=== PATIENT | female | born 1935 | race Caucasian/White ===

== ENCOUNTER → 2018-01-07 08:53 | Outpatient (CLI) | payer OTHER, SELFPAY ==
[2018-01-07 09:22] LABS: Abs Immature Grans 0.01 k/cumm (0.0-0.09); Absolute Basophil Count 0.05 k/cumm (0.0-0.2); Absolute Eosinophil Count 0.38 k/cumm (0.0-0.7); Absolute Monocyte Count 0.65 k/cumm (0.11-0.7); Absolute Neutrophil Count 6.96 k/cumm (1.2-6.7); Basophils % 0.5; HCT 35.3 % (36.0-46.0); HGB 11.4 g/dL (12.0-15.5); Immature Grans % 0.1; Lymphocytes % 14.8; Mean Corp. HGB Concentration 32.3 g/dL (32.0-36.0); Mean Corpuscular Hemoglobin 28.6 pg (27.0-33.0); Mean Corpuscular Volume 88.5 fL (80-95); Mean Platelet Volume 10.8 fL (8.0-11.0); Monocytes % 6.9; Neutrophils % 73.7; Platelet Count 165 x1000/uL (130-400); RBC 3.99 m/cumm (4.00-5.20); White Blood Cell Count 9.45 k/cumm (4.4-10.8)
[2018-01-07 10:12] LABS: ALT 22 U/L (12-78); AST 17 U/L (15-37); Albumin 3.2 g/dL (3.4-5.0); Alkaline Phosphatase 78 U/L (46-116); Anion Gap 10.6 mmol/L (3-11); BUN 23 mg/dL (7-18); Bilirubin, Total 0.5 mg/dL (0.2-1.0); CO2 26.4 mmol/L (21.0-32.0); CREATININE 1.67 mg/dL (0.55-1.02); Calcium 8.7 mg/dL (8.5-10.1); Chloride 107 mmol/L (98-107); Cholesterol 112 mg/dL (50-200); Estimated GFR 29.52 (mL/min/1.73m2); Glucose 270 mg/dL (70-100); HDL Cholesterol 35 mg/dL (40-60); LDL CHOLESTEROL 55 mg/dL (<100); Potassium 4.2 mmol/L (3.5-5.1); Sodium 144 mmol/L (136-145); Triglyceride 173 mg/dL (30-150)
[2018-01-07 10:50] LABS: COMMENT (LAB VIEW ONLY) 125.95 mg/dL; Microalb ug/mg Crea 487.7 ug/mg Cr
== END ==
PROVIDERS: PCP Nurse Practitioner Family; Visit Provider Nurse Practitioner
DX: E11.9 Type 2 diabetes mellitus without complications (principal); E78.5 Hyperlipidemia, unspecified; I10 Essential (primary) hypertension; I50.9 Heart failure, unspecified
CPT/HCPCS: 36415; 80053; 80061; 83721; 82043; 82570; 85025

== ENCOUNTER → 2018-01-10 13:36 | Outpatient (CLI) | payer OTHER, SELFPAY ==
--- NOTE | 2018-01-10 14:00 | DIABASSESS_ITS ---
DESCRIPTION: Chetna presents with her daughter for support for diabetes focused on food management. She has had an increase in A1c to 8.2. Chetna states she eats 4 toast with pb and banana for breakfast, or cereal and fruit. She snacks on 2 cereal bars and whatever is available throughout the day. She has meals on wheels daily and receives them frozen for the weekend. She doesn't often eat the salad so those are thrown away. She often does not like her meal. She goes to [employer] 1-2 days a week and she does enjoy this. SHe admits she does not et out of hunger, but likely boredom. Chetna documents her blood sugars and insulin dosing daily. She recognizes she misses testing her blood sugar at lunch and supper frequently. If she doesn' t test her blood sugars she does not take her insulin. Blood sugars 315=390. She does accurately dose insulin based on her insulin scale when she takes it. ASSESSMENT: Hyperglycemia secondary to not taking insulin as directed, high carbohydrate meals and frequent snacking as well as physical inactivity. INTERVENTION: MNT is provided based on patients interest and assessment of needs: Discussed breakfast choices and strategies to decrease food intake. Discussed insulin injection. ACTION PLAN: She agrees to eat 2 toast iwth PB in the morning and check her hunger. Her daughter agrees to move the granola bars so they are not visible. Her daughter will check in the evening to make sure she takes her supper insulin. Her construction executive will check to remind her to take her blood sugar and insulin dose at lunch when she is there. Chetna is receptive to the discussion and willing to try the suggestions above. Individual DSME/T ____ units billed TIME IN: OUT: No DM group education series being offered at this time.
== END ==
PROVIDERS: PCP Nurse Practitioner Family; Visit Provider Dietitian, Registered
DX: E11.9 Type 2 diabetes mellitus without complications (principal); Z79.4 Long term (current) use of insulin; Z71.3 Dietary counseling and surveillance
CPT/HCPCS: 97802

== ENCOUNTER 2018-03-31 09:19 | Emergency (ER) | payer OTHER, SELFPAY ==
[2018-03-31 09:29] VITALS: BP 173/67; PULSE 81; RESP 18; TEMP 36.7; O2SAT 97
--- NOTE | 2018-03-31 09:45 | W.ED.GENAD ---
Discharge Plan Disposition Patient Disposition: HOME Condition: Good Discharge Details Chief Complaint: RespSymp Clinical Impression: Cough Primary Care Provider: Catrina Nuñez ED Provider: Raghav Salazar Home Meds and New Rx's Prescriptions: New levofloxacin 750 mg tablet 750 mg PO DAILY Qty: 7 RF: 0 Continue multivitamin [Daily Vitamin] 1 EACH tablet 1 ea PO DAILY RF: 0 acetaminophen 500 MG tablet 500 mg PO BID RF: 0 amoxicillin 500 MG tablet 2 g PO ONCE RF: 0 aspirin [Aspirin Low-Strength] 81 MG tablet,chewable 81 mg PO DAILY RF: 0 calcium carbonate-vitamin D3 [Calcarb 600 With Vitamin D] 1 EACH tablet 1 ea PO BID RF: 0 lancets [Big Box OverstocksTouch UltraSoft Lancets] 1 EACH misc 1 ea Miscellaneous TID Qty: 90 RF: 6 chlorhexidine gluconate 480 ML mouthwash 15 ml Mucous Membrane BID Qty: 1 RF: 3 epinephrine [EpiPen 2-Ezekiel] 0.3 MG/0.3 ML auto-injector 0.3 mg IM see instructions Qty: 1 RF: 3 nitroglycerin 0.4 MG tablet, sublingual 0.4 mg Sublingual PRN Qty: 1 RF: 5 glucagon (human recombinant) [Glucagon Emergency Kit (human)] 1 MG kit 1 mg IJ PRN Qty: 1 RF: 0 omega-3 fatty acids-fish oil [Fish Oil] 1 EACH capsule 2 ea PO BID Qty: 360 RF: 3 budesonide-formoterol [Symbicort] 10.2 GM HFA aerosol inhaler 2 puff Inhalation BID Qty: 3 RF: 3 blood sugar diagnostic [OneTouch Ultra Test] 1 EACH strip 1 ea Miscellaneous QID Qty: 400 RF: 3 trazodone 50 MG tablet 50 mg PO HS PRNQty: 90 RF: 3 omeprazole 20 MG capsule,delayed release(DR/EC) 20 mg PO DAILY Qty: 90 RF: 3 gabapentin 100 MG capsule 100 - 200 mg PO HS PRNQty: 100 RF: 3 albuterol sulfate [ProAir HFA] 8.5 GM HFA aerosol inhaler 1 - 2 puff Inhalation Q6H PRN Qty: 3 RF: 11 insulin lispro [Humalog KwikPen Insulin] 100 UNIT/1 ML insulin pen 1 - 30 u Sub-Q AC Qty: 15 RF: 5 sucralfate [Carafate] 1 GM/10 ML suspension 1 g PO QID PRNQty: 1200 RF: 3 spironolactone 25 MG tablet 0.5 tab PO DAILY Qty: 45 RF: 3 Atorvastatin Calcium 20 MG tablet 20 mg PO DAILY Qty: 90 RF: 3 hydrocortisone 30 GM cream with perineal applicator 1 film Topical 2-4 times daily Qty: 1 RF: 0 isosorbide mononitrate 30 MG tablet extended release 24 hr 60 mg PO DAILY Qty: 180 RF: 3 losartan 50 MG tablet 25 mg PO DAILY Qty: 45 RF: 3 carvedilol 12.5 MG tablet 18.75 mg PO BID Qty: 270 RF: 3 furosemide [Lasix] 40 MG tablet 40 mg PO as directed Qty: 30 RF: 0 insulin glargine U-300 conc [Toujeo SoloStar U-300 Insulin] 300 UNIT/1 ML insulin pen AD see instructions Qty: 9 RF: 11 Varicella-Zoster Ge/As01b/Pf [Shingrix Vial Kit] 50 MCG INJ 50 mcg IM ONCE Qty: 1 RF: 1 pen needle, diabetic 31 gauge x 5/16 needle .ROUTE .MEDSUPPLY Qty: 500 RF: 3 fluticasone [Flonase Allergy Relief] 50 mcg/actuation spray,suspension 2 spray NS see instructions Qty: 1 RF: 12 loratadine 10 mg tablet 10 mg PO DAILY Qty: 90 RF: 3 Discontinued azithromycin 250 mg tablet See Label Instructions PO DAILY 5 Days Qty: 6 RF: 0 Discharge Instructions Additional Instructions: your xray and flu test were negative. Start taking levofloxacin and stop azithromycin follow up with your primary care provider within a week if you have worsening shortness of breath or high fevers return to the emergency department Medical Decision Making 82 yo female with hx of asthma/copd comes in with almost a month of cough, was on 3 days of prednisone last week and is on azithromycin now. Denies fevers but continues to have cough that is persistent and so came here. Denies fevers, has body aches. Will check for flu and obtain xray. HAs no chest pain unless she is coughing, no significant hypoxia, tachycardia or evidence of dvt so doubt pe at this time xray negative on my read and influenza test negative. Given this could be early cap and azithro would not be adequate coverage, will switch to levofloxacin, advised f/u with pcp and return precautions given Differential Diagnosis copd, pna, influenza, post nasal drip Imaging Data Radiologic Study: Attestation: I personally reviewed and interpreted this imaging study as follows: Imaging: X-Ray My impression: no acute findings Lab Data Lab results reviewed: Yes I reviewed the patient's lab results. HPI General Mode of arrival: ambulatory. Date/Time Provider Initiated Documentation: 03/31/18 09:27. Limitations to Documentation: no limitations. Information obtained by: patient. History of Present Illness 82 year old F presents to the emergency department with the chief complaint of cough, described as moderate, with intensity rated at 5. Patient reports no radiation. Patient started experiencing this day(s) (28) and it has been constant. No relieving factors improve symptom(s), No exacerbating factors reported . Related Data Home Medications Medication Instructions Recorded Confirmed acetaminophen 500 mg PO BID tab-cap 07/25/12 03/31/18 amoxicillin 2 g PO ONCE tab-cap 07/25/12 03/31/18 aspirin [Aspirin Low-Strength] 81 mg PO DAILY tab-cap 07/25/12 03/31/18 calcium carbonate-vitamin D3 1 ea PO BID 07/25/12 03/31/18 [Calcarb 600 With Vitamin D] multivitamin [Daily Vitamin] 1 ea PO DAILY 07/25/12 03/31/18 lancets [Big Box OverstocksTouch UltraSoft #90 ea 01/02/15 03/28/18 Lancets] chlorhexidine gluconate 15 ml MUCOUS MEMBRANE BID #1 bottle 04/04/15 03/31/18 epinephrine [EpiPen 2-Ezekiel] 0.3 mg IM see instructions #1 kit 08/17/15 03/31/18 glucagon (human recombinant) 1 mg IJ PRN #1 kit 10/28/15 03/31/18 [Glucagon Emergency Kit (human)] nitroglycerin 0.4 mg SUBLINGUAL PRN #1 bottle 10/28/15 03/31/18 omega-3 fatty acids-fish oil [Fish 2 ea PO BID #360 tab-cap 02/17/16 03/31/18 Oil] budesonide-formoterol [Symbicort] 2 puff INHALATION BID #3 inhaler 01/27/17 03/31/18 blood sugar diagnostic [OneTouch #400 strip 03/11/17 03/28/18 Ultra Test] omeprazole 20 mg PO DAILY #90 tab-cap 03/15/17 03/31/18 trazodone 50 mg PO HS PRN #90 tab-cap 03/15/17 03/31/18 albuterol sulfate [ProAir HFA] 1 - 2 puff INHALATION Q6H PRN #3 03/22/17 03/31/18 inhaler gabapentin 100 - 200 mg PO HS PRN #100 tab-cap 03/22/17 03/31/18 insulin lispro [Humalog KwikPen 1 - 30 u SUB-Q AC #15 pen 04/05/17 03/31/18 Insulin] sucralfate [Carafate] 1 g PO QID PRN #1200 ml 06/17/17 03/31/18 spironolactone 0.5 tab PO DAILY #45 tab 09/23/17 03/31/18 hydrocortisone 1 film TOPICAL 2-4 times daily #1 10/25/17 03/31/18 tube isosorbide mononitrate 60 mg PO DAILY #180 tab-cap 11/01/17 03/31/18 carvedilol 18.75 mg PO BID #270 tab-cap 11/22/17 03/31/18 losartan 25 mg PO DAILY #45 tab 11/22/17 03/31/18 furosemide [Lasix] 40 mg PO as directed #30 tab-cap 01/05/18 03/31/18 insulin glargine U-300 conc 0 AD see instructions #9 pen 01/12/18 03/28/18 [Toujeo SoloStar U-300 Insulin] pen needle, diabetic 31 gauge x #500 each 01/25/18 03/28/1810/06 fluticasone 50 mcg/actuation nasal 2 spray NS see instructions #1 unit 02/03/18 03/31/18 spray,suspension loratadine 10 mg tablet 10 mg PO DAILY #90 tab-cap 02/09/18 03/31/18 levofloxacin 750 mg PO DAILY #7 tab 03/31/18 Previous Rx's Medication Instructions Recorded blood sugar diagnostic [OneTouch #400 strip 03/11/17 Ultra Test] omeprazole 20 mg PO DAILY #90 tab-cap 03/15/17 albuterol sulfate [ProAir HFA] 1 - 2 puff INHALATION Q6H PRN #3 03/22/17 inhaler insulin lispro [Humalog KwikPen 1 - 30 u SUB-Q AC #15 pen 04/05/17 Insulin] spironolactone 0.5 tab PO DAILY #45 tab 09/23/17 hydrocortisone 1 film TOPICAL 2-4 times daily #1 10/25/17 tube isosorbide mononitrate 60 mg PO DAILY #180 tab-cap 11/01/17 carvedilol 18.75 mg PO BID #270 tab-cap 11/22/17 losartan 25 mg PO DAILY #45 tab 11/22/17 furosemide [Lasix] 40 mg PO as directed #30 tab-cap 01/05/18 pen needle, diabetic 31 gauge x #500 each 01/25/1810/06 fluticasone 50 mcg/actuation nasal 2 spray NS see instructions #1 unit 02/03/18 spray,suspension loratadine 10 mg tablet 10 mg PO DAILY #90 tab-cap 02/09/18 levofloxacin 750 mg PO DAILY #7 tab 03/31/18 Allergies Allergy/AdvReac Type Severity Reaction Status Date / Time GORDON Inhibitors AdvReac Unknown COUGH Verified 03/28/18 14:31 multiple food allergies Allergy Intermediate Sensitization Uncoded 03/28/18 14:31 noted on blood test General Stated Complaint: RespSymp ALON: 3 Review of Systems Review of Systems All systems reviewed & are unremarkable except as noted in HPI and below Constitutional Denies weakness Eyes Denies loss of vision ENT Denies change in voice Cardiovascular Denies chest pain and Denies dyspnea Respiratory Denies dyspnea Gastrointestinal Denies abdominal pain, Denies nausea and Denies vomiting Genitourinary Denies dysuria Musculoskeletal Denies joint swelling Integumentary/Breasts Denies rash Neurologic Denies loss of vision and Denies weakness Psychiatric Denies depression Endocrine Denies cold intolerance and Denies heat intolerance Allergic/Immunologic Denies urticaria PFSH Family History Mother Hypertensive disorder, systemic arterial Diabetes Atherosclerosis of coronary artery Family history of stroke Dementia Hyperlipidemia Family history of glaucoma Cataract Father No problems noted. 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) Retinopathy of both eyes (Chronic 01/27/17) Restrictive lung disease (Chronic) Osteoporosis (Chronic 07/28/11) Multiple food allergies (Chronic 08/14/15) Mitral valve regurgitation (Chronic 09/05/13) Memory impairment (Chronic 08/30/17) Hyperlipidemia, unspecified (Chronic 05/02/15) Essential hypertension (Chronic 12/16/11) Depression (Chronic 12/16/11) Congestive heart failure (Chronic 12/16/11) Chronic kidney disease, stage 4 (severe) (Chronic) 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/16) Chronic kidney disease, stage IV (severe) (Chronic 12/16/11) Arthritis (Chronic 12/16/11) Angina at rest (Chronic) PSVT (paroxysmal supraventricular tachycardia) (Inactive) CHF (congestive heart failure) CKD (chronic kidney disease) Diabetes mellitus HTN (hypertension) Social History Smoking/Tobacco Use Status: Former Tobacco Use Surgical History Extraction of cataract Hernia Repair, Incisional (~2010) Replacement of total knee joint Exam Const General: no acute distress Orientation: alert HENID Head: normal to inspection Ears: external ears normal General nose exam: external nose normal Mouth: moist mucous membranes Eyes General: appearance normal, both eyes and all related structures Neck Neck: normal visual inspection Resp Effort & Inspection: normal respiratory effort and able to speak in complete sentences Cardio Rate: regular rate Skin General skin exam: no rashes or lesions noted Neuro General: alert and oriented x3 Extrem General: normal to inspection Psych Mental Status: mental status grossly normal Course Vital Signs Temperature 36.7 C 03/31/18 09:29 Pulse 81 03/31/18 09:29 Respiratory Rate 18 03/31/18 09:29 Blood Pressure 173/67 H 03/31/18 09:29 Pulse Oximetry 97 03/31/18 09:29 Temperature 36.7 C 03/31/18 09:29 Temperature Source Temporal Artery Scan 03/31/18 09:29 Pulse 81 03/31/18 09:29 Respiratory Rate 18 03/31/18 09:29 Respiratory Effort Non-Labored 03/31/18 09:36 Blood Pressure 173/67 H 03/31/18 09:29 Blood Pressure Position Sitting 03/31/18 09:29 Pulse Oximetry 97 03/31/18 09:29 Oxygen Delivery Method Room Air 03/31/18 09:29 Oxygen Flow Rate 0 03/31/18 09:29
--- NOTE | 2018-03-31 09:49 | ED.GENADUL_ITS ---
Discharge Plan Disposition Patient Disposition: HOME Condition: Good Discharge Details Chief Complaint: RespSymp Clinical Impression: Cough Primary Care Provider: Catrina Nuñez ED Provider: Raghav Salazar Home Meds and New Rx's Prescriptions: New levofloxacin 750 mg tablet 750 mg PO DAILY Qty: 7 RF: 0 Continue multivitamin [Daily Vitamin] 1 EACH tablet 1 ea PO DAILY RF: 0 acetaminophen 500 MG tablet 500 mg PO BID RF: 0 amoxicillin 500 MG tablet 2 g PO ONCE RF: 0 aspirin [Aspirin Low-Strength] 81 MG tablet,chewable 81 mg PO DAILY RF: 0 calcium carbonate-vitamin D3 [Calcarb 600 With Vitamin D] 1 EACH tablet 1 ea PO BID RF: 0 lancets [Spill IncTouch UltraSoft Lancets] 1 EACH misc 1 ea Miscellaneous TID Qty: 90 RF: 6 chlorhexidine gluconate 480 ML mouthwash 15 ml Mucous Membrane BID Qty: 1 RF: 3 epinephrine [EpiPen 2-Ezekiel] 0.3 MG/0.3 ML auto-injector 0.3 mg IM see instructions Qty: 1 RF: 3 nitroglycerin 0.4 MG tablet, sublingual 0.4 mg Sublingual PRN Qty: 1 RF: 5 glucagon (human recombinant) [Glucagon Emergency Kit (human)] 1 MG kit 1 mg IJ PRN Qty: 1 RF: 0 omega-3 fatty acids-fish oil [Fish Oil] 1 EACH capsule 2 ea PO BID Qty: 360 RF: 3 budesonide-formoterol [Symbicort] 10.2 GM HFA aerosol inhaler 2 puff Inhalation BID Qty: 3 RF: 3 blood sugar diagnostic [OneTouch Ultra Test] 1 EACH strip 1 ea Miscellaneous QID Qty: 400 RF: 3 trazodone 50 MG tablet 50 mg PO HS PRNQty: 90 RF: 3 omeprazole 20 MG capsule,delayed release(DR/EC) 20 mg PO DAILY Qty: 90 RF: 3 gabapentin 100 MG capsule 100 - 200 mg PO HS PRNQty: 100 RF: 3 albuterol sulfate [ProAir HFA] 8.5 GM HFA aerosol inhaler 1 - 2 puff Inhalation Q6H PRN Qty: 3 RF: 11 insulin lispro [Humalog KwikPen Insulin] 100 UNIT/1 ML insulin pen 1 - 30 u Sub-Q AC Qty: 15 RF: 5 sucralfate [Carafate] 1 GM/10 ML suspension 1 g PO QID PRNQty: 1200 RF: 3 spironolactone 25 MG tablet 0.5 tab PO DAILY Qty: 45 RF: 3 Atorvastatin Calcium 20 MG tablet 20 mg PO DAILY Qty: 90 RF: 3 hydrocortisone 30 GM cream with perineal applicator 1 film Topical 2-4 times daily Qty: 1 RF: 0 isosorbide mononitrate 30 MG tablet extended release 24 hr 60 mg PO DAILY Qty: 180 RF: 3 losartan 50 MG tablet 25 mg PO DAILY Qty: 45 RF: 3 carvedilol 12.5 MG tablet 18.75 mg PO BID Qty: 270 RF: 3 furosemide [Lasix] 40 MG tablet 40 mg PO as directed Qty: 30 RF: 0 insulin glargine U-300 conc [Toujeo SoloStar U-300 Insulin] 300 UNIT/1 ML insulin pen AD see instructions Qty: 9 RF: 11 Varicella-Zoster Ge/As01b/Pf [Shingrix Vial Kit] 50 MCG INJ 50 mcg IM ONCE Qty: 1 RF: 1 pen needle, diabetic 31 gauge x 5/16 needle .ROUTE .MEDSUPPLY Qty: 500 RF: 3 fluticasone [Flonase Allergy Relief] 50 mcg/actuation spray,suspension 2 spray NS see instructions Qty: 1 RF: 12 loratadine 10 mg tablet 10 mg PO DAILY Qty: 90 RF: 3 Discontinued azithromycin 250 mg tablet See Label Instructions PO DAILY 5 Days Qty: 6 RF: 0 Discharge Instructions Additional Instructions: your xray and flu test were negative. Start taking levofloxacin and stop azithromycin follow up with your primary care provider within a week if you have worsening shortness of breath or high fevers return to the emergency department Medical Decision Making 82 yo female with hx of asthma/copd comes in with almost a month of cough, was on 3 days of prednisone last week and is on azithromycin now. Denies fevers but continues to have cough that is persistent and so came here. Denies fevers, has body aches. Will check for flu and obtain xray. HAs no chest pain unless she is coughing, no significant hypoxia, tachycardia or evidence of dvt so doubt pe at this time xray negative on my read and influenza test negative. Given this could be early cap and azithro would not be adequate coverage, will switch to levofloxacin, advised f/u with pcp and return precautions given Differential Diagnosis copd, pna, influenza, post nasal drip Imaging Data Radiologic Study: Attestation: I personally reviewed and interpreted this imaging study as follows: Imaging: X-Ray My impression: no acute findings Lab Data Lab results reviewed: Yes I reviewed the patient's lab results. HPI General Mode of arrival: ambulatory . Date/Time Provider Initiated Documentation: 03/31/18 09:27 . Limitations to Documentation: no limitations . Information obtained by: patient . History of Present Illness 82 year old F presents to the emergency department with the chief complaint of cough, described as moderate, with intensity rated at 5. Patient reports no radiation. Patient started experiencing this day(s) (28) and it has been constant. No relieving factors improve symptom(s), No exacerbating factors reported . Related Data Home Medications Medication Instructions Recorded Confirmed acetaminophen 500 mg PO BID tab-cap 07/25/12 03/31/18 amoxicillin 2 g PO ONCE tab-cap 07/25/12 03/31/18 aspirin [Aspirin Low-Strength] 81 mg PO DAILY tab-cap 07/25/12 03/31/18 calcium carbonate-vitamin D3 1 ea PO BID 07/25/12 03/31/18 [Calcarb 600 With Vitamin D] multivitamin [Daily Vitamin] 1 ea PO DAILY 07/25/12 03/31/18 lancets [Spill IncTouch UltraSoft #90 ea 01/02/15 03/28/18 Lancets] chlorhexidine gluconate 15 ml MUCOUS MEMBRANE BID #1 bottle 04/04/15 03/31/18 epinephrine [EpiPen 2-Ezekiel] 0.3 mg IM see instructions #1 kit 08/17/15 03/31/18 glucagon (human recombinant) 1 mg IJ PRN #1 kit 10/28/15 03/31/18 [Glucagon Emergency Kit (human)] nitroglycerin 0.4 mg SUBLINGUAL PRN #1 bottle 10/28/15 03/31/18 omega-3 fatty acids-fish oil [Fish 2 ea PO BID #360 tab-cap 02/17/16 03/31/18 Oil] budesonide-formoterol [Symbicort] 2 puff INHALATION BID #3 inhaler 01/27/1701/08 blood sugar diagnostic [OneTouch #400 strip 03/11/17 03/28/18 Ultra Test] omeprazole 20 mg PO DAILY #90 tab-cap 03/15/17 03/31/18 trazodone 50 mg PO HS PRN #90 tab-cap 03/15/17 03/31/18 albuterol sulfate [ProAir HFA] 1 - 2 puff INHALATION Q6H PRN #3 03/22/17 inhaler gabapentin 100 - 200 mg PO HS PRN #100 tab-cap 03/22/17 03/31/18 insulin lispro [Humalog KwikPen 1 - 30 u SUB-Q AC #15 pen 04/05/17 03/31/18 Insulin] sucralfate [Carafate] 1 g PO QID PRN #1200 ml 06/17/17 03/31/18 spironolactone 0.5 tab PO DAILY #45 tab 09/23/17 03/31/18 hydrocortisone 1 film TOPICAL 2-4 times daily #1 10/25/17 03/31/18 tube isosorbide mononitrate 60 mg PO DAILY #180 tab-cap 11/01/17 03/31/18 carvedilol 18.75 mg PO BID #270 tab-cap 11/22/17 03/31/18 losartan 25 mg PO DAILY #45 tab 11/22/17 03/31/18 furosemide [Lasix] 40 mg PO as directed #30 tab-cap 01/05/18 03/31/18 insulin glargine U-300 conc 0 AD see instructions #9 pen 01/12/18 03/28/18 [Toujeo SoloStar U-300 Insulin] pen needle, diabetic 31 gauge x #500 each 01/25/18 03/28/1810/06 fluticasone 50 mcg/actuation nasal 2 spray NS see instructions #1 unit 02/03/18 03/31/18 spray,suspension loratadine 10 mg tablet 10 mg PO DAILY #90 tab-cap 02/09/18 03/31/18 levofloxacin 750 mg PO DAILY #7 tab 03/31/18 Previous Rx's Medication Instructions Recorded blood sugar diagnostic [OneTouch #400 strip 03/11/17 Ultra Test] omeprazole 20 mg PO DAILY #90 tab-cap 03/15/17 albuterol sulfate [ProAir HFA] 1 - 2 puff INHALATION Q6H PRN #3 03/22/17 inhaler insulin lispro [Humalog KwikPen 1 - 30 u SUB-Q AC #15 pen 04/05/17 Insulin] spironolactone 0.5 tab PO DAILY #45 tab 09/23/17 hydrocortisone 1 film TOPICAL 2-4 times daily #1 10/25/17 tube isosorbide mononitrate 60 mg PO DAILY #180 tab-cap 11/01/17 carvedilol 18.75 mg PO BID #270 tab-cap 11/22/17 losartan 25 mg PO DAILY #45 tab 11/22/17 furosemide [Lasix] 40 mg PO as directed #30 tab-cap 01/05/18 pen needle, diabetic 31 gauge x #500 each 01/25/1810/06 fluticasone 50 mcg/actuation nasal 2 spray NS see instructions #1 unit 02/03/18 spray,suspension loratadine 10 mg tablet 10 mg PO DAILY #90 tab-cap 02/09/18 levofloxacin 750 mg PO DAILY #7 tab 03/31/18 Allergies Allergy/AdvReac Type Severity Reaction Status Date / Time GORDON Inhibitors AdvReac Unknown COUGH Verified 03/28/18 14:31 multiple food allergies Allergy Intermediate Sensitization Uncoded 03/28/18 14: 31 noted on blood test General Stated Complaint: RespSymp ALON: 3 Review of Systems Review of Systems All systems reviewed & are unremarkable except as noted in HPI and below Constitutional Denies weakness Eyes Denies loss of vision ENT Denies change in voice Cardiovascular Denies chest pain and Denies dyspnea Respiratory Denies dyspnea Gastrointestinal Denies abdominal pain, Denies nausea and Denies vomiting Genitourinary Denies dysuria Musculoskeletal Denies joint swelling Integumentary/Breasts Denies rash Neurologic Denies loss of vision and Denies weakness Psychiatric Denies depression Endocrine Denies cold intolerance and Denies heat intolerance Allergic/Immunologic Denies urticaria PFSH Family History Mother Hypertensive disorder, systemic arterial Diabetes Atherosclerosis of coronary artery Family history of stroke Dementia Hyperlipidemia Family history of glaucoma Cataract Father No problems noted. 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) Retinopathy of both eyes (Chronic 01/27/17) Restrictive lung disease (Chronic) Osteoporosis (Chronic 07/28/11) Multiple food allergies (Chronic 08/14/15) Mitral valve regurgitation (Chronic 09/05/13) Memory impairment (Chronic 08/30/17) Hyperlipidemia, unspecified (Chronic 05/02/15) Essential hypertension (Chronic 12/16/11) Depression (Chronic 12/16/11) Congestive heart failure (Chronic 12/16/11) Chronic kidney disease, stage 4 (severe) (Chronic) 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 ) Chronic kidney disease, stage IV (severe) (Chronic 12/16/11) Arthritis (Chronic 12/16/11) Angina at rest (Chronic) PSVT (paroxysmal supraventricular tachycardia) (Inactive) CHF (congestive heart failure) CKD (chronic kidney disease) Diabetes mellitus HTN (hypertension) Social History Smoking/Tobacco Use Status: Former Tobacco Use Surgical History Extraction of cataract Hernia Repair, Incisional (~2010) Replacement of total knee joint Exam Const General: no acute distress Orientation: alert HENWI Head: normal to inspection Ears: external ears normal General nose exam: external nose normal Mouth: moist mucous membranes Eyes General: appearance normal, both eyes and all related structures Neck Neck: normal visual inspection Resp Effort & Inspection: normal respiratory effort and able to speak in complete sentences Cardio Rate: regular rate Skin General skin exam: no rashes or lesions noted Neuro General: alert and oriented x3 Extrem General: normal to inspection Psych Mental Status: mental status grossly normal Course Vital Signs Temperature 36.7 C 03/31/18 09:29 Pulse 81 03/31/18 09:29 Respiratory Rate 18 03/31/18 09:29 Blood Pressure 173/67 H 03/31/18 09:29 Pulse Oximetry 97 03/31/18 09:29 Temperature 36.7 C 03/31/18 09:29 Temperature Source Temporal Artery Scan 03/31/18 09:29 Pulse 81 03/31/18 09:29 Respiratory Rate 18 03/31/18 09:29 Respiratory Effort Non-Labored 03/31/18 09:36 Blood Pressure 173/67 H 03/31/18 09:29 Blood Pressure Position Sitting 03/31/18 09:29 Pulse Oximetry 97 03/31/18 09:29 Oxygen Delivery Method Room Air 03/31/18 09:29 Oxygen Flow Rate 0 03/31/18 09:29
--- NOTE | 2018-03-31 10:06 | DI.RAD_ITS ---
SYMPTOM/DIAGNOSIS: COUGH PA AND LATERAL CHEST: There is no infiltrate. There is no pleural effusion. The cardiovascular structures are intact. Pacing wires are in stable position when compared with previous images. IMPRESSION: No evidence of an acute abnormality.
[2018-03-31 10:50] VITALS: BP 160/54; PULSE 79; RESP 18; TEMP 36.7; O2SAT 97
[2018-03-31 10:55] VITALS: BP 160/54; PULSE 79; RESP 18; TEMP 36.7; O2SAT 97
== END 2018-03-31 10:54 | disposition home or self-care (01) ==
PROVIDERS: Emergency Provider Emergency Medicine; PCP Nurse Practitioner Family
DX: R05 Cough (principal); I50.9 Heart failure, unspecified; I13.10 Hypertensive heart and chronic kidney disease without heart failure, with stage 1 through stage 4 chronic kidney disease, or unspecified chronic kidney disease; N18.9 Chronic kidney disease, unspecified; E11.9 Type 2 diabetes mellitus without complications; Z79.4 Long term (current) use of insulin; Z87.891 Personal history of nicotine dependence
CPT/HCPCS: 87449; 99283; 71046

== ENCOUNTER 2018-09-09 11:00 | Outpatient (CLI) | payer OTHER, SELFPAY ==
--- NOTE | 2018-09-09 13:30 | DI.RAD_ITS ---
SYMPTOMS/DIAGNOSIS: DELAYED PAIN, S/P FALL, ? FX, M25.062 LEFT HIP AND PELVIS: Three views were obtained. There is narrowing of the cartilaginous joint space of the left hip and also to a lesser degree of the right hip. There are hypertrophic changes of the acetabula and femoral heads. There is no evidence of acute hip fracture.
== END 2018-09-09 11:20 ==
PROVIDERS: PCP Nurse Practitioner Family; Visit Provider Nurse Practitioner Family
DX: M25.552 Pain in left hip (principal); Z91.81 History of falling
CPT/HCPCS: 73502

== ENCOUNTER 2019-06-22 13:07 | Outpatient (CLI) | payer OTHER, SELFPAY ==
[2019-06-22 14:08] LABS: COMMENT (LAB VIEW ONLY) 183.39 mg/dL
[2019-06-22 14:10] LABS: Microalb ug/mg Crea 410.3 ug/mg Cr
[2019-06-22 14:21] LABS: Anion Gap 6.7 mmol/L (3-11); BUN 33 mg/dL (7-18); CO2 30.3 mmol/L (21.0-32.0); CREATININE 1.59 mg/dL (0.55-1.02); Calcium 9.5 mg/dL (8.5-10.1); Calculated LDL 38 mg/dL (<100); Chloride 108 mmol/L (98-107); Cholesterol 116 mg/dL (<200); Estimated GFR 31.16 (mL/min/1.73m2); Glucose 105 mg/dL (74-106); HDL Cholesterol 35 mg/dL (40-60); Potassium 3.8 mmol/L (3.5-5.1); Sodium 145 mmol/L (136-145); Triglyceride 219 mg/dL (<150)
== END 2019-06-22 13:27 ==
PROVIDERS: PCP Nurse Practitioner Family; Visit Provider Nurse Practitioner Family
DX: E78.5 Hyperlipidemia, unspecified; E11.319 Type 2 diabetes mellitus with unspecified diabetic retinopathy without macular edema; Z79.4 Long term (current) use of insulin
CPT/HCPCS: 36415; 80048; 80061; 82043; 82570

== ENCOUNTER 2019-06-22 15:18 | Outpatient (CLI) | payer OTHER, SELFPAY ==
--- NOTE | 2019-06-22 15:23 | DI.RAD_ITS ---
EXAM: XR ABDOMEN FLAT PLATE CLINICAL HISTORY: assess bowel/gas pattern,concerned constipation,diarrhea,abd distention TECHNIQUE: COMPARISON: No exams were available for comparison FINDINGS: Two views were obtained. There vascular clips in right upper quadrant consistent with prior cholecys tectomy. Bowel gas pattern is within normal limits. No gross organomegaly. IMPRESSION: Unremarkable examination of the abdomen.
== END 2019-06-22 15:38 ==
PROVIDERS: PCP Nurse Practitioner Family; Visit Provider Nurse Practitioner Adult Health
DX: R14.0 Abdominal distension (gaseous) (principal); R19.7 Diarrhea, unspecified; Z90.49 Acquired absence of other specified parts of digestive tract
CPT/HCPCS: 74018

== ENCOUNTER 2019-11-13 00:46 | Outpatient (CLI) | payer OTHER, SELFPAY ==
--- NOTE | 2019-11-13 13:45 | DI.RAD_ITS ---
EXAM: XR KNEE RT 3V AP,LAT,SUN CLINICAL HISTORY: S/P FALL M25.561 PAIN RT KNEE. TECHNIQUE: 2D digital imaging was performed. COMPARISON: CR KNEES BILAT AP LATERALS from 06/27/2014 CR XR ABDOMEN FLAT PLATE from 06/22/2019 FINDINGS: There are again seen postsurgical changes of a right total knee replacement. The orthopedic hardware appears in good position. The bones are intact. Vascular calcifications are seen in the soft tissu es. IMPRESSION: Stable right TKR. DATA REPOSITORY: RADIATION DOSE DELIVERED:
--- NOTE | 2019-11-13 13:45 | DI.RAD_ITS ---
EXAM: XR HIP RT COMPLETE AP PELVIS INDICATION: S/P FALL M25.551, PAIN RT HIP. COMPARISON: No exams were available for comparison TECHNIQUE: 2D digital imaging was performed. FINDINGS: In the right hip, [id number] degenerative changes are present with joint space narrowing and taylor bchondral sclerosis. Similar findings are seen in the left hip. No acute fracture or dislocation is seen. Moderately severe degenerative changes are seen in the lower lumbar spine. The soft tissues are unremarkable. IMPRESSION: Osteoarthritis of the hips and spine. DATA REPOSITORY: RADIATION DOSE DELIVERED:
== END 2019-11-13 01:06 ==
PROVIDERS: PCP Nurse Practitioner Family; Visit Provider Nurse Practitioner Family
DX: M25.561 Pain in right knee (principal); Z96.651 Presence of right artificial knee joint; M25.551 Pain in right hip; M16.0 Bilateral primary osteoarthritis of hip; M47.816 Spondylosis without myelopathy or radiculopathy, lumbar region
CPT/HCPCS: 73562; 73502

== ENCOUNTER 2019-12-08 22:19 | Outpatient (REF) | payer OTHER, SELFPAY ==
[2019-12-08 22:40] LABS: Abs Immature Grans 0.02 k/cumm (0.0-0.09); Absolute Basophil Count 0.03 k/cumm (0.0-0.2); Absolute Eosinophil Count 0.27 k/cumm (0.0-0.7); Absolute Lymphocyte Count 2.03 k/cumm (1.2-3.4); Absolute Monocyte Count 0.83 k/cumm (0.11-0.7); Absolute Neutrophil Count 8.05 k/cumm (1.2-6.7); Basophils % 0.3; Eosinophils % 2.4; HCT 32.7 % (36.0-46.0); HGB 9.8 g/dL (12.0-15.5); Immature Grans % 0.2 %; Lymphocytes % 18.1; Mean Corpuscular Hemoglobin 25.3 pg (27.0-33.0); Mean Corpuscular Volume 84.5 fL (80-95); Monocytes % 7.4; Neutrophils % 71.6; Platelet Count 229 x1000/uL (130-400); RBC 3.87 m/cumm (4.00-5.20); RBC Distribution Width 14.2 % (11.7-14.6); White Blood Cell Count 11.24 k/cumm (4.4-10.8)
[2019-12-08 22:53] LABS: ALT 18 U/L (14-59); AST 19 U/L (15-37); Albumin 3.5 g/dL (3.4-5.0); Alkaline Phosphatase 69 U/L (46-116); Anion Gap 10.1 mmol/L (3-11); BUN 36 mg/dL (7-18); Bilirubin, Total 0.3 mg/dL (0.2-1.0); CO2 25.9 mmol/L (21.0-32.0); CREATININE 1.85 mg/dL (0.55-1.02); Calcium 9.1 mg/dL (8.5-10.1); Chloride 107 mmol/L (98-107); Glucose 116 mg/dL (74-106); Lipase 341 U/L (73-393); Potassium 4.2 mmol/L (3.5-5.1); Sodium 143 mmol/L (136-145)
== END 2019-12-08 22:39 ==
LOC: LBN 22:19
PROVIDERS: PCP Nurse Practitioner Family; Visit Provider Nurse Practitioner Family
DX: R19.7 Diarrhea, unspecified (principal)
CPT/HCPCS: 80053; 83690; 85025

== ENCOUNTER 2019-12-11 09:18 | Outpatient (REF) | payer OTHER, SELFPAY ==
[2019-12-12 12:00] LABS: Campylobacter PCR Negative (Negative); Salmonella PCR Negative (Negative); Shiga Toxin PCR Negative (Negative); Shigella/Enteroinvasive Ecoli Negative (Negative)
== END 2019-12-11 09:38 ==
LOC: LBN 09:18
PROVIDERS: PCP Nurse Practitioner Family; Visit Provider Nurse Practitioner Family
DX: R19.7 Diarrhea, unspecified (principal)
CPT/HCPCS: 87505; 83630; 87324

== ENCOUNTER 2019-12-12 01:14 | Outpatient (CLI) | payer OTHER, SELFPAY ==
--- NOTE | 2019-12-12 07:43 | DI.CT_ITS ---
EXAM: CT ABDOMEN PELVIS WO CLINICAL HISTORY: abd pain change bowel habit with heme pos stool. TECHNIQUE: Imaging Protocol: Axial computed tomography images with coronal and sagittal reformatted images were created and reviewed. COMPARISON: No exams were available for comparison FINDINGS: ABDOMEN: Lung Bases: Cardiac pacing wires are present. Liver: Normal density. No measurable mass. Liver has a lobulated contour suspicious for hepatic cirrh osis. Gallbladder and biliary tract: Status post cholecystectomy. No biliary ductal dilatation. Pancreas: Normal density, no abnormal calcifications or inflammatory process. Spleen: Normal. Kidneys: Normal size, contour and axis.Punctate calcifications seen in each kidney which may represen t nonobstructing stones. Hypodense cortical lesions bilaterally. They are too small for further renetta racterization on this noncontrast examination. Likely reflect small cysts. Adrenal glands: 1 cm hypodense left adrenal nodule likely reflecting an adenoma. Right adrenal gland is unremarkable. Lymph nodes: Within normal limits. Abdominal Aorta: Abdominal portion non-dilated. Atherosclerosis. PELVIS: Bladder:Symmetric distention, no gross wall thickening. Bowel: No obstruction or bowel wall thickening. No evidence of acute appendicitis. A few scattered c olonic diverticula but no evidence of acute diverticulitis. No pericolonic inflammatory changes. Peritoneal cavity: No ascites, collection or mesenteric inflammatory response Reproductive organs: There is a 5.5 x 4.6 cm cystic and solid left adnexal mass. Bones: Degenerative changes are present in the spine. Soft Tissues: There are 2 small fat containing supraumbilical anterior abdominal wall hernia. IMPRESSION: 1. 5.5 x 4.6 cm complex left adnexal mass which may be ovarian in origin. Neoplasm should be exclude d. Pelvic ultrasound or pelvic MRI may be considered for further evaluation. 2. Lobulated contour of the liver suspicious for hepatic cirrhosis. 3. Colonic diverticula but no evidence of acute diverticulitis or bowel obstruction. 4. Additional findings in the abdomen and pelvis as described above. RADIATION DOSE DELIVERED: Total DLP DATA REPOSITORY: All CT scans at this facility are submitted to the National Radiology Data Registry (NRDR) Dose Index Registry (DIR) with the [employer] (A[employer]). RADIATION OPTIMIZATION: All CT scans at this facility use at least one of these dose optimization te chniques: automated exposure control; mA and/or kV adjustment per patient size (includes targeted exa ms where dose is matched to clinical indication); or iterative reconstruction.
[2019-12-12] MEDS: Breeza Beverage 473 ML BTL PO ×2 (09:58→09:59)
[2019-12-12] MEDS: Omnipaque 350 MG/ML 50 ML BTL PO (09:58)
== END 2019-12-12 01:34 ==
PROVIDERS: PCP Nurse Practitioner Family; Visit Provider Nurse Practitioner Family
DX: R11.2 Nausea with vomiting, unspecified (principal); R19.7 Diarrhea, unspecified; R10.9 Unspecified abdominal pain; R19.5 Other fecal abnormalities; N83.8 Other noninflammatory disorders of ovary, fallopian tube and broad ligament; K76.89 Other specified diseases of liver
CPT/HCPCS: 74176; Q9967

== ENCOUNTER 2019-12-20 02:41 | Outpatient (RCR) | payer OTHER, SELFPAY ==
[2019-12-20] MEDS: IRON SUCROSE COMPLEX 300 MG in Normal Saline 250 ML 176.667 MG IVPB (12:54)
[2019-12-20] MEDS: Normal Saline Flush 10 ML SYR IVP (12:58)
== END 2019-12-22 23:59 | disposition home or self-care (01) ==
LOC: INF 02:41
PROVIDERS: PCP Nurse Practitioner Family; Visit Provider Internal Medicine
DX: N18.4 Chronic kidney disease, stage 4 (severe) (principal); D63.1 Anemia in chronic kidney disease
CPT/HCPCS: 96365; 96366; J1756

== ENCOUNTER 2020-01-03 02:12 | Outpatient (RCR) | payer OTHER, SELFPAY ==
[2019-12-27] MEDS: IRON SUCROSE COMPLEX 300 MG in Normal Saline 250 ML 176.667 MG IVPB (13:17)
[2019-12-27] MEDS: Normal Saline Flush 10 ML SYR IVP (13:17)
[2020-01-03] MEDS: Normal Saline Flush 10 ML SYR IVP (13:23)
[2020-01-03] MEDS: IRON SUCROSE COMPLEX 300 MG in Normal Saline 250 ML 176.667 MG IVPB (13:40)
== END 2020-01-22 23:59 | disposition home or self-care (01) ==
LOC: INF 02:12
PROVIDERS: PCP Nurse Practitioner Family; Visit Provider Internal Medicine
DX: N18.4 Chronic kidney disease, stage 4 (severe) (principal); D63.1 Anemia in chronic kidney disease; D50.9 Iron deficiency anemia, unspecified
CPT/HCPCS: 96365; 96366; J1756

== ENCOUNTER 2020-02-29 00:22 | Outpatient (CLI) | payer OTHER, SELFPAY ==
--- NOTE | 2020-02-29 08:15 | DI.US_ITS ---
EXAM: US PELVIS TRANSVAGINAL CLINICAL HISTORY: Further eval L ovarian mass,N94.89, ADNEXAL MASS TECHNIQUE: Ultrasound performed using standard protocol. COMPARISON: US RENAL ULTRASOUND from 12/25/2011 FINDINGS: Pelvic ultrasound was performed transabdominally and transvaginally. Right ovary was nonvisualized. Uterus is 69 x 30 x 44 millimeters in diameter. The endometrial stri pe is 6 millimeters in thickness and appears fairly homogeneous. Left ovary contains 71 x 44 x 37 millimeter in diameter predominantly cysts cystic mixed echogenicity mass with thick septations and question mural nodularity. Findings are indeterminate for malignancy in this age group. Biopsy recommended. IMPRESSION: Suspicious left ovarian mixed echogenicity mass, biopsy recommended to evaluate the possibility of ma lignancy. Mildly thickened endometrial stripe in a postmenopausal patient, endometrial biopsy should be conside red as well. DATA REPOSITORY:
== END 2020-02-29 00:42 ==
PROVIDERS: PCP Nurse Practitioner Family; Visit Provider Nurse Practitioner Family
DX: N83.292 Other ovarian cyst, left side (principal); N94.89 Other specified conditions associated with female genital organs and menstrual cycle
CPT/HCPCS: 76830; 76856

== ENCOUNTER → 2020-03-18 14:27 | Outpatient (BNVA) | payer OTHER, SELFPAY | PROVIDERS: PCP Nurse Practitioner Family; Referring Provider Nurse Practitioner Family; Visit Provider Surgery | DX: D50.9 Iron deficiency anemia, unspecified (principal); R11.0 Nausea; I13.0 Hypertensive heart and chronic kidney disease with heart failure and stage 1 through stage 4 chronic kidney disease, or unspecified chronic kidney disease; N18.4 Chronic kidney disease, stage 4 (severe); I50.9 Heart failure, unspecified | CPT/HCPCS: 99203; 99214 ==

== ENCOUNTER 2020-03-21 00:17 | Observation (INO) | payer OTHER, SELFPAY ==
[2020-03-21] VITALS (24 sets, daily range): BP systolic 133–173; BP diastolic 57–78; PULSE 62–120; RESP 16–24; TEMP 36.4–36.9; O2SAT 97–100
--- NOTE | 2020-03-21 | DI.US_ITS ---
EXAM: US EXTREMITY VENOUS BI CLINICAL HISTORY: elevated d-Dimer, bilateral pedal edema. TECHNIQUE: Ultrasound performed using standard protocol. COMPARISON: US US PELVIS TRANSVAGINAL from 02/29/2020 FINDINGS: Duplex venous ultrasound was performed according to the usual protocol. The deep veins are freely com pressible throughout and there is normal flow augmentation with manual calf compression. 2D and Doppl er evaluation are unremarkable. IMPRESSION: No evidence of deep venous thrombosis of the right or left lower extremity. DATA REPOSITORY:
--- NOTE | 2020-03-21 | RT.EKG_ITS ---
APPROVED REPORT Exam: Resting ECG Patient Location: E HR:69 bpm ECG Measurements Heart Rate 69 AXIS MT 124 P 84 QRSd 163 QRS 159 QT 425 T 51 QTc 455 Conclusion Atrial-ventricular dual-paced rhythm I have reviewed and interpreted ECG and agree with software generated interpretation.
--- NOTE | 2020-03-21 00:44 | ED.GENADUL_ITS ---
Discharge Plan Disposition Patient Disposition: [facility] INPATIENT Condition: Fair Discharge Details Clinical Impression: Chest pain Primary Care Provider: Catrina Nuñez ED Provider: Joce Castrejon Meds and New Rx's Prescriptions: No Action furosemide [Lasix] 40 mg tablet See Rx Instructions PO DIRECTED Qty: 180 RF: 3 trazodone 50 mg tablet 50 mg PO HS RF: 0 Fiber Gummies 2 gram tablet,chewable See Rx Instructions PO .COMPLEX RF: 0 budesonide-formoterol [Symbicort] 80-4.5 mcg/actuation HFA aerosol inhaler 2 puff Inhalation BID Qty: 3 RF: 0 multivitamin [Daily Vitamin] 1 EACH tablet 1 ea PO DAILY RF: 0 aspirin [Aspirin Low-Strength] 81 MG tablet,chewable 81 mg PO DAILY RF: 0 calcium carbonate-vitamin D3 [Calcarb 600 With Vitamin D] 1 EACH tablet 1 ea PO BID RF: 0 (DME) lancets [OneTouch UltraSoft Lancets] 1 EACH misc 1 ea Miscellaneous TID Qty: 90 RF: 6 epinephrine [EpiPen 2-Ezekiel] 0.3 MG/0.3 ML auto-injector 0.3 mg IM see instructions Qty: 1 RF: 3 nitroglycerin 0.4 MG tablet, sublingual 0.4 mg Sublingual PRN Qty: 1 RF: 5 Glucagon Emergency Kit (human) 1 MG kit 1 mg IJ PRN Qty: 1 RF: 0 Varicella-Zoster Ge/As01b/Pf [Shingrix Vial Kit] 50 MCG INJ 50 mcg IM ONCE Qty: 1 RF: 1 albuterol sulfate [ProAir HFA] 90 mcg/actuation HFA aerosol inhaler 1 - 2 puff Inhalation .Q4-6H PRN (Reason: shortness of breath or wheezing) Qty: 1 RF: 3 (DME) pen needle, diabetic 31 gauge x 5/16 needle See Dose Instructions .ROUTE .MEDSUPPLY Qty: 500 RF: 3 omeprazole 20 mg capsule,delayed release(DR/EC) 20 mg PO DAILY Qty: 90 RF: 3 losartan 25 mg tablet 25 mg PO DAILY Qty: 90 RF: 3 acetaminophen 500 mg tablet 500 mg PO BID RF: 0 insulin lispro [Humalog KwikPen Insulin] 100 unit/mL insulin pen 1 - 30 unit Sub-Q AC Qty: 15 RF: 6 spironolactone 25 mg tablet 12.5 mg PO DAILY Qty: 45 RF: 3 atorvastatin 20 mg tablet 20 mg PO DAILY Qty: 90 RF: 3 isosorbide mononitrate 30 mg tablet extended release 24 hr 60 mg PO DAILY Qty: 180 RF: 3 loratadine 10 mg tablet 10 mg PO DAILY Qty: 90 RF: 3 (DME) Blood Glucose Test Strip See Rx Instructions .ROUTE .MEDSUPPLY Qty: 400 RF: 3 Toujeo SoloStar U-300 Insulin 300 unit/mL (1.5 mL) insulin pen 50 unit SUBCUT BID RF: 0 carvedilol 12.5 mg tablet 9.37 mg PO BID RF: 0 Medical Decision Making Elderly obese female presenting with atypical chest pain. However, she does have history of cardiac disease with presumed CAD is in stress testing a few years ago. She also has cardiomyopathy with pacemaker defibrillator implanted. Recently saw cardiology and had been felt stable. She also has had GI issues follow-up with [facility] and surgery. She has chronic kidney disease. She has bilateral lower extremity edema but no unilateral edema no calf tenderness. Pain is likely chest wall type pain given its distribution and reproducibility. We will get chest x-ray, D-dimer, troponin and basic labs. 01:40 -patient does feel little better with the IV Tylenol. Chest x-ray with cardiomegaly but otherwise unremarkable. First troponin negative. Potassium and magnesium a little low so replace orally. D-dimer elevated. Because of kidney problems cannot proceed with CTA. Will therefore need V/Q and Dopplers in the morning. We will also need serial enzymes. Discussed with hospitalist, Dr. Bertrand. Patient accepted for observation admission on telemetry for further evaluation and management. Medical Records Medical records reviewed: Yes I reviewed the patient's medical records. Lab Data Lab results reviewed: Yes I reviewed the patient's lab results. ECG Data Attestation: I personally reviewed and interpreted this ECG (s) as follows: Interpretation: see EKG HPI General Mode of arrival: EMS . Date/Time Provider Initiated Documentation: 03/21/20 00:29 . Limitations to Documentation: no limitations . Information obtained by: patient, EMS, RN notes reviewed and old records reviewed . HPI Narrative: Patient presents to ED with right-sided chest pain. Patient reports that over the last couple of days she has had intermittent bilateral parasternal pain. It has not been severe and it has not been prolonged. Tonight she is only having right-sided localized parasternal pain with some radiation toward the right shoulder. It did not respond to nitroglycerin at home. She does not feel that it is worse with breathing or movement. She does not feel any more short of breath than usual. She has bilateral lower extremity swelling which has been present since summer. She denies any calf pain. She denies any back pain. No reported fever or cough. She is having chronic GI symptoms including bloating, pain, diarrhea and is scheduled for EGD and colonoscopy as outpatient. She does have a cardiac history with prior abnormal stress testing and history of cardiomyopathy. Due to her comorbid conditions she has been managed medically for some time without issue. EMS was called and transported patient in. She did receive aspirin in route. Related Data Home Medications Medication Instructions Recorded Confirmed aspirin [Aspirin Low-Strength] 81 mg PO DAILY tab-cap 07/25/12 03/21/20 calcium carbonate-vitamin D3 1 ea PO BID 07/25/12 03/21/20 [Calcarb 600 With Vitamin D] multivitamin [Daily Vitamin] 1 ea PO DAILY 07/25/12 03/21/20 lancets [OneTouch UltraSoft #90 ea 01/02/15 03/18/20 Lancets] epinephrine [EpiPen 2-Ezekiel] 0.3 mg IM see instructions #1 kit 08/17/15 03/21/20 Glucagon Emergency Kit (human) 1 mg IJ PRN #1 kit 10/28/15 03/18/20 nitroglycerin 0.4 mg SUBLINGUAL PRN #1 bottle 10/28/15 03/21/20 budesonide-formoterol HFA 80 2 puff INHALATION BID #3 inhaler 07/14/18 03/21/20 mcg-4.5 mcg/actuation aerosol inhaler albuterol sulfate 90 mcg/actuation 1 - 2 puff INHALATION .Q4-6H PRN 11/02/18 03/21/20 aerosol inhaler #1 unit furosemide 40 mg tablet See Rx Instructions PO DIRECTED 12/16/18 03/21/20 #180 tab-cap pen needle, diabetic 31 gauge x #500 each 02/22/19 03/18/2010/06 omeprazole 20 mg capsule,delayed 20 mg PO DAILY #90 tab-cap 05/15/19 03/21/20 release losartan 25 mg tablet 25 mg PO DAILY #90 tab-cap 06/05/19 03/21/20 acetaminophen 500 mg tablet 500 mg PO BID tab-cap 09/15/19 03/21/20 inulin 2 gram chewable tablet See Rx Instructions PO .COMPLEX 09/15/19 03/21/20 trazodone 50 mg tablet 50 mg PO HS tab-cap 09/15/19 03/21/20 insulin lispro 100 unit/mL 1 - 30 unit SUB-Q AC #15 ml 10/26/19 03/21/20 subcutaneous pen spironolactone 25 mg tablet 12.5 mg PO DAILY #45 tab 11/08/19 03/21/20 atorvastatin 20 mg tablet 20 mg PO DAILY #90 tab-cap 11/22/19 03/21/20 isosorbide mononitrate 30 mg 60 mg PO DAILY #180 tab-cap 02/05/20 03/21/20 tablet,extended release 24 hr loratadine 10 mg tablet 10 mg PO DAILY #90 tab-cap 02/05/20 03/18/20 blood sugar diagnostic #400 ea 03/11/20 03/18/20 carvedilol 9.37 mg PO BID 03/21/20 03/21/20 insulin glargine U-300 conc 50 unit SUBCUT BID 03/21/20 03/21/20 [Toujeo SoloStar U-300 Insulin] Previous Rx's Medication Instructions Recorded budesonide-formoterol HFA 80 2 puff INHALATION BID #3 inhaler 07/14/18 mcg-4.5 mcg/actuation aerosol inhaler albuterol sulfate 90 mcg/actuation 1 - 2 puff INHALATION .Q4-6H PRN 11/02/18 aerosol inhaler #1 unit furosemide 40 mg tablet See Rx Instructions PO DIRECTED 12/16/18 #180 tab-cap pen needle, diabetic 31 gauge x #500 each 02/22/1910/06 omeprazole 20 mg capsule,delayed 20 mg PO DAILY #90 tab-cap 05/15/19 release losartan 25 mg tablet 25 mg PO DAILY #90 tab-cap 06/05/19 insulin lispro 100 unit/mL 1 - 30 unit SUB-Q AC #15 ml 10/26/19 subcutaneous pen spironolactone 25 mg tablet 12.5 mg PO DAILY #45 tab 11/08/19 atorvastatin 20 mg tablet 20 mg PO DAILY #90 tab-cap 11/22/19 isosorbide mononitrate 30 mg 60 mg PO DAILY #180 tab-cap 02/05/20 tablet,extended release 24 hr loratadine 10 mg tablet 10 mg PO DAILY #90 tab-cap 02/05/20 blood sugar diagnostic #400 ea 03/11/20 Allergies Allergy/AdvReac Type Severity Reaction Status Date / Time gabapentin Allergy Mild Dizziness/L Verified 03/18/20 14:33 ightheade GORDON Inhibitors AdvReac Unknown COUGH Verified 03/18/20 14:33 multiple food allergies Allergy Intermediate Sensitization Uncoded 03/18/20 14:33 noted on blood test General Stated Complaint: Chest Pain ALON: 2 Review of Systems Narrative: 03/06 Review of Systems completed and is negative except as stated above in HPI (Systems reviewed: Const, Eyes, ENT, Resp, CV, GI, , MSK, Skin, Neuro) PFSH Medical History (Updated 03/21/20 @ 01:43 by Joce Castrejon MD) Angina at rest Arthritis (12/16/11) 08/18/17 XRAY Mild osteoarthritis of the hips and moderate arthritis of the lumbar spine ASCVD (arteriosclerotic cardiovascular disease) (09/07/16) [facility] Cariology Stress test showing small, reversible inferior wall defect c/w ischemia Asthma 09/03/2014 PFTs: mild obstructive airway disease with significant bronchodilator response Cardiac resynchronization therapy defibrillator (BROOMMAKER-D) in place (08/14/16) [facility] Cardiology Underlying 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 heart block, severe diffuse left ventricular dysfunction HFrEF (LVEF ~25%) Mitral regurg 3+ 2009 cardiac cath: mild diffuse disease ([facility]) 07/03/2013 MPI: +Ischemia, inferolateral defect 01/17/20 [facility] Echo Depression (12/16/11) HUE Velasco in the past Essential hypertension (12/16/11) Goal BP </=130-140/80 Hyperlipidemia, unspecified (05/02/15) Insomnia Memory impairment (08/30/17) 08/30/17 MOCA score: 02/16/19 MOCA score: Mitral valve regurgitation (09/05/13) 3+ Multiple food allergies (08/14/15) Immunological Sensitization noted on Blood Test for Milk/Casein, peanut, Tomato, Cherry Tree, Cabbage, Otho, Rice, Spinach, Asparagus, Brussel Sprouts, Sweet Potato, Beef, Pork Osteoporosis (07/28/11) PSVT (paroxysmal supraventricular tachycardia) Restrictive lung disease 09/17/2014 PFTs: possible mild restrictive lung disease (vs. obesity hypov entilation?), also has asthma Retinopathy of both eyes (01/27/17) Non-proliferative Surgical History Extraction of cataract Dr. Hensley Hernia Repair, Incisional (~2010) W/ mesh. Dr. Cheko Patterson Replacement of total knee joint B/L Family History Mother Hypertensive disorder, systemic arterial Diabetes Atherosclerosis of coronary artery Family history of stroke Dementia Hyperlipidemia Family history of glaucoma Cataract Father No problems noted. Social History Smoking/Tobacco Use Status: Former Tobacco Use Smoking risk assessment performed?: Yes Alcohol Intake: former Drug use: Never Substance use type: does not use Adopted: No Caregiver/Support person: No Foster care: No Number of Children: 5 Communication Needs: None Pets and animals: Yes Pets and animals: cat(s) and dog(s) Sexually active: No Current gender identity: female What is your relationship status?: Panel score (0-1 are the most socially isolated patients): 0 What type of physical activity do you participate in: other Details: Excercise classes at [place] Duration: 45-60 minutes/day Frequency: 1-2 times per week Seatbelt use: always Do you feel safe at home: Yes Do you feel safe in your relationship?: Yes Exam Narrative Exam Narrative: Vitals: Afebrile. Hypertensive. Normal room air pulse ox. Const: Obese elderly female in NAD. HEENT: NC/AT. Normal facial exam. Eyes: Normal conjunctiva and sclera. Neck: Supple. Trachea midline. Lungs: Normal respiratory effort. Lungs are clear. Chest pain is reproducible with palpation along right lower parasternal border. Cor: RRR without murmur/gallop. Good radial pulses. GI: Soft. NT/ND. No guarding or rebound. Neuro: A+O x 3. Normal speech, mentation. Cranial nerves II - XII grossly intact. No gross motor or sensory deficit. Ext: No C/C. BLE edema 2-3 plus. No calf tenderness. Skin: Warm and dry without rash. Course Vital Signs Vital signs: Vital Signs Temperature 97.7 F 03/21/20 00:17 Pulse 74 03/21/20 00:17 Respiratory Rate 20 03/21/20 00:17 Blood Pressure 168/63 H 03/21/20 00:17 Pulse Oximetry 99 03/21/20 00:17 Temperature 97.7 F 03/21/20 00:17 Temperature Source Skin 03/21/20 00:17 Pulse 74 03/21/20 00:17 Respiratory Rate 22 03/21/20 00:38 Respiratory Effort Non-Labored 03/21/20 00:38 Respiratory Depth Normal 03/21/20 00:38 Respiratory Pattern Normal 03/21/20 00:38 Blood Pressure 168/63 H 03/21/20 00:17 Blood Pressure Position Sitting 03/21/20 00:17 Pulse Oximetry 99 03/21/20 00:17 Oxygen Delivery Method Room Air 03/21/20 00:17 Oxygen Flow Rate 0 03/21/20 00:17 Pain Level 10 03/21/20 00:38
[2020-03-21] MEDS: ACETAMINOPHEN 1,000 MG/100 ML BTL 400 MG IVPB (00:57)
--- NOTE | 2020-03-21 00:57 | DI.RAD_ITS ---
EXAM: XR CHEST 2V PA LATERAL CLINICAL HISTORY: CP TECHNIQUE: COMPARISON: CR XR CHEST 2V PA LATERAL from 03/31/2018 FINDINGS: There is a transvenous cardiac pacemaker in position. The heart appears mildly enlarged. Lungs are clear and well expanded. No pleural effusion. No pneumothorax. IMPRESSION: Mild cardiomegaly, no evidence of acute process. RADIATION DOSE DELIVERED: Total DLP
[2020-03-21 01:01] LABS: Abs Immature Grans 0.05 10^3/uL (0.0-0.06); Absolute Basophil Count 0.03 10^3/uL (0.0-0.2); Absolute Eosinophil Count 0.29 10^3/uL (0.0-0.7); Absolute Lymphocyte Count 2.15 10^3/uL (1.2-3.4); Absolute Monocyte Count 0.83 10^3/uL (0.1-0.8); Absolute Neutrophil Count 7.09 10^3/uL (1.2-6.7); Basophils % 0.3; Eosinophils % 2.8; HCT 27.1 % (36.0-46.0); HGB 8.6 g/dL (11.2-15.7); Immature Grans % 0.5; Lymphocytes % 20.6; MCHC 31.7 % (32.0-36.0); MCV 88.3 fL (80-95); MPV 11.1 fL (8.0-11.0); Neutrophils % 67.8; Nucleated RBC 0 %; Platelet Count 170 10^3/uL (130-400); RBC 3.07 10^6/uL (3.93-5.22); RDW 13.3 % (11.7-14.6); RDW-SD 43.1 fL; WBC 10.44 10^3/uL (4.4-10.8)
--- NOTE | 2020-03-21 01:08 | DI.VRAD_ITS ---
PROCEDURE INFORMATION: Exam: XR Chest, 2 Views Exam date and time: 03/21/2020 12:58 AM Age: 84 years old Clinical indication: Right-sided chest pain TECHNIQUE: Imaging protocol: XR of the chest Views: 2 views. COMPARISON: CR XR CHEST 2V PA LATERAL 03/31/2018 9:57 AM FINDINGS: Tubes, catheters and devices: Pacemaker/defibrillator device Lungs: Unremarkable. No consolidation. Pleural space: Unremarkable. No pleural effusion. No pneumothorax. Heart/Mediastinum: Cardiomegaly.. Bones/joints: Degenerative changes. IMPRESSION: Cardiomegaly. Dictated and Authenticated by: Valerio Weinstein MD. Ordering:DANIA Hobson MD
[2020-03-21 01:21] LABS: ALT 17 U/L (14-59); AST 15 U/L (15-37); Albumin 3.2 g/dL (3.4-5.0); Alkaline Phosphatase 74 U/L (46-116); Anion Gap 9.4 mmol/L (3-11); BUN 27 mg/dL (7-18); Bilirubin, Total 0.3 mg/dL (0.2-1.0); CO2 26.6 mmol/L (21.0-32.0); Calcium 8.9 mg/dL (8.5-10.1); Chloride 109 mmol/L (98-107); Estimated GFR 26.94 (mL/min/1.73m2); Glucose 120 mg/dL (74-106); Magnesium 1.6 mg/dL (1.8-2.4); NT-proBNP 372 pg/mL (<300); Potassium 3.2 mmol/L (3.5-5.1); Sodium 145 mmol/L (136-145); Total Protein 6.8 g/dL (6.4-8.2)
[2020-03-21 01:26] LABS: Troponin I < 0.05 ng/mL (<0.06)
[2020-03-21 01:30] LABS: D-Dimer 1359 ng/mlFEU (<500)
[2020-03-21] MEDS: Magnesium Oxide 400 MG TAB PO (01:34)
[2020-03-21] MEDS: Potassium Chloride 20 MEQ TABCR PO (01:35)
--- NOTE | 2020-03-21 01:51 | NUR.NOTE ---
Nursing Note: daughter Ravi called with update on pt.
[2020-03-21 04:02] LABS: Troponin I < 0.05 ng/mL (<0.06)
--- NOTE | 2020-03-21 06:11 | HPE_ITS ---
Date of service: 03/21/20 Time of Service: 06:11 Assessment and Plan Assessment and plan (1) Chest pain: Status: Acute Assessment and plan: Atypical CP. Doubt ACS, I think GI or chest wall most likely. Would continue PPI. The elevated d-Dimer is noted. I would regard case as low prob PE. Agree with hold on CTA due to renal function, perhaps LE U/S next step and I think with low prob if this is negative it would be reasonable to hold further w/u at that point, but could consider V/Q out of abundance of caution. Modest worsening of anemia is noted, along with self-report of melena (though gauiac neg today). Will check stool guaiacs and do preliminary iron studies. History of Present Illness History of Present Illness Chief Complaint: CP Narrative: 84 female with multiple medical problems, including CHF and CAD. Reports several days if intermittent parasternal CP, fleeting, first on left, now on right. NO SOB. Reports pain seems to be worse, at least sometimes, with PO intake. Also notes she has had a few coughing spells due to allergies. In ER findings of note for neg. troponin, clear CXR; and d-Dimer 1359. Due to chronic renal insufficiency CTA of chest deferred. HCT 27 noted as well (baseline low 30s). Patient admitted for further evaluation. Patient states she feels fine at present, no further CP. Troponin # 2 negative. States at first that she has noted black stools, but then is not sure whether they have perhaps been more just dark. Denies Pepto or iron. Review of Systems All systems reviewed & are unremarkable except as noted in HPI and below PFSH Medical History Angina at rest Arthritis (12/16/11) 08/18/17 XRAY Mild osteoarthritis of the hips and moderate arthritis of the lumbar spine ASCVD (arteriosclerotic cardiovascular disease) (09/07/16) [facility] Cariology Stress test showing small, reversible inferior wall defect c/w ischemia Asthma 09/03/2014 PFTs: mild obstructive airway disease with significant bronchodilator response Cardiac resynchronization therapy defibrillator (SEAT NAILER-D) in place (08/14/16) [facility] Cardiology Underlying 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 heart block, severe diffuse left ventricular dysfunction HFrEF (LVEF ~25%) Mitral regurg 3+ 2009 cardiac cath: mild diffuse disease ([facility]) 07/03/2013 MPI: +Ischemia, inferolateral defect 01/17/20 [facility] Echo Depression (12/16/11) HUE [place]as[place] in the past Essential hypertension (12/16/11) Goal BP </=130-140/80 Hyperlipidemia, unspecified (05/02/15) Insomnia Memory impairment (08/30/17) 08/30/17 MOCA score: 02/16/19 MOCA score: Mitral valve regurgitation (09/05/13) 3+ Multiple food allergies (08/14/15) Immunological Sensitization noted on Blood Test for Milk/Casein, peanut, Tomato, [place], Cabbage, Clio, Rice, Spinach, Asparagus, Brussel Sprouts, Sweet Potato, Beef, Pork Osteoporosis (07/28/11) PSVT (paroxysmal supraventricular tachycardia) Restrictive lung disease 09/17/2014 PFTs: possible mild restrictive lung disease (vs. obesity hypoventilation?), also has asthma Retinopathy of both eyes (01/27/17) Non-proliferative Surgical History Extraction of cataract Dr. Hensley Hernia Repair, Incisional (~2010) W/ mesh. Dr. Cheko Patterson Replacement of total knee joint B/L Family History Mother Hypertensive disorder, systemic arterial Diabetes Atherosclerosis of coronary artery Family history of stroke Dementia Hyperlipidemia Family history of glaucoma Cataract Father No problems noted. Social History Smoking/Tobacco Use Status: Former Tobacco Use Smoking risk assessment performed?: Yes Alcohol Intake: former Drug use: Never Substance use type: does not use Adopted: No Caregiver/Support person: No Foster care: No Number of Children: 5 Communication Needs: None Pets and animals: Yes Pets and animals: cat(s) and dog(s) Sexually active: No Current gender identity: female What is your relationship status?: Panel score (0-1 are the most socially isolated patients): 0 What type of physical activity do you participate in: other Details: Excercise classes at [place] Duration: 45-60 minutes/day Frequency: 1-2 times per week Seatbelt use: always Do you feel safe at home: Yes Do you feel safe in your relationship?: Yes Meds Home Medications and Allergies Home Medications Medication Instructions Recorded Confirmed Type aspirin [Aspirin Low-Strength] 81 mg PO DAILY tab-cap 07/25/12 03/21/20 History calcium carbonate-vitamin D3 1 ea PO BID 07/25/12 03/21/20 History [Calcarb 600 With Vitamin D] multivitamin [Daily Vitamin] 1 ea PO DAILY 07/25/12 03/21/20 History lancets [OneTouch UltraSoft #90 ea 01/02/15 03/18/20 History Lancets] epinephrine [EpiPen 2-Ezekiel] 0.3 mg IM see instructions #1 kit 08/17/15 03/21/20 History Glucagon Emergency Kit (human) 1 mg IJ PRN #1 kit 10/28/15 03/18/20 History nitroglycerin 0.4 mg SUBLINGUAL PRN #1 bottle 10/28/15 03/21/20 History Varicella-Zoster Ge/As01b/Pf 50 mcg IM ONCE #1 kit 01/12/18 12/16/18 Clinic [Shingrix Vial Kit] budesonide-formoterol HFA 80 2 puff INHALATION BID #3 inhaler 07/14/18 03/21/20 Rx mcg-4.5 mcg/actuation aerosol inhaler albuterol sulfate 90 mcg/actuation 1 - 2 puff INHALATION .Q4-6H PRN 11/02/18 03/21/20 Rx aerosol inhaler #1 unit furosemide 40 mg tablet See Rx Instructions PO DIRECTED 12/16/18 03/21/20 Rx #180 tab-cap pen needle, diabetic 31 gauge x #500 each 02/22/19 03/18/20 Rx 10/06 omeprazole 20 mg capsule,delayed 20 mg PO DAILY #90 tab-cap 05/15/19 03/21/20 Rx release losartan 25 mg tablet 25 mg PO DAILY #90 tab-cap 06/05/19 03/21/20 Rx acetaminophen 500 mg tablet 500 mg PO BID tab-cap 09/15/19 03/21/20 History inulin 2 gram chewable tablet See Rx Instructions PO .COMPLEX 09/15/19 03/21/20 History trazodone 50 mg tablet 50 mg PO HS tab-cap 09/15/19 03/21/20 History insulin lispro 100 unit/mL 1 - 30 unit SUB-Q AC #15 ml 10/26/19 03/21/20 Rx subcutaneous pen spironolactone 25 mg tablet 12.5 mg PO DAILY #45 tab 11/08/19 03/21/20 Rx atorvastatin 20 mg tablet 20 mg PO DAILY #90 tab-cap 11/22/19 03/21/20 Rx isosorbide mononitrate 30 mg 60 mg PO DAILY #180 tab-cap 02/05/20 03/21/20 Rx tablet,extended release 24 hr loratadine 10 mg tablet 10 mg PO DAILY #90 tab-cap 02/05/20 03/18/20 Rx blood sugar diagnostic #400 ea 03/11/20 03/18/20 Rx carvedilol 9.37 mg PO BID 03/21/20 03/21/20 History insulin glargine U-300 conc 50 unit SUBCUT BID 03/21/20 03/21/20 History [Toujeo SoloStar U-300 Insulin] Allergies Allergy/AdvReac Type Severity Reaction Status Date / Time gabapentin Allergy Mild Dizziness/L Verified 03/21/20 01:50 ightheade GORDON Inhibitors AdvReac Unknown COUGH Verified 03/21/20 01:50 multiple food allergies Allergy Intermediate Sensitization Uncoded 03/21/20 01:50 noted on blood test Exam Narrative Exam Narrative: 173/72, 66, 36.4, 18, 100% RA. HEENT unremarkable; neck supple; lungs clear; heart RRR 1/6 diffuse sys murmur; chest wall mild bilateral parasternal tenderness, right > left; abdomen soft NT; rectal: scant brown stool, heme negative; extremities 1+ bilateral pedal edema, no calf tenderness, neg Jimbo's, no cords; neuro ox3, non focal Results Labs Result diagrams: 03/21/20 00:50 03/21/20 00:50 Labs: Laboratory Results - last 24 hr 03/21/20 03/21/20 03/21/20 00:50 00:50 00:50 WBC 10.44 RBC 3.07 L Hgb 8.6 L Hct 27.1 L MCV 88.3 MCH 28.0 MCHC 31.7 L RDW 13.3 Plt Count 170 MPV 11.1 H Immature Gran % 0.5 Neutrophils % 67.8 Lymphocytes % 20.6 Monocytes % 8.0 Eosinophils % 2.8 Basophils % 0.3 Nucleated RBC % 0 Absolute Neutrophils 7.09 H Absolute Lymphocytes 2.15 Absolute Monocytes 0.83 H Absolute Eosinophils 0.29 Absolute Basophils 0.03 D-Dimer 1359 H Sodium 145 Potassium 3.2 L Chloride 109 H Carbon Dioxide 26.6 Anion Gap 9.4 BUN 27 H Creatinine 1.80 H Estimated GFR/1.73 m2 26.94 Glucose 120 H Calcium 8.9 Magnesium 1.6 L Total Bilirubin 0.3 AST 15 ALT 17 Alkaline Phosphatase 74 Troponin I < 0.05 NT-Pro-B Natriuret Pep 372 H Total Protein 6.8 Albumin 3.2 L 03/21/20 03:00 WBC RBC Hgb Hct MCV MCH MCHC RDW Plt Count MPV Immature Gran % Neutrophils % Lymphocytes % Monocytes % Eosinophils % Basophils % Nucleated RBC % Absolute Neutrophils Absolute Lymphocytes Absolute Monocytes Absolute Eosinophils Absolute Basophils D-Dimer Sodium Potassium Chloride Carbon Dioxide Anion Gap BUN Creatinine Estimated GFR/1.73 m2 Glucose Calcium Magnesium Total Bilirubin AST ALT Alkaline Phosphatase Troponin I < 0.05 NT-Pro-B Natriuret Pep Total Protein Albumin Last Vital Signs Temp 36.4 C L 03/21/20 02:29 Pulse 66 03/21/20 02:29 Resp 18 03/21/20 02:29 BP 173/72 H 03/21/20 02:29 Pulse Ox 100 03/21/20 02:29 COVID-19 Screening Have you,or household,traveled outside [place] in last 14 days?: No Had IN PERSON contact w/suspected or confirmed C-19 person: No
[2020-03-21] MEDS: Budesonide/Formoterol 80/4.5 10.2 GM 120 PUFF INH IH ×2 (07:46→20:24)
[2020-03-21] MEDS: Acetaminophen 500 MG TAB PO ×2 (08:22→20:23)
[2020-03-21] MEDS: Isosorbide Mononitrate 30 MG TABCR 60 MG PO (08:23)
[2020-03-21] MEDS: Losartan 25 MG TAB PO (08:23)
[2020-03-21] MEDS: Aspirin 81 MG CHEW PO (08:23)
[2020-03-21] MEDS: Spironolactone 25 MG TAB 12.5 MG PO (08:24)
[2020-03-21] MEDS: Atorvastatin 20 MG TAB PO (08:24)
[2020-03-21] MEDS: Omeprazole 20 MG CAPCR PO (08:26)
[2020-03-21] MEDS: Carvedilol 12.5 MG TAB 18.75 MG PO ×2 (10:49→20:23)
[2020-03-21] MEDS: Furosemide 40 MG TAB PO (10:49)
--- NOTE | 2020-03-21 11:00 | RT.EKG_ITS ---
APPROVED REPORT Exam: Resting ECG Patient Location: I HR:65 bpm ECG Measurements Heart Rate 65 AXIS ME 164 P 7 QRSd 153 QRS 173 QT 449 T 69 QTc 466 Conclusion Ventricular-paced rhythm
[2020-03-21 11:48] LABS: Ferritin 18 ng/mL (8-252); Magnesium 1.6 mg/dL (1.8-2.4); Potassium 3.5 mmol/L (3.5-5.1); Troponin I < 0.05 ng/mL (<0.06)
[2020-03-21 12:16] LABS: Iron 19 ug/dL (50-170); Total Iron Binding Capacity 280 ug/dL (250-450); Transferrin Sat 7 % (15-50)
[2020-03-21] MEDS: Insulin Aspart 300 UNITS/3 ML PEN SC ×2 (12:16→17:01)
--- NOTE | 2020-03-21 12:25 | PDOC.CMIN ---
- If Service Date Differs Date of service: 03/21/20 Time of Service: 16:54 Care Management Initial Assess REASON FOR HOSPITALIZATION:: Chest Pain PAST MEDICAL HISTORY/PAST SURGICAL HISTORY:: Anemia, adnexal mass, CKD stage IV, asthma, Type 2 DM, insomnia, ASCVD, retinopathy of both eyes, restrictive lung disease, osteoporosis, multiple food allergies, mitral valve regurgitiation, memory impairment, hyperlipidemia, hypertension, depression, CHF, cardiac resynchronization therapy defribilliator BARKEEPER-D in place, arthritis, angina at rest, PSVT, cataract extraction, hernia repair with mesh, B/L total knee joint replacements PREVIOUS FUNCTIONAL STATUS/SOCIAL/FAMILY SUPPORTS:: Chetna resides in [place], [place], her daughter, Ravi Barton lives within her home as well. She has two Shitzu dogs; Rebecca and Nancy and one cat, she rescued from the [employer], named Ramy rader. Chetna no longer drives. ADVANCE DIRECTIVES:: On file at [facility], Ravi Barton; Daughter as Agent. Has patient been provided with info about the portal/API?: Yes Did the patient sign up for the portal?: No CODE STATUS:: Full Code INSURANCE COVERAGE / FINANCIAL ISSUES:: [facility] MCR Replacement PRIMARY CARE PHYSICIAN:: Catrina Nuñez POTENTIAL DISCHARGE NEEDS:: Outpatient follow up appointments. PATIENT/FAMILY EDUCATION NEEDS:: Review discharge instructions, discuss Ask Me Three. ANTICIPATED BARRIERS TO DISCHARGE:: None identified. TRANSPORTATION:: Via private vehicle with her daughter. PLAN:: Chetna continues to be closely monitored for ongoing chest pain. She will have further workup including a cardiology consult. Anticipate she will return home with outpatient follow up plan. She will transport via private vehicle with her daughter.
--- NOTE | 2020-03-21 12:32 | W.CARDCONSUL ---
Date of service: 03/21/20 Time of Service: 12:32 Assessment and Plan Assessment and plan (1) Chest pain: Status: Acute (2) Anemia: Status: Chronic Qualifiers: Anemia type: iron deficiency Iron deficiency anemia type: unspecified iron deficiency Qualified Code(s): D50.9 - Iron deficiency anemia, unspecified (3) Chronic kidney disease (CKD), stage IV (severe): Status: Chronic (4) ASCVD (arteriosclerotic cardiovascular disease): Status: Chronic (5) Essential hypertension: Status: Chronic (6) ICD (implantable cardioverter-defibrillator) in place: Status: Acute Assessment and plan: Patient's chest pain is atypical. It occurred at rest, lasted for hours and there was no evidence of myocardial necrosis. Overall I think it is unlikely to be cardiac in origin. that being said, she has a history of nonobstructive coronary disease and a prior abnormal nuclear stress test in 2016. She is supposed to have colonoscopy and EGD scheduled in future to evaluate her anemia She may require a biopsy of her ovarian cyst It would be reasonable to repeat her nuclear stress test given her requirement for upcoming procedures She had an echocardiogram done in December and I would not think that this needs to be repeated Her device has been interrogated and appropriate function documented within the last 3 months History of Present Illness History of Present Illness Chief Complaint: Chest pain Narrative: This is an 84-year-old woman who presented to the hospital overnight because of discomfort in her chest. She is a moderately poor historian and not able to provide much in the way of details. Reportedly she gets or has had a lot of fleeting chest pain over the years, lasting only seconds. Last night at rest she developed pain on the right side of her chest which did not go away. It was more pronounced than her usual symptoms and after a while she awakened her daughter who called an ambulance after administering 3 nitroglycerin with no improvement. The ambulance attendants gave her baby aspirin. She came here to the hospital where she eventually became pain-free. The chest pain lasted for several hours. There was no laboratory evidence of myocardial necrosis. Her EKGs have shown paced rhythm and therefore have not been useful In approximately 2009 patient was diagnosed with a cardiomyopathy. Cardiac catheterization at that time did not disclose any significant obstructive coronary disease. She has an ICD/biventricular pacemaker and her ejection fraction has recovered to normal. Her last echocardiogram was in December at which time her ejection fraction was 63%. She had no valvular disease She has had nuclear testing, last in 2016, suggesting a small area of ischemia but this was treated medically due to her multiple comorbidities, notably chronic kidney disease stage III-IV Recently the patient is being evaluated for an ovarian cyst. She last saw the sanitation laborer at [facility] earlier this month. Suspicion of malignancy is relatively low. She also has been advised to have an EGD and colonoscopy due to anemia and occult gastrointestinal bleeding The patient currently is complaining of fatigue. She has had pain in her legs since she fell back in October. Ultrasound today shows no evidence of DVT on either side Consults Consult date: 03/21/20 Requesting physician: Lana Aguilera Review of Systems Constitutional Constitutional: Reports body ache(s), Reports difficulty sleeping, Reports fatigue, Reports lethargy, Reports malaise and Reports weakness Cardiovascular Cardiovascular: Reports as per HPI, Reports chest pain, Reports chest pain at rest and Reports leg edema Neurologic Neurologic: Reports weakness Endocrine Endocrine: Reports fatigue [facility] Medical History (Updated 03/21/20 @ 12:42 by Yany Trivedi MD) Angina at rest Arthritis (12/16/11) 08/18/17 XRAY Mild osteoarthritis of the hips and moderate arthritis of the lumbar spine ASCVD (arteriosclerotic cardiovascular disease) (09/07/16) [facility] Cariology Stress test showing small, reversible inferior wall defect c/w ischemia Asthma 09/03/2014 PFTs: mild obstructive airway disease with significant bronchodilator response Cardiac resynchronization therapy defibrillator (SQUARE SHEAR OPERATOR-D) in place (08/14/16) [facility] Cardiology Underlying 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 heart block, severe diffuse left ventricular dysfunction HFrEF (LVEF ~25%) Mitral regurg 3+ 2009 cardiac cath: mild diffuse disease ([facility]) 07/03/2013 MPI: +Ischemia, inferolateral defect 01/17/20 [facility] Echo Depression (12/16/11) HUE Velasco in the past Essential hypertension (12/16/11) Goal BP </=130-140/80 Hyperlipidemia, unspecified (05/02/15) ICD (implantable cardioverter-defibrillator) in place Insomnia Memory impairment (08/30/17) 08/30/17 MOCA score: 02/16/19 MOCA score: Mitral valve regurgitation (09/05/13) 3+ Multiple food allergies (08/14/15) Immunological Sensitization noted on Blood Test for Milk/Casein, peanut, Tomato, [place], Cabbage, [place], Rice, Spinach, Asparagus, Brussel Sprouts, Sweet Potato, Beef, Pork Osteoporosis (07/28/11) PSVT (paroxysmal supraventricular tachycardia) Restrictive lung disease 09/17/2014 PFTs: possible mild restrictive lung disease (vs. obesity hypoventilation?), also has asthma Retinopathy of both eyes (01/27/17) Non-proliferative Surgical History Extraction of cataract Dr. Hensley Hernia Repair, Incisional (~2010) W/ mesh. Dr. Cheko Patterson Replacement of total knee joint B/L Family History Mother Hypertensive disorder, systemic arterial Diabetes Atherosclerosis of coronary artery Family history of stroke Dementia Hyperlipidemia Family history of glaucoma Cataract Father No problems noted. Social History Smoking/Tobacco Use Status: Former Tobacco Use Smoking risk assessment performed?: Yes Alcohol Intake: former Drug use: Never Substance use type: does not use Adopted: No Caregiver/Support person: No Foster care: No Number of Children: 5 Communication Needs: None Pets and animals: Yes Pets and animals: cat(s) and dog(s) Sexually active: No Current gender identity: female What is your relationship status?: Panel score (0-1 are the most socially isolated patients): 0 What type of physical activity do you participate in: other Details: Excercise classes at [employer] Duration: 45-60 minutes/day Frequency: 1-2 times per week Seatbelt use: always Do you feel safe at home: Yes Do you feel safe in your relationship?: Yes Exam Narrative Exam Narrative: Obese elderly woman, no acute distress Eyes Pupils: PERRL EOM: EOM intact bilaterally Neck Neck: normal visual inspection Other: No discernible neck vein distention grossly normal carotid upstrokes without bruits Resp Auscultation: clear to auscultation bilaterally Cardio Other: Nonpalpable apical impulse heart tones are distant there is no audible murmur or gallop Extrem Other: 1+ edema Results Last Vital Signs Temp 36.4 C L 03/21/20 02:29 Pulse 66 03/21/20 02:29 Resp 18 03/21/20 02:29 BP 173/72 H 03/21/20 02:29 Pulse Ox 100 03/21/20 02:29 Labs Result diagrams: 03/21/20 00:50 03/21/20 11:12 Labs: Laboratory Results - last 24 hr 03/21/20 03/21/20 03/21/20 00:50 00:50 00:50 WBC 10.44 RBC 3.07 L Hgb 8.6 L Hct 27.1 L MCV 88.3 MCH 28.0 MCHC 31.7 L RDW 13.3 Plt Count 170 MPV 11.1 H Immature Gran % 0.5 Neutrophils % 67.8 Lymphocytes % 20.6 Monocytes % 8.0 Eosinophils % 2.8 Basophils % 0.3 Nucleated RBC % 0 Absolute Neutrophils 7.09 H Absolute Lymphocytes 2.15 Absolute Monocytes 0.83 H Absolute Eosinophils 0.29 Absolute Basophils 0.03 D-Dimer 1359 H Sodium 145 Potassium 3.2 L Chloride 109 H Carbon Dioxide 26.6 Anion Gap 9.4 BUN 27 H Creatinine 1.80 H Estimated GFR/1.73 m2 26.94 Glucose 120 H Calcium 8.9 Magnesium 1.6 L Iron TIBC Transferrin % Sat Ferritin Total Bilirubin 0.3 AST 15 ALT 17 Alkaline Phosphatase 74 Troponin I < 0.05 NT-Pro-B Natriuret Pep 372 H Total Protein 6.8 Albumin 3.2 L 03/21/20 03/21/20 03/21/20 03:00 11:12 11:12 WBC RBC Hgb Hct MCV MCH MCHC RDW Plt Count MPV Immature Gran % Neutrophils % Lymphocytes % Monocytes % Eosinophils % Basophils % Nucleated RBC % Absolute Neutrophils Absolute Lymphocytes Absolute Monocytes Absolute Eosinophils Absolute Basophils D-Dimer Sodium Potassium 3.5 Chloride Carbon Dioxide Anion Gap BUN Creatinine Estimated GFR/1.73 m2 Glucose Calcium Magnesium 1.6 L Iron 19 L TIBC 280 Transferrin % Sat 7 L Ferritin 18 Total Bilirubin AST ALT Alkaline Phosphatase Troponin I < 0.05 < 0.05 NT-Pro-B Natriuret Pep Total Protein Albumin EKG interpretations OK, pacemaker, normal Pacemaker: ventricular pacing w/capture (except when refractory)
--- NOTE | 2020-03-21 15:00 | DI.NM_ITS ---
EXAM: NM LUNG SCAN PERFUSION CLINICAL HISTORY: elevated ddimer, r/o PE. COMPARISON: No exams were available for comparison EXAMINATION: Perfusion lung scan only was obtained injection of 4 millicuries of technetium 99 label ed. There is slight heterogeneity uptake in the lungs with no lobar, segmental, or subsegmental defined f illing defect. FINDINGS: Low probability of pulmonary embolic disease. IMPRESSION:
--- NOTE | 2020-03-21 17:15 | DI.VRAD_ITS ---
PROCEDURE INFORMATION: Exam: NM Lung Ventilation and Perfusion Imaging Exam date and time: 03/21/2020 3:53 PM Age: 84 years old Clinical indication: Shortness of breath; Patient HX: Covid protocol. Pefusion only TECHNIQUE: Imaging protocol: Nuclear pulmonary ventilation with aerosol or gas was performed followed by perfusion. Views: Ventilation acquired with multiple projections. Perfusion acquired with multiple projections. Radiopharmaceutical: 4 mCi Tc-99m MAA, IV. COMPARISON: CR XR CHEST 2V PA LATERAL 03/21/2020 12:56 AM FINDINGS: Ventilation: See Perfusion finding. Perfusion: Mild heterogeneous perfusion in both lungs without significant focal areas of decreased uptake. No ventilation scan images were provided. No abnormal foci in the comparison chest radiograph. IMPRESSION: Low probability for pulmonary embolism. Dictated and Authenticated by: Haley Diop MD. Ordering:SHAMAR Schwartz MD
[2020-03-21] MEDS: Insulin Glargine 300 UNITS/3 ML PEN 50 UNITS SC (20:25)
[2020-03-21] MEDS: traZODone 50 MG TAB PO (21:11)
[2020-03-22] MEDS: Insulin Glargine 300 UNITS/3 ML PEN 50 UNITS SC (08:22)
[2020-03-22] MEDS: Insulin Aspart 300 UNITS/3 ML PEN SC ×3 (08:23→16:52)
[2020-03-22] MEDS: Carvedilol 12.5 MG TAB 18.75 MG PO (08:24)
[2020-03-22] MEDS: Omeprazole 20 MG CAPCR PO (08:24)
[2020-03-22] MEDS: Atorvastatin 20 MG TAB PO (08:24)
[2020-03-22] MEDS: Acetaminophen 500 MG TAB PO (08:24)
[2020-03-22] MEDS: Losartan 25 MG TAB PO (08:25)
[2020-03-22] MEDS: Isosorbide Mononitrate 30 MG TABCR 60 MG PO (08:25)
[2020-03-22] MEDS: Spironolactone 25 MG TAB 12.5 MG PO (08:25)
[2020-03-22] MEDS: Aspirin 81 MG CHEW PO (08:25)
[2020-03-22] MEDS: Furosemide 40 MG TAB PO (08:25)
[2020-03-22] MEDS: Budesonide/Formoterol 80/4.5 10.2 GM 120 PUFF INH IH (08:30)
[2020-03-22 08:35] VITALS: BP 153/62; PULSE 73; RESP 17; TEMP 37.5; O2SAT 97
--- NOTE | 2020-03-22 09:28 | W.PM.DS.N ---
Date of service: 03/22/20 Time of Service: 09:28 DS: Diagnosis Discharge Diagnosis (1) Chest pain: Status: Acute (2) Anemia: Status: Chronic (3) Chronic kidney disease (CKD), stage IV (severe): Status: Chronic (4) ASCVD (arteriosclerotic cardiovascular disease): Status: Chronic (5) Essential hypertension: Status: Chronic (6) ICD (implantable cardioverter-defibrillator) in place: Status: Acute Discharge Plan Disposition Patient Disposition: HOME Condition: Stable Discharge Details Reason For Visit: CHEST PAIN Admit Date/Time: 03/21/20 01:38 Admit Provider: Roger Bertrand Attending Provider: Roger Bertrand Primary Care Provider: Catrina Nuñez Hospital Course Hospital Course: This is an 84 year old female, complex medical history including CKD stage 4, type 2 diabetes, nonischemic cardiomyopathy with ventricular dyssynchrony complete heart block, severe diffuse left ventricular dysfunction HFrEF (LVEF ~25%), ICD, anemia awaiting upper and lower endoscopy with Dr Jordan, who presented to the ED with several days of intermittent parasternal CP, fleeting, first on left, now on right. Denies SOB. Reports pain seems to be worse, at least sometimes, with PO intake. She is a poor historian. Her initial cardiac work up is unremarkable. She was referred to observation under hospitalist services. serial troponins remained negative. she continued to have intermittent, self limiting episodes of pain that resolved spontaneously and occurred after eating. She was seen by cardiology who agrees pain is atypical and unlikely cardiac in origin. Recommendations for a repeat nuclear stress test given her requirement for upcoming procedures. She had an echocardiogram done in December and no recommendations to repeat it at this time, also her device has been interrogated and appropriate function documented within the last 3 months. her d-dimer was also found to be elevated and bilateral ultrasound for DVT was negative and VQ scan showed low probability of PE, likely is related to CKD. She is hemodynamically stable and will be discharged to home with no services. she should undergo cardiac stress testing prior to her upper and lower endoscopy by cardiology recommendations. discharge plan discussed with Dr Grover who is in agreement. Home Meds and New Rx's Prescriptions: Continued furosemide [Lasix] 40 mg tablet See Rx Instructions PO DIRECTED Qty: 180 RF: 3 trazodone 50 mg tablet 50 mg PO HS PRN PRNRF: 0 Fiber Gummies 2 gram tablet,chewable See Rx Instructions PO .COMPLEX RF: 0 budesonide-formoterol [Symbicort] 80-4.5 mcg/actuation HFA aerosol inhaler 2 puff Inhalation BID Qty: 3 RF: 0 multivitamin [Daily Vitamin] 1 EACH tablet 1 ea PO DAILY RF: 0 aspirin [Aspirin Low-Strength] 81 MG tablet,chewable 81 mg PO DAILY RF: 0 calcium carbonate-vitamin D3 [Calcarb 600 With Vitamin D] 1 EACH tablet 1 ea PO BID RF: 0 (DME) lancets [OneTouch UltraSoft Lancets] 1 EACH misc 1 ea Miscellaneous TID Qty: 90 RF: 6 epinephrine [EpiPen 2-Ezekiel] 0.3 MG/0.3 ML auto-injector 0.3 mg IM see instructions Qty: 1 RF: 3 nitroglycerin 0.4 MG tablet, sublingual 0.4 mg Sublingual PRN Qty: 1 RF: 5 Glucagon Emergency Kit (human) 1 MG kit 1 mg IJ PRN Qty: 1 RF: 0 Varicella-Zoster Ge/As01b/Pf [Shingrix Vial Kit] 50 MCG INJ 50 mcg IM ONCE Qty: 1 RF: 1 albuterol sulfate [ProAir HFA] 90 mcg/actuation HFA aerosol inhaler 1 - 2 puff Inhalation .Q4-6H PRN (Reason: shortness of breath or wheezing) Qty: 1 RF: 3 (DME) pen needle, diabetic 31 gauge x 5/16 needle See Dose Instructions .ROUTE .MEDSUPPLY Qty: 500 RF: 3 omeprazole 20 mg capsule,delayed release(DR/EC) 20 mg PO DAILY Qty: 90 RF: 3 losartan 25 mg tablet 25 mg PO DAILY Qty: 90 RF: 3 acetaminophen 500 mg tablet 500 mg PO BID RF: 0 insulin lispro [Humalog KwikPen Insulin] 100 unit/mL insulin pen 1 - 30 unit Sub-Q AC Qty: 15 RF: 6 spironolactone 25 mg tablet 12.5 mg PO DAILY Qty: 45 RF: 3 atorvastatin 20 mg tablet 20 mg PO DAILY Qty: 90 RF: 3 isosorbide mononitrate 30 mg tablet extended release 24 hr 60 mg PO DAILY Qty: 180 RF: 3 loratadine 10 mg tablet 10 mg PO DAILY Qty: 90 RF: 3 (DME) Blood Glucose Test Strip See Rx Instructions .ROUTE .MEDSUPPLY Qty: 400 RF: 3 Jacqueline ReyesoStar U-300 Insulin 300 unit/mL (1.5 mL) insulin pen 50 unit SUBCUT BID RF: 0 carvedilol 12.5 mg tablet 18.75 mg PO BID RF: 0 Discharge Instructions Instructions: Chest Pain (DC) Additional Instructions: continue usual medications as directed. outpatient nuclear stress test as scheduled. return sooner for new or worsening symptoms Stand Alone Forms: Nursing Discharge Form Referrals: [facility] Radiology [Other] (Radiology will call you with an appointment.) Catrina Nuñez NP [Primary Care Provider] - 04/05/20 11:00 am Activity:: Activity as Tolerated Equipment/Supplies:: No Equipment Needed Diet:: As Tolerated Discharge Orders Other Ambulatory Orders: NM MPI rest & stress day 2 (Routine) Timeframe: 20200325 Location: None Selected Ordered By: Lana Aguilera DS: Summary Status at Discharge Functional status at discharge: independent ambulation Overall status at discharge: patient is progressing back to baseline Mental Status: mental status grossly normal Speech and Movement: speech and movement normal Mood: congruent mood Affect: normal affect Exam Narrative Exam Narrative: Vitals: Afebrile. Hypertensive. Normal room air pulse ox. Const: Obese elderly female in NAD. HEENT: NC/AT. Normal facial exam. Eyes: Normal conjunctiva and sclera. Neck: Supple. Trachea midline. Lungs: Normal respiratory effort. Lungs are clear. Chest pain is reproducible with palpation along right lower parasternal border. Cor: RRR with systolic murmur. Good radial pulses. GI: Soft. round, no masses, positive bowel sounds. No guarding or rebound. Neuro: A+O x 3. Normal speech, mentation. Cranial nerves II - XII grossly intact. No gross motor or sensory deficit. Ext: moves all extremities equally. BLE edema 2-3 plus. No calf tenderness. Skin: Warm and dry no rashes or lesions. Psych Mental Status: mental status grossly normal Speech and Movement: speech and movement normal Mood: congruent mood Affect: normal affect DS: Data Vitals/I&O Vitals and I&O: Vital Signs Temperature 37.5 C 03/22/20 08:35 Temperature Source Tympanic 03/22/20 08:35 Pulse 73 03/22/20 08:35 Pulse Rhythm Regular 03/22/20 02:51 Pulse 66 03/21/20 02:01 Respiratory Rate 17 03/22/20 08:35 Respiratory Effort Non-Labored 03/22/20 02:51 Respiratory Depth Normal 03/22/20 02:51 Respiratory Pattern Normal 03/22/20 02:51 Blood Pressure 153/62 H 03/22/20 08:35 Blood Pressure Mean 82 03/21/20 02:01 Blood Pressure Position Sitting 03/21/20 00:17 Pulse Oximetry 97 03/22/20 08:35 Oxygen Delivery Method Room Air 03/22/20 08:35 Oxygen Flow Rate 0 03/22/20 08:35 Pain Level 0 03/22/20 08:35 Intake & Output 03/21/20 03/21/20 03/22/20 11:59 23:59 11:59 Intake Total 610.000 / 1090.000 480 / 1090.000 Output Total 250 / 950 700 / 950 650 / 650 Balance 360.000 / 140.000 -220 / 140.000 -650 / -650 Weight 81.5 kg Intake: IV 110.000 / 110.000 Oral 500 / 980 480 / 980 Output: Urine 250 / 950 700 / 950 650 / 650 Other: Urine Color Yellow Yellow Straw Urine Appearance Clear Clear Clear Urine Odor Normal Normal Normal Comment Urine mixed with stool in bed side commode. Void x1 in the bedside commode. Stool Occult Blood Positive Stool Size Moderate Small Stool Characteristics Liquid Soft Formed Brown Voiding Methods Bedside Commode Bedside Commode Bedside Commode Data Completed and Pending Labs on day of discharge: Labs from last 24 hours 03/21/20 03/21/20 03/21/20 11:12 11:12 01:45 Potassium 3.5 Magnesium 1.6 L Iron 19 L TIBC 280 Transferrin % Sat 7 L Ferritin 18 Troponin I < 0.05 COVID-19 PCR Pending Nasopharyn COVID-19 PCR Pending Ref Test Perform Site Pending [facility] Medical History Angina at rest Arthritis (12/16/11) 08/18/17 XRAY Mild osteoarthritis of the hips and moderate arthritis of the lumbar spine ASCVD (arteriosclerotic cardiovascular disease) (09/07/16) [facility] Cariology Stress test showing small, reversible inferior wall defect c/w ischemia Asthma 09/03/2014 PFTs: mild obstructive airway disease with significant bronchodilator response Cardiac resynchronization therapy defibrillator (DIRECTOR DIABETES-D) in place (08/14/16) [facility] Cardiology 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 heart block, severe diffuse left ventricular dysfunction HFrEF (LVEF ~25%) Mitral regurg 3+ 2009 cardiac cath: mild diffuse disease ([facility]) 07/03/2013 MPI: +Ischemia, inferolateral defect 01/17/20 [facility] Echo Depression (12/16/11) HUE Velasco in the past Essential hypertension (12/16/11) Goal BP </=130-140/80 Hyperlipidemia, unspecified (05/02/15) ICD (implantable cardioverter-defibrillator) in place Insomnia Memory impairment (08/30/17) 08/30/17 MOCA score: 2330 02/16/19 MOCA score: Mitral valve regurgitation (09/05/13) 3+ Multiple food allergies (08/14/15) Immunological Sensitization noted on Blood Test for Milk/Casein, peanut, Tomato, [place], Cabbage, [place], Rice, Spinach, Asparagus, Brussel Sprouts, Sweet Potato, Beef, Pork Osteoporosis (07/28/11) PSVT (paroxysmal supraventricular tachycardia) Restrictive lung disease 09/17/2014 PFTs: possible mild restrictive lung disease (vs. obesity hypoventilation?), also has asthma Retinopathy of both eyes (01/27/17) Non-proliferative Surgical History Extraction of cataract Dr. Hensley Hernia Repair, Incisional (~2010) W/ mesh. Dr. Cheko Patterson Replacement of total knee joint B/L Family History Mother Hypertensive disorder, systemic arterial Diabetes Atherosclerosis of coronary artery Family history of stroke Dementia Hyperlipidemia Family history of glaucoma Cataract Father No problems noted. Social History Smoking/Tobacco Use Status: Former Tobacco Use Smoking risk assessment performed?: Yes Alcohol Intake: former Drug use: Never Substance use type: does not use Adopted: No Caregiver/Support person: No Foster care: No Number of Children: 5 Communication Needs: None Pets and animals: Yes Pets and animals: cat(s) and dog(s) Sexually active: No Current gender identity: female What is your relationship status?: Panel score (0-1 are the most socially isolated patients): 0 What type of physical activity do you participate in: other Details: Excercise classes at [employer] Duration: 45-60 minutes/day Frequency: 1-2 times per week Seatbelt use: always Do you feel safe at home: Yes Do you feel safe in your relationship?: Yes
[2020-03-22 11:48] VITALS: BP 140/68; PULSE 77; RESP 16; TEMP 36.4; O2SAT 98
--- NOTE | 2020-03-22 16:39 | PDOC.CMDIS ---
LACE Index Scoring Tool - Questions: Length of Stay (in days): 1 Acuity (Admit via E.D.?): Yes Comorbidities: Congestive Heart Failure, Liver or Renal Disease E.D. Visits: 1 - Answers: Total Score: 10 Risk of Readmission: High Risk Care Management Discharge Reason for Hospitalization: Chest Pain Discharge Plan: Chetna will return home with an outpatient follow up plan. She will also follow up with her PCP and plan of care as prescribed. She will transport via private vehicle with her daughter. Patient/Family Education Needs: Review discharge instructions, discuss Ask Me Three.
[2020-03-23 13:38] LABS: COVID-19 RT-PCR UVMMC Result NEGATIVE (Negative)
== END 2020-03-22 17:47 | disposition home or self-care (01) ==
LOC: ER 01:43 → MS 02:16
PROVIDERS: Admitting Provider General Practice; Emergency Provider Emergency Medicine; PCP Nurse Practitioner Family; Visit Provider General Practice
DX: R07.89 Other chest pain (principal); I13.0 Hypertensive heart and chronic kidney disease with heart failure and stage 1 through stage 4 chronic kidney disease, or unspecified chronic kidney disease; I25.119 Atherosclerotic heart disease of native coronary artery with unspecified angina pectoris; I50.20 Unspecified systolic (congestive) heart failure; N18.4 Chronic kidney disease, stage 4 (severe); E11.22 Type 2 diabetes mellitus with diabetic chronic kidney disease; Z95.810 Presence of automatic (implantable) cardiac defibrillator; Z11.59 Encounter for screening for other viral diseases; I42.9 Cardiomyopathy, unspecified; J45.909 Unspecified asthma, uncomplicated; F41.9 Anxiety disorder, unspecified; E78.5 Hyperlipidemia, unspecified; G47.00 Insomnia, unspecified; R41.3 Other amnesia; I34.0 Nonrheumatic mitral (valve) insufficiency; M81.0 Age-related osteoporosis without current pathological fracture; E11.3293 Type 2 diabetes mellitus with mild nonproliferative diabetic retinopathy without macular edema, bilateral; I47.1 Supraventricular tachycardia; D50.9 Iron deficiency anemia, unspecified
CPT/HCPCS: 36415; 36416; 80053; 82962; 93005; 94640; 96365; 99222; 99223; 99239; 99253; 99285; U0003; 71046; 78580; 82728; 83540; 83550; 83735; 83880; 84132; 84484; 85025; 85379; 93010; 93970; 99217; 99219; G0378; J0131

== ENCOUNTER 2020-04-01 00:33 | Outpatient (CLI) | payer OTHER, SELFPAY ==
--- NOTE | 2020-04-01 09:15 | DI.NM_ITS ---
APPROVED REPORT Exam: Pharmacologic Patient Location: Out-Patient Room/Bed: Stress Nurse: January Martinez RN BMI: 33.78 Baseline Rhythm: Ventricular Paced, AV Paced Indications: Atypical Chest Pain, ASCVD. Medical History Medical History: ASCVD, Asthma, CKD IV, CHF, HTN, Depression, HLD, Mitral Valve Regurgitation, Comple te Heart Block, Pacemaker/Defibrillator, PSVT, Restrictive Lung Disease, Osteoporosis. Hx of abnormal stress test 2017. Cardiac Medications: Furosemide, Symbicort, ASA, Nitroglycerin SL, ProAir HFA, Omeprazole, Losartan, Insulin Lispro, Spironolactone, Atorvastatin, Isosorbide Mononitrate, Carvedilol, Toujeo SoloStar U-3 00 Insulin. Allergies: GORDON Inhibitors. Cardiac Risk Factors: FHX of CAD, HTN, Hyperlipidemia, CVD, Diabetes (insulin), Asthma, Smoking (form er) Previous Cardiac Procedures: Pacemaker Pretest Chest Pain Characteristics: None. Exercise History: Sedentary Physical Disabilities: Legs Lung Sounds: Clear to auscultation Heart Sounds: Regular Stress Test Details Test: Pharmacologic stress testing performed using 0.4 mg of regadenoson per 5 mL given IV over 10 s econds. Reason for pharmacologic stress test: physical limitation. Nuclear Acquisition: Stress Tc-99m/Stress Tc-99m 1 day Rest Isotope: Tc-99m Sestamibi. Dose: 11 Date: 04/01/2020 Injection Time: 0945 Stress Isotope: Tc-99m Sestamibi. Dose: 36.2 Date: 04/01/2020 Injection Time: 1135 HR Resting HR Supine: 64 bpm Max Heart Rate (APMHR): 138.432128 bpm Target HR (85% APMHR): 117.060252 bpm Max HR Achieved: 79 bpm % of APMHR: 57.25 BP Resting BP Supine: 140/74 mmHg Max BP: 140/74 mmHg Recovery BP: 138/72 mmHg ECG Resting ECG: Ventricular paced rhythm, AV paced rhythm Ectopy: PVCs Stress ECG: Ventricular paced rhythm, AV paced rhythm ST Change: No significant ST segment changes noted with injection. Arrhythmia: PVCs. Recovery ECG: Ventricular paced rhythm, AV paced rhythm Recovery ST Change: No significant ST changes noted. Recovery Arrhythmia: PVCs Clinical Stress Symptoms: No adverse symptoms with regadenoson injection. Stress ECG Conclusion 1. This was a pharmacologic myocardial perfusion imaging study 2. Patient's electrocardiogram showed ventricular pacing and peak heart rate was only 57% of predicte d. 3. Electrocardiographically the test is nondiagnostic Stress Test Summary STAGE HR BP Symptoms NOTES Supine 64 140/74 1 min post Lexiscan injection 62 136/68 3 min post Lexiscan injection 79 130/70 6 min post Lexiscan injection 71 138/72 MPI Conclusion Possible small area of apical ischemia. EF 55% Radiologist Interpretation Radiologist Interpretation by: Joce Glover MD Interpretation Date/Time: 04/03/2020 16:09:05
[2020-04-01] MEDS: Regadenoson 0.4 MG/5 ML SYR IVP (11:49)
== END 2020-04-01 00:53 ==
PROVIDERS: PCP Nurse Practitioner Family; Visit Provider Nurse Practitioner Acute Care
DX: R07.89 Other chest pain (principal); I25.10 Atherosclerotic heart disease of native coronary artery without angina pectoris; J45.909 Unspecified asthma, uncomplicated; I10 Essential (primary) hypertension; E78.5 Hyperlipidemia, unspecified; E11.9 Type 2 diabetes mellitus without complications; Z87.891 Personal history of nicotine dependence
CPT/HCPCS: 78452; 93016; 93018; 93017; J2785

== ENCOUNTER 2020-04-09 03:56 | Outpatient (CLI) | payer OTHER, SELFPAY ==
[2020-04-10 17:50] LABS: SARS-CoV-2 RNA Not Detected (NotDetected); SARS-CoV-2 RNA Source Nasal/Nares
== END 2020-04-09 04:16 ==
PROVIDERS: PCP Nurse Practitioner Family; Visit Provider Surgery
DX: Z01.818 Encounter for other preprocedural examination (principal)
CPT/HCPCS: U0003

== ENCOUNTER 2020-04-12 08:23 | Day surgery (SDC) | payer OTHER, SELFPAY ==
[2020-04-12 08:59] VITALS: BP 124/52; PULSE 70; RESP 20; TEMP 36.5; O2SAT 100
[2020-04-12] MEDS: Lactated Ringers 1,000 ML 80 ML IV (09:31)
--- NOTE | 2020-04-12 10:41 | W.PM.DSUDISC ---
Discharge Plan Disposition Patient Disposition: HOME Condition: Good Discharge Details Reason For Visit: EGD, Colonoscopy Attending Provider: Bethany Jordan Primary Care Provider: Catrina Nuñez Home Meds and New Rx's Prescriptions: Continued furosemide [Lasix] 40 mg tablet See Rx Instructions PO DIRECTED Qty: 180 RF: 3 trazodone 50 mg tablet 50 mg PO HS PRN PRNRF: 0 Fiber Gummies 2 gram tablet,chewable See Rx Instructions PO .COMPLEX RF: 0 budesonide-formoterol [Symbicort] 80-4.5 mcg/actuation HFA aerosol inhaler 2 puff Inhalation BID Qty: 3 RF: 0 multivitamin [Daily Vitamin] 1 EACH tablet 1 ea PO DAILY RF: 0 aspirin [Aspirin Low-Strength] 81 MG tablet,chewable 81 mg PO DAILY RF: 0 calcium carbonate-vitamin D3 [Calcarb 600 With Vitamin D] 1 EACH tablet 1 ea PO BID RF: 0 (DME) lancets [OneTouch UltraSoft Lancets] 1 EACH misc 1 ea Miscellaneous TID Qty: 90 RF: 6 epinephrine [EpiPen 2-Ezekiel] 0.3 MG/0.3 ML auto-injector 0.3 mg IM see instructions Qty: 1 RF: 3 nitroglycerin 0.4 MG tablet, sublingual 0.4 mg Sublingual PRN Qty: 1 RF: 5 Glucagon Emergency Kit (human) 1 MG kit 1 mg IJ PRN Qty: 1 RF: 0 Varicella-Zoster Ge/As01b/Pf [Shingrix Vial Kit] 50 MCG INJ 50 mcg IM ONCE Qty: 1 RF: 1 albuterol sulfate [ProAir HFA] 90 mcg/actuation HFA aerosol inhaler 1 - 2 puff Inhalation .Q4-6H PRN (Reason: shortness of breath or wheezing) Qty: 1 RF: 3 (DME) pen needle, diabetic 31 gauge x 5/16 needle See Dose Instructions .ROUTE .MEDSUPPLY Qty: 500 RF: 3 omeprazole 20 mg capsule,delayed release(DR/EC) 20 mg PO DAILY Qty: 90 RF: 3 losartan 25 mg tablet 25 mg PO DAILY Qty: 90 RF: 3 acetaminophen 500 mg tablet 500 mg PO BID RF: 0 insulin lispro [Humalog KwikPen Insulin] 100 unit/mL insulin pen 1 - 30 unit Sub-Q AC Qty: 15 RF: 6 spironolactone 25 mg tablet 12.5 mg PO DAILY Qty: 45 RF: 3 atorvastatin 20 mg tablet 20 mg PO DAILY Qty: 90 RF: 3 isosorbide mononitrate 30 mg tablet extended release 24 hr 60 mg PO DAILY Qty: 180 RF: 3 loratadine 10 mg tablet 10 mg PO DAILY Qty: 90 RF: 3 (DME) Blood Glucose Test Strip See Rx Instructions .ROUTE .MEDSUPPLY Qty: 400 RF: 3 Toujeo SoloStar U-300 Insulin 300 unit/mL (1.5 mL) insulin pen 50 unit SUBCUT BID RF: 0 carvedilol 12.5 mg tablet 18.75 mg PO BID RF: 0 Discharge Instructions Additional Instructions: Findings: Your upper endoscopy showed mild gastritis. Continue daily antacid (omeprazole). Four polyps were removed from the colon. My office will contact you with biopsy results. Please call if you develop: fevers >101.5 Nausea or Vomiting Abdominal pain that is not transient DAY SURGERY UNIT POST EGD/COLONOSCOPY INSTRUCTIONS 1. Because there will be medication in your system for the next 24 hours, you may feel a little sleepy. Your coordination will be affected. Therefore: a. Do not drive or operate dangerous equipment for 24 hours. b. Do not drink alcohol beverages for 24 hours (not even beer). c. Plan to go home and rest for the day. 2. Generally there are no restrictions on your activity after a day or so has gone by, but you may feel a bit fatigued for a few days. 3 After you arrive home you may have a light meal and return to a normal diet as you can tolerate it without feeling sick to your stomach. 4. After surgery, you may feel pain or discomfort. This should be only transient, but if it persists please contact your doctor. 5. If there are any questions regarding the findings of your procedure, please feel free to contact your doctor. 6. If you are unable to contact your doctor with a problem, contact the hospital at [phone]. 7. Continue all your regular medications unless directed otherwise. I understand the above instructions and have no questions. Signature of Patient or Responsible Adult Escort Date/Time Name of Responsible Adult Escort Signature of Nurse Date/Time Activity:: Activity as Tolerated Diet:: As Tolerated Discharge Orders Discharge Orders: Discharge Order (Routine); Ordered 04/12/20 Ordered By: Bethany Jordan DS: Diagnosis Discharge Diagnosis (1) Gastritis: Status: Acute (2) Colon polyps: Status: Acute (3) AVM (arteriovenous malformation) of colon: Status: Acute
--- NOTE | 2020-04-12 10:42 | COLE_ITS ---
Date of service: 04/12/20 Time of Service: 12:03 Colonoscopy Report Date of procedure: 04/12/20 Pre-op diagnosis general: Anemia, change in bowel habits Post-op diagnosis procedure note: other (Gastritis, colon polyps, colon AVM) Procedure: EGD with biopsies Colonoscopy with cold forceps polypectomy and snare polypectomy Surgeon: Bethany Jordan Anesthesia proc note operative: MAC Indications: This 84 year old woman presents for evaluation of anemia with a recent HgB 9.0. She also complains of numerous loose stools every day and was heme positive. Last colonoscopy was 20 years or more in the past. Procedure Description: The patient was placed in the left lateral position and propofol titrated to sedation. The endoscope was advanced into the esophagus under direct visualization. The scope was passed through the stomach and into the duodenum. There was no duodenitis or ulceration noted. Biopsies were taken from the second portion of the duodenum to evaluate for celiac disease. The stomach itself showed mild gastritis in the antrum. It otherwise normal including on retroflexed view of the fundus and lesser curvature. Routine biopsies were taken from the gastric antrum. The GE junction was inspected and showed no significant stricture, inflammation, masses or Barretts. The scope was slowly withdrawn with no other esophageal lesions found. Digital rectal examination revealed no abnormalities. The scope was advanced to the cecum without difficulty. The ileocecal valve and appendiceal orifice were clearly identified. The prep was good. A diminuitive polyp near the appendiceal orifice was removed with the cold forceps. A second polyp just prox imal to the cecum was removed with the cold forceps and sent in the same container. There were two small AVMs noted in the cecum. The scope was slowly withdrawn over the course of greater than 6 minutes with no abnormalities seen in the ascending colon. A diminuitive polyp was removed from the transverse colon with the cold forceps. The descending and sigmoid colon were normal. A less than 1cm polyp was removed from the rectum with the snare and a hemostatic clip applied. The remainder of the rectum was normal including on retroflexed view. Random biopsies were also performed throughout the colon to evaluate for microscopic colitis. The patient tolerated the procedure well and was stable to recovery. Due to the presence of polyps, she could consider a follow up colonoscopy in 3-5 years but should be based on her overall health.
--- NOTE | 2020-04-12 11:11 | BOWEL_PTH ---
PATIENT: Chetna Edwards LOC: [facility] U#:[id number] AGE/SX: 84/F ROOM: RE04/12/[address]: Bethany Jordan MD : [id number] BED: DIS: 04/12/2020 SPEC #: [id number] RECD: 04/12/20 12:35 STATUS: MAXX REQ #: [id number] YASIR: 04/12/20 11:[address]: Bethany Jordan DEPT: Surgical Specimen RECD BY: Adina Michaud ENTERED: 04/12/20 12:39 SP TYPE: Bowel OTHR DR: Catrina Nuñez, HUE Tissues: 1 - BIOPSY BOWEL 2 - STOMACH BIOPSY 3 - BIOPSY BOWEL 4 - BIOPSY BOWEL 5 - BIOPSY BOWEL 6 - BIOPSY BOWEL Procedures: GROSS AND MICRO LEVEL 4 Comments: [id number]
[2020-04-12 12:30] VITALS: BP 144/61; PULSE 67; RESP 18; TEMP 36.4; O2SAT 99
== END 2020-04-12 12:52 | disposition home or self-care (01) ==
PROVIDERS: PCP Nurse Practitioner Family; Visit Provider Surgery
PROC: (CPT 45385; principal; 2020-04-12 10:30)
DX: D64.9 Anemia, unspecified (principal); K29.70 Gastritis, unspecified, without bleeding; K55.20 Angiodysplasia of colon without hemorrhage; D12.8 Benign neoplasm of rectum; D12.3 Benign neoplasm of transverse colon; D12.0 Benign neoplasm of cecum; N18.4 Chronic kidney disease, stage 4 (severe); J45.909 Unspecified asthma, uncomplicated
CPT/HCPCS: 45385; 45380; 43239; 88305; J2001

== ENCOUNTER 2020-05-03 12:28 | Inpatient (IN) | payer OTHER, SELFPAY ==
[2020-05-03] VITALS (50 sets, daily range): BP systolic 103–200; BP diastolic 43–92; PULSE 58–155; RESP 12–37; TEMP 36.5–37.4; O2SAT 96–100
--- NOTE | 2020-05-03 12:15 | RT.EKG_ITS ---
APPROVED REPORT Exam: Resting ECG Patient Location: E HR:80 bpm ECG Measurements Heart Rate 80 AXIS [place] 79 P 127 QRSd 157 QRS 178 QT 419 T 50 QTc 484 Conclusion A-V dual-paced rhythm with some inhibition...atrial and/or vent inhibition
--- NOTE | 2020-05-03 12:40 | W.ED.GENAD ---
Discharge Plan Disposition Patient Disposition: [facility] INPATIENT Condition: Stable Discharge Details Clinical Impression: Anemia, Chest pain Admit Date/Time: 05/03/20 14:38 Admit Provider: Phoenix Levy Attending Provider: Phoenix Levy Primary Care Provider: Catrina Nuñez ED Provider: Jazz Hammer Discharge Data Discharge Date/Time-TO BE ENTERED AT DEPARTURE: 05/03/20 15:59 Medical Decision Making 84-year-old female presents to the ED with chief complaint of chest pain, associated with exertional shortness of breath. Chest pain began this morning and then turned into shortness of breath. She is complaining of approximately 3 out of 10 chest pain upon arrival. She was given 4 baby aspirin prior to arrival. Patient was recently started on iron supplements yesterday. She does have a history of a pacemaker/defibrillator, congestive heart failure, hypertension, hyperlipidemia, mitral valve regurgitation, type 2 diabetes, chronic kidney disease, anemia. She is alert and oriented x3 upon initial exam. EKG was reviewed by Dr. Mohini MORGAN ER attending, please see his official report. Including CBC, CMP, serial troponins, chest x-ray, EXAM: XR PORTABLE CHEST AP CLINICAL HISTORY: Chest Pain, SOB TECHNIQUE: 2D digital imaging was performed. COMPARISON: CR,XR XR CHEST 2V PA LATERAL from 03/21/2020 FINDINGS: The pacemaker is noted. Heart size within normal limits. There is calcification at the aortic arch. The visualized portions of the lungs appear clear. The lungs are not well inflated. No infiltrate, effusion or pneumothorax is seen. IMPRESSION: No acute pulmonary findings. At this time H&H is dropped from previous results in February. 7.3 and 25.0 is down from 8.6 and 27. At this time due to patient's symptoms of chest pain shortness of breath and anemia I do recommend admission. Spoke with hospitalist who does agree to accept patient for admission. 1 unit of packed red blood cells ordered for infusion. Discussed risks and benefits of blood transfusion with patient. She is alert and oriented and does understand and agrees. Patient was verbally consented for blood infusion. She does verbalize understanding. Patient remained hemodynamically stable throughout stay alert and oriented. Val HARRISON General Mode of arrival: EMS. Date/Time Provider Initiated Documentation: 05/03/20 12:29. Limitations to Documentation: no limitations. Information obtained by: patient and EMS. HPI Narrative: 84-year-old female presents to the ED with chief complaint of chest pain, associated with exertional shortness of breath. Chest pain began this morning and then turned into shortness of breath. She is complaining of approximately 3 out of 10 chest pain upon arrival. She was given 4 baby aspirin prior to arrival. Patient was recently started on iron supplements yesterday. She does have a history of a pacemaker/defibrillator, congestive heart failure, hypertension, hyperlipidemia, mitral valve regurgitation, type 2 diabetes, chronic kidney disease, anemia. She is alert and oriented x3 upon initial exam. Related Data Home Medications Medication Instructions Recorded Confirmed aspirin [Aspirin Low-Strength] 81 mg PO DAILY tab-cap 07/25/12 05/03/20 calcium carbonate-vitamin D3 1 ea PO BID 07/25/12 05/03/20 [Calcarb 600 With Vitamin D] multivitamin [Daily Vitamin] 1 ea PO DAILY 07/25/12 05/03/20 lancets [OneTouch UltraSoft #90 ea 01/02/15 05/03/20 Lancets] epinephrine [EpiPen 2-Ezekiel] 0.3 mg IM see instructions #1 kit 08/17/15 05/03/20 Glucagon Emergency Kit (human) 1 mg IJ PRN #1 kit 10/28/15 05/03/20 nitroglycerin 0.4 mg SUBLINGUAL PRN #1 bottle 10/28/15 05/03/20 budesonide-formoterol HFA 80 2 puff INHALATION BID #3 inhaler 07/14/18 05/03/20 mcg-4.5 mcg/actuation aerosol inhaler albuterol sulfate 90 mcg/actuation 1 - 2 puff INHALATION .Q4-6H PRN 11/02/18 05/03/20 aerosol inhaler #1 unit furosemide 40 mg tablet See Rx Instructions PO DIRECTED 12/16/18 05/03/20 #180 tab-cap omeprazole 20 mg capsule,delayed 20 mg PO DAILY #90 tab-cap 05/15/19 05/03/20 release losartan 25 mg tablet 25 mg PO DAILY #90 tab-cap 06/05/19 05/03/20 acetaminophen 500 mg tablet 500 mg PO BID tab-cap 09/15/19 05/03/20 inulin 2 gram chewable tablet See Rx Instructions PO .COMPLEX 09/15/19 05/03/20 trazodone 50 mg tablet 50 mg PO HS PRN PRN tab-cap 09/15/19 05/03/20 insulin lispro 100 unit/mL 1 - 30 unit SUB-Q AC #15 ml 10/26/19 05/03/20 subcutaneous pen spironolactone 25 mg tablet 12.5 mg PO DAILY #45 tab 11/08/19 05/03/20 atorvastatin 20 mg tablet 20 mg PO DAILY #90 tab-cap 11/22/19 05/03/20 isosorbide mononitrate 30 mg 60 mg PO DAILY #180 tab-cap 02/05/20 05/03/20 tablet,extended release 24 hr loratadine 10 mg tablet 10 mg PO DAILY #90 tab-cap 02/05/20 05/03/20 blood sugar diagnostic #400 ea 03/11/20 05/03/20 Jacqueline Camacho U-300 Insulin 50 unit SUBCUT BID 03/21/20 05/03/20 carvedilol 18.75 mg PO BID 03/21/20 05/03/20 ferrous sulfate 325 mg (65 mg 325 mg PO TID #270 tab-cap 04/29/20 05/03/20 iron) tablet pen needle, diabetic 31 gauge x #500 each 04/30/20 05/03/2010/06 Previous Rx's Medication Instructions Recorded budesonide-formoterol HFA 80 2 puff INHALATION BID #3 inhaler 07/14/18 mcg-4.5 mcg/actuation aerosol inhaler albuterol sulfate 90 mcg/actuation 1 - 2 puff INHALATION .Q4-6H PRN 11/02/18 aerosol inhaler #1 unit furosemide 40 mg tablet See Rx Instructions PO DIRECTED 12/16/18 #180 tab-cap omeprazole 20 mg capsule,delayed 20 mg PO DAILY #90 tab-cap 05/15/19 release losartan 25 mg tablet 25 mg PO DAILY #90 tab-cap 06/05/19 insulin lispro 100 unit/mL 1 - 30 unit SUB-Q AC #15 ml 10/26/19 subcutaneous pen spironolactone 25 mg tablet 12.5 mg PO DAILY #45 tab 11/08/19 atorvastatin 20 mg tablet 20 mg PO DAILY #90 tab-cap 11/22/19 isosorbide mononitrate 30 mg 60 mg PO DAILY #180 tab-cap 02/05/20 tablet,extended release 24 hr loratadine 10 mg tablet 10 mg PO DAILY #90 tab-cap 02/05/20 blood sugar diagnostic #400 ea 03/11/20 ferrous sulfate 325 mg (65 mg 325 mg PO TID #270 tab-cap 04/29/20 iron) tablet pen needle, diabetic 31 gauge x #500 each 04/30/20 5/16 Allergies Allergy/AdvReac Type Severity Reaction Status Date / Time gabapentin AdvReac Mild Dizziness/L Verified 05/03/20 12:38 ightheade GORDON Inhibitors AdvReac Unknown COUGH Verified 05/03/20 12:38 multiple food allergies Allergy Intermediate Sensitization Uncoded 05/03/20 12:38 noted on blood test General Stated Complaint: Chest Pain ALON: 2 Review of Systems Narrative: Constitutional: Negative for weight loss, alert and oriented, well groomed, normal body habitus, appears comfortable. HEENT: Denies trauma, headaches, blurry vision, nasal discharge, sore throat, trouble swallowing. Chest: Denies palpitations, irregular rhythm, has an internal pacemaker/defibrillator in place, complaining of chest pain and shortness of breath. Respiratory: Denies cough, hemoptysis. GI: Denies abdominal pain, nausea, vomiting, diarrhea, constipation. : Denies dysuria, hematuria, flank pain, rectal bleeding. Neuro: Denies dizziness, blurry vision, weakness, syncope, headache or facial numbness. Hematologic: Denies easy bruising, intolerance to heat or cold, hair loss. COUNT INCLUDES THE [facility] Medical History Angina at rest Arthritis (12/16/11) 08/18/17 XRAY Mild osteoarthritis of the hips and moderate arthritis of the lumbar spine ASCVD (arteriosclerotic cardiovascular disease) (09/07/16) [facility] [place] Cariology Stress test showing small, reversible inferior wall defect c/w ischemia Asthma 09/03/2014 PFTs: mild obstructive airway disease with significant bronchodilator response Cardiac resynchronization therapy defibrillator (NEUROPATHOLOGIST-D) in place (08/14/16) [facility] [place] Cardiology Underlying 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 heart block, severe diffuse left ventricular dysfunction HFrEF (LVEF ~25%) Mitral regurg 3+ 2009 cardiac cath: mild diffuse disease ([facility] [place]) 07/03/2013 MPI: +Ischemia, inferolateral defect 01/17/20 [facility] [place] Echo Depression (12/16/11) HUE [place] in the past Essential hypertension (12/16/11) Goal BP </=130-140/80 Hyperlipidemia, unspecified (05/02/15) ICD (implantable cardioverter-defibrillator) in place Insomnia Memory impairment (08/30/17) 08/30/17 MOCA score: 02/16/19 MOCA score: Mitral valve regurgitation (09/05/13) 3+ Multiple food allergies (08/14/15) Immunological Sensitization noted on Blood Test for Milk/Casein, peanut, Tomato, [place], Cabbage, [place], Rice, Spinach, Asparagus, Brussel Sprouts, Sweet Potato, Beef, Pork Osteoporosis (07/28/11) PSVT (paroxysmal supraventricular tachycardia) Restrictive lung disease 09/17/2014 PFTs: possible mild restrictive lung disease (vs. obesity hypoventilation?), also has asthma Retinopathy of both eyes (01/27/17) Non-proliferative Surgical History Extraction of cataract Dr. Hensley Hernia Repair, Incisional (~2010) W/ mesh. Dr. Cheko Patterson Replacement of total knee joint B/L Family History Mother Hypertensive disorder, systemic arterial Diabetes Atherosclerosis of coronary artery Family history of stroke Dementia Hyperlipidemia Family history of glaucoma Cataract Father No problems noted. Social History Smoking/Tobacco Use Status: Former Tobacco Use Smoking risk assessment performed?: Yes Alcohol Intake: former Drug use: Never Substance use type: does not use Adopted: No Caregiver/Support person: No Foster care: No Number of Children: 5 Communication Needs: None Pets and animals: Yes Pets and animals: cat(s) and dog(s) Sexually active: No Current gender identity: female What is your relationship status?: Panel score (0-1 are the most socially isolated patients): 0 What type of physical activity do you participate in: other Details: Excercise classes at [employer] Duration: 45-60 minutes/day Frequency: 1-2 times per week Seatbelt use: always Do you feel safe at home: Yes Do you feel safe in your relationship?: Yes Exam Narrative Exam Narrative: Constitutional: Alert and oriented x3. Appears stated age. Normal body habitus. Head: Normocephalic, no trauma. Eyes: Pupils PERRLA, Red reflex noted, EOM's intact. Eyelids symmetrical without lesions, discharge, or swelling. ENT: Bilateral TM's WNL, External ear normal to inspection, no mastoid TTP, swelling, or erythema, Nasal turbinates WNL, no nasal discharge. Normal dentition, Posterior pharynx WNL, no exudate. Chest: RRR, Normal S1, S2, distal pulses intact. Resp: Lungs clear to auscultation bilaterally, no wheezes, rales, or rhonchi. Musculoskeletal: Normal gait, 5/5 strength to all four extremities. Skin: No suspicious rashes or lesions. Capillary refill less than 2 sec. pale. Neurologic: Cranial nerves II-XII intact. Alert and oriented x 3. DTR's intact. Hematologic/Lymphatic: No ecchymosis, no lymphadenopathy. Course Vital Signs Vital signs: Vital Signs Temperature 36.5 C 05/03/20 12:28 Pulse 78 05/03/20 12:28 Respiratory Rate 18 05/03/20 12:28 Blood Pressure 165/66 H 05/03/20 12:28 Pulse Oximetry 96 05/03/20 12:28 Temperature 36.5 C 05/03/20 12:28 Temperature Source Skin 05/03/20 12:28 Pulse 78 05/03/20 12:28 Respiratory Rate 18 05/03/20 12:28 Respiratory Effort 05/03/20 12:38 Blood Pressure 165/66 H 05/03/20 12:28 Blood Pressure Position Sitting 05/03/20 12:28 Pulse Oximetry 96 05/03/20 12:28 Oxygen Delivery Method Room Air 05/03/20 12:28 Oxygen Flow Rate 0 05/03/20 12:28 Pain Level 8 05/03/20 12:28 Procedures Stool Hemoccult Procedural Steps Taken: stool placed in appropriate test area, developer placed on stool and control areas and controls appropriately positive and negative Hemoccult result: positive
[2020-05-03 12:58] LABS: Abs Immature Grans 0.26 10^3/uL (0.0-0.06); HGB 7.3 g/dL (11.2-15.7); MCH 24.7 pg (27.0-33.0); MCHC 29.2 % (32.0-36.0); MCV 84.5 fL (80-95); MPV 11.5 fL (8.0-11.0); Platelet Count 156 10^3/uL (130-400); RBC 2.96 10^6/uL (3.93-5.22); RDW 14.5 % (11.7-14.6); RDW-SD 42.9 fL; WBC 9.42 10^3/uL (4.4-10.8)
[2020-05-03 13:13] LABS: ALT 13 U/L (14-59); AST 19 U/L (15-37); Albumin 3.1 g/dL (3.4-5.0); Alkaline Phosphatase 79 U/L (46-116); BUN 25 mg/dL (7-18); Bilirubin, Total 0.3 mg/dL (0.2-1.0); CREATININE 1.69 mg/dL (0.55-1.02); Calcium 8.8 mg/dL (8.5-10.1); Chloride 112 mmol/L (98-107); Estimated GFR 28.97 (mL/min/1.73m2); Glucose 287 mg/dL (74-106); Magnesium 1.7 mg/dL (1.8-2.4); Potassium 3.8 mmol/L (3.5-5.1); Sodium 144 mmol/L (136-145); Total Protein 6.9 g/dL (6.4-8.2)
--- NOTE | 2020-05-03 13:15 | DI.RAD_ITS ---
EXAM: XR PORTABLE CHEST AP CLINICAL HISTORY: Chest Pain, SOB TECHNIQUE: 2D digital imaging was performed. COMPARISON: CR,XR XR CHEST 2V PA LATERAL from 03/21/2020 FINDINGS: The pacemaker is noted. Heart size within normal limits. There is calcification at the aortic arch. The visualized portions of the lungs appear clear. The lungs are not well inflated. No infiltrate , effusion or pneumothorax is seen. IMPRESSION: No acute pulmonary findings. DATA REPOSITORY: RADIATION DOSE DELIVERED:
[2020-05-03 13:18] LABS: Absolute Neutrophil Count 7.16 10^3/uL (1.2-6.7)
[2020-05-03 13:19] LABS: Absolute Basophil Count 0.09 10^3/uL (0.0-0.2); Absolute Eosinophil Count 0.19 10^3/uL (0.0-0.7); Absolute Lymphocyte Count 1.22 10^3/uL (1.2-3.4); Absolute Monocyte Count 0.57 10^3/uL (0.1-0.8); Anisocytosis 1+; Basophilic Stippling Present; Diff Comment Manual Differential; Hypochromasia 2+; Metamyelocytes % 1; Myelocytes % 1; Nucleated RBC 1 %
[2020-05-03 13:20] LABS: Microcytosis 2+
[2020-05-03 13:22] LABS: Troponin I < 0.05 ng/mL (<0.06)
--- NOTE | 2020-05-03 14:41 | W.PM.HP.N ---
Date of service: 05/03/20 Time of Service: 14:41 Assessment and Plan Assessment and plan (1) Chest pain: Status: Acute Assessment and plan: referred to observation on telemetry troponin negative, continue to trend. will transfuse one unit of PRBC in setting of symptomatic anemia MPI on 04/01/2020 MPI Conclusion Possible small area of apical ischemia. EF 55%, similar to prior stress test from 2017. ICD (implantable cardioverter-defibrillator) in place Qualifiers: Chest pain type: unspecified Qualified Code(s): R07.9 - Chest pain, unspecified (2) Anemia: Status: Chronic Assessment and plan: iron deficiency, will continue iron supplementation check stool for OB. recently scoped, upper and lower 04/12/20 mild gastritis, colon polyps, colon avm. transfuse one unit of prbc in setting of chest pain and shortness of breath discussed with DR Jordan who recommends outpatient capsule endoscopy hold asa Qualifiers: Anemia type: iron deficiency Iron deficiency anemia type: unspecified iron deficiency Qualified Code(s): D50.9 - Iron deficiency anemia, unspecified (3) Chronic kidney disease (CKD), stage IV (severe): Status: Chronic Assessment and plan: creatinine is stable at baseline (4) Congestive heart failure: Status: Chronic Assessment and plan: will give lasix after transfusion. watch fluid status closely. continue home medication. EF 55% on MPI 04/01/20 Qualifiers: Heart failure chronicity: chronic Heart failure type: unspecified Qualified Code(s): I50.9 - Heart failure, unspecified (5) Restrictive lung disease: Status: Chronic Assessment and plan: stable, continue home inhalers (6) Type 2 diabetes mellitus with retinopathy of both eyes, with long-term current use of insulin: Status: Chronic Assessment and plan: diabetic diet sliding scale coverage ac/hs hemoglobin A1C 9.0 in mar 2020 (7) Adnexal mass: Status: Acute Assessment and plan: s/p pelvic/transvaginal ultrasound which showed Suspicious left ovarian mixed echogenicity mass, biopsy recommended to evaluate the possibility of malignancy. Mildly thickened endometrial stripe in a postmenopausal patient, endometrial biopsy should be considered as well. seen by provider relations representative at [facility] [place] [place], tumor markers were normal CA 125 14.8 and CEA 3.3 so they feel these findings are incidental and her symptoms unlikely related to provider relations representative issues from note dictated on 01/02/20 by Barb Hayward MD from [facility] [place] [place] (8) DVT prophylaxis: Status: Acute Assessment and plan: teds and scds only, (9) Discharge planning issues: Status: Acute Assessment and plan: case management following. discussed with DR Pineda History of Present Illness History of Present Illness Chief Complaint: chest pain Narrative: This is 84-year-old female presents to the ED with chief complaint of chest pain, associated with exertional shortness of breath. Chest pain began this morning and then turned into shortness of breath. She is complaining of approximately 3 out of 10 chest pain upon arrival. She was given 4 baby aspirin prior to arrival. Patient was recently started on iron supplements yesterday. She does have a history of a pacemaker/defibrillator, congestive heart failure, hypertension, hyperlipidemia, mitral valve regurgitation, type 2 diabetes, chronic kidney disease, anemia. Her initial troponin was negative, EKG paced. She has consented to 1 unit of packed red blood cells which was initiated in the ED. She will be referred to observation for further monitoring and management. Review of Systems Constitutional Constitutional: Reports fatigue, Denies fever(s) and Reports lethargy ENT Ears, Nose, Mouth, and Throat: Reports dizziness Cardiovascular Cardiovascular: Reports chest pain, Denies syncope, Reports lightheadedness and Reports dyspnea Respiratory Respiratory: Denies cough and Reports dyspnea Gastrointestinal Gastrointestinal: Denies abdominal pain, Denies nausea and Denies vomiting Musculoskeletal Musculoskeletal: Denies back pain Integumentary/Breasts Skin/Breast: Denies lesions and Denies rash Neurologic Neurologic: Reports dizziness and Denies syncope Endocrine Endocrine: Reports fatigue [facility] Medical History Angina at rest Arthritis (12/16/11) 08/18/17 XRAY Mild osteoarthritis of the hips and moderate arthritis of the lumbar spine ASCVD (arteriosclerotic cardiovascular disease) (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/16) [facility] [place] [place] Cariology Stress test showing small, reversible inferior wall defect c/w ischemia Asthma 09/03/2014 PFTs: mild obstructive airway disease with significant bronchodilator response Cardiac resynchronization therapy defibrillator (PIPELINE EXECUTIVE-D) in place (08/14/16) [facility] [place] [place] Cardiology 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 heart block, severe diffuse left ventricular dysfunction HFrEF (LVEF ~25%) Mitral regurg 3+ 2009 cardiac cath: mild diffuse disease ([facility] [place] [place]) 07/03/2013 MPI: +Ischemia, inferolateral defect 01/17/20 [facility] [place] [place] Echo Depression (12/16/11) HUE [place] in the past Essential hypertension (12/16/11) Goal BP </=130-140/80 Hyperlipidemia, unspecified (05/02/15) ICD (implantable cardioverter-defibrillator) in place Insomnia Memory impairment (08/30/17) 08/30/17 MOCA score: 02/16/19 MOCA score: Mitral valve regurgitation (09/05/13) 3+ Multiple food allergies (08/14/15) Immunological Sensitization noted on Blood Test for Milk/Casein, peanut, Tomato, [place], Cabbage, [place], Rice, Spinach, Asparagus, Brussel Sprouts, Sweet Potato, Beef, Pork Osteoporosis (07/28/11) PSVT (paroxysmal supraventricular tachycardia) Restrictive lung disease 09/17/2014 PFTs: possible mild restrictive lung disease (vs. obesity hypoventilation?), also has asthma Retinopathy of both eyes (01/27/17) Non-proliferative Surgical History Extraction of cataract Dr. Hensley Hernia Repair, Incisional (~2010) W/ mesh. Dr. Cheko Patterson Replacement of total knee joint B/L Family History Mother Hypertensive disorder, systemic arterial Diabetes Atherosclerosis of coronary artery Family history of stroke Dementia Hyperlipidemia Family history of glaucoma Cataract Father No problems noted. Social History Smoking/Tobacco Use Status: Former Tobacco Use Smoking risk assessment performed?: Yes Alcohol Intake: former Drug use: Never Substance use type: does not use Adopted: No Caregiver/Support person: No Foster care: No Number of Children: 5 Communication Needs: None Pets and animals: Yes Pets and animals: cat(s) and dog(s) Sexually active: No Current gender identity: female What is your relationship status?: Panel score (0-1 are the most socially isolated patients): 0 What type of physical activity do you participate in: other Details: Excercise classes at [employer] Duration: 45-60 minutes/day Frequency: 1-2 times per week Seatbelt use: always Do you feel safe at home: Yes Do you feel safe in your relationship?: Yes Meds Home Medications and Allergies Home Medications Medication Instructions Recorded Confirmed Type aspirin [Aspirin Low-Strength] 81 mg PO DAILY tab-cap 07/25/12 05/03/20 History calcium carbonate-vitamin D3 1 ea PO BID 07/25/12 05/03/20 History [Calcarb 600 With Vitamin D] multivitamin [Daily Vitamin] 1 ea PO DAILY 07/25/12 05/03/20 History lancets [OneTouch UltraSoft #90 ea 01/02/15 05/03/20 History Lancets] epinephrine [EpiPen 2-Ezekiel] 0.3 mg IM see instructions #1 kit 08/17/15 05/03/20 History Glucagon Emergency Kit (human) 1 mg IJ PRN #1 kit 10/28/15 05/03/20 History nitroglycerin 0.4 mg SUBLINGUAL PRN #1 bottle 10/28/15 05/03/20 History budesonide-formoterol HFA 80 2 puff INHALATION BID #3 inhaler 07/14/18 05/03/20 Rx mcg-4.5 mcg/actuation aerosol inhaler albuterol sulfate 90 mcg/actuation 1 - 2 puff INHALATION .Q4-6H PRN 11/02/18 05/03/20 Rx aerosol inhaler #1 unit furosemide 40 mg tablet See Rx Instructions PO DIRECTED 12/16/18 05/03/20 Rx #180 tab-cap omeprazole 20 mg capsule,delayed 20 mg PO DAILY #90 tab-cap 05/15/19 05/03/20 Rx release losartan 25 mg tablet 25 mg PO DAILY #90 tab-cap 06/05/19 05/03/20 Rx acetaminophen 500 mg tablet 500 mg PO BID tab-cap 09/15/19 05/03/20 History inulin 2 gram chewable tablet See Rx Instructions PO .COMPLEX 09/15/19 05/03/20 History trazodone 50 mg tablet 50 mg PO HS PRN PRN tab-cap 09/15/19 05/03/20 History insulin lispro 100 unit/mL 1 - 30 unit SUB-Q AC #15 ml 10/26/19 05/03/20 Rx subcutaneous pen spironolactone 25 mg tablet 12.5 mg PO DAILY #45 tab 11/08/19 05/03/20 Rx atorvastatin 20 mg tablet 20 mg PO DAILY #90 tab-cap 11/22/19 05/03/20 Rx isosorbide mononitrate 30 mg 60 mg PO DAILY #180 tab-cap 02/05/20 05/03/20 Rx tablet,extended release 24 hr loratadine 10 mg tablet 10 mg PO DAILY #90 tab-cap 02/05/20 05/03/20 Rx blood sugar diagnostic #400 ea 03/11/20 05/03/20 Rx Toujeo SoloStar U-300 Insulin 50 unit SUBCUT BID 03/21/20 05/03/20 History carvedilol 18.75 mg PO BID 03/21/20 05/03/20 History ferrous sulfate 325 mg (65 mg 325 mg PO TID #270 tab-cap 04/29/20 05/03/20 Rx iron) tablet pen needle, diabetic 31 gauge x #500 each 04/30/20 05/03/20 Rx 5/16 Allergies Allergy/AdvReac Type Severity Reaction Status Date / Time gabapentin AdvReac Mild Dizziness/L Verified 05/03/20 12:38 ightheade GORDON Inhibitors AdvReac Unknown COUGH Verified 05/03/20 12:38 multiple food allergies Allergy Intermediate Sensitization Uncoded 05/03/20 12:38 noted on blood test Exam Const General: cooperative, comfortable and no acute distress Nutritional Appearance: overweight Orientation: alert, awake and oriented x3 [facility] Head: normal to inspection, normocephalic and atraumatic Mouth: moist mucous membranes abnormal (dry) Resp Effort & Inspection: normal respiratory effort Auscultation: clear to auscultation bilaterally Cardio Rate: regular rate Rhythm: regular rhythm GI Inspection: normal to inspection Palpation: soft Auscultation: normal bowel sounds Neuro General: patient alert, patient awake, patient oriented x3, moves all extremities and no focal motor deficits Extrem General: normal to inspection and full ROM Results Labs Result diagrams: 05/03/20 12:45 05/03/20 12:45 Labs: Laboratory Results - last 24 hr 05/03/20 05/03/20 05/03/20 12:45 12:45 14:03 WBC 9.42 RBC 2.96 L Hgb 7.3 L Hct 25.0 L MCV 84.5 MCH 24.7 L MCHC 29.2 L RDW 14.5 Plt Count 156 MPV 11.5 H Immature Gran % See Differential Neutrophils % 76.0 Lymphocytes % 13.0 Monocytes % 6.0 Eosinophils % 2.0 Basophils % 1.0 Metamyelocytes % 1 Myelocytes % 1 Nucleated RBC % 1 Absolute Neutrophils 7.16 H Absolute Lymphocytes 1.22 Absolute Monocytes 0.57 Absolute Eosinophils 0.19 Absolute Basophils 0.09 RBC Morphology See below Hypochromasia 2+ Basophilic Stippling Present Anisocytosis 1+ Microcytosis 2+ Sodium 144 Potassium 3.8 Chloride 112 H Carbon Dioxide 23.0 Anion Gap 9.0 BUN 25 H Creatinine 1.69 H Estimated GFR/1.73 m2 28.97 Glucose 287 H Calcium 8.8 Magnesium 1.7 L Total Bilirubin 0.3 AST 19 ALT 13 L Alkaline Phosphatase 79 Troponin I < 0.05 Total Protein 6.9 Albumin 3.1 L Crossmatch See Detail Last Vital Signs Temp 36.5 C 05/03/20 12:28 Pulse 60 05/03/20 13:31 Resp 23 05/03/20 13:40 BP 172/56 H 05/03/20 13:31 Pulse Ox 99 05/03/20 13:40 COVID-19 Screening Have you, or household traveled for leisure in last 14 days?: No Had IN PERSON contact w/suspected or confirmed C-19 person: No
[2020-05-03] MEDS: nitroGLYcerin 0.4 MG TAB SL ×2 (14:42→20:50)
[2020-05-03 16:04] LABS: Troponin I < 0.05 ng/mL (<0.06)
[2020-05-03] MEDS: Insulin Aspart 300 UNITS/3 ML PEN SC (17:21)
[2020-05-03] MEDS: Ferrous Sulfate 325 MG TAB PO (20:51)
[2020-05-03] MEDS: Carvedilol 12.5 MG TAB 18.75 MG PO (20:51)
[2020-05-03] MEDS: Normal Saline Flush 10 ML SYR IVP (20:51)
[2020-05-03] MEDS: Pantoprazole 40 MG VIAL IVP (20:52)
[2020-05-03] MEDS: Insulin Glargine 300 UNITS/3 ML PEN 50 UNITS SC (20:53)
[2020-05-03] MEDS: Furosemide 20 MG/2 ML VIAL IVP (20:53)
[2020-05-03] MEDS: Budesonide/Formoterol 80/4.5 6.9 GM 60 PUFF INH IH (20:54)
[2020-05-03] MEDS: Calcium 600mg/Vit D 200U TAB 1 TAB PO (22:22)
[2020-05-04] VITALS (8 sets, daily range): BP systolic 150–170; BP diastolic 61–83; PULSE 59–76; RESP 16–20; TEMP 36.5–38; O2SAT 97–99
[2020-05-04 03:12] LABS: COVID-19 RT-PCR UVMMC Result Negative (Negative)
[2020-05-04 07:24] LABS: Abs Immature Grans 0.08 10^3/uL (0.0-0.06); Absolute Basophil Count 0.04 10^3/uL (0.0-0.2); Absolute Lymphocyte Count 2.01 10^3/uL (1.2-3.4); Absolute Monocyte Count 0.93 10^3/uL (0.1-0.8); Basophils % 0.3; Eosinophils % 2.4; HCT 27.8 % (36.0-46.0); HGB 8.8 g/dL (11.2-15.7); Immature Grans % 0.7; Lymphocytes % 16.4; MCH 26.1 pg (27.0-33.0); MCHC 31.7 % (32.0-36.0); MCV 82.5 fL (80-95); MPV 11.2 fL (8.0-11.0); Monocytes % 7.6; Neutrophils % 72.6; Nucleated RBC 0 %; Platelet Count 155 10^3/uL (130-400); RBC 3.37 10^6/uL (3.93-5.22); RDW 14.8 % (11.7-14.6); RDW-SD 42.9 fL; WBC 12.26 10^3/uL (4.4-10.8)
[2020-05-04 07:35] LABS: Absolute Eosinophil Count 0.29 10^3/uL (0.0-0.7)
[2020-05-04 07:41] LABS: Anion Gap 7.8 mmol/L (3-11); BUN 25 mg/dL (7-18); CO2 25.2 mmol/L (21.0-32.0); CREATININE 1.82 mg/dL (0.55-1.02); Chloride 111 mmol/L (98-107); Glucose 62 mg/dL (74-106); Potassium 3.2 mmol/L (3.5-5.1); Sodium 144 mmol/L (136-145); Troponin I < 0.05 ng/mL (<0.06)
[2020-05-04] MEDS: Ferrous Sulfate 325 MG TAB PO ×3 (08:25→20:19)
[2020-05-04] MEDS: Carvedilol 12.5 MG TAB 18.75 MG PO ×2 (08:25→20:19)
[2020-05-04] MEDS: Losartan 25 MG TAB PO (08:25)
[2020-05-04] MEDS: Loratidine 10 MG TAB PO (08:25)
[2020-05-04] MEDS: Atorvastatin 20 MG TAB PO (08:25)
[2020-05-04] MEDS: Multivitamin TAB 1 TAB PO (08:25)
[2020-05-04] MEDS: Pantoprazole 40 MG VIAL IVP ×2 (08:26→20:16)
[2020-05-04] MEDS: Furosemide 40 MG TAB PO (08:26)
[2020-05-04] MEDS: Normal Saline Flush 10 ML SYR IVP ×2 (08:26→20:15)
[2020-05-04] MEDS: Isosorbide Mononitrate 30 MG TABCR 60 MG PO (08:26)
[2020-05-04] MEDS: Calcium 600mg/Vit D 200U TAB 1 TAB PO ×2 (09:54→22:12)
--- NOTE | 2020-05-04 10:55 | PHA.REVIEW ---
Pharmacy Admission Review - Admission Clinical Review (Last Reviewed 05/03/20 @ 12:43 by Jazz Hammer) Discharge planning issues (Acute) DVT prophylaxis (Acute) Chest pain (Acute) Adnexal mass (Acute) gabapentin Adverse Reaction (Mild, Verified 05/03/20 12:38) Dizziness/Lightheade GORDON Inhibitors Adverse Reaction (Unknown, Verified 05/03/20 12:38) COUGH multiple food allergies Allergy (Intermediate, Uncoded 05/03/20 12:38) Sensitization noted on blood test Height 5 ft Weight 79.8 kg - Renal Dosing Renal Dosing: BUN Cancelled 05/04/20 09:05 Creatinine Cancelled 05/04/20 09:05 Medications needing adjustments: Reviewed (eCrCl 22.3 ml/min; meds ok) - Anticoagulation Anticoagulation: Hgb 8.8 g/dL (11.2-15.7) L 05/04/20 06:20 Hct 27.8 % (36.0-46.0) L 05/04/20 06:20 Plt Count 155 10^3/uL (130-400) 05/04/20 06:20 Creatinine Cancelled 05/04/20 09:05 DVT Prohphylaxis: Reviewed (TEDs/SCD only) - Opiate Usage Evaluate Pain Scale/Pains Meds: N/A - Relevant Labs Sodium Cancelled 05/04/20 09:05 Potassium Cancelled 05/04/20 09:05 Chloride Cancelled 05/04/20 09:05 Magnesium 1.7 mg/dL (1.8-2.4) L 05/03/20 12:45 Electrolytes, C-Reactive P, ESR: Reviewed (PO potassium ordered) - DM Control DM Control: Glucose Cancelled 05/04/20 09:05 Finger Stick Blood Glucose 119 Finger Stick Blood Glucose 61 Finger Stick Blood Glucose 61 Finger Stick Blood Glucose 61 Insulin Dosing: Reviewed (glargine 50u BID and aspart per SS --- received oral glucose this AM after low FS reading) - Heart Failure/NY Heart Failure/NY: Troponin I < 0.05 ng/mL (<0.06) 05/04/20 06:20 EF%, GORDON's, B-Blockers, Diuretics: Reviewed (EF 55%, Meds: coreg, lasix, imdur, losartan; Her home furosemide has sliding scale instructions (see home med order), 40mg daily ordered for now -- will monitor weight) - BP Control BP Control: Blood Pressure 168/74 Blood Pressure 150/83 Blood Pressure 150/82 Blood Pressure 152/83 Blood Pressure 170/76 If elevated: Reviewed - Qtc Review If Elevated: Reviewed List meds needing interventions: QTc 484 on admission - IV to PO Switch IV Medications: Reviewed - Home Meds Home Med List reviewed: Reviewed Relevent Home Meds Not ordered & why?: Spironolactone (cancelled by admitting provider due to renal fxn); Furosemide sliding scale instructions: Take 40mg QD, sliding scale if weight >180 lbs; 181-185: 80mg QD, 186-190: 80mg AM & 40mg PM, >190: 80mg BID & call Cardiology; Dr. Cordero - Current meds Current Medication Order Review: Reviewed
[2020-05-04] MEDS: Dicyclomine 10 MG CAP PO (12:07)
[2020-05-04] MEDS: Potassium Chloride 20 MEQ TABCR PO ×3 (12:07→20:19)
[2020-05-04] MEDS: Acetaminophen 325 MG TAB 650 MG PO (12:07)
[2020-05-04] MEDS: Insulin Aspart 300 UNITS/3 ML PEN SC ×2 (12:08→18:02)
--- NOTE | 2020-05-04 16:07 | PGE_ITS ---
Date of Service Date of service: 05/04/20 Time of Service: 10:09 Assessment and Plan Assessment and plan (1) Chest pain: Status: Acute Assessment and plan: Related to anemia? No further CP since admission. Troponin levels were negative. Qualifiers: Chest pain type: unspecified Qualified Code(s): R07.9 - Chest pain, unspecified (2) Anemia: Status: Chronic Assessment and plan: Stool + of occult blood Upper and lower endoscopies on 04/12/20; mild gastritis, colon polyps, colon avm. Transfused one unit RBCs. Hgb improved to 8.8 Monitor. Capsule endoscopy planned as outpt unless more significant/acute bleeding occurs. Qualifiers: Anemia type: iron deficiency Iron deficiency anemia type: unspecified iron deficiency Qualified Code(s): D50.9 - Iron deficiency anemia, unspecified (3) Chronic kidney disease (CKD), stage IV (severe): Status: Chronic Assessment and plan: Creatinine 1.69 > 1.82. Monitor. Oral hydration encouraged. (4) Type 2 diabetes mellitus with retinopathy of both eyes, with long-term current use of insulin: Status: Chronic Assessment and plan: On basal bolus insulin as per home. Diabetic diet. Monitor. (5) Congestive heart failure: Status: Chronic Assessment and plan: EF 55% on MPI 04/01/20 Received lasix after RBC transfusion. Qualifiers: Heart failure type: unspecified Heart failure chronicity: chronic Qualified Code(s): I50.9 - Heart failure, unspecified (6) Essential hypertension: Status: Chronic Assessment and plan: BP elevated in the 150-160's. She is on carvedilol and Losartan, as well as Isosorbide. Cont to monitor. (7) Temperature elevation: Status: Acute Assessment and plan: Temp elevation of 38 this AM UA pending. Cath specimen ordered. CXR w/o acute findings. Monitor. Subjective Subjective Patient reports: no new complaints, feels better, tolerating a regular diet and fever Interval history since last seen: No CP, palpitations. Exam Const General: cooperative and no acute distress Nutritional Appearance: obese Orientation: alert and oriented x3 Resp Effort & Inspection: normal respiratory effort Auscultation: clear to auscultation bilaterally Cardio Rate: regular rate Rhythm: regular rhythm Heart Sounds: S1 normal and S2 normal GI Palpation: soft and nontender Auscultation: normal bowel sounds Extrem General: full ROM, no pedal edema and no calf tenderness Objective Last Vital Signs Temp 37.1 C 05/04/20 11:37 Pulse 71 05/04/20 11:37 Resp 17 05/04/20 11:37 BP 160/61 H 05/04/20 11:37 Pulse Ox 99 05/04/20 11:37 Laboratory Results - last 24 hr 05/03/20 05/03/20 05/04/20 14:03 14:50 06:20 WBC RBC Hgb Hct MCV MCH MCHC RDW Plt Count MPV Immature Gran % Neutrophils % Lymphocytes % Monocytes % Eosinophils % Basophils % Nucleated RBC % Absolute Neutrophils Absolute Lymphocytes Absolute Monocytes Absolute Eosinophils Absolute Basophils Sodium 144 Potassium 3.2 L Chloride 111 H Carbon Dioxide 25.2 Anion Gap 7.8 BUN 25 H Creatinine 1.82 H Estimated GFR/1.73 m2 26.60 Glucose 62 L D Calcium 9.0 Troponin I < 0.05 SARS-CoV-2 (PCR) Negative Nasopharyn COVID-19 PCR Not Applicable Ref Test Perform Site On license of [facility] lab Patient ABO/Rh B Positive Antibody Screen Negative Crossmatch See Detail 05/04/20 05/04/20 06:20 09:05 WBC 12.26 H D RBC 3.37 L Hgb 8.8 L Hct 27.8 L MCV 82.5 MCH 26.1 L MCHC 31.7 L RDW 14.8 H Plt Count 155 MPV 11.2 H Immature Gran % 0.7 Neutrophils % 72.6 Lymphocytes % 16.4 Monocytes % 7.6 Eosinophils % 2.4 Basophils % 0.3 Nucleated RBC % 0 Absolute Neutrophils 8.90 H Absolute Lymphocytes 2.01 Absolute Monocytes 0.93 H Absolute Eosinophils 0.29 Absolute Basophils 0.04 Sodium Cancelled Potassium Cancelled Chloride Cancelled Carbon Dioxide Cancelled Anion Gap Cancelled BUN Cancelled Creatinine Cancelled Estimated GFR/1.73 m2 Cancelled Glucose Cancelled Calcium Cancelled Troponin I SARS-CoV-2 (PCR) Nasopharyn COVID-19 PCR Ref Test Perform Site Patient ABO/Rh Antibody Screen Crossmatch
[2020-05-04] MEDS: Budesonide/Formoterol 80/4.5 6.9 GM 60 PUFF INH IH (20:20)
[2020-05-04] MEDS: Insulin Glargine 300 UNITS/3 ML PEN 50 UNITS SC (20:44)
[2020-05-04 20:57] LABS: Bilirubin Negative (Negative); Blood Trace-intact (Negative); Clarity Clear (Clear); Glucose Negative (Negative); Ketones Negative (Negative); Leukocyte Esterase Negative (Negative); Nitrite Negative (Negative); Specific Gravity 1.015 (1.005-1.025); Urobilinogen 0.2 EU/dL (Up TO 0.2); pH 5.5 (5-8)
[2020-05-04 21:06] LABS: Bacteria Rare HPF (Negative); C & S Indicated? No; Casts Negative LPF (Negative); Crystals Negative HPF (Negative); Epithelial Cells Negative HPF (Negative); Mucus Negative (Negative); RBC 0-2 HPF (0-2); WBC 0-2 HPF (0-5)
[2020-05-05] VITALS (7 sets, daily range): BP systolic 124–167; BP diastolic 67–76; PULSE 60–70; RESP 17–18; TEMP 36.5–37.2; O2SAT 97–98
[2020-05-05] MEDS: Budesonide/Formoterol 80/4.5 6.9 GM 60 PUFF INH IH ×2 (07:23→20:59)
[2020-05-05] MEDS: Pantoprazole 40 MG VIAL IVP ×2 (07:47→21:00)
[2020-05-05] MEDS: Normal Saline Flush 10 ML SYR IVP ×3 (07:47→21:01)
[2020-05-05] MEDS: Ferrous Sulfate 325 MG TAB PO ×3 (07:48→20:59)
[2020-05-05] MEDS: Atorvastatin 20 MG TAB PO (07:48)
[2020-05-05] MEDS: Isosorbide Mononitrate 30 MG TABCR 60 MG PO (07:48)
[2020-05-05] MEDS: Furosemide 40 MG TAB PO (07:48)
[2020-05-05] MEDS: Potassium Chloride 20 MEQ TABCR PO (07:48)
[2020-05-05] MEDS: Acetaminophen 325 MG TAB 650 MG PO ×2 (07:48→13:05)
[2020-05-05] MEDS: Loratidine 10 MG TAB PO (07:48)
[2020-05-05] MEDS: Carvedilol 12.5 MG TAB 18.75 MG PO ×2 (07:48→20:59)
[2020-05-05] MEDS: Multivitamin TAB 1 TAB PO (07:48)
[2020-05-05 07:49] LABS: Abs Immature Grans 0.07 10^3/uL (0.0-0.06); Absolute Basophil Count 0.03 10^3/uL (0.0-0.2); Absolute Eosinophil Count 0.32 10^3/uL (0.0-0.7); Absolute Lymphocyte Count 1.58 10^3/uL (1.2-3.4); Absolute Monocyte Count 0.73 10^3/uL (0.1-0.8); Absolute Neutrophil Count 7.93 10^3/uL (1.2-6.7); Basophils % 0.3; HCT 29.2 % (36.0-46.0); HGB 8.9 g/dL (11.2-15.7); Immature Grans % 0.7; Lymphocytes % 14.8; MCH 25.9 pg (27.0-33.0); MCHC 30.5 % (32.0-36.0); MCV 85.1 fL (80-95); MPV 11.6 fL (8.0-11.0); Monocytes % 6.8; Neutrophils % 74.4; Nucleated RBC 0 %; Platelet Count 142 10^3/uL (130-400); RBC 3.43 10^6/uL (3.93-5.22); RDW 15.9 % (11.7-14.6); RDW-SD 44.6 fL; WBC 10.66 10^3/uL (4.4-10.8)
[2020-05-05] MEDS: Losartan 25 MG TAB PO (07:49)
[2020-05-05 07:57] LABS: Anion Gap 8.6 mmol/L (3-11); BUN 29 mg/dL (7-18); CO2 23.4 mmol/L (21.0-32.0); CREATININE 1.82 mg/dL (0.55-1.02); Calcium 9.5 mg/dL (8.5-10.1); Chloride 111 mmol/L (98-107); Glucose 89 mg/dL (74-106); Potassium 4.1 mmol/L (3.5-5.1); Sodium 143 mmol/L (136-145)
[2020-05-05] MEDS: Calcium 600mg/Vit D 200U TAB 1 TAB PO ×2 (09:59→21:00)
[2020-05-05] MEDS: Insulin Glargine 300 UNITS/3 ML PEN 30 UNITS SC (10:13)
--- NOTE | 2020-05-05 10:35 | INITIAL_ITS ---
- If Service Date Differs Date of service: 05/05/20 Time of Service: 10:35 Care Management Initial Assess REASON FOR HOSPITALIZATION:: Chest Pain, anemia PREVIOUS FUNCTIONAL STATUS/SOCIAL/FAMILY SUPPORTS:: Chetna lives with her daughter and son in law in a trailer. She reports she does have a cane and a walker at home. She is not able to use to the walker in the home she reports as the home is to small. She was going to the [facility] [place] however since that has been closed she has supports through [facility], and has a senior complanion that visits her at home. She states she still has close contact with the nurse [facility] [place] who calls her every Wednesday. The center also continues to help her with appointments. She does not have any home health services and does not want them. CURRENT FUNCTIONAL STATUS:: Chetna is alert and engaged with CM over the phone. She states she was not feeling well prior to coming to the hospital. She states prior to coming to the hospital she [facility] that instructed her to hang up and call 911 which she did. She states her senior pillow cleaner had aslo been in the home that day and was concerend. She states she is feeling somewhat better, she complains about pain in her hip. She states she is unsure if she is returning home today or Wednesday. Her daughter has today and Wednesday off and would be able to pick her up. Chetna is aware that her glucose has been low and her medications are being adjusted. She was able to verbilize the change in her lantus dose and why it was being adjusted. Has patient been provided with info about the portal/API?: Yes Did the patient sign up for the portal?: No CODE STATUS:: Full Code INSURANCE COVERAGE / FINANCIAL ISSUES:: Medicare advantage plan CURRENT HOME/COMMUNITY SERVICES/EQUIPMENT:: Senior pillow cleaner, Adult day services telephonic support right now, and area on aging supports. She has a cane and a walker at home, [facility] transportation when family not available. PRIMARY CARE PHYSICIAN:: Catrina Elizabeth NP POTENTIAL DISCHARGE NEEDS:: Follow up appointment scheduled with primary care prior to discharge. PATIENT/FAMILY EDUCATION NEEDS:: Discharge education, limitations and follow up plan of care. ANTICIPATED BARRIERS TO DISCHARGE:: None identified TRANSPORTATION:: Via private car with family at time of discharge. PLAN:: Chetna will discharged home when medically ready, she does not want home health services at this time, however will consider if recomended. CM will continue to assess for discharge needs and coordiantion of services if needed.
[2020-05-05] MEDS: Insulin Aspart 300 UNITS/3 ML PEN SC ×2 (12:09→16:30)
[2020-05-05] MEDS: Dicyclomine 10 MG CAP PO (13:05)
--- NOTE | 2020-05-05 13:15 | W.PM.PROGNOT ---
Date of Service Date of service: 05/05/20 Time of Service: 13:16 Assessment and Plan Assessment and plan (1) Temperature elevation: Status: Acute Assessment and plan: x1. No elevations for 24 hours. Jessicaley was related to RBC transfusion. UA negative. (2) Discharge planning issues: Status: Acute Assessment and plan: Home with home health when appropriate, though patient has voiced desire to have no HH. She lives with a daughter. (3) Chest pain: Status: Acute Assessment and plan: Resolved. Qualifiers: Chest pain type: unspecified Qualified Code(s): R07.9 - Chest pain, unspecified (4) Anemia: Status: Chronic Assessment and plan: Hgb 8.9 (8.8 yesterday). Monitor Qualifiers: Anemia type: iron deficiency Iron deficiency anemia type: unspecified iron deficiency Qualified Code(s): D50.9 - Iron deficiency anemia, unspecified (5) Chronic kidney disease (CKD), stage IV (severe): Status: Chronic Assessment and plan: 1.82 today and yesterday. Within her baseline range. (6) Type 2 diabetes mellitus with retinopathy of both eyes, with long-term current use of insulin: Status: Chronic Assessment and plan: AM blood glucose levels have been low normal. Adjust lantus doses downward. Cont to monitor. (7) Congestive heart failure: Status: Chronic Assessment and plan: Initiate daily wts. Cont lasix 40mg daily. Qualifiers: Heart failure type: unspecified Heart failure chronicity: chronic Qualified Code(s): I50.9 - Heart failure, unspecified Subjective Subjective Patient reports: no new complaints, still having pain (left buttocks with some radiation into the posterior thigh) and afebrile; denies nausea, vomiting and shortness of breath Exam Const General: cooperative and no acute distress Nutritional Appearance: obese Resp Effort & Inspection: normal respiratory effort Auscultation: clear to auscultation bilaterally Cardio Jugular venous pressure: no JVD Rate: regular rate Rhythm: regular rhythm Heart Sounds: S1 normal and S2 normal GI Palpation: soft and nontender Auscultation: normal bowel sounds Back/Spine/Pelvis Pelvis: no buttock tenderness and other (No tenderness over L greater trochanter bursae) Skin General skin exam: no rashes or lesions noted Extrem General: no pedal edema and no calf tenderness Objective Last Vital Signs Temp 36.6 C 05/05/20 11:39 Pulse 61 05/05/20 11:39 Resp 17 05/05/20 11:39 BP 124/75 05/05/20 11:39 Pulse Ox 98 05/05/20 11:39 Laboratory Results - last 24 hr 05/04/20 05/05/20 05/05/20 17:05 06:31 06:31 WBC 10.66 RBC 3.43 L Hgb 8.9 L Hct 29.2 L MCV 85.1 MCH 25.9 L MCHC 30.5 L RDW 15.9 H Plt Count 142 MPV 11.6 H Immature Gran % 0.7 Neutrophils % 74.4 Lymphocytes % 14.8 Monocytes % 6.8 Eosinophils % 3.0 Basophils % 0.3 Nucleated RBC % 0 Absolute Neutrophils 7.93 H Absolute Lymphocytes 1.58 Absolute Monocytes 0.73 Absolute Eosinophils 0.32 Absolute Basophils 0.03 Sodium 143 Potassium 4.1 D Chloride 111 H Carbon Dioxide 23.4 Anion Gap 8.6 BUN 29 H Creatinine 1.82 H Estimated GFR/1.73 m2 26.60 Glucose 89 Calcium 9.5 Urine Color Yellow Urine Clarity Clear Urine pH 5.5 Ur Specific [place] 1.015 Urine Protein 30 H Urine Ketones Negative Urine Blood Trace-intact H Urine Nitrite Negative Urine Bilirubin Negative Urine Urobilinogen 0.2 Ur Leukocyte Esterase Negative Urine RBC 0-2 Urine WBC 0-2 Ur Epithelial Cells Negative Urine Crystals Negative Urine Bacteria Rare Urine Casts Negative Urine Mucus Negative Ur Culture Indicated? No Urine Glucose Negative
[2020-05-05] MEDS: Insulin Glargine 300 UNITS/3 ML PEN 40 UNITS SC (21:33)
[2020-05-06] VITALS (11 sets, daily range): BP systolic 110–149; BP diastolic 57–79; PULSE 65–85; RESP 16–20; TEMP 36.4–37.2; O2SAT 95–99
[2020-05-06] MEDS: nitroGLYcerin 0.4 MG TAB SL ×3 (06:26→06:42)
--- NOTE | 2020-05-06 06:45 | RT.EKG_ITS ---
APPROVED REPORT Exam: Resting ECG Patient Location: I HR:75 bpm ECG Measurements Heart Rate 75 AXIS CO 151 P 22 QRSd 154 QRS 171 QT 416 T 67 QTc 465 Conclusion Ventricular-paced rhythm
--- NOTE | 2020-05-06 07:04 | W.PM.PROGNOT ---
Date of Service Date of service: 05/06/20 Time of Service: 07:04 Subjective Subjective Interval history since last seen: Informed by nursing that the patient reported L-sided CP which required 3 doses of SL nitroglycerin to resolve. The patient states this happens to her at home at rest every few days. She is chest pain free now. Descirbes today's episode as waking up with pain in her fingers/hands, progressive up the left arm and into her left chest. Endorses dizziness on getting up but not while in bed. Denies shortness of breath, nausea. Tele: V paced rhythm. Same on EKG. Ordered troponins x 2. Will notify day team. Objective Last Vital Signs Temp 36.5 C 05/06/20 06:30 Pulse 78 05/06/20 06:46 Resp 18 05/06/20 06:46 BP 114/57 L 05/06/20 06:46 Pulse Ox 96 05/06/20 06:46 Laboratory Results - last 24 hr 05/05/20 05/05/20 06:31 06:31 WBC 10.66 RBC 3.43 L Hgb 8.9 L Hct 29.2 L MCV 85.1 MCH 25.9 L MCHC 30.5 L RDW 15.9 H Plt Count 142 MPV 11.6 H Immature Gran % 0.7 Neutrophils % 74.4 Lymphocytes % 14.8 Monocytes % 6.8 Eosinophils % 3.0 Basophils % 0.3 Nucleated RBC % 0 Absolute Neutrophils 7.93 H Absolute Lymphocytes 1.58 Absolute Monocytes 0.73 Absolute Eosinophils 0.32 Absolute Basophils 0.03 Sodium 143 Potassium 4.1 D Chloride 111 H Carbon Dioxide 23.4 Anion Gap 8.6 BUN 29 H Creatinine 1.82 H Estimated GFR/1.73 m2 26.60 Glucose 89 Calcium 9.5
[2020-05-06 07:11] LABS: Abs Immature Grans 0.06 10^3/uL (0.0-0.06); Absolute Basophil Count 0.03 10^3/uL (0.0-0.2); Absolute Eosinophil Count 0.38 10^3/uL (0.0-0.7); Absolute Lymphocyte Count 1.39 10^3/uL (1.2-3.4); Absolute Monocyte Count 0.76 10^3/uL (0.1-0.8); Basophils % 0.3; Eosinophils % 3.6; HCT 27.6 % (36.0-46.0); HGB 8.5 g/dL (11.2-15.7); Immature Grans % 0.6; Lymphocytes % 13.2; MCH 26.2 pg (27.0-33.0); MCHC 30.8 % (32.0-36.0); MCV 85.2 fL (80-95); MPV 11.6 fL (8.0-11.0); Monocytes % 7.2; Neutrophils % 75.1; Nucleated RBC 0 %; Platelet Count 150 10^3/uL (130-400); RBC 3.24 10^6/uL (3.93-5.22); RDW 16.6 % (11.7-14.6); RDW-SD 45.8 fL; WBC 10.52 10^3/uL (4.4-10.8)
[2020-05-06 07:20] LABS: Anion Gap 7.5 mmol/L (3-11); BUN 35 mg/dL (7-18); CO2 23.5 mmol/L (21.0-32.0); CREATININE 2.02 mg/dL (0.55-1.02); Calcium 9.5 mg/dL (8.5-10.1); Chloride 111 mmol/L (98-107); Estimated GFR 23.58 (mL/min/1.73m2); Glucose 86 mg/dL (74-106); Magnesium 1.8 mg/dL (1.8-2.4); Potassium 3.9 mmol/L (3.5-5.1); Sodium 142 mmol/L (136-145)
[2020-05-06 07:28] LABS: Troponin I < 0.05 ng/mL (<0.06)
[2020-05-06] MEDS: Multivitamin TAB 1 TAB PO (07:38)
[2020-05-06] MEDS: Normal Saline Flush 10 ML SYR IVP ×2 (07:38→19:43)
[2020-05-06] MEDS: Pantoprazole 40 MG VIAL IVP ×2 (07:38→19:43)
[2020-05-06] MEDS: Carvedilol 12.5 MG TAB 18.75 MG PO ×2 (07:39→19:44)
[2020-05-06] MEDS: Ferrous Sulfate 325 MG TAB PO ×3 (07:39→19:44)
[2020-05-06] MEDS: Losartan 25 MG TAB PO (07:39)
[2020-05-06] MEDS: Loratidine 10 MG TAB PO (07:39)
[2020-05-06] MEDS: Atorvastatin 20 MG TAB PO (07:39)
[2020-05-06] MEDS: Isosorbide Mononitrate 30 MG TABCR 60 MG PO (07:39)
[2020-05-06] MEDS: Furosemide 40 MG TAB PO (07:39)
[2020-05-06] MEDS: Insulin Glargine 300 UNITS/3 ML PEN 30 UNITS SC (07:47)
[2020-05-06] MEDS: Budesonide/Formoterol 80/4.5 6.9 GM 60 PUFF INH IH ×2 (07:51→19:44)
[2020-05-06 10:26] LABS: Troponin I < 0.05 ng/mL (<0.06)
--- NOTE | 2020-05-06 11:32 | W.INDIABCONS ---
Date of service: 05/06/20 Time of Service: 11:32 Diabetes Inpatient Consult DESCRIPTION/ASSESSMENT: Met with Chetna today for inpatient diabetes education. Chetna admited with chest pain, SOB with Hx of Dm 2, mulitple food allergies. BMI 34 indicates class 1 obesity, weight has been stable > 1 year. Reports allergy to lactose only. Also reports diabetes well controlled with most recent A1C: 7.5%. Chetna lives with daughter that cooks for her and manages her medications. Chetna did not want any additional information on Dm at this time. INTERVENTION: continue diabetic Diet PLAN: monitor po intake, labs, weight Time Spent in Nutritional Counseling and Treatment: 20 min
[2020-05-06] MEDS: Insulin Aspart 300 UNITS/3 ML PEN SC ×2 (11:42→17:07)
--- NOTE | 2020-05-06 12:58 | W.PM.PROGNOT ---
Date of Service Date of service: 05/06/20 Time of Service: 10:09 Assessment and Plan Assessment and plan (1) Anemia: Status: Chronic Assessment and plan: H/O upper and lower endoscopies on 04/12/20 mild gastritis, colon polyps, colon avm. transfused one unit of pRBCs in setting of chest pain and shortness of breath. Discussed with DR Jordan who recommends outpatient capsule endoscopy hold asa Hgb 8.5 (8.9 yesterday). Monitor. Qualifiers: Anemia type: iron deficiency Iron deficiency anemia type: unspecified iron deficiency Qualified Code(s): D50.9 - Iron deficiency anemia, unspecified (2) Chronic kidney disease (CKD), stage IV (severe): Status: Chronic Assessment and plan: Creatinine increased today to 2.02 from 1.82. Will give NS 250ml bolus. Monitor (3) Type 2 diabetes mellitus with retinopathy of both eyes, with long-term current use of insulin: Status: Chronic Assessment and plan: Lantus AM and HS doses reduced yesterday d/t AM low to borderline low readings. Glucose fasting today was 97, prior to lunch 164. Cont current dosing and monitor. Diabetic diet (4) Angina at rest: Status: Chronic Assessment and plan: EF 55% on MPI 04/01/20 [facility] stress test showed small reversible inferior wall defect c/w ischemia. Medical management. On Imdur 60mg daily. Hesitate to increase d/t risk of hypotension. PRN nitroglycerine (5) ASCVD (arteriosclerotic cardiovascular disease): Status: Chronic Assessment and plan: See Angina Subjective Subjective Patient reports: tolerating a regular diet and afebrile; denies shortness of breath Interval history since last seen: Currently w/o pain / CP. At 0630 she c/o pain that began in the Left hand that migrated to the left chest. She endorses previous similar episodes at home every few days. Exam Const General: cooperative and no acute distress Orientation: alert, oriented to person and oriented to place Neck Neck: full ROM and no JVD Resp Effort & Inspection: normal respiratory effort Auscultation: clear to auscultation bilaterally Cardio Rate: regular rate Rhythm: regular rhythm Heart Sounds: S1 normal and S2 normal Extrem General: normal to inspection, no pedal edema and no calf tenderness Left upper extremity: normal to inspection; no cyanosis and no edema Objective Last Vital Signs Temp 36.4 C L 05/06/20 11:35 Pulse 74 05/06/20 11:44 Resp 18 05/06/20 11:35 BP 113/65 05/06/20 11:35 Pulse Ox 96 05/06/20 11:35 Laboratory Results - last 24 hr 05/06/20 05/06/20 05/06/20 06:46 07:05 07:05 WBC RBC Hgb Hct MCV MCH MCHC RDW Plt Count MPV Immature Gran % Neutrophils % Lymphocytes % Monocytes % Eosinophils % Basophils % Nucleated RBC % Absolute Neutrophils Absolute Lymphocytes Absolute Monocytes Absolute Eosinophils Absolute Basophils Sodium 142 Potassium 3.9 Chloride 111 H Carbon Dioxide 23.5 Anion Gap 7.5 BUN 35 H Creatinine 2.02 H Estimated GFR/1.73 m2 23.58 Glucose 86 Calcium 9.5 Magnesium 1.8 Troponin I Cancelled < 0.05 05/06/20 05/06/20 07:05 10:02 WBC 10.52 RBC 3.24 L Hgb 8.5 L Hct 27.6 L MCV 85.2 MCH 26.2 L MCHC 30.8 L RDW 16.6 H Plt Count 150 MPV 11.6 H Immature Gran % 0.6 Neutrophils % 75.1 Lymphocytes % 13.2 Monocytes % 7.2 Eosinophils % 3.6 Basophils % 0.3 Nucleated RBC % 0 Absolute Neutrophils 7.90 H Absolute Lymphocytes 1.39 Absolute Monocytes 0.76 Absolute Eosinophils 0.38 Absolute Basophils 0.03 Sodium Potassium Chloride Carbon Dioxide Anion Gap BUN Creatinine Estimated GFR/1.73 m2 Glucose Calcium Magnesium Troponin I < 0.05
--- NOTE | 2020-05-06 13:59 | PDOC.CMPRO ---
Care Management Progress Note S/O: Chetna continues to be closely monitored at this time. Per MD, surgery consulted with recommendation for outpatient capsule endoscopy. She received a transfusion of packed red blood cells. Creatinine and glucose monitored with adjustments to treatment as appropriate, per MD. CM requested order of inpatient status due to OBV time over 48 hours in the setting of ongoing acute medical care. Awaiting physical therapy recommendations; though RN documented Chetna is up independently with FWW and standby assist. CM continues to follow. A: 84 year old female admitted to [facility] 05/03/20 for Chest pain, anemia P: Chetna will transition to full inpatient for ongoing medical monitoring. Anticipate she will discharged home when medically ready, she reports not wanting home health services at this time, however reported she will reconsider if recommended. CM will continue to assess for discharge needs and coordination of services if needed.
--- NOTE | 2020-05-06 15:06 | IN_ITS ---
Date of service: 05/06/20 Time of Service: 15:06 PT Notes Visit Reasons: CHEST PAIN, ANEMIA Physical Therapy Inpatient Initial Evaluation Date: 05/06/2020 Referring Doctor: Julian Grover MD PT Orders: PT CONSULT: Eval/treat Precautions: Fall. Standard. Activity as tolerated. Patient Profile/Admitting Diagnosis: Chetna is an 84-year-old female who presented to the ED on 05/03/2020 with chief complaints of chest pain with associated shortness of breath. Chetna is diagnosed with ASCVD, chest pain, and adrenal mass. 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 heart block, severe diffuse left ventricular dysfunction HFrEF (LVEF ~25%) Mitral regurg 3+ 2009 cardiac cath: mild diffuse disease ([facility]) 07/03/2013 MPI: +Ischemia, inferolateral defect 01/17/20 [facility] Echo Depression (12/16/11) HUE [place] in the past Essential hypertension (12/16/11) Goal BP </=130-140/80 Hyperlipidemia, unspecified (05/02/15) ICD (implantable cardioverter-defibrillator) in place Insomnia Memory impairment (08/30/17) 08/30/17 MOCA score: 2330 02/16/19 MOCA score: Mitral valve regurgitation (09/05/13) 3+ Multiple food allergies (08/14/15) Immunological Sensitization noted on Blood Test for Milk/Casein, peanut, Tomato, [place], Cabbage, [place], Rice, Spinach, Asparagus, Brussel Sprouts, Sweet Potato, Beef, Pork Osteoporosis (07/28/11) PSVT (paroxysmal supraventricular tachycardia) Restrictive lung disease 09/17/2014 PFTs: possible mild restrictive lung disease (vs. obesity hypoventilation?), also has asthma Retinopathy of both eyes (01/27/17) Non-proliferative Surgical History Extraction of cataract Dr. Hensley Hernia Repair, Incisional (~2010) W/ mesh. Dr. Cheko Patterson Replacement of total knee joint B/L Social History/Home Situation: Chetna lives with her daughter and her son-in-law in Chetna's mobile home with 3 steps to enter enter one rail. She has Meals on Wheels that gets delivered to her twice a week to cover all the days of the week. She is independent with taking care of her own laundry at baseline. Independent with all mobility ADL performance using the FWW although only able to cover short distances as she gets tired easy. Equipment Owned/DME: FWW, SPC Subjective: Agreeable to PT consult. Complained of moderate shortness of breath after ambulation activity. Reported 1 fall in the past 12 months Objective: General Observation: Seated on bedside chair. Telemetry monitoring in place. Mental Status: Alert and oriented. Able to follow single step commands. Able to give home situation and baseline mobility level Pain: None reported ROM: Right Upper Extremity: Shoulder Flexion WFL. Shoulder abduction WFL. Elbow flexion WFL. Wrist flexion WFL. Opening and closing of hand WFL. Left Upper Extremity: Shoulder Flexion WFL. Shoulder abduction WFL. Elbow flexion WFL. Wrist flexion WFL. Opening and closing of hand WFL. Right Lower Extremity: Hip flexion WFL. Hip abduction WFL. Knee flexion WFL. Ankle dorsiflexion WFL. Ankle plantarflexion WFL. Left Lower Extremity: Hip flexion WFL. Hip abduction WFL. Knee flexion WFL. Ankle dorsiflexion WFL. Ankle plantarflexion WFL. Strength: Right Upper Extremity: Shoulder flexors 4-/5. Shoulder abductors 4-/5. Elbow flexors 4-/5. Elbow extensors 4-/5. Curb Setter Helper strong. Left Upper Extremity: Shoulder flexors 4-/5. Shoulder abductors 4-/5. Elbow flexors 4-/5. Elbow extensors 4-/5. Curb Setter Helper strong. Right Lower Extremity: Hip flexors 3+/5. Hip abductors 3+/5. Knee flexors 4-/5. Knee extensors 3+/5. Ankle dorsiflexors 3+/5. Ankle plantarflexors 3+/5. Left Lower Extremity: Hip flexors 3+/5. Hip abductors 3+/5. Knee flexors 4-/5. Knee extensors 3+/5. Ankle dorsiflexors 3+/5. Ankle plantarflexors 3+/5. Sensation: Intact as to pain and pressure on bilateral lower extremities. Bed Mobility/Transfers: Supine to sit standby assist Sit to supine standby assist Sit to stand standby assist Stand to sit standby assist Bed to chair standby assist Chair to bed standby assist Gait: Guided patient through level surface ambulation of 100 feet using front wheeled walker with full weight bearing requiring only standby assist with patient demonstrating mild shortness of breath and complained of achiness in bilateral legs after activity. THERA EX: Patient in the performance of standing level lateral heel raises x10, seated LAQ x10, and seated hip flexion x10 without any undue difficulty. Balance: Static Sitting: Normal Dynamic Sitting: Normal Static Standing: Fair Dynamic Standing: Fair Special Tests: Mobility Limitations Standardized Measure [facility] 6 clicks Basic Mobility Inpatient Short Form: Raw Score: 21 CMS Score: 29% deficit 4-stage balance test: Able to maintain any of the 4 test positions for 10 seconds indicating increased risk for falls. Informed Consent/Education: Patient instructed in purpose of PT consult and plan of care. Assessment: Chetna currently demonstrates functional mobility decline requiring standby assist for all mobility ADL performance, decreased activity tolerance, generalized weakness and bilateral lower extremities, and increased risk for falls due to admitting diagnosis and co-morbidities. Prior to admission, patient's baseline status is modified independent using the front wheeled walker. She will benefit from continued home health physical therapy services in order to achieve highest functional level in her home environment. Patient presents with clinical signs and symptoms consistent with current/admitting diagnoses that have resulted to mobility limitations, gait instability, generalized weakness, and impairment of motor control as demonstrated by the following impairment level findings: 1. Decreased strength to B LE major muscle groups 2. Impaired standing balance 3. Impaired activity tolerance Impairments are contributing to the following functional limitations: 1. Inability to safely ambulate without assistive device and physical assistance 2. Increase completion time for mobility ADL performance 3. Increased fall risk 4. Inability to negotiate steps alone safely Patient is assessed as a 19841 moderate complexity based on the following: History: 84-year-old female with impairment level findings, functional limitations, and past medical history as indicated above Examination: Demonstrable impairment in strength, balance, and mobility level with underlying impairments and functional limitations as documented above Presentation:Evolving Decision Makin moderate complexity Goals: Goals X1 week 1. Supine-Sit independent 2. Sit-Supine independent 3. Sit-Stand independent 4. Stand-Sit independent 5. Bed-Chair independent 6. Chair-Bed independent 7. Independent gait on level surface with use of front wheeled walker for at least 100 feet without report of pain nor dyspnea 8. Independent stair negotiation while holding onto bilateral rails for at least 5steps without report of pain nor dyspnea 9. Independent with home exercise program 10. Good static and dynamic standing balance/tolerance Plan of Care/Treatment Plan: 1-2x/day, 7 days/week x 1 week. Plan of care has been reviewed with the DOUBLE BACKER providing the service under Physical Therapy direction. Initiate Physical Therapy intervention for strengthening, bed mobility, transfers, gait, stairs, balance training, use of assistive device. DISCHARGE RECOMMENDATIONS: Patient will benefit from home health PT services in order to progress mobility level using least restrictive assistive ambulatory device, assess home safety, identify additional equipment needs, and establish a functional maintenance program that will increase ability of patient to remain at home. TREATMENT CODE/TIME: 16798 x 29 minutes beginning at 15:06 PM. Thank you for the opportunity to participate in the care of this patient. Nidhi Lozoya PT, DPT, CLT [facility] [place], [place]
--- NOTE | 2020-05-06 15:42 | CHAPLAIN ---
Chetna was up in her chair when I visited. She easily engaged n a conversation. She considers her daughter a strong support. Her daughter works at the [employer] in [facility]. Chetna said she very much misses going to [facility] daily, and misses the people she usually spends time with there. She shared some personal history. I will continue to visit.
[2020-05-06] MEDS: Calcium 600mg/Vit D 200U TAB 1 TAB PO (22:12)
[2020-05-06] MEDS: Insulin Glargine 300 UNITS/3 ML PEN 40 UNITS SC (22:12)
[2020-05-07 00:47] VITALS: BP 152/78; PULSE 87; RESP 18; TEMP 37.1; O2SAT 95
[2020-05-07 07:05] VITALS: PULSE 80
[2020-05-07] MEDS: Budesonide/Formoterol 80/4.5 6.9 GM 60 PUFF INH IH (07:49)
[2020-05-07 07:57] VITALS: BP 176/72; PULSE 72; RESP 17; TEMP 36.7; O2SAT 97
[2020-05-07] MEDS: Isosorbide Mononitrate 30 MG TABCR 90 MG PO (08:46)
[2020-05-07] MEDS: Loratidine 10 MG TAB PO (08:46)
[2020-05-07] MEDS: Normal Saline Flush 10 ML SYR IVP (08:46)
[2020-05-07] MEDS: Atorvastatin 20 MG TAB PO (08:46)
[2020-05-07] MEDS: Pantoprazole 40 MG VIAL IVP (08:46)
[2020-05-07] MEDS: Furosemide 40 MG TAB PO (08:46)
[2020-05-07] MEDS: Ferrous Sulfate 325 MG TAB PO ×2 (08:46→14:13)
[2020-05-07] MEDS: Multivitamin TAB 1 TAB PO (08:47)
[2020-05-07] MEDS: Carvedilol 12.5 MG TAB 18.75 MG PO (08:47)
[2020-05-07] MEDS: Losartan 25 MG TAB PO (08:47)
[2020-05-07] MEDS: Insulin Aspart 300 UNITS/3 ML PEN SC ×2 (08:49→11:57)
[2020-05-07] MEDS: Insulin Glargine 300 UNITS/3 ML PEN 30 UNITS SC (08:50)
[2020-05-07] MEDS: Calcium 600mg/Vit D 200U TAB 1 TAB PO (09:50)
[2020-05-07 11:12] VITALS: BP 144/68; PULSE 79; RESP 17; TEMP 37.1; O2SAT 98
--- NOTE | 2020-05-07 12:22 | PDOC.HHF2F ---
Home Health Certification Home Health Certification: 1. Encounter Date and Reason I certify that CARMELO THOMAS was seen by Julian Grover MD on 05/07/20 and that I had a [id number] encounter with this patient that meets the physician face to face encounter requirements. 2. Clinical Findings Supporting Skilled Need and Homebound Status I certify that home health services are medically necessary, include either intermittent retirement and/or physical/speech therapy, and that this patient is homebound in that absences from the home require considerable and taxing effort and are infrequent or of short duration, or are attributable to the need to receive medical care. [X] (a) Attached documentation from encounter provides clinical findings supporting skilled need and homebound status (including what assistance patient requires to leave the home). The encounter with the patient was in whole, or in part, for the following medical condition, which is the primary reason for home health care: CHEST PAIN, ANEMIA Half-Way:Monitoring for signs/symptoms of GI bleeding. Cardiac monitoring for angina. Evaluating BP. Medication monitoring/management. Physical Therapy: To treat LE weakness, gait instability. Speech Therapy: Homebound:Requires assistance of another person for ambulation outside of the home. 3. Certification and Authentication I certify that I composed the above information based on my clinical judgement relating to this patient's medical condition and, if applicable, clinical findings communicated to me by the NPP or inpatient physician who performed the Home Health Referral. All further orders will be obtained through (Community Based Physician - PCP)
--- NOTE | 2020-05-07 12:24 | DSE_ITS ---
Date of service: 05/07/20 Time of Service: 12:25 DS: Diagnosis Discharge Diagnosis (1) Anemia: Status: Chronic (2) Chronic kidney disease (CKD), stage IV (severe): Status: Chronic (3) Type 2 diabetes mellitus with retinopathy of both eyes, with long-term current use of insulin: Status: Chronic (4) Angina at rest: Status: Chronic (5) ASCVD (arteriosclerotic cardiovascular disease): Status: Chronic Discharge Plan Disposition Patient Disposition: HOME W/HOME HEALTH SERVICE Condition: Stable Discharge Details Reason For Visit: CHEST PAIN, ANEMIA Admit Date/Time: 05/06/20 14:08 Admit Provider: Phoenix Levy Attending Provider: Phoenix Levy Primary Care Provider: Catrina Nuñez Hospital Course Hospital Course: This is 84-year-old female presents to the ED with chief complaint of chest pain, associated with exertional shortness of breath. Chest pain began this morning and then turned into shortness of breath. She is complaining of approximately 3 out of 10 chest pain upon arrival. She was given 4 baby aspirin prior to arrival. Patient was recently started on iron supplements yesterday. She does have a history of a pacemaker/defibrillator, congestive heart failure, hypertension, hyperlipidemia, mitral valve regurgitation, type 2 diabetes, chronic kidney disease, anemia. Her initial troponin was negative, EKG paced. She has consented to 1 unit of packed red blood cells which was initiated in the ED. She will be referred to observation for further monitoring and management. Subsequent troponin levels were negative. Her hemoglobin improved to 8.8 post-transfusion; subsequent readings of 8.9, 8.5. No gross melena or hematochezia noted. She did have another episode of L-sided chest pain that she stated began in the Left had and then the arm and into the chest. It was relieved with nitroglycerine. Repeat troponin levels were negative and no EKG changes noted. EF 55% on MPI 04/01/20 [facility] stress test showed small reversible inferior wall defect c/w ischemia. Medical management. On Imdur 60mg daily; increased to 90 mg daily. nursing to assist in monitoring for effectiveness and any adverse side effects such as hypotension. Regarding her anemia: H/O upper and lower endoscopies on 04/12/20 mild gastritis, colon polyps, colon avm. Discussed with DR Jordan who recommends outpatient capsule endoscopy Her ASA was held but was resumed upon discharge. F/U with PCP in 1-2 weeks. nursing and PT. Schedule outpt capsule endoscopy. Home Meds and New Rx's Prescriptions: New isosorbide mononitrate 30 mg Tablet Extended Release 24 Hr 90 mg PO DAILY Qty: 90 RF: 0 Continued furosemide [Lasix] 40 mg tablet See Rx Instructions PO DIRECTED Qty: 180 RF: 3 trazodone 50 mg tablet 50 mg PO HS PRN PRNRF: 0 Fiber Gummies 2 gram tablet,chewable See Rx Instructions PO .COMPLEX RF: 0 budesonide-formoterol [Symbicort] 80-4.5 mcg/actuation HFA aerosol inhaler 2 puff Inhalation BID Qty: 3 RF: 0 ferrous sulfate 325 mg (65 mg iron) tablet 325 mg PO TID Qty: 270 RF: 0 (DME) pen needle, diabetic 31 gauge x 5/16 needle See Dose Instructions .ROUTE .MEDSUPPLY Qty: 500 RF: 3 multivitamin [Daily Vitamin] 1 EACH tablet 1 ea PO DAILY RF: 0 aspirin [Aspirin Low-Strength] 81 MG tablet,chewable 81 mg PO DAILY RF: 0 calcium carbonate-vitamin D3 [Calcarb 600 With Vitamin D] 1 EACH tablet 1 ea PO BID RF: 0 (DME) lancets [OneTouch UltraSoft Lancets] 1 EACH misc 1 ea Miscellaneous TID Qty: 90 RF: 6 epinephrine [EpiPen 2-Ezekiel] 0.3 MG/0.3 ML auto-injector 0.3 mg IM see instructions Qty: 1 RF: 3 nitroglycerin 0.4 MG tablet, sublingual 0.4 mg Sublingual PRN Qty: 1 RF: 5 Glucagon Emergency Kit (human) 1 MG kit 1 mg IJ PRN Qty: 1 RF: 0 albuterol sulfate [ProAir HFA] 90 mcg/actuation HFA aerosol inhaler 1 - 2 puff Inhalation .Q4-6H PRN (Reason: shortness of breath or wheezing) Qty: 1 RF: 3 omeprazole 20 mg capsule,delayed release(DR/EC) 20 mg PO DAILY Qty: 90 RF: 3 losartan 25 mg tablet 25 mg PO DAILY Qty: 90 RF: 3 acetaminophen 500 mg tablet 500 mg PO BID RF: 0 insulin lispro [Humalog KwikPen Insulin] 100 unit/mL insulin pen 1 - 30 unit Sub-Q AC Qty: 15 RF: 6 spironolactone 25 mg tablet 12.5 mg PO DAILY Qty: 45 RF: 3 atorvastatin 20 mg tablet 20 mg PO DAILY Qty: 90 RF: 3 loratadine 10 mg tablet 10 mg PO DAILY Qty: 90 RF: 3 (DME) Blood Glucose Test Strip See Rx Instructions .ROUTE .MEDSUPPLY Qty: 400 RF: 3 Toujeo SoloStar U-300 Insulin 300 unit/mL (1.5 mL) insulin pen 50 unit SUBCUT BID RF: 0 carvedilol 12.5 mg tablet 18.75 mg PO BID RF: 0 Discontinued isosorbide mononitrate 30 mg tablet extended release 24 hr 60 mg PO DAILY Qty: 180 RF: 3 Discharge Instructions Instructions: Angina (DC) Activity:: Activity as Tolerated Equipment/Supplies:: No Equipment Needed Diet:: Carb Counting Discharge Orders Discharge Orders: Discharge Order (Routine); Ordered 05/07/20 Ordered By: Julian Grover DS: Summary Status at Discharge Functional status at discharge: uses cane/walker Overall status at discharge: patient is progressing back to baseline Mental Status: mental status grossly normal Speech and Movement: speech and movement normal Mood: congruent mood Affect: normal affect Exam Const General: cooperative and no acute distress Nutritional Appearance: overweight Orientation: alert, oriented to person and oriented to place Neck Neck: full ROM and no JVD Resp Effort & Inspection: normal respiratory effort Auscultation: clear to auscultation bilaterally Cardio Rate: regular rate Rhythm: regular rhythm Heart Sounds: S1 normal and S2 normal GI Palpation: soft and nontender Auscultation: normal bowel sounds Skin General skin exam: no rashes or lesions noted Neuro General: no focal motor deficits Cognition: normal cognition Speech: speech normal Extrem General: no pedal edema and no calf tenderness Psych Mental Status: mental status grossly normal Speech and Movement: speech and movement normal Mood: congruent mood Affect: normal affect DS: Data Vitals/I&O Vitals and I&O: Vital Signs Temperature 37.1 C 05/07/20 11:12 Temperature Source Temporal Artery Scan 05/07/20 11:12 Pulse 79 05/07/20 11:12 Pulse Rhythm Regular 05/07/20 08:55 Pulse 97 H 05/03/20 15:46 Respiratory Rate 17 12/15/20 11:12 Respiratory Effort Non-Labored 05/07/20 08:55 Respiratory Depth Normal 05/07/20 08:55 Respiratory Pattern Normal 05/07/20 08:55 Blood Pressure 144/68 H 05/07/20 11:12 Blood Pressure Mean 81 05/03/20 15:46 Blood Pressure Position Sitting 05/03/20 12:28 Pulse Oximetry 98 05/07/20 11:12 Oxygen Delivery Method Room Air 05/07/20 11:12 Oxygen Flow Rate 0 05/07/20 11:12 Pain Level 2 05/07/20 11:12 Comment 05/06/20 07:01 Intake & Output 05/06/20 05/07/20 05/07/20 23:59 11:59 23:59 Intake Total 480 / 1440 80 / 80 Output Total 1100 / 1950 500 / 500 Balance -620 / -510 -420 / -420 Weight 77.9 kg Intake: IV Oral 480 / 1420 60 / 60 Output: Urine 1100 / 1950 500 / 500 Other: Urine Color Yellow Yellow Urine Appearance Clear Clear Urine Odor Normal None Comment ALSO, INCONTINENT OF A LARGE AMT IN BRIEF. Stool Occult Blood Positive Stool Size Small Stool Characteristics Soft Soft Brown Voiding Methods Bedside Commode Toilet [facility] Medical History Angina at rest Arthritis (12/16/11) 08/18/17 XRAY Mild osteoarthritis of the hips and moderate arthritis of the lumbar spine ASCVD (arteriosclerotic cardiovascular disease) (09/07/16) [facility] Cariology Stress test showing small, reversible inferior wall defect c/w ischemia Asthma 09/03/2014 PFTs: mild obstructive airway disease with significant bronchodilator response Cardiac resynchronization therapy defibrillator (SPEECH COACH-D) in place (08/14/16) [facility] Cardiology Underlying 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 heart block, severe diffuse left ventricular dysfunction HFrEF (LVEF ~25%) Mitral regurg 3+ 2009 cardiac cath: mild diffuse disease ([facility]) 07/03/2013 MPI: +Ischemia, inferolateral defect 01/17/20 [facility] Echo Depression (12/16/11) HUE [place] in the past Essential hypertension (12/16/11) Goal BP </=130-140/80 Hyperlipidemia, unspecified (05/02/15) ICD (implantable cardioverter-defibrillator) in place Insomnia Memory impairment (08/30/17) 08/30/17 MOCA score: 02/16/19 MOCA score: Mitral valve regurgitation (09/05/13) 3+ Multiple food allergies (08/14/15) Immunological Sensitization noted on Blood Test for Milk/Casein, peanut, Tomato, [place], Cabbage, [place], Rice, Spinach, Asparagus, Brussel Sprouts, Sweet Potato, Beef, Pork Osteoporosis (07/28/11) PSVT (paroxysmal supraventricular tachycardia) Restrictive lung disease 09/17/2014 PFTs: possible mild restrictive lung disease (vs. obesity hypoventilation?), also has asthma Retinopathy of both eyes (01/27/17) Non-proliferative Surgical History Extraction of cataract Dr. Hensley Hernia Repair, Incisional (~2010) W/ mesh. Dr. Cheko Patterson Replacement of total knee joint B/L Family History Mother Hypertensive disorder, systemic arterial Diabetes Atherosclerosis of coronary artery Family history of stroke Dementia Hyperlipidemia Family history of glaucoma Cataract Father No problems noted. Social History Smoking/Tobacco Use Status: Former Tobacco Use Smoking risk assessment performed?: Yes Alcohol Intake: former Drug use: Never Substance use type: does not use Adopted: No Caregiver/Support person: No Foster care: No Number of Children: 5 Communication Needs: None Pets and animals: Yes Pets and animals: cat(s) and dog(s) Sexually active: No Current gender identity: female What is your relationship status?: Panel score (0-1 are the most socially isolated patients): 0 What type of physical activity do you participate in: other Details: Excercise classes at [employer] Duration: 45-60 minutes/day Frequency: 1-2 times per week Seatbelt use: always Do you feel safe at home: Yes Do you feel safe in your relationship?: Yes
[2020-05-07 15:07] VITALS: PULSE 83
--- NOTE | 2020-05-07 16:52 | PDOC.CMDIS ---
- If Service Date Differs Date of service: 05/07/20 Time of Service: 16:52 LACE Index Scoring Tool - Questions: Length of Stay (in days): 4 - 6 Acuity (Admit via E.D.?): Yes Comorbidities: Diabetes w/o Complication, Congestive Heart Failure E.D. Visits: 2 - Answers: Total Score: 12 Risk of Readmission: High Risk Care Management Discharge Reason for Hospitalization: Chest Pain, anemia Discharge Plan: Chetna will return home with new orders for RN, PT. She will transport via private vehicle driven by family. She will follow up with her PCP and discharge plan of care. She is happy to return home. Patient/Family Education Needs: Review discharge instructions regarding activity levels and medications, discussion of self care needs including ask me three and goals of care. Services Needed at Discharge: Home Health Care Services ([facility] RN, PT)
--- NOTE | 2020-05-09 11:37 | INDS_ITS ---
Date of service: 05/09/20 Time of Service: 11:37 PT Notes Visit Reasons: CHEST PAIN, ANEMIA Physical Therapy Inpatient Discharge Summary Date: 05/09/2020 Date of service: 05/06/2020 only This is a clinical summary of care provided on the duration of dates listed above. No charge was made in the completion of this documentation. Referring Doctor: Julian Grover MD PT Orders: PT CONSULT: Eval/treat Precautions: Fall. Standard. Activity as tolerated. Patient Profile/Admitting Diagnosis: Chetna is an 84-year-old female who presented to the ED on 05/03/2020 with chief complaints of chest pain with associated shortness of breath. Chetna is diagnosed with ASCVD, chest pain, and adrenal mass. PMHX: Medical History Angina at rest Arthritis (12/16/11) 08/18/17 XRAY Mild osteoarthritis of the hips and moderate arthritis of the lumbar spine ASCVD (arteriosclerotic cardiovascular disease) (09/07/16) [facility] Cariology Stress test showing small, reversible inferior wall defect c/w ischemia Asthma 09/03/2014 PFTs: mild obstructive airway disease with significant bronchodilator response Cardiac resynchronization therapy defibrillator (SUPERVISOR MOLD YARD-D) in place (08/14/16) [facility] Cardiology Underlying 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 heart block, severe diffuse left ventricular dysfunction HFrEF (LVEF ~25%) Mitral regurg 3+ 2009 cardiac cath: mild diffuse disease ([facility]) 07/03/2013 MPI: +Ischemia, inferolateral defect 01/17/20 [facility] Echo Depression (12/16/11) HUE [place] in the past Essential hypertension (12/16/11) Goal BP </=130-140/80 Hyperlipidemia, unspecified (05/02/15) ICD (implantable cardioverter-defibrillator) in place Insomnia Memory impairment (08/30/17) 08/30/17 MOCA score: 23/30 02/16/19 MOCA score: 23 Mitral valve regurgitation (09/05/13) 3+ Multiple food allergies (08/14/15) Immunological Sensitization noted on Blood Test for Milk/Casein, peanut, Tomato, [place], Cabbage, [place], Rice, Spinach, Asparagus, Brussel Sprouts, Sweet Potato, Beef, Pork Osteoporosis (07/28/11) PSVT (paroxysmal supraventricular tachycardia) Restrictive lung disease 09/17/2014 PFTs: possible mild restrictive lung disease (vs. obesity hypoventilation?), also has asthma Retinopathy of both eyes (01/27/17) Non-proliferative Surgical History Extraction of cataract Dr. Hensley Hernia Repair, Incisional (~2010) W/ mesh. Dr. Cheko Patterson Replacement of total knee joint B/L Social History/Home Situation: Chetna lives with her daughter and her son-in-law in Chetna's mobile home with 3 steps to enter enter one rail. She has Meals on Wheels that gets delivered to her twice a week to cover all the days of the week. She is independent with taking care of her own laundry at baseline. Independent with all mobility ADL performance using the FWW although only able to cover short distances as she gets tired easy. Equipment Owned/DME: FWW, SPC Subjective: NT. See most recent STITCHING DEPARTMENT SUPERVISOR notes. Objective: General Observation: NT. See most recent STITCHING DEPARTMENT SUPERVISOR notes. Mental Status: NT. See most recent STITCHING DEPARTMENT SUPERVISOR notes. Pain: NT. See most recent STITCHING DEPARTMENT SUPERVISOR notes. ROM: Right Upper Extremity: Shoulder Flexion WFL. Shoulder abduction WFL. Elbow flexion WFL. Wrist flexion WFL. Opening and closing of hand WFL. Left Upper Extremity: Shoulder Flexion WFL. Shoulder abduction WFL. Elbow flexion WFL. Wrist flexion WFL. Opening and closing of hand WFL. Right Lower Extremity: Hip flexion WFL. Hip abduction WFL. Knee flexion WFL. Ankle dorsiflexion WFL. Ankle plantarflexion WFL. Left Lower Extremity: Hip flexion WFL. Hip abduction WFL. Knee flexion WFL. Ankle dorsiflexion WFL. Ankle plantarflexion WFL. Strength: Right Upper Extremity: Shoulder flexors 4-/5. Shoulder abductors 4-/5. Elbow flexors 4-/5. Elbow extensors 4-/5. Ribbon Lapper Tender strong. Left Upper Extremity: Shoulder flexors 4-/5. Shoulder abductors 4-/5. Elbow flexors 4-/5. Elbow extensors 4-/5. Ribbon Lapper Tender strong. Right Lower Extremity: Hip flexors 3+/5. Hip abductors 3+/5. Knee flexors 4-/5. Knee extensors 3+/5. Ankle dorsiflexors 3+/5. Ankle plantarflexors 3+/5. Left Lower Extremity: Hip flexors 3+/5. Hip abductors 3+/5. Knee flexors 4-/5. Knee extensors 3+/5. Ankle dorsiflexors 3+/5. Ankle plantarflexors 3+/5. Sensation: Intact as to pain and pressure on bilateral lower extremities. Bed Mobility/Transfers: Supine to sit standby assist Sit to supine standby assist Sit to stand standby assist Stand to sit standby assist Bed to chair standby assist Chair to bed standby assist Gait: Guided patient through level surface ambulation of 100 feet using front wheeled walker with full weight bearing requiring only standby assist with patient demonstrating mild shortness of breath and complained of achiness in bilateral legs after activity. Balance: Static Sitting: Normal Dynamic Sitting: Normal Static Standing: Fair Dynamic Standing: Fair 4-stage balance test: Able to maintain any of the 4 test positions for 10 seconds indicating increased risk for falls. Assessment: Chetna currently demonstrates functional mobility decline requiring standby assist for all mobility ADL performance, decreased activity tolerance, generalized weakness and bilateral lower extremities, and increased risk for falls due to admitting diagnosis and co-morbidities. Prior to admission, patient's baseline status is modified independent using the front wheeled walker. She will benefit from continued home health physical therapy services in order to achieve highest functional level in her home environment. Patient continues to present with clinical signs and symptoms consistent with current/admitting diagnoses that have resulted to mobility limitations, gait instability, generalized weakness, and impairment of motor control as demonstrated by the following impairment level findings: 1. Decreased strength to B LE major muscle groups 2. Impaired standing balance 3. Impaired activity tolerance Impairments are continuing to contribute to the following functional limitations: 1. Inability to safely ambulate without assistive device and physical assistance 2. Increase completion time for mobility ADL performance 3. Increased fall risk 4. Inability to negotiate steps alone safely Goals: Goals X1 week 1. Supine-Sit independent NOT MET 2. Sit-Supine independent NOT MET 3. Sit-Stand independent NOT MET 4. Stand-Sit independent NOT MET 5. Bed-Chair independent NOT MET 6. Chair-Bed independent NOT MET 7. Independent gait on level surface with use of front wheeled walker for at least 100 feet without report of pain nor dyspnea NOT MET 8. Independent stair negotiation while holding onto bilateral rails for at least 5steps without report of pain nor dyspnea NOT MET 9. Independent with home exercise program NOT MET 10. Good static and dynamic standing balance/tolerance NOT MET DISCHARGE RECOMMENDATIONS: Patient will benefit from home health PT services in order to progress mobility level using least restrictive assistive ambulatory device, assess home safety, identify additional equipment needs, and establish a functional maintenance program that will increase ability of patient to remain at home. TREATMENT CODE/TIME: [place] Thank you for the opportunity to participate in the care of this patient. Nidhi Lozoya PT, DPT, CLT [facility] [place], [place]
== END 2020-05-07 16:06 | disposition home health service (06) | DRG 303 ==
LOC: ER 15:06 → MS 16:08
PROVIDERS: Family Medicine; Internal Medicine; Nurse Practitioner Acute Care; Admitting Provider Internal Medicine; Emergency Provider Registered Nurse Emergency; PCP Nurse Practitioner Family; Visit Provider Internal Medicine
DX: I25.118 Atherosclerotic heart disease of native coronary artery with other forms of angina pectoris (principal); I13.0 Hypertensive heart and chronic kidney disease with heart failure and stage 1 through stage 4 chronic kidney disease, or unspecified chronic kidney disease; N18.4 Chronic kidney disease, stage 4 (severe); I50.22 Chronic systolic (congestive) heart failure; I47.1 Supraventricular tachycardia; I42.8 Other cardiomyopathies; Z95.810 Presence of automatic (implantable) cardiac defibrillator; I50.9 Heart failure, unspecified; E78.5 Hyperlipidemia, unspecified; I34.0 Nonrheumatic mitral (valve) insufficiency; E11.22 Type 2 diabetes mellitus with diabetic chronic kidney disease; J45.909 Unspecified asthma, uncomplicated; D41.9 Neoplasm of uncertain behavior of unspecified urinary organ; G47.00 Insomnia, unspecified; M81.0 Age-related osteoporosis without current pathological fracture; E11.3293 Type 2 diabetes mellitus with mild nonproliferative diabetic retinopathy without macular edema, bilateral; D50.9 Iron deficiency anemia, unspecified; R93.89 Abnormal findings on diagnostic imaging of other specified body structures; Z79.4 Long term (current) use of insulin; R50.9 Fever, unspecified
CPT/HCPCS: 36415; 36430; 80048; 80053; 86850; 86900; 86901; 86920; 93005; 94640; 97162; 99220; 99232; 99239; 99285; NC; U0003; 71045; 81003; 81015; 83735; 84484; 85025; 93010; 99238; G0378; J1941; P9016

== ENCOUNTER 2020-07-11 11:58 | Outpatient (CLI) | payer OTHER, SELFPAY ==
--- NOTE | 2020-07-11 10:45 | DI.RAD_ITS ---
EXAM: XR KNEE LT 3V AP,LAT,SUN CLINICAL HISTORY: LEFT KNEE PAIN. TECHNIQUE: 2D digital imaging was performed. COMPARISON: CR XR KNEE RT 3V AP,LAT,SUN from 11/13/2019 FINDINGS: There is satisfactory position alignment of the components of the left knee prosthesis. No evidence of fracture or loosening. No radiographic evidence of osteomyelitis. IMPRESSION: DATA REPOSITORY: RADIATION DOSE DELIVERED:
== END 2020-07-11 11:59 | disposition home or self-care (01) ==
LOC: DIORS 11:58
PROVIDERS: PCP Nurse Practitioner Family; Referring Provider Nurse Practitioner Family; Visit Provider Student in an Organized Health Care Education/Training Program
DX: M25.562 Pain in left knee (principal); Z96.652 Presence of left artificial knee joint; R60.0 Localized edema
CPT/HCPCS: 73562; 99213

== ENCOUNTER → 2020-09-02 08:49 | Outpatient (BNVA) | payer OTHER, SELFPAY | PROVIDERS: PCP Nurse Practitioner Family; Referring Provider Nurse Practitioner Family; Visit Provider Student in an Organized Health Care Education/Training Program | DX: M47.816 Spondylosis without myelopathy or radiculopathy, lumbar region (principal); R29.898 Other symptoms and signs involving the musculoskeletal system | CPT/HCPCS: 99441 ==

== ENCOUNTER → 2020-09-06 03:30 | Outpatient (CLI) | payer OTHER, SELFPAY ==
--- NOTE | 2020-09-06 14:20 | DI.RAD_ITS ---
EXAM: XR CHEST 2V PA LATERAL CLINICAL HISTORY: incr edema, r/o pulm edema,chf,chronic kidney disease.i50.9,r60.9 TECHNIQUE: 2D digital imaging was performed. COMPARISON: CR,XR XR CHEST 2V PA LATERAL from 03/21/2020 FINDINGS: MEDIASTINUM: Normal. HEART: Normal. PULMONARY VASCULATURE: Normal. LUNGS: Clear. PLEURAL SPACE: No pleural effusion or pneumothorax. BONE:Within normal limits for the patient's age. OTHER FINDINGS:Cardiac pacing wires are stable in position. IMPRESSION: No acute pulmonary findings. DATA REPOSITORY: RADIATION DOSE DELIVERED:
== END ==
PROVIDERS: PCP Nurse Practitioner Family; Visit Provider Nurse Practitioner Family
DX: R60.0 Localized edema (principal); I50.9 Heart failure, unspecified; N18.4 Chronic kidney disease, stage 4 (severe); Z95.0 Presence of cardiac pacemaker
CPT/HCPCS: 71046

== ENCOUNTER → 2020-12-02 02:45 | Outpatient (CLI) | payer OTHER, SELFPAY ==
--- NOTE | 2020-12-02 | DI.US_ITS ---
Exam(s) US PELVIS TRANSVAGINAL EXAM: US PELVIS TRANSVAGINAL CLINICAL HISTORY: F/U COMPLEX OVARIAN CYST, TECHNIQUE: Ultrasound of the pelvis was performed both transabdominal and transvaginal. COMPARISON: US US EXTREMITY VENOUS BI from 03/21/2020 FINDINGS: UTERUS: Nongravid-anteverted Measures 6.1 cm length x 3.9 cm AP x 3.7 cm wide. There are no obvious uterine fibroids. Endometrial thickness is difficult to measure as it appears isoechoic to the myometrium. There is no fluid in the endometrial canal. CERVIX: There are no obvious nabothian cysts. RIGHT OVARY: Not visualized LEFT OVARY: Measures 4 x 2.9 x 5.7 cm Left ovary is enlarged for this age group and contains 2 prominent cystic structures, both of which e xhibit diameters of approximately 2.5 cm and which chair a wall versus septum. CUL-DE-SAC: No free fluid evident. Incidentally noted is a small echogenic focus in the left kidney measuring approximately 2-3 millimet ers possibly representing a nonobstructive calculus. No calculi evident in the opposite-right kidney . IMPRESSION: 1. Abnormal large in cystic left ovary (85 years old). Cannot exclude cystic neoplasm of left ovary despite absence of pelvic ascitic fluid. The opposite-right ovary cannot be seen. 2. No abnormal ovarian findings. 3. No free fluid evident in the adnexal regions and cul-de-sac. DATA REPOSITORY:
== END ==
PROVIDERS: PCP Nurse Practitioner Family; Visit Provider Obstetrics & Gynecology Gynecologic Oncology
DX: N83.292 Other ovarian cyst, left side (principal)
CPT/HCPCS: 76830; 76856

== ENCOUNTER 2020-12-02 03:21 | Outpatient (CLI) | payer OTHER, SELFPAY ==
[2020-12-02 12:55] LABS: Abs Immature Grans 0.03 10^3/uL (0.0-0.06); Absolute Basophil Count 0.06 10^3/uL (0.0-0.2); Absolute Eosinophil Count 0.28 10^3/uL (0.0-0.7); Absolute Lymphocyte Count 1.37 10^3/uL (1.2-3.4); Absolute Monocyte Count 0.77 10^3/uL (0.1-0.8); Absolute Neutrophil Count 7.88 10^3/uL (1.2-6.7); Basophils % 0.6; Eosinophils % 2.7; HCT 32.9 % (36.0-46.0); HGB 10.8 g/dL (11.2-15.7); Immature Grans % 0.3; Lymphocytes % 13.2; MCH 29.4 pg (27.0-33.0); MCHC 32.8 % (32.0-36.0); MCV 89.6 fL (80-95); MPV 10.7 fL (8.0-11.0); Monocytes % 7.4; Neutrophils % 75.8; Nucleated RBC 0 %; Platelet Count 144 10^3/uL (130-400); RBC 3.67 10^6/uL (3.93-5.22); RDW 12.6 % (11.7-14.6); RDW-SD 41.6 fL; WBC 10.39 10^3/uL (4.4-10.8)
[2020-12-03 12:33] LABS: CA 125 7 U/mL (<30)
== END 2020-12-02 03:22 | disposition home or self-care (01) ==
LOC: LBO 03:21
PROVIDERS: PCP Nurse Practitioner Family; Visit Provider Obstetrics & Gynecology Gynecologic Oncology
DX: N83.292 Other ovarian cyst, left side (principal); N94.89 Other specified conditions associated with female genital organs and menstrual cycle; D50.9 Iron deficiency anemia, unspecified; R19.09 Other intra-abdominal and pelvic swelling, mass and lump
CPT/HCPCS: 36415; 86304; 85025

== ENCOUNTER 2021-05-20 02:06 | Outpatient (CLI) | payer MEDICARE, SELFPAY ==
--- NOTE | 2021-05-20 13:45 | DI.US_ITS ---
APPROVED REPORT EXAM: Comprehensive 2D, Doppler, and color-flow Echocardiogram Patient Location: Out-Patient Ocularist: Jade Feliz RDCS (AE) Indications: VERNON, Fatigue, Other Information Study Quality: Adequate Conclusion Normal left ventricular wall thickness and chamber size. Estimated ejection fraction is 50 to 55%. There is very mild global hypokinesis Normal right ventricular size and systolic function Both atria are normal in size Device lead noted in right heart Aortic valve is sclerotic and trileaflet without stenosis or regurgitation Mitral annular calcification. Trace mitral regurgitation Normal tricuspid valve with trace to mild regurgitation. Estimated right ventricular systolic pressu re is 26 mmHg Normal pulmonic valve with mild regurgitation Borderline dilated ascending aorta 3.36 cm Wall motion Left Ventricle The left ventricle is normal size. Left ventricular systolic function is mildly decreased. There is n ormal left ventricular wall thickness. Mild global hypokinesis There is no ventricular septal defect visualized. LVEF is 50-55%. Right Ventricle The right ventricle is normal size. The right ventricular systolic function is normal. Device lead is present in the right ventricle. Atria The left atrium size is normal. The right atrium size is normal. The interatrial septum is intact wit h no evidence for an atrial septal defect. Aortic Valve Aortic valve is sclerotic Aortic valve is trileaflet. There is no aortic valvular stenosis. No aortic regurgitation is present. Mitral Valve Mild mitral annular calcification. No evidence of mitral valve stenosis. Trace mitral regurgitation. Tricuspid Valve The tricuspid valve is normal in structure. There is no tricuspid valve stenosis. Trace to mild tricu spid regurgitation. Pulmonic Valve The pulmonary valve is normal in structure. There is no pulmonic valvular stenosis. Mild pulmonic reg urgitation. Great Vessels The aortic root is normal in size. The ascending aorta is mildly dilated. Aortic arch is not well vis ualized. IVC is normal in size and collapses >50% with inspiration. Pericardium There is no pericardial effusion. 2D Dimensions IVSD d PLAX 0.96 cm F: 0.6-1.0 LV Vol A2C d MOD 82.3 mL LVPW d PLAX 0.99 cm F: 0.6 - 1.0 LV Vol A4C d MOD 98.8 mL LVID d PLAX 4.06 cm F: 3.8 - 5.2 LA vol/ BSA A2C s A-L 37.7 mL/m2 LVDs 3.05 cm F: 2.2 - 3.5 LA vol/ BSA A4C s A-L 28.5 mL/m2 Ao Root d 2.98 cm F: 2.7 - 3.3 LA Vol/ BSA Biplane s A-L 33.0 mL/m2 RA Area A4C 14.40 cm2 LA Area A4C s MOD 18.49 cm2 RA Vol/ BSA A4C s A-L 21.0 mL/m2 LA Area A2C s MOD 21.39 cm2 Ao Asc Diam d 3.36 cm F: 2.3 - 3.1 LV EF A4C MOD 50.0 % LV EF Teichholz 48.5 % LV EF A2C MOD 50.9 % LVEF (Fletcher's) 51.00 % F: 54 - 74 LV EF Biplane MOD 51.0 % LV Volume 72.01 mL F: 46 - 106 SV 46.87 mL LV Volume Index 40.91 mL/m2 F: 29 - 61 SV Index 26.58 mL/m2 LV Vol Biplane MOD 91.9 mL FS 24.05 % M-Mode TAPSE 1.97 cm (M/F) >1.7 LV Diastology MV E' medial 0.053 (>0.07 m/s) E/A Ratio 0.6 LV E/e MED 11.80 (<14) MV E Vmax 0.62 (0.4-1.3 m/s) MV E' lateral 0.071 (>0.1 m/s) MV A Vmax 1.05 (0.4-1.3 m/s) LV E/e LAT 8.75 (<14) MV E/A Ratio 0.58 MV E/E' medial 11.83 MV E/E' lateral 8.77 Aortic Valve LVOT Area 2.90 cm2 AoV Area Vmax 2.52 cm2 LVOT Vmax 1.32 m/s AoV Area/ BSA (Vmax) 1.43 cm2/m2 LVOT Mean Bryan. 0.83 m/s KAREN Mean Bryan. 2.40 cm2 LVOT Peak Grad 7.0 mmHg KAREN Mean Bryan. Index 1.36 cm2/m2 LVOT Mean Grad 3.3 mmHg LVOT VTI 0.239 m LVOT Diam s 1.90 cm AoV Vmax 1.52 m/s Velocity Ratio 0.86 AoV Mean Bryan. 1.00 m/s AoV Peak Grad 9.2 mmHg LVOT SV 69.12 mL AoV Mean Grad 4.7 mmHg AoV VTI 0.262 m AoV Area VTI 2.64 cm2 AoV Area/ BSA (VTI) 1.50 cm/m2 Mitral Valve MV DT 306 (160-240 msec) MV PHT 89 msec MV Area PHT 2.48 cm2 MV VTI 0.310 m MV Area VTI 2.23 (4.0-6.0 cm2) Pulmonary Valve PV Vmax 1.14 (0.5-1.5 m/s) RVOT Peak Gr. 3.60 mmHg PV Peak Grad 5.2 mmHg RVOT Mean Gr. 2.20 mmHg PV Mean Grad 2.5 mmHg RVOT VTI 0.200 m PV VTI 0.197 m RVOT Vmax 0.95 m/s Tricuspid Valve TR Peak Grad 22.7 mmHg TR Vmax 2.38 m/s RA Pressure 3.00 mmHg RVSP (TR) 25.7 mmHg
== END 2021-05-20 02:26 ==
LOC: DI 02:07
PROVIDERS: PCP Nurse Practitioner Family; Visit Provider Physician Assistant Medical
DX: R06.00 Dyspnea, unspecified (principal); I42.0 Dilated cardiomyopathy; Z95.810 Presence of automatic (implantable) cardiac defibrillator; R53.83 Other fatigue; I37.1 Nonrheumatic pulmonary valve insufficiency; I77.810 Thoracic aortic ectasia
CPT/HCPCS: 93306

== ENCOUNTER 2021-10-06 03:34 | Outpatient (CLI) | payer MEDICARE, SELFPAY ==
[2021-10-06 09:24] LABS: Abs Immature Grans 0.03 10^3/uL (0.0-0.06); Absolute Basophil Count 0.04 10^3/uL (0.0-0.2); Absolute Eosinophil Count 0.31 10^3/uL (0.0-0.7); Absolute Lymphocyte Count 1.18 10^3/uL (1.2-3.4); Absolute Monocyte Count 0.75 10^3/uL (0.1-0.8); Basophils % 0.4; Eosinophils % 3.5; HCT 29.8 % (36.0-46.0); HGB 9.5 g/dL (11.2-15.7); Immature Grans % 0.3; Lymphocytes % 13.2; MCH 29.5 pg (27.0-33.0); MCHC 31.9 % (32.0-36.0); MCV 93 fL (80-95); MPV 10.5 fL (8.0-11.0); Monocytes % 8.4; Neutrophils % 74.2; Platelet Count 157 10^3/uL (130-400); RBC 3.22 10^6/uL (3.93-5.22); RDW 14.1 % (11.7-14.6); RDW-SD 47.8 fL; WBC 8.91 10^3/uL (4.4-10.8)
[2021-10-06 09:25] LABS: ESR 19 mm/hr (0-30)
[2021-10-06 10:07] LABS: COMMENT (LAB VIEW ONLY) 102.94 mg/dL; Microalb ug/mg Crea 56.7 ug/mg Cr
[2021-10-06 10:24] LABS: Iron 64 ug/dL (50-170); Total Iron Binding Capacity 289 ug/dL (250-450); Transferrin Sat 22 % (15-50)
[2021-10-06 10:53] LABS: ALT 22 U/L (14-59); AST 19 U/L (15-37); Albumin 3.5 g/dL (3.4-5.0); Alkaline Phosphatase 75 U/L (46-116); Anion Gap 10.5 mmol/L (3-11); CO2 24.5 mmol/L (21.0-32.0); Calcium 9.4 mg/dL (8.5-10.1); Calculated LDL 37 mg/dL (<100); Chloride 110 mmol/L (98-107); Cholesterol 97 mg/dL (<200); Estimated GFR 14.87 (mL/min/1.73m2); Ferritin 95 ng/mL (8-252); Glucose 162 mg/dL (74-106); HDL Cholesterol 29 mg/dL (40-60); Potassium 4.4 mmol/L (3.5-5.1); Sodium 145 mmol/L (136-145); TSH (W/Ref FT4) 0.19 uIU/mL (0.36-3.74); Triglyceride 155 mg/dL (<150); Vitamin B12 539 pg/mL (193-986)
[2021-10-06 11:05] LABS: BUN 84 mg/dL (7-18)
[2021-10-06 11:20] LABS: Bilirubin, Total 0.4 mg/dL (0.2-1.0); C-Reactive Protein 0.91 mg/dL (0.0-0.3); FREE T4 1.06 ng/dL (0.76-1.46)
== END 2021-10-06 03:35 | disposition home or self-care (01) ==
LOC: LBO 03:34
PROVIDERS: PCP Nurse Practitioner Family; Visit Provider Nurse Practitioner Family
DX: E11.319 Type 2 diabetes mellitus with unspecified diabetic retinopathy without macular edema (principal); I10 Essential (primary) hypertension; Z79.4 Long term (current) use of insulin; D50.9 Iron deficiency anemia, unspecified; E11.9 Type 2 diabetes mellitus without complications; E78.5 Hyperlipidemia, unspecified; R41.3 Other amnesia; R51.9 Headache, unspecified
CPT/HCPCS: 36415; 80053; 80061; 85652; 82043; 82570; 82607; 82728; 83540; 83550; 84439; 84443; 85025; 86140

== ENCOUNTER 2021-11-03 02:12 | Outpatient (CLI) | payer MEDICARE, SELFPAY ==
--- NOTE | 2021-11-03 07:30 | DI.CT_ITS ---
Exam(s) CT HEAD WO EXAM: CT HEAD WO CLINICAL HISTORY: 2 mo h/o R-sided headaches,R51.9,R41.3. TECHNIQUE: Imaging Protocol: Axial computed tomography images with coronal and sagittal reformatted images were created and reviewed COMPARISON: No exams were available for comparison FINDINGS: Ventricles and Extra axial spaces: Normal in size and morphology for the patient's age. Hemorrhage: None. Cerebral parenchyma: Minimal atrophy. Mild white matter changes consistent with chronic microvascu lar changes.. Midline shift: None. Brainstem/Cerebellum: Normal. Calvarium: Normal. Visualized Paranasal sinuses/Mastoids: Opacification of the left sphenoid sinus which is diminutive. Sinuses are otherwise clear. Mastoid air cells are clear. Orbits are unremarkable. IMPRESSION: No acute abnormality. RADIATION DOSE DELIVERED: 742.29mGy.cm Total DLP 742.29mGy.cm Total DLP DATA REPOSITORY: All CT scans at this facility are submitted to the National Radiology Data Registry (NRDR) Dose Index Registry (DIR) with the [employer] (ACR). RADIATION OPTIMIZATION: All CT scans at this facility use at least one of these dose optimization te chniques: automated exposure control; mA and/or kV adjustment per patient size (includes targeted exa ms where dose is matched to clinical indication); or iterative reconstruction.
== END 2021-11-03 02:32 ==
LOC: DI 02:13
PROVIDERS: PCP Nurse Practitioner Family; Visit Provider Nurse Practitioner Family
DX: R51.9 Headache, unspecified (principal); R41.3 Other amnesia
CPT/HCPCS: 70450

== ENCOUNTER 2021-12-24 03:09 | Outpatient (CLI) | payer MEDICARE, SELFPAY ==
[2021-12-24 12:45] LABS: Anion Gap 5.2 mmol/L (3-11); BUN 50 mg/dL (7-18); CO2 26.8 mmol/L (21.0-32.0); CREATININE 2.2 mg/dL (0.55-1.02); Calcium 9.1 mg/dL (8.5-10.1); Chloride 106 mmol/L (98-107); Estimated GFR 21.26 (mL/min/1.73m2); Glucose 174 mg/dL (74-106); Potassium 4.2 mmol/L (3.5-5.1); Sodium 138 mmol/L (136-145)
== END 2021-12-24 03:10 | disposition home or self-care (01) ==
LOC: LBO 03:09
PROVIDERS: PCP Nurse Practitioner Family; Visit Provider Internal Medicine Cardiovascular Disease
DX: I42.0 Dilated cardiomyopathy (principal); I15.0 Renovascular hypertension
CPT/HCPCS: 36415; 80048

== ENCOUNTER 2022-03-16 10:47 | Outpatient (REF) | payer MEDICARE, SELFPAY ==
[2022-03-16 20:19] LABS: ALT 19 U/L (14-59); AST 20 U/L (15-37); Albumin 3.3 g/dL (3.4-5.0); Alkaline Phosphatase 83 U/L (46-116); Anion Gap 6.5 mmol/L (3-11); BUN 50 mg/dL (7-18); Bilirubin, Total 0.3 mg/dL (0.2-1.0); CO2 27.5 mmol/L (21.0-32.0); CREATININE 2.4 mg/dL (0.55-1.02); Calcium 9.4 mg/dL (8.5-10.1); Chloride 110 mmol/L (98-107); Estimated GFR 19.43 (mL/min/1.73m2); Glucose 97 mg/dL (74-106); Potassium 4.1 mmol/L (3.5-5.1); Sodium 144 mmol/L (136-145); Total Protein 7.2 g/dL (6.4-8.2)
== END 2022-03-16 10:48 | disposition home or self-care (01) ==
LOC: NCHCN 10:47
PROVIDERS: Visit Provider Nurse Practitioner Family
DX: E10.319 Type 1 diabetes mellitus with unspecified diabetic retinopathy without macular edema (principal)
CPT/HCPCS: 80053; 83036

== ENCOUNTER 2022-04-14 20:27 | Outpatient (REF) | payer MEDICARE, SELFPAY ==
[2022-04-14 15:53] LABS: ALT 17 U/L (14-59); AST 19 U/L (15-37); Albumin 3.3 g/dL (3.4-5.0); Alkaline Phosphatase 78 U/L (46-116); Anion Gap 8.9 mmol/L (3-11); BUN 66 mg/dL (7-18); Bilirubin, Total 0.3 mg/dL (0.2-1.0); CO2 24.1 mmol/L (21.0-32.0); CREATININE 2.5 mg/dL (0.55-1.02); Calcium 9.2 mg/dL (8.5-10.1); Chloride 108 mmol/L (98-107); Glucose 62 mg/dL (74-106); Potassium 4.2 mmol/L (3.5-5.1); Sodium 141 mmol/L (136-145); Total Protein 7.4 g/dL (6.4-8.2)
== END 2022-04-14 20:28 | disposition home or self-care (01) ==
LOC: NCHCN 20:27
PROVIDERS: Visit Provider Nurse Practitioner Family
DX: E11.9 Type 2 diabetes mellitus without complications (principal); N18.4 Chronic kidney disease, stage 4 (severe)
CPT/HCPCS: 80053

== ENCOUNTER 2022-05-27 17:36 | Outpatient (REF) | payer MEDICARE, SELFPAY ==
[2022-05-27 16:01] LABS: Abs Immature Grans 0.03 10^3/uL (0.0-0.06); Absolute Basophil Count 0.05 10^3/uL (0.0-0.2); Absolute Eosinophil Count 0.32 10^3/uL (0.0-0.7); Absolute Lymphocyte Count 1.14 10^3/uL (1.2-3.4); Absolute Monocyte Count 0.75 10^3/uL (0.1-0.8); Absolute Neutrophil Count 10.15 10^3/uL (1.2-6.7); Basophils % 0.4; Eosinophils % 2.6; HCT 29.5 % (36.0-46.0); HGB 8.8 g/dL (11.2-15.7); Immature Grans % 0.2; Lymphocytes % 9.2; MCH 25.3 pg (27.0-33.0); MCHC 29.8 % (32.0-36.0); MCV 85 fL (80-95); MPV 11.5 fL (8.0-11.0); Neutrophils % 81.6; Platelet Count 201 10^3/uL (130-400); RBC 3.48 10^6/uL (3.93-5.22); RDW 17.2 % (11.7-14.6); RDW-SD 50.7 fL; WBC 12.44 10^3/uL (4.4-10.8)
[2022-05-27 16:10] LABS: ALT 20 U/L (14-59); AST 28 U/L (15-37); Albumin 3.3 g/dL (3.4-5.0); Alkaline Phosphatase 89 U/L (46-116); Anion Gap 6.1 mmol/L (3-11); BUN 38 mg/dL (7-18); Bilirubin, Total 0.3 mg/dL (0.2-1.0); CO2 25.9 mmol/L (21.0-32.0); CREATININE 2.1 mg/dL (0.55-1.02); Calcium 9.1 mg/dL (8.5-10.1); Chloride 113 mmol/L (98-107); Estimated GFR 22.81 (mL/min/1.73m2); Glucose 143 mg/dL (74-106); Potassium 4.4 mmol/L (3.5-5.1); Sodium 145 mmol/L (136-145); Total Protein 7.6 g/dL (6.4-8.2)
== END 2022-05-27 17:37 | disposition home or self-care (01) ==
LOC: NCHCN 17:36
PROVIDERS: Visit Provider Nurse Practitioner Family
DX: N18.4 Chronic kidney disease, stage 4 (severe) (principal); E11.9 Type 2 diabetes mellitus without complications; D64.9 Anemia, unspecified
CPT/HCPCS: 80053; 85025

== ENCOUNTER 2022-06-15 19:34 | Outpatient (REF) | payer MEDICARE, SELFPAY ==
[2022-06-15 18:43] LABS: Abs Immature Grans 0.02 10^3/uL (0.0-0.06); Absolute Basophil Count 0.03 10^3/uL (0.0-0.2); Absolute Eosinophil Count 0.19 10^3/uL (0.0-0.7); Absolute Lymphocyte Count 1.07 10^3/uL (1.2-3.4); Absolute Monocyte Count 0.65 10^3/uL (0.1-0.8); Absolute Neutrophil Count 5.81 10^3/uL (1.2-6.7); Basophils % 0.4; Eosinophils % 2.4; HCT 31.5 % (36.0-46.0); HGB 9.3 g/dL (11.2-15.7); Immature Grans % 0.3; Lymphocytes % 13.8; MCH 25.8 pg (27.0-33.0); MCHC 29.5 % (32.0-36.0); MCV 88 fL (80-95); MPV 12.7 fL (8.0-11.0); Monocytes % 8.4; Neutrophils % 74.7; Platelet Count 174 10^3/uL (130-400); RDW 19.9 % (11.7-14.6); WBC 7.77 10^3/uL (4.4-10.8)
[2022-06-15 19:06] LABS: Iron 107 ug/dL (50-170); Total Iron Binding Capacity 290 ug/dL (250-450); Transferrin Sat 37 % (15-50)
== END 2022-06-15 19:35 | disposition home or self-care (01) ==
LOC: NCHCN 19:34
PROVIDERS: Visit Provider Nurse Practitioner Family
DX: D64.9 Anemia, unspecified (principal); E61.1 Iron deficiency
CPT/HCPCS: 83540; 83550; 85025

== ENCOUNTER 2022-09-24 13:04 | Outpatient (REF) | payer MEDICARE, SELFPAY ==
[2022-09-24 16:41] LABS: Bilirubin Negative (Negative); Blood Negative (Negative); Clarity Cloudy (Clear); Glucose Negative (Negative); Ketones Negative (Negative); Leukocyte Esterase Small (Negative); Nitrite Negative (Negative); Urobilinogen 0.2 mg/dL (Up to 0.2); pH 5.5 (5-8)
[2022-09-24 17:01] LABS: Anion Gap 6.8 mmol/L (3-11); BUN 32 mg/dL (7-18); CO2 27.2 mmol/L (21.0-32.0); Calcium 9.7 mg/dL (8.5-10.1); Chloride 108 mmol/L (98-107); Estimated GFR 24.03 (mL/min/1.73m2); Glucose 275 mg/dL (74-106); Potassium 4.5 mmol/L (3.5-5.1); Sodium 142 mmol/L (136-145)
[2022-09-24 17:12] LABS: Hemoglobin A1C 6.9 % (<5.7)
[2022-09-24 18:52] LABS: Bacteria Few HPF (Negative); C & S Indicated? Yes; Casts Negative LPF (Negative); Crystals Negative HPF (Negative); Epithelial Cells Rare HPF (Negative); Mucus Negative (Negative); RBC Negative HPF (0-2); WBC 20-50 HPF (0-5)
== END 2022-09-24 13:05 | disposition home or self-care (01) ==
LOC: NCHCN 13:04
PROVIDERS: Visit Provider Nurse Practitioner Family
DX: E11.9 Type 2 diabetes mellitus without complications (principal); R30.0 Dysuria
CPT/HCPCS: 80048; 87077; 81003; 81015; 83036; 87086; 87186

== ENCOUNTER 2022-11-09 13:06 | Outpatient (REF) | payer MEDICARE, SELFPAY ==
[2022-11-09 18:14] LABS: Abs Immature Grans 0.04 10^3/uL (0.0-0.06); Absolute Basophil Count 0.03 10^3/uL (0.0-0.2); Absolute Eosinophil Count 0.09 10^3/uL (0.0-0.7); Absolute Monocyte Count 0.66 10^3/uL (0.1-0.8); Absolute Neutrophil Count 6.12 10^3/uL (1.2-6.7); Basophils % 0.4; Eosinophils % 1.2; HCT 32.2 % (36.0-46.0); HGB 10.6 g/dL (11.2-15.7); Immature Grans % 0.5; MCH 28.9 pg (27.0-33.0); MCHC 32.9 % (32.0-36.0); MCV 88 fL (80-95); MPV 11.5 fL (8.0-11.0); Monocytes % 8.8; Neutrophils % 81.1; Platelet Count 154 10^3/uL (130-400); RBC 3.67 10^6/uL (3.93-5.22); RDW 13.4 % (11.7-14.6); RDW-SD 42.8 fL; WBC 7.54 10^3/uL (4.4-10.8)
[2022-11-09 18:16] LABS: Bilirubin Negative (Negative); Blood Trace-lysed (Negative); Clarity Cloudy (Clear); Glucose 500 mg/dL (Negative); Ketones Negative (Negative); Leukocyte Esterase Small (Negative); Nitrite Negative (Negative); Urobilinogen 0.2 mg/dL (Up to 0.2)
[2022-11-09 18:42] LABS: Bacteria Few HPF (Negative); C & S Indicated? Yes; Casts 0-2 Hyaline LPF (Negative); Crystals Negative HPF (Negative); Epithelial Cells Few HPF (Negative); Mucus Negative (Negative); RBC 0-2 HPF (0-2); WBC 20-50 HPF (0-5)
[2022-11-09 18:50] LABS: Anion Gap 7.9 mmol/L (3-11); BUN 46 mg/dL (7-18); CO2 25.1 mmol/L (21.0-32.0); CREATININE 2.4 mg/dL (0.55-1.02); Calcium 9.2 mg/dL (8.5-10.1); Chloride 106 mmol/L (98-107); Estimated GFR 19.31 (mL/min/1.73m2); Glucose 453 mg/dL (74-106); Potassium 4.7 mmol/L (3.5-5.1); Sodium 139 mmol/L (136-145)
[2022-11-09 19:56] LABS: Hemoglobin A1C 9.3 % (<5.7)
== END 2022-11-09 13:07 | disposition home or self-care (01) ==
LOC: NCHCN 13:06
PROVIDERS: PCP Nurse Practitioner Family; Visit Provider Nurse Practitioner Family
DX: E11.22 Type 2 diabetes mellitus with diabetic chronic kidney disease (principal); N18.4 Chronic kidney disease, stage 4 (severe); R30.0 Dysuria; D64.9 Anemia, unspecified
CPT/HCPCS: 80048; 87077; 81003; 81015; 83036; 85025; 87086; 87186

== ENCOUNTER 2022-12-14 19:17 | Outpatient (REF) | payer MEDICARE, SELFPAY ==
[2022-12-14 19:01] LABS: Abs Immature Grans 0.03 10^3/uL (0.0-0.06); Absolute Basophil Count 0.05 10^3/uL (0.0-0.2); Absolute Eosinophil Count 0.24 10^3/uL (0.0-0.7); Absolute Lymphocyte Count 1.37 10^3/uL (1.2-3.4); Absolute Monocyte Count 0.65 10^3/uL (0.1-0.8); Absolute Neutrophil Count 7.29 10^3/uL (1.2-6.7); Basophils % 0.5; Eosinophils % 2.5; HCT 34.5 % (36.0-46.0); HGB 10.8 g/dL (11.2-15.7); Immature Grans % 0.3; Lymphocytes % 14.2; MCH 28.8 pg (27.0-33.0); MCHC 31.3 % (32.0-36.0); MCV 92 fL (80-95); MPV 11.3 fL (8.0-11.0); Monocytes % 6.7; Neutrophils % 75.8; Platelet Count 160 10^3/uL (130-400); RBC 3.75 10^6/uL (3.93-5.22); RDW 14.2 % (11.7-14.6); RDW-SD 47.7 fL; WBC 9.63 10^3/uL (4.4-10.8)
[2022-12-14 19:12] LABS: Anion Gap 10.2 mmol/L (3-11); BUN 47 mg/dL (7-18); CO2 24.8 mmol/L (21.0-32.0); CREATININE 2.2 mg/dL (0.55-1.02); Calcium 8.9 mg/dL (8.5-10.1); Chloride 110 mmol/L (98-107); Estimated GFR 21.43 (mL/min/1.73m2); Glucose 168 mg/dL (74-106); Sodium 145 mmol/L (136-145)
[2022-12-14 19:15] LABS: Hemoglobin A1C 7.6 % (<5.7)
[2022-12-14 19:38] LABS: Bilirubin Negative (Negative); Blood Negative (Negative); Clarity Clear (Clear); Glucose Negative (Negative); Ketones Negative (Negative); Leukocyte Esterase Trace (Negative); Nitrite Negative (Negative); Urobilinogen 0.2 mg/dL (Up to 0.2)
[2022-12-14 19:49] LABS: Bacteria Rare HPF (Negative); C & S Indicated? Yes; Casts 0-2 Hyaline LPF (Negative); Crystals Negative HPF (Negative); Epithelial Cells Rare HPF (Negative); Mucus Negative (Negative); RBC 0-2 HPF (0-2)
== END 2022-12-14 19:18 | disposition home or self-care (01) ==
LOC: NCHCN 19:17
PROVIDERS: PCP Nurse Practitioner Family; Visit Provider Nurse Practitioner Family
DX: D64.9 Anemia, unspecified (principal); E11.9 Type 2 diabetes mellitus without complications; N18.4 Chronic kidney disease, stage 4 (severe); R30.0 Dysuria
CPT/HCPCS: 80048; 81003; 81015; 83036; 85025; 87086

== ENCOUNTER 2023-02-12 14:57 | Outpatient (REF) | payer MEDICARE, SELFPAY ==
[2023-02-12 18:30] LABS: Abs Immature Grans 0.05 10^3/uL (0.0-0.06); Absolute Basophil Count 0.03 10^3/uL (0.0-0.2); Absolute Eosinophil Count 0.22 10^3/uL (0.0-0.7); Absolute Lymphocyte Count 0.84 10^3/uL (1.2-3.4); Absolute Monocyte Count 0.53 10^3/uL (0.1-0.8); Absolute Neutrophil Count 6.82 10^3/uL (1.2-6.7); Basophils % 0.4; Eosinophils % 2.6; HCT 32.1 % (36.0-46.0); HGB 10.6 g/dL (11.2-15.7); Immature Grans % 0.6; Lymphocytes % 9.9; MCH 30.1 pg (27.0-33.0); MCV 91 fL (80-95); MPV 11.3 fL (8.0-11.0); Monocytes % 6.2; Neutrophils % 80.3; Platelet Count 133 10^3/uL (130-400); RBC 3.52 10^6/uL (3.93-5.22); RDW 13.5 % (11.7-14.6); RDW-SD 44.5 fL; WBC 8.49 10^3/uL (4.4-10.8)
[2023-02-12 18:37] LABS: Anion Gap 9.5 mmol/L (3-11); BUN 31 mg/dL (7-18); CO2 24.5 mmol/L (21.0-32.0); CREATININE 1.8 mg/dL (0.55-1.02); Calcium 9.3 mg/dL (8.5-10.1); Chloride 109 mmol/L (98-107); Estimated GFR 27.27 (mL/min/1.73m2); Glucose 336 mg/dL (74-106); Sodium 143 mmol/L (136-145)
[2023-02-12 18:40] LABS: Bilirubin Negative (Negative); Blood Trace-intact (Negative); Clarity Cloudy (Clear); Glucose 100 mg/dL (Negative); Ketones Negative (Negative); Leukocyte Esterase Small (Negative); Nitrite Negative (Negative); Urobilinogen 0.2 mg/dL (Up to 0.2)
[2023-02-12 18:50] LABS: Bacteria Moderate HPF (Negative); C & S Indicated? Yes; Casts 0-2 Hyaline LPF (Negative); Crystals Negative HPF (Negative); Epithelial Cells Few HPF (Negative); Mucus Moderate (Negative); RBC 0-2 HPF (0-2); WBC 20-50 HPF (0-5)
== END 2023-02-12 14:58 | disposition home or self-care (01) ==
LOC: NCHCN 14:57
PROVIDERS: PCP Nurse Practitioner Family; Visit Provider Nurse Practitioner Family
DX: D64.9 Anemia, unspecified (principal); R30.0 Dysuria; Z87.440 Personal history of urinary (tract) infections; N18.4 Chronic kidney disease, stage 4 (severe); R82.79 Other abnormal findings on microbiological examination of urine
CPT/HCPCS: 80048; 87077; 81003; 81015; 85025; 87086; 87186

== ENCOUNTER 2023-03-26 15:33 | Outpatient (REF) | payer MEDICARE, SELFPAY ==
[2023-03-26 16:25] LABS: Abs Immature Grans 0.03 10^3/uL (0.0-0.06); Absolute Basophil Count 0.03 10^3/uL (0.0-0.2); Absolute Eosinophil Count 0.25 10^3/uL (0.0-0.7); Absolute Lymphocyte Count 1.11 10^3/uL (1.2-3.4); Absolute Monocyte Count 0.64 10^3/uL (0.1-0.8); Absolute Neutrophil Count 7.19 10^3/uL (1.2-6.7); Basophils % 0.3; Eosinophils % 2.7; HCT 35.2 % (36.0-46.0); HGB 11.2 g/dL (11.2-15.7); Immature Grans % 0.3; MCH 29.1 pg (27.0-33.0); MCHC 31.8 % (32.0-36.0); MCV 91 fL (80-95); MPV 11.8 fL (8.0-11.0); Monocytes % 6.9; Neutrophils % 77.8; Platelet Count 145 10^3/uL (130-400); RBC 3.85 10^6/uL (3.93-5.22); RDW 12.5 % (11.7-14.6); RDW-SD 41.5 fL; WBC 9.25 10^3/uL (4.4-10.8)
[2023-03-26 16:28] LABS: ALT 19 U/L (14-59); AST 22 U/L (15-37); Albumin 3.1 g/dL (3.4-5.0); Alkaline Phosphatase 73 U/L (46-116); Anion Gap 5.8 mmol/L (3-11); BUN 39 mg/dL (7-18); Bilirubin, Total 0.5 mg/dL (0.2-1.0); CO2 28.2 mmol/L (21.0-32.0); CREATININE 1.9 mg/dL (0.55-1.02); Calcium 9.5 mg/dL (8.5-10.1); Chloride 108 mmol/L (98-107); Estimated GFR 25.56 (mL/min/1.73m2); Glucose 192 mg/dL (74-106); Potassium 4.1 mmol/L (3.5-5.1); Sodium 142 mmol/L (136-145)
[2023-03-26 16:53] LABS: Hemoglobin A1C 7.5 % (<5.7)
== END 2023-03-26 15:34 | disposition home or self-care (01) ==
LOC: NCHCN 15:33
PROVIDERS: PCP Nurse Practitioner Family; Visit Provider Nurse Practitioner Family
DX: E11.9 Type 2 diabetes mellitus without complications (principal); D64.9 Anemia, unspecified; N18.4 Chronic kidney disease, stage 4 (severe)
CPT/HCPCS: 80053; 83036; 85025

== ENCOUNTER 2023-07-19 13:39 | Outpatient (REF) | payer MEDICARE, SELFPAY | END 2023-07-19 13:40 | disposition home or self-care (01) | LOC: NCHCN 13:39 | PROVIDERS: PCP Nurse Practitioner Family; Visit Provider Nurse Practitioner Family | DX: R30.0 Dysuria (principal) | CPT/HCPCS: 87077; 87086; 87186 ==

== ENCOUNTER 2023-09-01 14:01 | Emergency (ER) | payer MEDICARE, SELFPAY ==
[2023-09-01] VITALS (16 sets, daily range): BP systolic 172–243; BP diastolic 57–102; PULSE 66–98; RESP 12–21; TEMP 36.4; O2SAT 98–100
--- NOTE | 2023-09-01 14:27 | ED.GENADUL_ITS ---
Discharge Plan Disposition Patient Disposition: Home Condition: Good Discharge Details Clinical Impression: Memory difficulties Primary Care Provider: Tisha Chirinos ED Provider: Joce Castrejon [place] Meds and New Rx's Prescriptions: Continued Fiber Gummies 2 gram tablet,chewable See Rx Instructions PO .COMPLEX Rx Instructions: 2 tabs PO; (DME) FreeStyle Freya 2 [place] Misc See Rx Instructions .ROUTE .MEDSUPPLY Qty: 1 0RF Rx Instructions: As directed insulin lispro [Humalog KwikPen Insulin] 100 unit/mL insulin pen 1 - 30 unit Sub-Q AC Qty: 27 3RF Rx Instructions: Dx: E11.9 to maintain HbA1C less than 8% spironolactone 25 mg tablet 12.5 mg PO DAILY Qty: 45 3RF insulin glargine U-300 conc [Toujeo SoloStar U-300 Insulin] 300 unit/mL (1.5 mL) insulin pen See Rx Instructions SUBCUT BID Qty: 22 3RF Rx Instructions: 45 units AM & 50 units PM subcut twice a day; multivitamin [Daily Vitamin] 1 EACH tablet 1 ea PO DAILY aspirin [Aspirin Low-Strength] 81 MG tablet,chewable 81 mg PO DAILY calcium carbonate-vitamin D3 [Calcarb 600 With Vitamin D] 1 EACH tablet 1 ea PO BID (DME) lancets [OneTouch UltraSoft Lancets] 1 EACH misc 1 ea Miscellaneous TID Qty: 90 Rx Instructions: For DM 250.00 to keep A1C at or below 7 epinephrine [EpiPen 2-Ezekiel] 0.3 MG/0.3 ML auto-injector 0.3 mg IM see instructions Qty: 1 Rx Instructions: 1 shot in muscle incase of severe allergic reaction as advised, may repeat the dose 1 time Call 911 for help Glucagon Emergency Kit (human) 1 MG kit 1 mg IJ PRN Qty: 1 acetaminophen 500 mg tablet 500 mg PO BID Rx Instructions: Takes 1 in the am and 1 in the pm nitroglycerin 0.4 mg tablet, sublingual 0.4 mg sublingual Q5M PRN (Reason: chest pain) Qty: 30 0RF Rx Instructions: Take 0.4 mg every 5 minutes up to 3 doses; seek emergent medical care if no relief fluticasone propion-salmeterol [Advair Diskus] 250-50 mcg/dose blister with device 1 inh inhalation BID Qty: 3 3RF loratadine 10 mg tablet 10 mg PO DAILY Qty: 90 3RF (DME) Blood Glucose Test Strip See Rx Instructions .ROUTE .MEDSUPPLY Qty: 400 3RF Rx Instructions: As directed to check blood glucose four times daily. On insulin. Dispense covered brand. omeprazole 20 mg capsule,delayed release(DR/EC) 20 mg PO DAILY Qty: 90 3RF Rx Instructions: Take 20 mg once daily in the morning at least 30 minutes before first meal Metamucil Fiber Thin 2 gram wafer 2 wafer PO TID Qty: 90 3RF albuterol sulfate 90 mcg/actuation HFA aerosol inhaler See Rx Instructions .ROUTE .COMPLEX Qty: 8.5 3RF Dose Instruction: INHALE 1 TO 2 PUFFS BY MOUTH EVERY 4 TO 6 HOURS NEEDED FOR SHORTNESS OF BREATH OR WHEEZING Rx Instructions: INHALE 1 TO 2 PUFFS BY MOUTH EVERY 4 TO 6 HOURS NEEDED FOR SHORTNESS OF BREATH OR WHEEZING fluticasone propionate [Flonase Allergy Relief] 50 mcg/actuation spray,suspension 1 - 2 spray NS DAILY PRN (Reason: nasal congestion) Qty: 1 12RF atorvastatin 20 mg tablet 20 mg PO DAILY Qty: 90 3RF vitamin B complex Tablet 1 tab PO DAILY Qty: 90 3RF isosorbide mononitrate 60 mg tablet extended release 24 hr 60 mg PO DAILY Qty: 90 3RF Rx Instructions: 01/23/21- [facility] cardio note, dose decreased to 60mg po QD. Dr. Gil MD;[facility] (Catrina Nuñez writes for this prescription) losartan 50 mg tablet 50 mg PO DAILY Qty: 30 0RF Rx Instructions: 01/23/21-[facility] cardio note; increase Losartan to 50mg po qd. Dr. Gil MD furosemide 40 mg tablet 40 mg PO BID carvedilol 12.5 mg tablet 18.75 mg PO BID Qty: 42 0RF Rx Instructions: Take 18.75 mg (1 1/2 pills) twice daily trazodone 50 mg tablet 50 mg PO HS PRN (Reason: insomnia) Qty: 14 0RF No Action (DME) pen needle, diabetic 31 gauge x 5/16 needle See Dose Instructions .ROUTE .MEDSUPPLY Qty: 500 3RF Dose Instruction: As directed Rx Instructions: As directed with 5-times daily insulin Discharge Instructions Care Plan Goals: You were seen for memory problems and loss of days. Your neurologic exam, CT head, laboratory studies are reassuring. Attempted to reach her primary care but she has left for the day. Please contact her for follow-up in the morning. Return to the ED for any fever, focal neurologic change, syncope, chest pain, other concerns. Referrals: Tisha Chirinos [Primary Care Provider] - HPI General Mode of arrival: ambulatory . Date/Time Provider Initiated Documentation: 09/01/23 14:15 . Limitations to Documentation: no limitations . Information obtained by: patient . HPI Narrative: Patient presents to ED sent in by primary care for evaluation of losing 5 days. Patient reports that she is not able to recall the last 5 days. However, when asked about events that occurred in this timeframe, she is able to report them including what she was doing during the eclipse. She even can tell me who she was watching it with. She did not spend the time alone and was not unresponsive at any time. She has myriad of chronic complaints including neck pain, shoulder pain, leg pain. None of these are new or acute or related to recent trauma. There is no report of headache, fever, cough, shortness of breath, vomiting or diarrhea. Related Data Home Medications Medication Instructions Recorded Confirmed aspirin 81 mg chewable tablet 81 mg PO DAILY 07/25/12 09/01/23 (Aspirin Low-Strength) calcium carbonate 600 mg-vitamin 1 ea PO BID 07/25/12 09/01/23 D3 10 mcg (400 unit) tablet (Calcarb 600 With Vitamin D) multivitamin (Daily Vitamin tablet) 1 ea PO DAILY 07/25/12 09/01/23 lancets (OneTouch UltraSoft #90 ea 01/02/15 09/01/23 Lancets) epinephrine 0.3 mg/0.3 mL 0.3 mg IM see instructions ##1 08/17/15 09/01/23 injection, auto-injector (EpiPen 2-Ezekiel) glucagon (human recombinant) 1 mg 1 mg IJ PRN ##1 10/28/15 09/01/23 injection kit (Glucagon Emergency Kit (human-recomb)) acetaminophen 500 mg tablet 500 mg PO BID 09/15/19 09/01/23 inulin 2 gram chewable tablet See Rx Instructions PO .COMPLEX 09/15/19 09/01/23 (Fiber Gummies) nitroglycerin 0.4 mg sublingual 0.4 mg sublingual Q5M PRN chest 07/01/20 09/01/23 tablet pain #30 tab-caps flash glucose scanning reader #1 ea 07/15/20 09/01/23 (FreeStyle Freya 2 [place]) fluticasone 250 mcg-salmeterol 50 1 inh inhalation BID #3 ea 11/04/20 09/01/23 mcg/dose blistr powdr for inhalation (Advair Diskus) spironolactone 25 mg tablet 12.5 mg (1/2 x 25 mg) PO DAILY #45 11/29/20 09/01/23 tabs insulin lispro 100 unit/mL 1 - 30 unit (0.01 - 0.3 mL) subcut 03/19/21 09/01/23 subcutaneous pen (Humalog KwikPen AC #27 SYRGS (U-100) Insulin) loratadine 10 mg tablet 10 mg PO DAILY #90 tab-caps 03/24/21 09/01/23 blood sugar diagnostic (Blood #400 ea 04/30/21 09/01/23 Glucose Test strips) pen needle, diabetic 31 gauge x #500 ea 06/18/21 09/01/23 5/16 insulin glargine U-300 conc 300 See Rx Instructions subcut BID #22 06/25/21 09/01/23 unit/mL (1.5 mL) subcutaneous pen SYRGS (Toujeo SoloStar U-300 Insulin) omeprazole 20 mg capsule,delayed 20 mg PO DAILY indigestion #90 07/02/21 09/01/23 release tab-caps psyllium husk (with sugar) 2 gram 2 wafer PO TID #90 wafers 08/25/21 09/01/23 oral wafer (Metamucil Fiber Thin) albuterol sulfate 90 mcg/actuation See Rx Instructions .Route 10/28/21 09/01/23 aerosol inhaler .COMPLEX #8.5 grams fluticasone propionate 50 1 - 2 spray NS DAILY PRN nasal 11/20/21 09/01/23 mcg/actuation nasal congestion #1 unit spray,suspension (Flonase Allergy Relief) atorvastatin 20 mg tablet 20 mg PO DAILY #90 tab-caps 07/18/22 04/10/24 vitamin B complex 1 tab PO DAILY headaches #90 12/29/21 09/01/23 tab-caps isosorbide mononitrate 60 mg 60 mg PO DAILY #90 tabs 02/04/22 09/01/23 tablet,extended release 24 hr losartan 50 mg tablet 50 mg PO DAILY #30 tabs 02/11/22 09/01/23 furosemide 40 mg tablet 40 mg PO BID 02/16/22 09/01/23 carvedilol 12.5 mg tablet 18.75 mg (1.5 x 12.5 mg) PO BID 03/04/22 09/01/23 #42 tabs trazodone 50 mg tablet 50 mg PO HS PRN insomnia #14 03/04/22 09/01/23 tab-caps Previous Rx's Medication Instructions Recorded nitroglycerin 0.4 mg sublingual 0.4 mg sublingual Q5M PRN chest 07/01/20 tablet pain #30 tab-caps flash glucose scanning reader #1 ea 07/15/20 ([email or web address] Freya 2 [place]) fluticasone 250 mcg-salmeterol 50 1 inh inhalation BID #3 ea 11/04/20 mcg/dose blistr powdr for inhalation (Advair Diskus) spironolactone 25 mg tablet 12.5 mg (1/2 x 25 mg) PO DAILY #45 11/29/20 tabs insulin lispro 100 unit/mL 1 - 30 unit (0.01 - 0.3 mL) subcut 03/19/21 subcutaneous pen (Humalog KwikPen AC #27 SYRGS (U-100) Insulin) loratadine 10 mg tablet 10 mg PO DAILY #90 tab-caps 03/24/21 blood sugar diagnostic (Blood #400 ea 04/30/21 Glucose Test strips) pen needle, diabetic 31 gauge x #500 ea 06/18/21 5/16 insulin glargine U-300 conc 300 See Rx Instructions subcut BID #22 06/25/21 unit/mL (1.5 mL) subcutaneous pen SYRGS (Toujeo SoloStar U-300 Insulin) omeprazole 20 mg capsule,delayed 20 mg PO DAILY indigestion #90 07/02/21 release tab-caps psyllium husk (with sugar) 2 gram 2 wafer PO TID #90 wafers 08/25/21 oral wafer (Metamucil Fiber Thin) albuterol sulfate 90 mcg/actuation See Rx Instructions .Route 10/28/21 aerosol inhaler .COMPLEX #8.5 grams fluticasone propionate 50 1 - 2 spray NS DAILY PRN nasal 11/20/21 mcg/actuation nasal congestion #1 unit spray,suspension (Flonase Allergy Relief) atorvastatin 20 mg tablet 20 mg PO DAILY #90 tab-caps 12/08/21 vitamin B complex 1 tab PO DAILY headaches #90 12/29/21 tab-caps isosorbide mononitrate 60 mg 60 mg PO DAILY #90 tabs 02/04/22 tablet,extended release 24 hr losartan 50 mg tablet 50 mg PO DAILY #30 tabs 02/11/22 carvedilol 12.5 mg tablet 18.75 mg (1.5 x 12.5 mg) PO BID 03/04/22 #42 tabs trazodone 50 mg tablet 50 mg PO HS PRN insomnia #14 03/04/22 tab-caps Allergies Allergy/AdvReac Type Severity Reaction Status Date / Time gabapentin AdvReac Mild Dizziness/L Verified 09/01/23 14:52 ightheade GORDON Inhibitors AdvReac Unknown COUGH Verified 09/01/23 14:52 multiple food allergies Allergy Intermediate Sensitization Uncoded 09/01/23 14:52 noted on blood test General Stated Complaint: GenMedical ALON: 3 Review of Systems Narrative: per HPI Exam Narrative Exam Narrative: Const: WDWN elderly female in NAD. VS per triage. HEENT: NC/AT. Normal facial exam. Eyes: Normal conjunctiva and sclera. Neck: Supple. Trachea midline. Lungs: Normal respiratory effort. Lungs are clear. Cor: RRR with murmur. Good radial pulses. GI: Soft. NT/ND. Neuro: A+O x 3. Normal speech, mentation. Cranial nerves II - XII grossly intact. No gross motor or sensory deficit. Ext: No C/C/E. Course Vital Signs Vital signs: Vital Signs Temperature 97.6 F 09/01/23 14:08 Pulse 70 09/01/23 14:08 Respiratory Rate 14 09/01/23 14:08 Blood Pressure 214/57 H 09/01/23 14:08 Pulse Oximetry 99 09/01/23 14:08 Temperature 97.6 F 09/01/23 14:08 Temperature Source Temporal Artery Scan 09/01/23 14:08 Pulse 70 09/01/23 14:08 Respiratory Rate 14 09/01/23 14:08 Blood Pressure 214/57 H 09/01/23 14:08 Blood Pressure Position Supine 09/01/23 14:08 Pulse Oximetry 99 09/01/23 14:08 Oxygen Delivery Method Room Air 09/01/23 14:08 Oxygen Flow Rate 0 09/01/23 14:08 Pain Level 0 09/01/23 14:08 Medical Decision Making Patient presenting to ED, referred by PCP, for 5 days that she reports not being able to remember. However, patient is able to describe events that occurred during this 5-day period. Not exactly clear what she means by losing 5 days. She is neurologically intact. She has myriad of chronic complaints which have been documented previously and will not be addressed in the emergency department. Blood pressure is a little elevated though she reports being upset and anxious about being here. Presentation not consistent with TGA. Also does not appear consistent with TIA or stroke. Will obtain a head CT, basic labs, urine. I do note in the records that she has memory impairment/cognitive impairment dating back to 2018. Patient's laboratory studies are baseline. Kidney function remains stable. Glucose little elevated at 286. Urinalysis is contaminated, does not suggest infection. CT head per radiology is unchanged from previous and stable. Attempted to discuss with primary care who had referred patient in but she is off for the day. Will discharge patient to follow-up with primary care as outpatient as there does not appear to be an acute neurologic, metabolic, infectious problem possibly resulting in patient's complaint. Does not appear to be delirium or altered mental status related given that patient is able to relate to me events that occurred during her reported loss of time. Patient does have previous documentation of memory problems and cognitive decline and this may potentially becoming worse over time. Appropriate return precautions provided. Medical Records Medical records reviewed: Yes I reviewed the patient's medical records. Lab Data Lab results reviewed: Yes I reviewed the patient's lab results. PFSH All Active Problems (Updated 09/01/23 @ 15:58 by Joce Castrejon MD) Memory difficulties (Acute) Angina at rest (Acute) Tubular adenoma of colon (Acute) Urinary incontinence (Acute) Neck pain (Acute) SARS-CoV-2 positive (Acute) Headache (Acute) Advanced directives, counseling/discussion (Acute) Bowel habit changes (Acute) Hydrosalpinx (Chronic) Left Muscular deconditioning (Acute) Lumbar spondylosis (Acute) Inflammatory polyps (Acute) Gastritis (Acute) Anemia (Chronic) 08/15/20 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 obesity hypoventilation?), also has asthma Osteoporosis (Chronic 07/28/11) Multiple food allergies (Chronic 08/14/15) Immunological Sensitization noted on Blood Test for Milk/Casein, peanut, [place]ector [place]ron, [place], Cabbage, [place], Rice, Spinach, Asparagus, Brussel Sprouts, Sweet Potato, Beef, Pork Mitral valve regurgitation (Chronic 09/05/13) 3+ Memory impairment (Chronic 08/30/17) 08/30/17 MOCA score: 2330 02/16/19 MOCA score: 23 Depression (Chronic 12/16/11) HUE [place] in the past Cardiac resynchronization therapy defibrillator ([employer]-D) in place (Chronic 08/14/16) 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 Cardiology: Dr. 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 heart block, severe diffuse left ventricular dysfunction HFrEF (LVEF ~25%) Mitral regurg 3+ 2009 cardiac cath: mild diffuse disease ([facility]) 07/03/2013 MPI: +Ischemia, inferolateral defect 01/17/20 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 Cariology Stress test showing small, reversible inferior wall defect c/w ischemia Type 2 diabetes mellitus with retinopathy of both eyes, with long-term current use of insulin Asthma 09/03/2014 PFTs: mild obstructive airway disease with significant bronchodilator response Chronic kidney disease (CKD), stage IV (severe) [facility] Nephrology ICD (implantable cardioverter-defibrillator) in place AVM (arteriovenous malformation) of colon Surgical History History of total left knee replacement Replacement of total knee joint B/L Hernia Repair, Incisional (~2010) W/ mesh. Dr. Cheko Patterson Extraction of cataract Dr. Hensley Family History Mother Hypertensive disorder, systemic arterial Diabetes Atherosclerosis of coronary artery Family history of stroke Dementia Hyperlipidemia Family history of glaucoma Cataract Father No problems noted. Social History Smoking/Tobacco Use Status: Former Tobacco Use Smoking risk assessment performed?: Yes Alcohol Intake: former Drug use: Never Substance use type: does not use Adopted: No Caregiver/Support person: No Foster care: No Number of Children: 5 Communication Needs: None Pets and animals: Yes Pets and animals: cat(s) and dog(s) Sexually active: No Current gender identity: female What is your relationship status?: Panel score (0-1 are the most socially isolated patients): 0 What type of physical activity do you participate in: other Details: Excercise classes at [place] Duration: 45-60 minutes/day Frequency: 1-2 times per week Seatbelt use: always Do you feel safe at home: Yes Do you feel safe in your relationship?: Yes
--- NOTE | 2023-09-01 14:30 | DI.CT_ITS ---
Exam(s) CT HEAD WO EXAM: CT HEAD WO CLINICAL HISTORY: confusion. TECHNIQUE: Imaging Protocol: Axial computed tomography images with coronal and sagittal reformatted images were created and reviewed COMPARISON: CT CT HEAD WO from 11/03/2021 FINDINGS: There are no skull fractures. There is no fluid in the visualized paranasal sinuses. There is no evidence of intracranial hemorrhage, mass effect, or shift of midline structures. There are no extra-axial fluid collections. The ventricles are not enlarged or shifted and there is no blo od within the ventricular system nor within the basal cisterns. There is moderate bilateral periventricular hypodensity again noted consistent with chronic small ves marli disease. No obvious new territorial infarct nor obvious new lacunar infarct. IMPRESSION: No acute intracranial findings on this noninfused CT scan of the brain. Chronic small-vessel white matter ischemic changes. Called by myself to ER provider RADIATION DOSE DELIVERED: Total DLP DATA REPOSITORY: All CT scans at this facility are submitted to the National Radiology Data Registry (NRDR) Dose Index Registry (DIR) with the [employer] (ACR). RADIATION OPTIMIZATION: All CT scans at this facility use at least one of these dose optimization te chniques: automated exposure control; mA and/or kV adjustment per patient size (includes targeted exa ms where dose is matched to clinical indication); or iterative reconstruction.
[2023-09-01 14:57] LABS: Abs Immature Grans 0.03 10^3/uL (0.0-0.06); Absolute Basophil Count 0.03 10^3/uL (0.0-0.2); Absolute Eosinophil Count 0.22 10^3/uL (0.0-0.7); Absolute Monocyte Count 0.58 10^3/uL (0.1-0.8); Basophils % 0.3; Eosinophils % 2.5; HGB 11.1 g/dL (11.2-15.7); Immature Grans % 0.3; Lymphocytes % 11.5; MCHC 32.6 % (32.0-36.0); MCV 92 fL (80-95); MPV 10.9 fL (8.0-11.0); Monocytes % 6.7; Neutrophils % 78.7; Platelet Count 133 10^3/uL (130-400); RDW-SD 43.6 fL; WBC 8.66 10^3/uL (4.4-10.8)
[2023-09-01 15:08] LABS: Bilirubin Negative (Negative); Blood Small (Negative); Clarity Clear (Clear); Glucose 250 mg/dL (Negative); Ketones Negative (Negative); Leukocyte Esterase Negative (Negative); Nitrite Negative (Negative); Specific Gravity 1.025 (1.005-1.025); Urobilinogen 0.2 mg/dL (Up to 0.2); pH 5.5 (5-8)
[2023-09-01 15:11] LABS: ALT 22 U/L (14-59); AST 19 U/L (15-37); Albumin 3.1 g/dL (3.4-5.0); Alkaline Phosphatase 79 U/L (46-116); Anion Gap 6.6 mmol/L (3-11); BUN 31 mg/dL (7-18); Bilirubin, Total 0.5 mg/dL (0.2-1.0); CO2 29.4 mmol/L (21.0-32.0); CREATININE 1.9 mg/dL (0.55-1.02); Calcium 9.2 mg/dL (8.5-10.1); Chloride 108 mmol/L (98-107); Estimated GFR 25.56 (mL/min/1.73m2); Glucose 286 mg/dL (74-106); Magnesium 1.8 mg/dL (1.8-2.4); Potassium 3.8 mmol/L (3.5-5.1); Sodium 144 mmol/L (136-145); Total Protein 7.1 g/dL (6.4-8.2)
[2023-09-01 15:36] LABS: Bacteria Negative HPF (Negative); C & S Indicated? No/Sq. Contamination; Crystals Negative HPF (Negative); Epithelial Cells Many HPF (Negative); Mucus Negative (Negative); Other Cells Negative (Negative)
== END 2023-09-01 16:12 | disposition home or self-care (01) ==
PROVIDERS: Emergency Provider Emergency Medicine; PCP Nurse Practitioner Family
DX: R41.0 Disorientation, unspecified (principal); I13.0 Hypertensive heart and chronic kidney disease with heart failure and stage 1 through stage 4 chronic kidney disease, or unspecified chronic kidney disease; I50.9 Heart failure, unspecified; N18.4 Chronic kidney disease, stage 4 (severe); E11.22 Type 2 diabetes mellitus with diabetic chronic kidney disease; E11.3493 Type 2 diabetes mellitus with severe nonproliferative diabetic retinopathy without macular edema, bilateral; Z95.810 Presence of automatic (implantable) cardiac defibrillator; Z79.82 Long term (current) use of aspirin; Z79.4 Long term (current) use of insulin; Z87.891 Personal history of nicotine dependence
CPT/HCPCS: 36415; 80053; 99284; 70450; 81003; 81015; 83735; 85025

== ENCOUNTER 2023-09-30 10:21 | Emergency (ER) | payer MEDICARE, SELFPAY ==
[2023-09-30] VITALS (41 sets, daily range): BP systolic 160–217; BP diastolic 49–79; PULSE 57–82; RESP 14–24; TEMP 36.3; O2SAT 92–98
--- NOTE | 2023-09-30 10:29 | ED.GENADUL_ITS ---
Discharge Plan Disposition Patient Disposition: Home Condition: Stable Discharge Details Clinical Impression: Urinary tract infection Primary Care Provider: Tisha Chirinos ED Provider: Asaf Jordan Home Meds and New Rx's Prescriptions: New cephalexin 500 mg capsule 500 mg PO Q12H 10 Days Qty: 20 0RF Continued Fiber Gummies 2 gram tablet,chewable See Rx Instructions PO .COMPLEX Rx Instructions: 2 tabs PO; (DME) FreeStyle Freya 2 Fertile Misc See Rx Instructions .ROUTE .MEDSUPPLY Qty: 1 0RF Rx Instructions: As directed insulin lispro [Humalog KwikPen Insulin] 100 unit/mL insulin pen 1 - 30 unit Sub-Q AC Qty: 27 3RF Rx Instructions: Dx: E11.9 to maintain HbA1C less than 8% spironolactone 25 mg tablet 12.5 mg PO DAILY Qty: 45 3RF insulin glargine U-300 conc [Toujeo SoloStar U-300 Insulin] 300 unit/mL (1.5 mL) insulin pen See Rx Instructions SUBCUT BID Qty: 22 3RF Rx Instructions: 45 units AM & 50 units PM subcut twice a day; multivitamin [Daily Vitamin] 1 EACH tablet 1 ea PO DAILY aspirin [Aspirin Low-Strength] 81 MG tablet,chewable 81 mg PO DAILY calcium carbonate-vitamin D3 [Calcarb 600 With Vitamin D] 1 EACH tablet 1 ea PO BID (DME) lancets [OneTouch UltraSoft Lancets] 1 EACH misc 1 ea Miscellaneous TID Qty: 90 Rx Instructions: For DM 250.00 to keep A1C at or below 7 epinephrine [EpiPen 2-Ezekiel] 0.3 MG/0.3 ML auto-injector 0.3 mg IM see instructions Qty: 1 Rx Instructions: 1 shot in muscle incase of severe allergic reaction as advised, may repeat the dose 1 time Call 911 for help Glucagon Emergency Kit (human) 1 MG kit 1 mg IJ PRN Qty: 1 acetaminophen 500 mg tablet 500 mg PO BID Rx Instructions: Takes 1 in the am and 1 in the pm nitroglycerin 0.4 mg tablet, sublingual 0.4 mg sublingual Q5M PRN (Reason: chest pain) Qty: 30 0RF Rx Instructions: Take 0.4 mg every 5 minutes up to 3 doses; seek emergent medical care if no relief fluticasone propion-salmeterol [Advair Diskus] 250-50 mcg/dose blister with device 1 inh inhalation BID Qty: 3 3RF loratadine 10 mg tablet 10 mg PO DAILY Qty: 90 3RF (DME) Blood Glucose Test Strip See Rx Instructions .ROUTE .MEDSUPPLY Qty: 400 3RF Rx Instructions: As directed to check blood glucose four times daily. On insulin. Dispense covered brand. (DME) pen needle, diabetic 31 gauge x 5/16 needle See Dose Instructions .ROUTE .MEDSUPPLY Qty: 500 3RF Dose Instruction: As directed Rx Instructions: As directed with 5-times daily insulin omeprazole 20 mg capsule,delayed release(DR/EC) 20 mg PO DAILY Qty: 90 3RF Rx Instructions: Take 20 mg once daily in the morning at least 30 minutes before first meal Metamucil Fiber Thin 2 gram wafer 2 wafer PO TID Qty: 90 3RF albuterol sulfate 90 mcg/actuation HFA aerosol inhaler See Rx Instructions .ROUTE .COMPLEX Qty: 8.5 3RF Dose Instruction: INHALE 1 TO 2 PUFFS BY MOUTH EVERY 4 TO 6 HOURS NEEDED FOR SHORTNESS OF BREATH OR WHEEZING Rx Instructions: INHALE 1 TO 2 PUFFS BY MOUTH EVERY 4 TO 6 HOURS NEEDED FOR SHORTNESS OF BREATH OR WHEEZING fluticasone propionate [Flonase Allergy Relief] 50 mcg/actuation spray,suspension 1 - 2 spray NS DAILY PRN (Reason: nasal congestion) Qty: 1 12RF atorvastatin 20 mg tablet 20 mg PO DAILY Qty: 90 3RF vitamin B complex Tablet 1 tab PO DAILY Qty: 90 3RF isosorbide mononitrate 60 mg tablet extended release 24 hr 60 mg PO DAILY Qty: 90 3RF Rx Instructions: [place]23[place] [facility] [place] dose [place] to 60mg po QD. Dr. Gil MD;[facility] [place]Catrina Nuñez [place] for this prescription) losartan 50 mg tablet 50 mg PO DAILY Qty: 30 0RF Rx Instructions: 01/23/[place] [place]; increase Losartan to 50mg po qd. Dr. Gil MD furosemide 40 mg tablet 40 mg PO BID carvedilol 12.5 mg tablet 18.75 mg PO BID Qty: 42 0RF Rx Instructions: Take 18.75 mg (1 1/2 pills) twice daily trazodone 50 mg tablet 50 mg PO HS PRN (Reason: insomnia) Qty: 14 0RF Discharge Instructions Instructions: Cephalexin (By mouth), Urinary Tract Infection in Older Adults (ED) Additional Instructions: You were seen in the emergency department for your fall at home earlier where your legs gave out, there is no severe trauma seen on any of your scans. Your cardiac workup is negative there is no head injury, your labs showed some mild dehydration which is likely a contributing factor to your fall, you also were found to have a urinary tract infection. We started you on antibiotics today, please start the tablets of cephalexin that I have sent to your pharmacy tomorrow. Stay well-hydrated and nourished. Please do not hesitate to return to the emergency department for any continued falls, numbness, tingling, weakness, slurred speech, neurologic abnormality, chest pain, chest palpitations, fever, shortness of breath, lack of urinary output. Referrals: Tisha Chirinos [Primary Care Provider] - Discharge Data Discharge Date/Time-TO BE ENTERED AT DEPARTURE: 09/30/23 15:07 HPI General Date/Time Provider Initiated Documentation: 09/30/23 10:29 . HPI Narrative: 88 year-old female presents to ED today by POV/ambulating with a chief complaint of fall while toileting at home this morning, was down for about an hour, had difficulty getting up. Quality described as diffuse pain- poor historian, states hit her head, having neck pain, shoulder pain, RUQ abdominal pain, lower back pain, R chest pain, no radiation to slurred speech, swelling, deformity, inability to move any extremity, nausea, vomiting, visual changes, severe headache, palpitations prior to fall. Severity is described as unable to quantify. Palliating factors include nothing specific. Provoking factors include nothing specific. Patient not anticoagulated. Related Data Home Medications Medication Instructions Recorded Confirmed aspirin 81 mg chewable tablet 81 mg PO DAILY 07/25/12 09/30/23 (Aspirin Low-Strength) calcium carbonate 600 mg-vitamin 1 ea PO BID 07/25/12 09/30/23 D3 10 mcg (400 unit) tablet (Calcarb 600 With Vitamin D) multivitamin (Daily Vitamin tablet) 1 ea PO DAILY 07/25/12 09/30/23 lancets (OneTouch UltraSoft #90 ea 01/02/15 09/30/23 Lancets) epinephrine 0.3 mg/0.3 mL 0.3 mg IM see instructions ##1 08/17/15 09/30/23 injection, auto-injector (EpiPen 2-Ezekiel) glucagon (human recombinant) 1 mg 1 mg IJ PRN ##1 10/28/15 09/30/23 injection kit (Glucagon Emergency Kit (human-recomb)) acetaminophen 500 mg tablet 500 mg PO BID 09/15/19 09/30/23 inulin 2 gram chewable tablet See Rx Instructions PO .COMPLEX 09/15/19 09/30/23 (Fiber Gummies) nitroglycerin 0.4 mg sublingual 0.4 mg sublingual Q5M PRN chest 07/01/20 09/30/23 tablet pain #30 tab-caps flash glucose scanning reader #1 ea 07/15/20 09/30/23 (FreeStyle Freya 2 Fertile) fluticasone 250 mcg-salmeterol 50 1 inh inhalation BID #3 ea 11/04/20 09/30/23 mcg/dose blistr powdr for inhalation (Advair Diskus) spironolactone 25 mg tablet 12.5 mg (1/2 x 25 mg) PO DAILY #45 11/29/20 09/30/23 tabs insulin lispro 100 unit/mL 1 - 30 unit (0.01 - 0.3 mL) subcut 03/19/21 09/30/23 subcutaneous pen (Humalog Austin AC #27 SYRGS (U-100) Insulin) loratadine 10 mg tablet 10 mg PO DAILY #90 tab-caps 03/24/21 09/30/23 blood sugar diagnostic (Blood #400 ea 04/30/21 09/30/23 Glucose Test strips) pen needle, diabetic 31 gauge x #500 ea 06/18/21 09/30/2310/06 insulin glargine U-300 conc 300 See Rx Instructions subcut BID #22 06/25/21 09/30/23 unit/mL (1.5 mL) subcutaneous pen SYRGS (Toujeo SoloStar U-300 Insulin) omeprazole 20 mg capsule,delayed 20 mg PO DAILY indigestion #90 07/02/21 release tab-caps psyllium husk (with sugar) 2 gram 2 wafer PO TID #90 wafers 08/25/21 09/30/23 oral wafer (Metamucil Fiber Thin) albuterol sulfate 90 mcg/actuation See Rx Instructions .Route 10/28/21 09/30/23 aerosol inhaler .COMPLEX #8.5 grams fluticasone propionate 50 1 - 2 spray NS DAILY PRN nasal 11/20/21 09/30/23 mcg/actuation nasal congestion #1 unit spray,suspension (Flonase Allergy Relief) atorvastatin 20 mg tablet 20 mg PO DAILY #90 tab-caps 12/08/21 09/30/23 vitamin B complex 1 tab PO DAILY headaches #90 12/29/21 09/30/23 tab-caps isosorbide mononitrate 60 mg 60 mg PO DAILY #90 tabs 02/04/22 09/30/23 tablet,extended release 24 hr losartan 50 mg tablet 50 mg PO DAILY #30 tabs 02/11/22 09/30/23 furosemide 40 mg tablet 40 mg PO BID 02/16/22 09/30/23 carvedilol 12.5 mg tablet 18.75 mg (1.5 x 12.5 mg) PO BID 03/04/22 09/30/23 #42 tabs trazodone 50 mg tablet 50 mg PO HS PRN insomnia #14 03/04/22 09/30/23 tab-caps cephalexin 500 mg capsule 500 mg PO Q12H UTI 10 days #20 caps 09/30/23 Previous Rx's Medication Instructions Recorded nitroglycerin 0.4 mg sublingual 0.4 mg sublingual Q5M PRN chest 07/01/20 tablet pain #30 tab-caps flash glucose scanning reader #1 ea 07/15/20 (FreeStyle Freya 2 Fertile) fluticasone 250 mcg-salmeterol 50 1 inh inhalation BID #3 ea 11/04/20 mcg/dose blistr powdr for inhalation (Advair Diskus) spironolactone 25 mg tablet 12.5 mg (1/2 x 25 mg) PO DAILY #45 11/29/20 tabs insulin lispro 100 unit/mL 1 - 30 unit (0.01 - 0.3 mL) subcut 03/19/21 subcutaneous pen (Humalog Austin AC #27 SYRGS (U-100) Insulin) loratadine 10 mg tablet 10 mg PO DAILY #90 tab-caps 03/24/21 blood sugar diagnostic (Blood #400 ea 04/30/21 Glucose Test strips) pen needle, diabetic 31 gauge x #500 ea 06/18/2110/06 insulin glargine U-300 conc 300 See Rx Instructions subcut BID #22 06/25/21 unit/mL (1.5 mL) subcutaneous pen SYRGS (Toujeo SoloStar U-300 Insulin) omeprazole 20 mg capsule,delayed 20 mg PO DAILY indigestion #90 07/02/21 release tab-caps psyllium husk (with sugar) 2 gram 2 wafer PO TID #90 wafers 08/25/21 oral wafer (Metamucil Fiber Thin) albuterol sulfate 90 mcg/actuation See Rx Instructions .Route 10/28/21 aerosol inhaler .COMPLEX #8.5 grams fluticasone propionate 50 1 - 2 spray NS DAILY PRN nasal 11/20/21 mcg/actuation nasal congestion #1 unit spray,suspension (Flonase Allergy Relief) atorvastatin 20 mg tablet 20 mg PO DAILY #90 tab-caps 12/08/21 vitamin B complex 1 tab PO DAILY headaches #90 12/29/21 tab-caps isosorbide mononitrate 60 mg 60 mg PO DAILY #90 tabs 02/04/22 tablet,extended release 24 hr losartan 50 mg tablet 50 mg PO DAILY #30 tabs 02/11/22 carvedilol 12.5 mg tablet 18.75 mg (1.5 x 12.5 mg) PO BID 03/04/22 #42 tabs trazodone 50 mg tablet 50 mg PO HS PRN insomnia #14 03/04/22 tab-caps cephalexin 500 mg capsule 500 mg PO Q12H UTI 10 days #20 caps 09/30/23 Allergies Allergy/AdvReac Type Severity Reaction Status Date / Time gabapentin AdvReac Mild Dizziness/L Verified 09/30/23 10:26 ightheade GORDON Inhibitors AdvReac Unknown COUGH Verified 09/30/23 10:26 multiple food allergies Allergy Intermediate Sensitization Uncoded 09/30/23 10:26 noted on blood test General Stated Complaint: Fall/Non TraumaCriteria ALON: 3 Review of Systems All systems reviewed & are unremarkable except as noted in HPI and below Exam Narrative Exam Narrative: GENERAL APPEARANCE: Well-nourished, non-toxic, awake and alert, atraumatic, no acute distress. SKIN: Warm, pink, dry, intact, without rashes/lesions/ulcerations. HEAD: Normocephalic, atraumatic- no overt scalp hematoma, no Danielle's sign, no periorbital ecchymosis, normal hair distribution for gender/age. EYES: Pupils PERRLA, EOMs intact without nystagmus, normal conjunctiva, no exudates on lids/lashes. ENT: Nares patent, no circumoral cyanosis, no facial swelling NECK: Supple, trachea midline, painless cervical ROM, midline and lateral neck tenderness without creitus or step-offs. LUNGS/CHEST: Lungs CTA bilaterally- no rhonchi/rales/wheezes, non-labored respirations, normal A/P diameter, symmetrical expansion, no chest wall deformity HEART (CV/PV): Regular rate and rhythm without murmur, no peripheral edema, no JVD. ABDOMEN: Soft, non-distended, no guarding, RUQ tenderness without rebound tenderness, negative Rovsing's, Zhang's negative, no McBurney's point tenderness. MSK: Normal ROM, no swelling/deformity to bilateral UEs or LEs, moving all extremities without weakness, no cyanosis, spine midline without tenderness, normal curvature. NEURO: Mental Status AAOx4 - alert to person, place, time, events No facial droop, no forehead involvement. Motor: No focal weakness - strength 5/5 in bilateral UEs and LEs, proximal and distal, symmetric. Sensory: sensation intact to light touch globally. Gait unsteady at baseline, uses walker here in ED without issue during road test. PSYCH: euthymic, cooperative, pleasant, appropriate speech Course Vital Signs Vital signs: Vital Signs Temperature 36.3 C L 09/30/23 10:22 Pulse 82 09/30/23 10:22 Respiratory Rate 18 09/30/23 10:22 Blood Pressure 172/70 H 09/30/23 10:22 Pulse Oximetry 98 09/30/23 10:22 Temperature 36.3 C L 09/30/23 10:22 Temperature Source Skin 09/30/23 10:22 Pulse 82 09/30/23 10:22 Respiratory Rate 18 09/30/23 10:22 Respiratory Effort Normal, Non-Labored 09/30/23 10:25 Blood Pressure 172/70 H 09/30/23 10:22 Blood Pressure Position Supine 09/30/23 10:22 Pulse Oximetry 98 09/30/23 10:22 Oxygen Delivery Method Room Air 09/30/23 10:22 Oxygen Flow Rate 0 09/30/23 10:22 Pain Level 0 09/30/23 10:22 Medical Decision Making This dictation utilizes [id number] dictation software and may contain unedit ed grammatical errors. 88 y/o F presents to ED today with a chief complaint of fall when getting up this morning and going to use the restroom, endorsed minor headstrike, shoulder pain, neck pain, back back, and RUQ abdominal/R lower rib pain, denies cough, denies fever, denies slurred speech, denies chest pain/palpitations, syncope, nausea/vomiting, visual changes- patient states they just felt weak in the legs, do have significant chronic mobility issues and obesity. Patients' medical history: CHF, hypertension, T2DM, asthma, CKD stage IV, implanted ICD, headache, gastritis, restrictive lung disease, mitral valve regurg, arthritis. Family and social history: lives with a in mold coater, no exercise, no recent travel. Pertinent exam findings / vital signs include no scalp hematoma, no vertebral abnormality to palpation, RUQ tenderness, R lower rib tenderness, no hypoxia/respiratory distress, no crackles at bases. Differential / pathologies of concern include fall, trauma, chronic debility, uti, URI, anemia, dehydration. Diagnostic studies of: -CBC, VBG, lactate, CMP, serial troponins, CRP/ESR, BNP, lipase, TSH, UA, CT head without contrast, C-spine without contrast, chest/abd/pelvis wo contrast w/ spinal recons. -CBC shows mild leukocytosis of 12, nonspecific, chronic thrombocytopenia -VBG shows no acidosis, normal lactate -CMP shows chronic creatinine elevation and CKD stage IV, elevated glucose without acidosis -Magnesium 1.4, given repletion IV -CRP elevated at 5 -Serial troponins negative -BNP elevated 627 -UA shows leuk esterase with greater than 50 WBCs, likely UTI -CT of Head/C-Spine/Chest/ABD/Pelvis negative for trauma, likely cystitis to bladder Interventions of: -Given 2gm magnesium, IV Ceftriaxone, 1 L fluids. ED Course/Assessment/Plan: 88-year-old female presents with a minor fall this morning, she is a poor historian endorses multiple locations of pain so velasco scan without contrast was performed, no trauma is found, has chronic ovarian mass or fibroid, has cystitis evidenced on CT as well as UA, labs are nonspecific, do not suspect sepsis, patient has low magnesium which was repleted IV and would return to normal with normal p.o. intake. Patient passed road test and was feeling much better by the end of the visit, advised to fill her prescription for Keflex renal dosing and start tomorrow. Strict return criteria for any further episodes of falling, patient was comfortable with this disposition and counseled that the UTI could have made her feel a bit weak and cause an increased fall risk and her already unsteady gait with walker use and obesity. Findings not consistent with sepsis, trauma, ICH, fracture, pulmonary edema or respiratory failure, ACS. Disposition of Urinary Tract Infection. Patient verbalized understanding of the plan and return to ED criteria and engaged in shared decision making. Medical Records Medical records reviewed: Yes I reviewed the patient's medical records. Imaging Data Radiologic Study: Attestation: I personally reviewed and interpreted this imaging study as king cruz: Imaging: CT Scan Radiologist's impression: EXAM: CT HEAD CERVICAL SPINE WO CLINICAL HISTORY: fall, head neck pain. TECHNIQUE: Imaging Protocol: Axial computed tomography images with coronal and sagittal reformatted images were created and reviewed COMPARISON: CT CT HEAD WO from 09/01/2023 FINDINGS: CT Head: Ventricles and Extra axial spaces: Normal in size and morphology for the patient's age. Hemorrhage: None. Cerebral parenchyma: There are areas of decreased attenuation in the white matter consistent with chronic microvascular ischemic disease. No acute mass effect is identified. Midline shift: None. Brainstem/Cerebellum: Normal. Calvarium: Normal. Visualized Paranasal sinuses/Mastoids: There is mild mucosal thickening in the left maxillary sinus. The remaining visualized paranasal sinuses are clear. Soft Tissues: Unremarkable. CT Cervical Spine: Bones: No acute fracture or subluxation. Soft Tissues: Multinodular thyroid gland. There is a 1.8 x 1.9 cm hypodense nodule in the left lobe of the thyroid gland. A nonemergent thyroid ultrasound may be obtained for further evaluation. There is a 1.6 x 1.6 cm isodense nodule at the posterior aspect of the right lobe of the thyroid gland. Lung Apices: Clear. IMPRESSION: 1. No acute intracranial process. 2. No acute fracture or subluxation in the cervical spine. 3. Multinodular thyroid gland. Nonemergent thyroid ultrasound may be obtained for further evaluation. Radiologic Study #2: Attestation: I personally reviewed and interpreted this imaging study as follows: Imaging: CT Scan Radiologist's impression: EXAM: CT CHEST/ABD/PEL WO and CT thoracic and lumbar spine recons CLINICAL HISTORY: fall, poor historian R sided CP TECHNIQUE: Imaging Protocol: Axial computed tomography images with coronal and sagittal reformatted images were created and reviewed COMPARISON: CT CT ABDOMEN PELVIS WO from 12/12/2019 FINDINGS: Examination limited by lack of IV contrast. The examination is limited due to patient motion artifact. CHEST: Tracheobronchial tree: Patent where visualized. Pulmonary parenchyma: No consolidation or dominant measurable mass. No architectural distortion. Mediastinum and Katey: No dominant adenopathy or fluid collection. The esophagus is unremarkable. Thyroid gland: There is an enlarged multinodular thyroid gland part of which extends into the superior mediastinum. There is a 2.1 x 2.0 cm nodule extending into the superior mediastinum. There is a 2 cm hypodense nodule in the left lobe. A nonemergent thyroid ultrasound may be obtained for further evaluation. Pleura: No effusion or pneumothorax. Heart: Cardiomegaly. Coronary artery calcifications and/or stents. No pericar dial effusion. Cardiac monitoring device is in place. Aorta: Thoracic aorta non-dilated. Atherosclerotic calcification is present. Lymph nodes: Within normal limits. Bones:Within normal limits for the patient's age. Degenerative changes are seen in the shoulders bilaterally. Loose bodies are seen within the shoulder joints bilaterally. Old healed right rib fractures present. No acute displaced right rib fracture is seen. Tubes, Catheters, and Lines: There is a cardiac monitoring device in place. Soft tissues: Unremarkable. Thoracic spine: Age-appropriate degenerative changes are seen. No acute fracture or subluxation is seen. ABDOMEN: Patient motion artifact and lack of contrast severely limit the abdominal and pelvic examination. Liver: Normal density. No measurable mass. Gallbladder and Biliary Tract: Status post cholecystectomy. Pancreas: Normal density, no abnormal calcifications or inflammatory process. Spleen: Normal. Adrenals: No masses seen. Kidneys: Normal size, contour and axis. No radiodense stones or obstructive uropathy. No masses seen. Abdominal Aorta: Abdominal portion non-dilated. Atherosclerotic calcification is present. Bowel: No obstruction or bowel wall thickening. The stomach is incompletely distended limiting evaluation. No evidence of pneumatosis. No evidence of appendicitis. Peritoneal Cavity: No ascites, collection or mesenteric inflammatory response. No free air. Lymph Nodes: Within normal limits. Bones: Within normal limits for the patient's age. Soft Tissues: Unremarkable. Lumbar spine: Multilevel degenerative changes are present. There is grade 1 anterolisthesis of L4 on L5. PELVIS: Bladder: There is a small amount of air seen within the urinary bladder. There is thickening of the wall of the urinary bladder and inflammation seen in the surrounding soft tissues. Reproductive Organs: There is a again seen a complex 4.2 x 4.6 cm left adnexal mass. Site of origin is indeterminate. This may represent a uterine fibroid or a ovarian mass. Lymph Nodes: Within normal limits. Bones: Within normal limits for the patient's age. IMPRESSION: 1. No acute pulmonary process. 2. Multinodular thyroid gland. Nonemergent thyroid ultrasound is recommended. 3. No acute fracture or subluxation in the thoracic or lumbar spine. 4. Evaluation of the abdominal and pelvic organs is limited due to lack of IV contrast and patient motion artifact. 5. Urinary bladder wall thickening with surrounding inflammatory stranding and a small focus of air seen within urinary bladder. Findings may represent a cystitis. Please correlate clinically. Please also correlate with any history of recent catheterization. 6. 4.6 x 4.2 cm left adnexal mass. This was present on the prior examination. This may represent a uterine fibroid or left ovarian mass follow-up as clinically appropriate. Lab Data Lab results reviewed: Yes I reviewed the patient's lab results. Labs: 09/30/23 13:49 Urine - Reflex from Ua Urine Culture - Pending Laboratory Tests Range/Units 09/30/23 09/30/23 09/30/23 11:05 13:45 13:49 WBC (4.4-10.8) 10^3/uL 12.72 H RBC (3.93-5.22) 10^6/uL 4.07 Hgb (11.2-15.7) g/dL 12.0 Hct (36.0-46.0) % 35.8 L MCV (80-95) fL 88 MCH (27.0-33.0) pg 29.5 MCHC (32.0-36.0) % 33.5 RDW (11.7-14.6) % 12.8 Plt Count (130-400) 10^3/uL 120 L MPV (8.0-11.0) fL 10.5 Immature Gran % % 0.7 Neutrophils % % 87.9 Lymphocytes % % 4.1 Monocytes % % 6.4 Eosinophils % % 0.6 Basophils % % 0.3 Nucleated RBC % (0.0-0.3) % 0.0 Absolute Neutrophils (1.2-6.7) 10^3/uL 11.18 H Absolute Lymphocytes (1.2-3.4) 10^3/uL 0.52 L Absolute Monocytes (0.1-0.8) 10^3/uL 0.81 H Absolute Eosinophils (0.0-0.7) 10^3/uL 0.08 Absolute Basophils (0.0-0.2) 10^3/uL 0.04 VBG pH (7.31-7.41) 7.35 VBG pCO2 (41-51) mmHg 49 VBG pO2 mmHg 25 VBG HCO3 (23-28) mmol/L 27 VBG Total CO2 (24-29) mmol/L 25 VBG O2 Saturation % 46 VBG Base Excess (-2-3) mmol/L 1 VBG Lactate (0.6-1.4) mmol/L 1.4 Sodium (136-145) mmol/L 141 Potassium (3.5-5.1) mmol/L 4.0 Chloride (98-107) mmol/L 104 Carbon Dioxide (21.0-32.0) mmol/L 26.9 Anion Gap (3-11) mmol/L 10.1 BUN (7-18) mg/dL 30 H Creatinine (0.55-1.02) mg/dL 2.0 H Est GFR (CKD-EPI 2020) (mL/min/1.73m2) 23.88 Glucose (74-106) mg/dL 305 H Calcium (8.5-10.1) mg/dL 9.5 Magnesium (1.8-2.4) mg/dL 1.4 L Total Bilirubin (0.2-1.0) mg/dL 0.8 AST (15-37) U/L 14 L ALT (14-59) U/L 19 Alkaline Phosphatase (46-116) U/L 86 Creatine Kinase (26-192) U/L 28 Troponin I (< or =60) ng/L < 50 < 50 C-Reactive Protein (<or=0.5) mg/dL 5.01 H NT-Pro-B Natriuret Pep (<300) pg/mL 627 H Total Protein (6.4-8.2) g/dL 7.3 Albumin (3.4-5.0) g/dL 3.0 L Lipase (16-77) U/L 33 TSH (0.36-3.74) uIU/mL 0.21 L Free T4 (0.76-1.46) ng/dL 1.25 Urine Color (Yellow) Yellow Urine Clarity (Clear) Cloudy Urine pH (5-8) 5.5 Ur Specific Blaine (1.005-1.025) 1.020 Urine Protein (Neg-Trace) mg/dL >=300 H Urine Ketones (Negative) mg/dL Negative Urine Blood (Negative) Moderate H Urine Nitrite (Negative) Negative Urine Bilirubin (Negative) Negative Urine Urobilinogen (Up to 0.2) mg/dL 0.2 Ur Leukocyte Esterase (Negative) Small H Urine RBC (0-2) HPF 5-10 H Urine WBC (0-5) HPF >50 H Ur Epithelial Cells (Negative) HPF Few Urine Crystals (Negative) HPF Negative Urine Bacteria (Negative) HPF Many Urine Casts (Negative) LPF 5-10 WBC Urine Mucus (Negative) Negative Ur Culture Indicated? Yes Urine Glucose (Negative) mg/dL 250 H Quality:SDOH Health Related Social Needs: No Data to Display PFSH All Active Problems (Updated 09/30/23 @ 14:53 by SABA [place]) Urinary tract infection (Acute) Memory difficulties (Acute) Angina at rest (Acute) Tubular adenoma of colon (Acute) Urinary incontinence (Acute) Neck pain (Acute) SARS-CoV-2 positive (Acute) Headache (Acute) Advanced directives, counseling/discussion (Acute) Bowel habit changes (Acute) Hydrosalpinx (Chronic) Left Muscular deconditioning (Acute) Lumbar spondylosis (Acute) Inflammatory polyps (Acute) Gastritis (Acute) Anemia (Chronic) [place] [facility] [place] Insomnia (Chronic) 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 obesity hypoventilation?), also has asthma Osteoporosis (Chronic 07/28/11) Multiple food allergies (Chronic 08/14/15) Immunological Sensitization noted on Blood Test for Milk/Casein, peanut, Tomato, [place], Cabbage, [place], Rice, Spinach, Asparagus, Brussel Sprouts, Sweet Potato, Beef, Pork Mitral valve regurgitation (Chronic 09/05/13) 3+ Memory impairment (Chronic 08/30/17) 08/30/17 MOCA score: 02/16/19 MOCA score: Depression (Chronic 12/16/11) HUE [place] in the past Cardiac resynchronization therapy defibrillator ([employer]-D) in place (Chronic 08/14/16) [facility] [place] 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) [facility] [place] Stress test showing small, reversible inferior wall defect c/w ischemia Type 2 diabetes mellitus with retinopathy of both eyes, with long-term current use of insulin Asthma 09/03/2014 PFTs: mild obstructive airway disease with significant bronchodilator response Chronic kidney disease (CKD), stage IV (severe) [facility] [place] ICD (implantable cardioverter-defibrillator) in place AVM (arteriovenous malformation) of colon Surgical History History of total left knee replacement Replacement of total knee joint B/L Hernia Repair, Incisional (~2010) W/ mesh. Dr. Cheko Patterson Extraction of cataract Dr. Hensley Family History Mother Hypertensive disorder, systemic arterial Diabetes Atherosclerosis of coronary artery Family history of stroke Dementia Hyperlipidemia Family history of glaucoma Cataract Father No problems noted. Social History Smoking/Tobacco Use Status: Former Tobacco Use Smoking risk assessment performed?: Yes Alcohol Intake: former Drug use: Never Substance use type: does not use Adopted: No Caregiver/Support person: No Foster care: No Number of Children: 5 Communication Needs: None Pets and animals: Yes Pets and animals: cat(s) and dog(s) Sexually active: No Current gender identity: female What is your relationship status?: Panel score (0-1 are the most socially isolated patients): 0 What type of physical activity do you participate in: other Details: Excercise classes at [employer] Duration: 45-60 minutes/day Frequency: 1-2 times per week Seatbelt use: always Do you feel safe at home: Yes Do you feel safe in your relationship?: Yes
--- NOTE | 2023-09-30 10:30 | RT.EKG_ITS ---
APPROVED REPORT Exam: Resting ECG Reason for Exam: L shoulder pain Patient Location: E HR:73 bpm ECG Measurements Heart Rate 73 AXIS DE 112 P 118 QRSd 159 QRS 155 QT 412 T 56 QTc 456 Conclusion Atrial-ventricular dual-paced complexes...other complexes also detected
[2023-09-30 11:14] LABS: BE (Venous) 1 mmol/L (-2-3); HCO3 (Venous) 27 mmol/L (23-28); O2 Sat (Venous) 46 %; TCO2 (Venous) 25 mmol/L (24-29); pCO2 (Venous) 49 mmHg (41-51); pH (Venous) 7.35 (7.31-7.41); pO2 (Venous) 25 mmHg
[2023-09-30 11:15] LABS: Abs Immature Grans 0.09 10^3/uL (0.0-0.06); Absolute Basophil Count 0.04 10^3/uL (0.0-0.2); Absolute Eosinophil Count 0.08 10^3/uL (0.0-0.7); Absolute Lymphocyte Count 0.52 10^3/uL (1.2-3.4); Absolute Monocyte Count 0.81 10^3/uL (0.1-0.8); Absolute Neutrophil Count 11.18 10^3/uL (1.2-6.7); Basophils % 0.3 %; Eosinophils % 0.6 %; HCT 35.8 % (36.0-46.0); Immature Grans % 0.7 %; Lactate 1.4 mmol/L (0.6-1.4); Lymphocytes % 4.1 %; MCH 29.5 pg (27.0-33.0); MCHC 33.5 % (32.0-36.0); MCV 88 fL (80-95); MPV 10.5 fL (8.0-11.0); Monocytes % 6.4 %; Neutrophils % 87.9 %; Platelet Count 120 10^3/uL (130-400); RBC 4.07 10^6/uL (3.93-5.22); RDW 12.8 % (11.7-14.6); RDW-SD 41.2 fL; WBC 12.72 10^3/uL (4.4-10.8)
[2023-09-30 11:42] LABS: ALT 19 U/L (14-59); AST 14 U/L (15-37); Alkaline Phosphatase 86 U/L (46-116); Anion Gap 10.1 mmol/L (3-11); BUN 30 mg/dL (7-18); Bilirubin, Total 0.8 mg/dL (0.2-1.0); C-Reactive Protein 5.01 mg/dL (<or=0.5); CO2 26.9 mmol/L (21.0-32.0); Calcium 9.5 mg/dL (8.5-10.1); Chloride 104 mmol/L (98-107); Creatine Kinase 28 U/L (26-192); Estimated GFR 23.88 (mL/min/1.73m2); Glucose 305 mg/dL (74-106); Lipase 33 U/L (16-77); Magnesium 1.4 mg/dL (1.8-2.4); NT-proBNP 627 pg/mL (<300); Sodium 141 mmol/L (136-145); TSH (W/Ref FT4) 0.21 uIU/mL (0.36-3.74); Total Protein 7.3 g/dL (6.4-8.2); Troponin I < 50 ng/L (< or =60)
--- NOTE | 2023-09-30 11:45 | DI.CT_ITS ---
Exam(s) CT CHEST/ABD/PEL WO CT THORACIC LUMBAR SPINE REC EXAM: CT CHEST/ABD/PEL WO and CT thoracic and lumbar spine recons CLINICAL HISTORY: fall, poor historian R sided CP TECHNIQUE: Imaging Protocol: Axial computed tomography images with coronal and sagittal reformatted images were created and reviewed COMPARISON: CT CT ABDOMEN PELVIS WO from 12/12/2019 FINDINGS: Examination limited by lack of IV contrast. The examination is limited due to patient motion artifac t. CHEST: Tracheobronchial tree: Patent where visualized. Pulmonary parenchyma: No consolidation or dominant measurable mass. No architectural distortion. Mediastinum and Katey: No dominant adenopathy or fluid collection. The esophagus is unremarkable. Thyroid gland: There is an enlarged multinodular thyroid gland part of which extends into the superio r mediastinum. There is a 2.1 x 2.0 cm nodule extending into the superior mediastinum. There is a 2 cm hypodense nodule in the left lobe. A nonemergent thyroid ultrasound may be obtained for further evaluation. Pleura: No effusion or pneumothorax. Heart: Cardiomegaly. Coronary artery calcifications and/or stents. No pericardial effusion. Cardiac monitoring device is in place. Aorta: Thoracic aorta non-dilated. Atherosclerotic calcification is present. Lymph nodes: Within normal limits. Bones:Within normal limits for the patient's age. Degenerative changes are seen in the shoulders martina aterally. Loose bodies are seen within the shoulder joints bilaterally. Old healed right rib fractu res present. No acute displaced right rib fracture is seen. Tubes, Catheters, and Lines: There is a cardiac monitoring device in place. Soft tissues: Unremarkable. Thoracic spine: Age-appropriate degenerative changes are seen. No acute fracture or subluxation is s een. ABDOMEN: Patient motion artifact and lack of contrast severely limit the abdominal and pelvic examina tion. Liver: Normal density. No measurable mass. Gallbladder and Biliary Tract: Status post cholecystectomy. Pancreas: Normal density, no abnormal calcifications or inflammatory process. Spleen: Normal. Adrenals: No masses seen. Kidneys: Normal size, contour and axis. No radiodense stones or obstructive uropathy. No masses seen. Abdominal Aorta: Abdominal portion non-dilated. Atherosclerotic calcification is present. Bowel: No obstruction or bowel wall thickening. The stomach is incompletely distended limiting evalua tion. No evidence of pneumatosis. No evidence of appendicitis. Peritoneal Cavity: No ascites, collection or mesenteric inflammatory response. No free air. Lymph Nodes: Within normal limits. Bones: Within normal limits for the patient's age. Soft Tissues: Unremarkable. Lumbar spine: Multilevel degenerative changes are present. There is grade 1 anterolisthesis of L4 on L5. PELVIS: Bladder: There is a small amount of air seen within the urinary bladder. There is thickening of the wall of the urinary bladder and inflammation seen in the surrounding soft tissues. Reproductive Organs: There is a again seen a complex 4.2 x 4.6 cm left adnexal mass. Site of origin is indeterminate. This may represent a uterine fibroid or a ovarian mass. Lymph Nodes: Within normal limits. Bones: Within normal limits for the patient's age. IMPRESSION: 1. No acute pulmonary process. 2. Multinodular thyroid gland. Nonemergent thyroid ultrasound is recommended. 3. No acute fracture or subluxation in the thoracic or lumbar spine. 4. Evaluation of the abdominal and pelvic organs is limited due to lack of IV contrast and patient mo tion artifact. 5. Urinary bladder wall thickening with surrounding inflammatory stranding and a small focus of air s een within urinary bladder. Findings may represent a cystitis. Please correlate clinically. Please also correlate with any history of recent catheterization. 6. 4.6 x 4.2 cm left adnexal mass. This was present on the prior examination. This may represent a uterine fibroid or left ovarian mass follow-up as clinically appropriate. RADIATION DOSE DELIVERED: 1,110.09mGy.cm Total DLP 1,110.09mGy.cm Total DLP DATA REPOSITORY: All CT scans at this facility are submitted to the National Radiology Data Registry (NRDR) Dose Index Registry (DIR) with the [employer] (A[employer]). RADIATION OPTIMIZATION: All CT scans at this facility use at least one of these dose optimization te chniques: automated exposure control; mA and/or kV adjustment per patient size (includes targeted exa ms where dose is matched to clinical indication); or iterative reconstruction.
[2023-09-30 11:57] LABS: FREE T4 1.25 ng/dL (0.76-1.46)
--- NOTE | 2023-09-30 12:39 | DI.CT_ITS ---
Exam(s) CT HEAD CERVICAL SPINE WO EXAM: CT HEAD CERVICAL SPINE WO CLINICAL HISTORY: fall, head neck pain. TECHNIQUE: Imaging Protocol: Axial computed tomography images with coronal and sagittal reformatted images were created and reviewed COMPARISON: CT CT HEAD WO from 09/01/2023 FINDINGS: CT Head: Ventricles and Extra axial spaces: Normal in size and morphology for the patient's age. Hemorrhage: None. Cerebral parenchyma: There are areas of decreased attenuation in the white matter consistent with chr onic microvascular ischemic disease. No acute mass effect is identified. Midline shift: None. Brainstem/Cerebellum: Normal. Calvarium: Normal. Visualized Paranasal sinuses/Mastoids: There is mild mucosal thickening in the left maxillary sinus. The remaining visualized paranasal sinuses are clear. Soft Tissues: Unremarkable. CT Cervical Spine: Bones: No acute fracture or subluxation. Soft Tissues: Multinodular thyroid gland. There is a 1.8 x 1.9 cm hypodense nodule in the left lobe of the thyroid gland. A nonemergent thyroid ultrasound may be obtained for further evaluation. Ther e is a 1.6 x 1.6 cm isodense nodule at the posterior aspect of the right lobe of the thyroid gland. Lung Apices: Clear. IMPRESSION: 1. No acute intracranial process. 2. No acute fracture or subluxation in the cervical spine. 3. Multinodular thyroid gland. Nonemergent thyroid ultrasound may be obtained for further evaluation . RADIATION DOSE DELIVERED: 1,491.46mGy.cm Total DLP DATA REPOSITORY: All CT scans at this facility are submitted to the National Radiology Data Registry (NRDR) Dose Index Registry (DIR) with the [employer] (ACR). RADIATION OPTIMIZATION: All CT scans at this facility use at least one of these dose optimization te chniques: automated exposure control; mA and/or kV adjustment per patient size (includes targeted exa ms where dose is matched to clinical indication); or iterative reconstruction.
[2023-09-30] MEDS: MAGNESIUM SULFATE 2 GM/50 ML BAG IVINF (13:01)
[2023-09-30 13:57] LABS: Bilirubin Negative (Negative); Blood Moderate (Negative); Clarity Cloudy (Clear); Glucose 250 mg/dL (Negative); Ketones Negative (Negative); Leukocyte Esterase Small (Negative); Nitrite Negative (Negative); Urobilinogen 0.2 mg/dL (Up to 0.2); pH 5.5 (5-8)
[2023-09-30 14:07] LABS: Bacteria Many HPF (Negative); C & S Indicated? Yes; Crystals Negative HPF (Negative); Epithelial Cells Few HPF (Negative); Mucus Negative (Negative); WBC >50 HPF (0-5)
[2023-09-30 14:21] LABS: Troponin I < 50 ng/L (< or =60)
[2023-09-30] MEDS: cefTRIAXone 1 GM/50 ML BAG IVPB (14:27)
== END 2023-09-30 15:07 | disposition home or self-care (01) ==
PROVIDERS: Emergency Provider Physician Assistant; PCP Nurse Practitioner Family
DX: N39.0 Urinary tract infection, site not specified (principal); M25.512 Pain in left shoulder; R32 Unspecified urinary incontinence; M54.50 Low back pain, unspecified; M54.2 Cervicalgia; R10.11 Right upper quadrant pain; R07.89 Other chest pain; W19.XXXA Unspecified fall, initial encounter
CPT/HCPCS: 36415; 51701; 51798; 71250; 80053; 82550; 82805; 83690; 87077; 93005; 96365; 96366; 96367; 99284; 70450; 72125; 74176; 81003; 81015; 83605; 83735; 83880; 84439; 84443; 84484; 85025; 86140; 87086; 87186; 93010; 99283; J0696; J3475

== ENCOUNTER 2024-02-23 13:58 | Emergency (ER) | payer MEDICARE, SELFPAY ==
[2024-02-23] VITALS (15 sets, daily range): BP systolic 148–254; BP diastolic 54–123; PULSE 61–81; RESP 12–24; TEMP 36.8; O2SAT 98–100
--- NOTE | 2024-02-23 13:45 | RT.EKG_ITS ---
APPROVED REPORT Exam: Resting ECG Reason for Exam: weakness Patient Location: E HR:71 bpm ECG Measurements Heart Rate 71 AXIS SD 159 P 90 QRSd 158 QRS 160 QT 435 T 60 QTc 474 Conclusion Ventricular-paced rhythm No change from priors No STEMI
[2024-02-23 14:22] LABS: Abs Immature Grans 0.04 10^3/uL (0.0-0.06); Absolute Basophil Count 0.04 10^3/uL (0.0-0.2); Absolute Eosinophil Count 0.26 10^3/uL (0.0-0.7); Absolute Lymphocyte Count 1.21 10^3/uL (1.2-3.4); Absolute Monocyte Count 0.78 10^3/uL (0.1-0.8); Absolute Neutrophil Count 8.78 10^3/uL (1.2-6.7); Basophils % 0.4 %; Eosinophils % 2.3 %; HCT 32.7 % (36.0-46.0); HGB 10.4 g/dL (11.2-15.7); Immature Grans % 0.4 %; Lymphocytes % 10.9 %; MCH 29.2 pg (27.0-33.0); MCHC 31.8 % (32.0-36.0); MCV 92 fL (80-95); MPV 10.9 fL (8.0-11.0); Platelet Count 156 10^3/uL (130-400); RBC 3.56 10^6/uL (3.93-5.22); RDW 13.4 % (11.7-14.6); RDW-SD 44.9 fL; WBC 11.12 10^3/uL (4.4-10.8)
--- NOTE | 2024-02-23 14:23 | ED.GENADUL_ITS ---
Discharge Plan Disposition Patient Disposition: Home Condition: Stable Discharge Details Clinical Impression: Acute UTI, Anemia, Bowel habit changes Primary Care Provider: Unknown,Unknown ED Provider: Darcy Hernandez Home Meds and New Rx's Prescriptions: New cephalexin 500 mg capsule 500 mg PO QID 7 Days Qty: 28 0RF No Action Fiber Gummies 2 gram tablet,chewable See Rx Instructions PO .COMPLEX Rx Instructions: 2 tabs PO; (DME) FreeStyle Freya 2 Campbell Misc See Rx Instructions .ROUTE .MEDSUPPLY Qty: 1 0RF Rx Instructions: As directed insulin lispro [Humalog KwikPen Insulin] 100 unit/mL insulin pen 1 - 30 unit Sub-Q AC Qty: 27 3RF Rx Instructions: Dx: E11.9 to maintain HbA1C less than 8% spironolactone 25 mg tablet 12.5 mg PO DAILY Qty: 45 3RF insulin glargine U-300 conc [Toujeo SoloStar U-300 Insulin] 300 unit/mL (1.5 mL) insulin pen See Rx Instructions SUBCUT BID Qty: 22 3RF Rx Instructions: 45 units AM & 50 units PM subcut twice a day; multivitamin [Daily Vitamin] 1 EACH tablet 1 ea PO DAILY aspirin [Aspirin Low-Strength] 81 MG tablet,chewable 81 mg PO DAILY calcium carbonate-vitamin D3 [Calcarb 600 With Vitamin D] 1 EACH tablet 1 ea PO BID (DME) lancets [OneTouch UltraSoft Lancets] 1 EACH misc 1 ea Miscellaneous TID Qty: 90 Rx Instructions: For DM 250.00 to keep A1C at or below 7 epinephrine [EpiPen 2-Ezekiel] 0.3 MG/0.3 ML auto-injector 0.3 mg IM see instructions Qty: 1 Rx Instructions: 1 shot in muscle incase of severe allergic reaction as advised, may repeat the dose 1 time Call 911 for help Glucagon Emergency Kit (human) 1 MG kit 1 mg IJ PRN Qty: 1 acetaminophen 500 mg tablet 500 mg PO BID Rx Instructions: Takes 1 in the am and 1 in the pm nitroglycerin 0.4 mg tablet, sublingual 0.4 mg sublingual Q5M PRN (Reason: chest pain) Qty: 30 0RF Rx Instructions: Take 0.4 mg every 5 minutes up to 3 doses; seek emergent medical care if no relief fluticasone propion-salmeterol [Advair Diskus] 250-50 mcg/dose blister with device 1 inh inhalation BID Qty: 3 3RF loratadine 10 mg tablet 10 mg PO DAILY Qty: 90 3RF (DME) Blood Glucose Test Strip See Rx Instructions .ROUTE .MEDSUPPLY Qty: 400 3RF Rx Instructions: As directed to check blood glucose four times daily. On insulin. Dispense covered brand. (DME) pen needle, diabetic 31 gauge x 5/16 needle See Dose Instructions .ROUTE .MEDSUPPLY Qty: 500 3RF Dose Instruction: As directed Rx Instructions: As directed with 5-times daily insulin omeprazole 20 mg capsule,delayed release(DR/EC) 20 mg PO DAILY Qty: 90 3RF Rx Instructions: Take 20 mg once daily in the morning at least 30 minutes before first meal Metamucil Fiber Thin 2 gram wafer 2 wafer PO TID Qty: 90 3RF albuterol sulfate 90 mcg/actuation HFA aerosol inhaler See Rx Instructions .ROUTE .COMPLEX Qty: 8.5 3RF Dose Instruction: INHALE 1 TO 2 PUFFS BY MOUTH EVERY 4 TO 6 HOURS NEEDED FOR SHORTNESS OF BREATH OR WHEEZING Rx Instructions: INHALE 1 TO 2 PUFFS BY MOUTH EVERY 4 TO 6 HOURS NEEDED FOR SHORTNESS OF BREATH OR WHEEZING atorvastatin 20 mg tablet 20 mg PO DAILY Qty: 90 3RF vitamin B complex Tablet 1 tab PO DAILY Qty: 90 3RF isosorbide mononitrate 60 mg tablet extended release 24 hr 60 mg PO DAILY Qty: 90 3RF Rx Instructions: 01/23/21- [facility] [place] cardio note, dose decreased to 60mg po QD. Dr. Gil MD;[facility] [place] (Catrina Nuñez writes for this prescription) losartan 50 mg tablet 50 mg PO DAILY Qty: 30 0RF Rx Instructions: 01/23/21-[facility] [place] cardio note; increase Losartan to 50mg po qd. Dr. Gil MD furosemide 40 mg tablet 40 mg PO DAILY carvedilol 12.5 mg tablet 18.75 mg PO BID Qty: 42 0RF Rx Instructions: Take 18.75 mg (1 1/2 pills) twice daily trazodone 50 mg tablet 50 mg PO HS Discharge Instructions Instructions: Urinary tract infection - Discharge instructions Additional Instructions: You were seen in the emergency department today for evaluation of weakness and urinary frequency and were found to have a urinary tract infection. In our department you had a full physical examination performed, and had laboratory studies done that were otherwise reassuring. You received your first dose of antibiotics here in the emergency department and I have sent a prescription to the pharmacy for your daughter to pick up and delivery driver. You will start this medication tomorrow and should take all of this medication until it is gone, even if you start to feel better. As discussed you need to continue working with your daughter to establish with a primary care provider at your preferred hospital system. They will need to follow-up with you to discuss any symptoms that change, worsen, or persist. You were noted to be mildly anemic though no worse than typical. If you continue to experience dark stools you may want to talk to your primary care provider about a repeat endoscopy or colonoscopy to evaluate for blood in the stool. Thank you for allowing us to be part of your care. HPI General Mode of arrival: EMS . Date/Time Provider Initiated Documentation: 02/23/24 14:13 . Limitations to Documentation: no limitations . Information obtained by: patient, EMS and old records reviewed . HPI Narrative: HPI: This is an 88 y/o F with a hx of anemia, CKD stage 4, A-fib not on anticoagulation, pacemaker, MR, CHF, Incontinence, presenting for evaluation of leg weakness and increased urinary frequency. The pt reports that she is having increasing difficulty getting around the house, endorses b/l leg swelling with some pain in her R. knee and hip. No trauma or injuries, pt reports that this has been gradually worsening over the last several months. She reports that she has noticed that she pees much more frequently than usual, even though she often forgets to take her diuretics. She reports no dysuria or hematuria. States that she has also noted black and yellow stools, last capsule endoscopy at [facility] [place] in 2020, on omeprazole. The pt has not had fevers, chills, falls or injuries. She has no chest pain, shortness of breath, or unilateral weakness or numbness. She has been eating and drinking typically for her. The pt lives with a senior research project manager and has a local daughter who helps with IADLs. Exam: Gen: Awake and alert, in no apparent distress HEENT: Non-icteric sclera, PERRL Neck: Supple, no meningismus Lungs: No apparent respiratory distress, normal respiratory effort. Lung sounds clear and equal without wheezes, rhonchi, rales CV: Appears well perfused, heart with regular rate and rhythm, strong distal pulses Abdomen: Non-distended, soft MSK: Moves 4 extremities without apparent limitation in ROM. No unilateral calf tenderness, b/l 1+ pedal edema without cellulitic changes. No pain with palpation of the R. knee or hip, no pain with ROM Skin: Visualized skin with b/l beefy red rash under the breasts Neuro: Normal Gait without ataxia, uses walker at baseline. No obvious focal strength or sensation deficits or facial asymmetry. Speaks in full, clear sentences. Psych: Appropriate for situation. MDM: This is an 88 y/o F presenting for evaluation of increased weakness and urinary frequency. Differential includes but is not limited to anemia, considered GI bleed with report of black stools, electrolyte abnormality, metabolic derangement, kidney or liver injury. Considered ACS, arrythmia, CHF exacerbation. Considered UTI/pyelonephritis. No fever, hemodynamic instability to suggest sepsis, baceremia. No focal lung findings to suggest pleural effusions, PNA, RAD exacertation. No DVT signs, tachycardia, or hypoxia to increase my concern for thromboembolic disease. Exam less concerning for focal neuro deficit which would suggess stoke, ICH. We will obtain an EKG, labs to include CBC, CMP, trop, BNP, and UA. ED Course: I reviewed the patient's laboratory studies, which show a stable anemia not worsened from priors, no leukocytosis or thrombocytopenia. Chemistry panel demonstrates baseline renal dysfunction, no significant metabolic derangements other than an elevation in her bicarb just slightly above normal w hich is new for her. She has no evidence of liver dysfunction, she had a negative troponin with a -1-hour delta, and her BNP is not significantly elevated compared to her baseline. Her urinalysis, however, shows evidence of hematuria and infection with large pyuria and leukocyte esterase, concerning for infection. I provided the patient with a dose of ceftriaxone as well as a prescription for Keflex to be taken for the next week. I did discuss with the patient as well as her family member regarding her need to establish with primary care if she no longer wishes to follow at [facility] and wants to transfer to [place]. The family member reports that she is in the process of making this change and has all of the resources that she needs. At this time, the patient has had a full medical evaluation and is safe for discharge to home. They are hemodynamically stable, ambulatory, and tolerating PO. They are understanding of the follow-up plan and return precautions. They left our facility without incident. Darcy Hernandez MD Related Data Home Medications ?Medication ?Instructions ?Recorded ?Confirmed aspirin 81 mg chewable tablet 81 mg PO DAILY 07/25/12 02/23/24 (Aspirin Low-Strength) calcium carbonate 600 mg-vitamin 1 ea PO BID 07/25/12 02/23/24 D3 10 mcg (400 unit) tablet (Calcarb 600 With Vitamin D) multivitamin (Daily Vitamin tablet) 1 ea PO DAILY 07/25/12 02/23/24 lancets (OneTouch UltraSoft #90 ea 01/02/15 09/30/23 Lancets) epinephrine 0.3 mg/0.3 mL 0.3 mg IM see instructions ##1 08/17/15 02/23/24 injection, auto-injector (EpiPen 2-Ezekiel) glucagon (human recombinant) 1 mg 1 mg IJ PRN ##1 10/28/15 02/23/24 injection kit (Glucagon Emergency Kit (human-recomb)) acetaminophen 500 mg tablet 500 mg PO BID 09/15/19 02/23/24 inulin 2 gram chewable tablet See Rx Instructions PO .COMPLEX 09/15/19 02/23/24 (Fiber Gummies) nitroglycerin 0.4 mg sublingual 0.4 mg sublingual Q5M PRN chest 07/01/20 02/23/24 tablet pain #30 tab-caps flash glucose scanning reader #1 ea 07/15/20 09/30/23 (FreeStyle Freya 2 Campbell) fluticasone 250 mcg-salmeterol 50 1 inh inhalation BID #3 ea 11/04/20 02/23/24 mcg/dose blistr powdr for inhalation (Advair Diskus) spironolactone 25 mg tablet 12.5 mg (1/2 x 25 mg) PO DAILY #45 11/29/20 02/23/24 tabs insulin lispro 100 unit/mL 1 - 30 unit (0.01 - 0.3 mL) subcut 03/19/21 02/23/24 subcutaneous pen (Humalog KwikPen AC #27 SYRGS (U-100) Insulin) loratadine 10 mg tablet 10 mg PO DAILY #90 tab-caps 03/24/21 02/23/24 blood sugar diagnostic (Blood #400 ea 04/30/21 09/30/23 Glucose Test strips) pen needle, diabetic 31 gauge x #500 ea 06/18/21 09/30/2310/06 insulin glargine U-300 conc 300 See Rx Instructions subcut BID #22 06/25/21 02/23/24 unit/mL (1.5 mL) subcutaneous pen SYRGS (Toujeo SoloStar U-300 Insulin) omeprazole 20 mg capsule,delayed 20 mg PO DAILY indigestion #90 07/02/21 02/23/24 release tab-caps psyllium husk (with sugar) 2 gram 2 wafer PO TID #90 wafers 08/25/21 02/23/24 oral wafer (Metamucil Fiber Thin) albuterol sulfate 90 mcg/actuation See Rx Instructions .Route 10/28/21 02/23/24 aerosol inhaler .COMPLEX #8.5 grams atorvastatin 20 mg tablet 20 mg PO DAILY #90 tab-caps 12/08/21 02/23/24 vitamin B complex 1 tab PO DAILY headaches #90 12/29/21 02/23/24 tab-caps isosorbide mononitrate 60 mg 60 mg PO DAILY #90 tabs 02/04/22 02/23/24 tablet,extended release 24 hr losartan 50 mg tablet 50 mg PO DAILY #30 tabs 02/11/22 02/23/24 furosemide 40 mg tablet 40 mg PO DAILY 02/16/22 02/23/24 carvedilol 12.5 mg tablet 18.75 mg (1.5 x 12.5 mg) PO BID 03/04/22 02/23/24 #42 tabs cephalexin 500 mg capsule 500 mg PO QID 7 days #28 caps 02/23/24 trazodone 50 mg tablet 50 mg PO HS insomnia 02/23/24 02/23/24 Previous Rx's ?Medication ?Instructions ?Recorded nitroglycerin 0.4 mg sublingual 0.4 mg sublingual Q5M PRN chest 07/01/20 tablet pain #30 tab-caps flash glucose scanning reader #1 ea 07/15/20 (FreeStyle Freya 2 Campbell) fluticasone 250 mcg-salmeterol 50 1 inh inhalation BID #3 ea 11/04/20 mcg/dose blistr powdr for inhalation (Advair Diskus) spironolactone 25 mg tablet 12.5 mg (1/2 x 25 mg) PO DAILY #45 11/29/20 tabs insulin lispro 100 unit/mL 1 - 30 unit (0.01 - 0.3 mL) subcut 03/19/21 subcutaneous pen (Humalog KwikPen AC #27 SYRGS (U-100) Insulin) loratadine 10 mg tablet 10 mg PO DAILY #90 tab-caps 03/24/21 blood sugar diagnostic (Blood #400 ea 04/30/21 Glucose Test strips) pen needle, diabetic 31 gauge x #500 ea 06/18/2110/06 insulin glargine U-300 conc 300 See Rx Instructions subcut BID #22 06/25/21 unit/mL (1.5 mL) subcutaneous pen SYRGS (Toujeo SoloStar U-300 Insulin) omeprazole 20 mg capsule,delayed 20 mg PO DAILY indigestion #90 07/02/21 release tab-caps psyllium husk (with sugar) 2 gram 2 wafer PO TID #90 wafers 08/25/21 oral wafer (Metamucil Fiber Thin) albuterol sulfate 90 mcg/actuation See Rx Instructions .Route 10/28/21 aerosol inhaler .COMPLEX #8.5 grams atorvastatin 20 mg tablet 20 mg PO DAILY #90 tab-caps 12/08/21 vitamin B complex 1 tab PO DAILY headaches #90 12/29/21 tab-caps isosorbide mononitrate 60 mg 60 mg PO DAILY #90 tabs 02/04/22 tablet,extended release 24 hr losartan 50 mg tablet 50 mg PO DAILY #30 tabs 02/11/22 carvedilol 12.5 mg tablet 18.75 mg (1.5 x 12.5 mg) PO BID 03/04/22 #42 tabs cephalexin 500 mg capsule 500 mg PO QID 7 days #28 caps 02/23/24 Allergies Allergy/AdvReac Type Severity Reaction Status Date / Time gabapentin AdvReac Mild Dizziness/L Verified 02/23/24 14:14 ightheade GORDON Inhibitors AdvReac Unknown COUGH Verified 02/23/24 14:14 multiple food allergies Allergy Intermediate Sensitization Uncoded 02/23/24 14:14 noted on blood test General Stated Complaint: GenMedical ALON: 3 Course Vital Signs Vital signs: Vital Signs Temperature 36.8 C 02/23/24 14:08 Pulse 71 02/23/24 14:08 Respiratory Rate 18 02/23/24 14:08 Blood Pressure 148/54 H 02/23/24 14:08 Pulse Oximetry 99 02/23/24 14:08 Temperature 36.8 C 02/23/24 14:08 Pulse 71 02/23/24 14:08 Respiratory Rate 18 02/23/24 14:08 Blood Pressure 148/54 H 02/23/24 14:08 Pulse Oximetry 99 02/23/24 14:08 Oxygen Delivery Method Room Air 02/23/24 14:08 Oxygen Flow Rate 0 02/23/24 14:08 Lab/Test Results Lab/Test Results: Laboratory Tests Range/Units 02/23/24 13:55 WBC (4.4-10.8) 10^3/uL 11.12 H RBC (3.93-5.22) 10^6/uL 3.56 L Hgb (11.2-15.7) g/dL 10.4 L Hct (36.0-46.0) % 32.7 L MCV (80-95) fL 92 MCH (27.0-33.0) pg 29.2 MCHC (32.0-36.0) % 31.8 L RDW (11.7-14.6) % 13.4 Plt Count (130-400) 10^3/uL 156 MPV (8.0-11.0) fL 10.9 Immature Gran % % 0.4 Neutrophils % % 79.0 Lymphocytes % % 10.9 Monocytes % % 7.0 Eosinophils % % 2.3 Basophils % % 0.4 Nucleated RBC % (0.0-0.3) % 0.0 Absolute Neutrophils (1.2-6.7) 10^3/uL 8.78 H Absolute Lymphocytes (1.2-3.4) 10^3/uL 1.21 Absolute Monocytes (0.1-0.8) 10^3/uL 0.78 Absolute Eosinophils (0.0-0.7) 10^3/uL 0.26 Absolute Basophils (0.0-0.2) 10^3/uL 0.04 Medical Decision Making Quality:SDOH Health Related Social Needs: No Data to Display PFSH All Active Problems (Updated 02/23/24 @ 16:49 by Darcy Hernandez MD) Acute UTI (Acute) Angina at rest (Acute) Tubular adenoma of colon (Acute) Urinary incontinence (Acute) Neck pain (Acute) SARS-CoV-2 positive (Acute) Headache (Acute) Advanced directives, counseling/discussion (Acute) Bowel habit changes (Acute) Hydrosalpinx (Chronic) Left Muscular deconditioning (Acute) Lumbar spondylosis (Acute) Inflammatory polyps (Acute) Gastritis (Acute) Anemia (Chronic) 08/15/20 [facility] – [place] Video capsule endoscopy Insomnia (Chronic) 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 obesity hypoventilation?), also has asthma Osteoporosis (Chronic 07/28/11) Multiple food allergies (Chronic 08/14/15) Immunological Sensitization noted on Blood Test for Milk/Casein, peanut, Tomato, [place], Cabbage, Yorkshire, Rice, Spinach, Asparagus, Brussel Sprouts, Sweet Potato, Beef, Pork Mitral valve regurgitation (Chronic 09/05/13) 3+ Memory impairment (Chronic 08/30/17) 08/30/17 MOCA score: 2330 02/16/19 MOCA score: 23 Depression (Chronic 12/16/11) Caty Mathews APRN NK in the past Cardiac resynchronization therapy defibrillator (LIBRARY MEDIA SPECIALIST-D) in place (Chronic 08/14/16) [facility] [place] Cardiology 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 heart block, severe diffuse left ventricular dysfunction HFrEF (LVEF ~25%) Mitral regurg 3+ 2009 cardiac cath: mild diffuse disease ([facility] [place]) 07/03/2013 MPI: +Ischemia, inferolateral defect 01/17/20 [facility] [place] Echo Essential hypertension (12/16/11) Goal BP </=130-140/80 Hyperlipidemia, unspecified (05/02/15) ASCVD (arteriosclerotic cardiovascular disease) (09/07/16) [facility] – [place] Cariology Stress test showing small, reversible inferior wall defect c/w ischemia Type 2 diabetes mellitus with retinopathy of both eyes, with long-term current use of insulin Asthma 09/03/2014 PFTs: mild obstructive airway disease with significant bronchodilator response Chronic kidney disease (CKD), stage IV (severe) [facility] [place] Nephrology ICD (implantable cardioverter-defibrillator) in place AVM (arteriovenous malformation) of colon Surgical History History of total left knee replacement Replacement of total knee joint B/L Hernia Repair, Incisional (~2010) W/ mesh. Dr. Cheko Patterson Extraction of cataract Dr. Hensley Family History Mother Hypertensive disorder, systemic arterial Diabetes Atherosclerosis of coronary artery Family history of stroke Dementia Hyperlipidemia Family history of glaucoma Cataract Father No problems noted. Social History Smoking/Tobacco Use Status: Former Tobacco Use Smoking risk assessment performed?: Yes Alcohol Intake: former Drug use: Never Substance use type: does not use Adopted: No Caregiver/Support person: No Foster care: No Number of Children: 5 Communication Needs: None Pets and animals: Yes Pets and animals: cat(s) and dog(s) Sexually active: No Current gender identity: female What is your relationship status?: Panel score (0-1 are the most socially isolated patients): 0 What type of physical activity do you participate in: other Details: Excercise classes at [employer] Duration: 45-60 minutes/day Frequency: 1-2 times per week Seatbelt use: always Do you feel safe at home: Yes Do you feel safe in your relationship?: Yes
[2024-02-23 14:35] LABS: INR 1.1 (0.9-1.1); Prothrombin Time 10.6 sec (9.1-11.1)
[2024-02-23 14:45] LABS: ALT 18 U/L (14-59); AST 18 U/L (15-37); Alkaline Phosphatase 73 U/L (46-116); Anion Gap 3.4 mmol/L (3-11); BUN 40 mg/dL (7-18); Bilirubin, Total 0.36 mg/dL (0.2-1.0); CO2 32.6 mmol/L (21.0-32.0); CREATININE 2.1 mg/dL (0.55-1.02); Calcium 9.5 mg/dL (8.5-10.1); Chloride 107 mmol/L (98-107); Estimated GFR 22.52 (mL/min/1.73m2); Glucose 122 mg/dL (74-106); Magnesium 2.2 mg/dL (1.8-2.4); NT-proBNP 413 pg/mL (<300); Potassium 3.8 mmol/L (3.5-5.1); Sodium 143 mmol/L (136-145); Total Protein 6.9 g/dL (6.4-8.2); Troponin I 17 ng/L (<or=51)
[2024-02-23 15:33] LABS: Troponin I 15 ng/L (<or=51)
[2024-02-23 16:29] LABS: Bilirubin Negative (Negative); Blood Moderate (Negative); Glucose Negative (Negative); Ketones Negative (Negative); Leukocyte Esterase Large (Negative); Nitrite Negative (Negative); Specific Gravity 1.015 (1.005-1.025); Urobilinogen 0.2 mg/dL (Up to 0.2); pH 5.5 (5-8)
[2024-02-23 16:30] LABS: Clarity Turbid (Clear)
[2024-02-23 16:38] LABS: C & S Indicated? Yes; WBC >50 HPF (0-5)
[2024-02-23] MEDS: cefTRIAXone 1 GM/50 ML BAG IVPB (17:18)
== END 2024-02-23 19:02 | disposition home or self-care (01) ==
PROVIDERS: Emergency Provider Emergency Medicine
DX: N39.0 Urinary tract infection, site not specified (principal); D64.9 Anemia, unspecified; R19.4 Change in bowel habit; I13.0 Hypertensive heart and chronic kidney disease with heart failure and stage 1 through stage 4 chronic kidney disease, or unspecified chronic kidney disease; I50.9 Heart failure, unspecified; N18.4 Chronic kidney disease, stage 4 (severe); E11.22 Type 2 diabetes mellitus with diabetic chronic kidney disease; E78.5 Hyperlipidemia, unspecified; I48.91 Unspecified atrial fibrillation; I25.10 Atherosclerotic heart disease of native coronary artery without angina pectoris; E11.3293 Type 2 diabetes mellitus with mild nonproliferative diabetic retinopathy without macular edema, bilateral; Z79.4 Long term (current) use of insulin; Z79.82 Long term (current) use of aspirin; Z87.891 Personal history of nicotine dependence
CPT/HCPCS: 80053; 87077; 93005; 96374; 99284; 81003; 81015; 83735; 83880; 84484; 85025; 85610; 87086; 87186; 93010; 99283; J0696

== ENCOUNTER 2024-02-25 11:32 | Emergency (ER) | payer MEDICARE, SELFPAY ==
[2024-02-25] VITALS (32 sets, daily range): BP systolic 72–126; BP diastolic 29–52; PULSE 59–78; RESP 11–24; TEMP 36.6; O2SAT 95–100
--- NOTE | 2024-02-25 11:15 | RT.EKG_ITS ---
APPROVED REPORT Exam: Resting ECG Reason for Exam: AMS Patient Location: E HR:76 bpm ECG Measurements Heart Rate 76 AXIS MO 56 P 140 QRSd 143 QRS 165 QT 435 T 80 QTc 585 Conclusion Atrial-ventricular dual-paced complexes...other complexes also detected Paced rhythm at a rate of 76. Prolonged QTc. Not meeting Sgarbossa criteria nor modified Adalberto murphy for ischemia. More pronounced ST segment upsloping elevation in V2 compared to prior. Prior da lula 2 days ago.
--- NOTE | 2024-02-25 12:36 | W.ED.GENAD ---
Discharge Plan Disposition Patient Disposition: Transfer-Acute Inpatient Care Discharge Details Clinical Impression: Fracture of distal end of right femur, Candidal intertrigo Primary Care Provider: Unknown,Unknown ED Provider: Alcides Christianson Meds and New Rx's Prescriptions: No Action Fiber Gummies 2 gram tablet,chewable See Rx Instructions PO .COMPLEX Rx Instructions: 2 tabs PO; (DME) FreeStyle Freya 2 Sullivan Misc See Rx Instructions .ROUTE .MEDSUPPLY Qty: 1 0RF Rx Instructions: As directed insulin lispro [Humalog KwikPen Insulin] 100 unit/mL insulin pen 1 - 30 unit Sub-Q AC Qty: 27 3RF Rx Instructions: Dx: E11.9 to maintain HbA1C less than 8% spironolactone 25 mg tablet 12.5 mg PO DAILY Qty: 45 3RF insulin glargine U-300 conc [Toujeo SoloStar U-300 Insulin] 300 unit/mL (1.5 mL) insulin pen See Rx Instructions SUBCUT BID Qty: 22 3RF Rx Instructions: 45 units AM & 50 units PM subcut twice a day; multivitamin [Daily Vitamin] 1 EACH tablet 1 ea PO DAILY aspirin [Aspirin Low-Strength] 81 MG tablet,chewable 81 mg PO DAILY calcium carbonate-vitamin D3 [Calcarb 600 With Vitamin D] 1 EACH tablet 1 ea PO BID (DME) lancets [OneTouch UltraSoft Lancets] 1 EACH misc 1 ea Miscellaneous TID Qty: 90 Rx Instructions: For DM 250.00 to keep A1C at or below 7 epinephrine [EpiPen 2-Ezekiel] 0.3 MG/0.3 ML auto-injector 0.3 mg IM see instructions Qty: 1 Rx Instructions: 1 shot in muscle incase of severe allergic reaction as advised, may repeat the dose 1 time Call 911 for help Glucagon Emergency Kit (human) 1 MG kit 1 mg IJ PRN Qty: 1 acetaminophen 500 mg tablet 500 mg PO BID Rx Instructions: Takes 1 in the am and 1 in the pm nitroglycerin 0.4 mg tablet, sublingual 0.4 mg sublingual Q5M PRN (Reason: chest pain) Qty: 30 0RF Rx Instructions: Take 0.4 mg every 5 minutes up to 3 doses; seek emergent medical care if no relief fluticasone propion-salmeterol [Advair Diskus] 250-50 mcg/dose blister with device 1 inh inhalation BID Qty: 3 3RF loratadine 10 mg tablet 10 mg PO DAILY Qty: 90 3RF (DME) Blood Glucose Test Strip See Rx Instructions .ROUTE .MEDSUPPLY Qty: 400 3RF Rx Instructions: As directed to check blood glucose four times daily. On insulin. Dispense covered brand. (DME) pen needle, diabetic 31 gauge x 5/16 needle See Dose Instructions .ROUTE .MEDSUPPLY Qty: 500 3RF Dose Instruction: As directed Rx Instructions: As directed with 5-times daily insulin omeprazole 20 mg capsule,delayed release(DR/EC) 20 mg PO DAILY Qty: 90 3RF Rx Instructions: Take 20 mg once daily in the morning at least 30 minutes before first meal Metamucil Fiber Thin 2 gram wafer 2 wafer PO TID Qty: 90 3RF albuterol sulfate 90 mcg/actuation HFA aerosol inhaler See Rx Instructions .ROUTE .COMPLEX Qty: 8.5 3RF Dose Instruction: INHALE 1 TO 2 PUFFS BY MOUTH EVERY 4 TO 6 HOURS NEEDED FOR SHORTNESS OF BREATH OR WHEEZING Rx Instructions: INHALE 1 TO 2 PUFFS BY MOUTH EVERY 4 TO 6 HOURS NEEDED FOR SHORTNESS OF BREATH OR WHEEZING atorvastatin 20 mg tablet 20 mg PO DAILY Qty: 90 3RF vitamin B complex Tablet 1 tab PO DAILY Qty: 90 3RF isosorbide mononitrate 60 mg tablet extended release 24 hr 60 mg PO DAILY Qty: 90 3RF Rx Instructions: 01/23/21- [facility] cardio note, dose decreased to 60mg po QD. Dr. Gil MD;[facility] (Catrina Nuñez writes for this prescription) losartan 50 mg tablet 50 mg PO DAILY Qty: 30 0RF Rx Instructions: 01/23/21-[facility] cardio note; increase Losartan to 50mg po qd. Dr. Gil MD furosemide 40 mg tablet 40 mg PO DAILY carvedilol 12.5 mg tablet 18.75 mg PO BID Qty: 42 0RF Rx Instructions: Take 18.75 mg (1 1/2 pills) twice daily trazodone 50 mg tablet 50 mg PO HS HPI General Date/Time Provider Initiated Documentation: 02/25/24 11:39. HPI Narrative: MDM This a normothermic and not tachycardic 89-year-old female with right comminuted distal femur fracture that is periprosthetic which will require operative intervention. I was in touch with Dr. Chun who felt that the patient would best be cared for at a tertiary care center given her cardiac disease burden and her history of CKD. Patient reports losing her balance however will obtain ECG and troponin testing given concern for possible syncope. Patient has a stage I sacral decubitus ulcer. No head strike to suggest benefit from CT head. Given incompletely treated UTI and fluid shortage will give 1 g of intramuscular ceftriaxone following blood cultures. Patient is not septic so I did not order lactate. No pain out of proportion to suggest necrotizing soft tissue infection. Soft nontender abdomen so not suspicious for any intra-abdominal process. Given fall will obtain chest x-ray which was negative for any fractures. Patient has no fracture of the hip nor pelvis on radiographs. No chest pain to suggest ACS. No focal weakness to suggest CVA. Right foot warm and well-perfused I do not feel that the patient requires a CT angiogram as I am not suspicious for critical limb ischemia. Will order nystatin for chest wall candidiasis.No blood thinners to suggest benefit from reversal. 4:25 PM I spoke with Dr. Nguyen from trauma surgery at [facility] who accepted the patient as a trauma alert. Will treat patient with morphine prior to transfer with basic crew. 4:40 PM CKD no superimposed CHRISTELLE. Hyperglycemia but no anion gap normal bicarbonate?not consistent with DKA. CBC showing leukocytosis. Worsened normocytic anemia. No thrombocytopenia. 4:56 PM Patient received her morphine and her blood pressure decreased to 93/51.Will provide 500 cc crystalloid bolus with the basic crew. Patient will go to [facility]. Chronic conditions affecting the care of the patient: Falls depression mitral valve regurgitation anemia History obtained from an outside historian: Paramedics daughter External record review: [facility] EMR [Diagnostic interpretations performed by me: Per my independent interpretation chest x-ray shows: No acute cardiopulmonary process Per my independent interpretation EKG shows: Atrial paced rhythm at a rate of 60 with interventricular conduction delay. Mild upsloping ST segment elevations V2 V3. Not meeting Sgarbossa nor modified since criteria. ST segment in V2 V3 appears slightly more upsloping compared to prior dated earlier today. Not meeting STEMI criteria. Medications: Ceftriaxone Social determinants of health affecting disposition: N/A Management discussed with: Orthopedics at [facility] & [facility] Treatment/interventions considered: N/A Response to therapies provided: N/A HPI This is an 89-year-old female with a history of recent UTI showing E. coli depression mitral valve regurgitation arriving via EMS following a fall yesterday. Patient was recently hospitalized at [facility]. She was reportedly walking up some steps to her house with a cane and assistance. She had her right leg gave out from under her and had immediate pain in her right leg. She did not strike her head. She endorses persistent dysuria. She denies fevers. She is not having any chest pain or shortness of breath. Exam General: Elderly-appearing in no acute distress speaking in complete sentences. Head: Normocephalic, atraumatic. Eye: Extraocular eye movements intact. No conjunctival injection. No scleral icterus. Ear, nose, mouth, throat: Grossly normal inspection. Normal voice, handling secretions normally. Neck: Trachea midline. No midline cervical spinal tenderness. Cardiovascular: Well-perfused distal extremities. Regular rate. Chest wall: Underneath the breast bilaterally there is signs of candidiasis. No chest wall deformities. No focal segments. Respiratory: Nonlabored respiration. Clear lungs bilaterally Gastrointestinal: Nondistended abdomen. Soft. Back: No midline thoracic nor lumbar spinal tenderness. No step-offs. No deformities. Stage I sacral decubitus ulcer. Musculoskeletal: No edema. Right lower extremity rotated at the distal femur. No lacerations. No ecchymosis. Mild distal right lower extremity swelling. Patient has significant pain with any movement of the right lower extremity which is held neutrally at the hip and in extension at the knee. Right foot warm well-perfused less than 2-second cap refill. 3-5 right lower extremity strength dorsi and plantarflexion. Left lower extremity nontender. No pain with passive range of motion. 5 out of 5 left lower extremity strength dorsi and plantarflexion. Pelvis stable. Bilateral upper extremities nontender no deformities. Skin: Normal for age and race, grossly normal temperature and turgor. No acute rash. Neurologic: Alert and appropriate, no apparent acute deficits. GCS 15. Related Data Home Medications ?Medication ?Instructions ?Recorded ?Confirmed aspirin 81 mg chewable tablet 81 mg PO DAILY 07/25/12 02/25/24 (Aspirin Low-Strength) calcium carbonate 600 mg-vitamin 1 ea PO BID 07/25/12 02/25/24 D3 10 mcg (400 unit) tablet (Calcarb 600 With Vitamin D) multivitamin (Daily Vitamin tablet) 1 ea PO DAILY 07/25/12 02/25/24 lancets (OneTouch UltraSoft #90 ea 01/02/15 02/25/24 Lancets) epinephrine 0.3 mg/0.3 mL 0.3 mg IM see instructions ##1 08/17/15 02/25/24 injection, auto-injector (EpiPen 2-Ezekiel) glucagon (human recombinant) 1 mg 1 mg IJ PRN ##1 10/28/15 02/25/24 injection kit (Glucagon Emergency Kit (human-recomb)) acetaminophen 500 mg tablet 500 mg PO BID 09/15/19 02/25/24 inulin 2 gram chewable tablet See Rx Instructions PO .COMPLEX 09/15/19 02/25/24 (Fiber Gummies) nitroglycerin 0.4 mg sublingual 0.4 mg sublingual Q5M PRN chest 07/01/20 02/25/24 tablet pain #30 tab-caps flash glucose scanning reader #1 ea 07/15/20 02/25/24 (FreeStyle Freya 2 Sullivan) fluticasone 250 mcg-salmeterol 50 1 inh inhalation BID #3 ea 11/04/20 02/25/24 mcg/dose blistr powdr for inhalation (Advair Diskus) spironolactone 25 mg tablet 12.5 mg (1/2 x 25 mg) PO DAILY #45 11/29/20 02/25/24 tabs insulin lispro 100 unit/mL 1 - 30 unit (0.01 - 0.3 mL) subcut 03/19/21 02/25/24 subcutaneous pen (Humalog KwikPen AC #27 SYRGS (U-100) Insulin) loratadine 10 mg tablet 10 mg PO DAILY #90 tab-caps 03/24/21 02/25/24 blood sugar diagnostic (Blood #400 ea 04/30/21 02/25/24 Glucose Test strips) pen needle, diabetic 31 gauge x #500 ea 06/18/21 02/25/2410/06 insulin glargine U-300 conc 300 See Rx Instructions subcut BID #22 06/25/21 02/25/24 unit/mL (1.5 mL) subcutaneous pen SYRGS (Toujeo SoloStar U-300 Insulin) omeprazole 20 mg capsule,delayed 20 mg PO DAILY indigestion #90 07/02/21 02/25/24 release tab-caps psyllium husk (with sugar) 2 gram 2 wafer PO TID #90 wafers 08/25/21 02/25/24 oral wafer (Metamucil Fiber Thin) albuterol sulfate 90 mcg/actuation See Rx Instructions .Route 10/28/21 02/25/24 aerosol inhaler .COMPLEX #8.5 grams atorvastatin 20 mg tablet 20 mg PO DAILY #90 tab-caps 12/08/21 02/25/24 vitamin B complex 1 tab PO DAILY headaches #90 12/29/21 02/25/24 tab-caps isosorbide mononitrate 60 mg 60 mg PO DAILY #90 tabs 02/04/22 02/25/24 tablet,extended release 24 hr losartan 50 mg tablet 50 mg PO DAILY #30 tabs 02/11/22 02/25/24 furosemide 40 mg tablet 40 mg PO DAILY 02/16/22 02/25/24 carvedilol 12.5 mg tablet 18.75 mg (1.5 x 12.5 mg) PO BID 03/04/22 02/25/24 #42 tabs trazodone 50 mg tablet 50 mg PO HS insomnia 02/23/24 02/25/24 Previous Rx's ?Medication ?Instructions ?Recorded nitroglycerin 0.4 mg sublingual 0.4 mg sublingual Q5M PRN chest 07/01/20 tablet pain #30 tab-caps flash glucose scanning reader #1 ea 07/15/20 (FreeStyle Freya 2 Sullivan) fluticasone 250 mcg-salmeterol 50 1 inh inhalation BID #3 ea 11/04/20 mcg/dose blistr powdr for inhalation (Advair Diskus) spironolactone 25 mg tablet 12.5 mg (1/2 x 25 mg) PO DAILY #45 11/29/20 tabs insulin lispro 100 unit/mL 1 - 30 unit (0.01 - 0.3 mL) subcut 03/19/21 subcutaneous pen (Humalog KwikPen AC #27 SYRGS (U-100) Insulin) loratadine 10 mg tablet 10 mg PO DAILY #90 tab-caps 03/24/21 blood sugar diagnostic (Blood #400 ea 04/30/21 Glucose Test strips) pen needle, diabetic 31 gauge x #500 ea 06/18/2110/06 insulin glargine U-300 conc 300 See Rx Instructions subcut BID #22 06/25/21 unit/mL (1.5 mL) subcutaneous pen SYRGS (Toujeo SoloStar U-300 Insulin) omeprazole 20 mg capsule,delayed 20 mg PO DAILY indigestion #90 07/02/21 release tab-caps psyllium husk (with sugar) 2 gram 2 wafer PO TID #90 wafers 08/25/21 oral wafer (Metamucil Fiber Thin) albuterol sulfate 90 mcg/actuation See Rx Instructions .Route 10/28/21 aerosol inhaler .COMPLEX #8.5 grams atorvastatin 20 mg tablet 20 mg PO DAILY #90 tab-caps 12/08/21 vitamin B complex 1 tab PO DAILY headaches #90 12/29/21 tab-caps isosorbide mononitrate 60 mg 60 mg PO DAILY #90 tabs 02/04/22 tablet,extended release 24 hr losartan 50 mg tablet 50 mg PO DAILY #30 tabs 02/11/22 carvedilol 12.5 mg tablet 18.75 mg (1.5 x 12.5 mg) PO BID 03/04/22 #42 tabs Allergies Allergy/AdvReac Type Severity Reaction Status Date / Time gabapentin AdvReac Mild Dizziness/L Verified 02/25/24 11:43 ightheade GORDON Inhibitors AdvReac Unknown COUGH Verified 02/25/24 11:43 multiple food allergies Allergy Intermediate Sensitization Uncoded 02/25/24 11:43 noted on blood test General Stated Complaint: AMS/LOC ALON: 3 Course Vital Signs Vital signs: Vital Signs Temperature 36.6 C 02/25/24 11:39 Pulse 74 02/25/24 11:39 Respiratory Rate 18 02/25/24 11:39 Blood Pressure 109/52 L 02/25/24 11:39 Pulse Oximetry 98 02/25/24 11:39 Temperature 36.6 C 02/25/24 11:50 Temperature Source Oral 02/25/24 11:50 Pulse 74 02/25/24 11:50 Respiratory Rate 18 02/25/24 11:50 Respiratory Effort Normal, Non-Labored 02/25/24 11:50 Blood Pressure 109/52 L 02/25/24 11:50 Blood Pressure Position Sitting 02/25/24 11:50 Pulse Oximetry 98 02/25/24 11:50 Oxygen Delivery Method Room Air 02/25/24 11:50 Oxygen Flow Rate 0 02/25/24 11:50 Medical Decision Making Quality:[facility] Health Related Social Needs: No Data to Display PFSH All Active Problems (Updated 02/25/24 @ 16:17 by Alcides Christianson MD) Candidal intertrigo (Acute) Fracture of distal end of right femur (Acute) Acute UTI (Acute) Angina at rest (Acute) Tubular adenoma of colon (Acute) Urinary incontinence (Acute) Neck pain (Acute) SARS-CoV-2 positive (Acute) Headache (Acute) Advanced directives, counseling/discussion (Acute) Bowel habit changes (Acute) Hydrosalpinx (Chronic) Left Muscular deconditioning (Acute) Lumbar spondylosis (Acute) Inflammatory polyps (Acute) Gastritis (Acute) Anemia (Chronic) 08/15/20 [facility] Video capsule endoscopy Insomnia (Chronic) 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/16) [facility] Cariology Stress test showing small, reversible inferior wall defect c/w ischemia Type 2 diabetes mellitus with retinopathy of both eyes, with long-term current use of insulin Asthma 09/03/2014 PFTs: mild obstructive airway disease with significant bronchodilator response Chronic kidney disease (CKD), stage IV (severe) [facility] Nephrology ICD (implantable cardioverter-defibrillator) in place AVM (arteriovenous malformation) of colon Surgical History History of total left knee replacement Replacement of total knee joint B/L Hernia Repair, Incisional (~2010) W/ mesh. Dr. Cheko Patterson Extraction of cataract Dr. Hensley Family History Mother Hypertensive disorder, systemic arterial Diabetes Atherosclerosis of coronary artery Family history of stroke Dementia Hyperlipidemia Family history of glaucoma Cataract Father No problems noted. Social History Smoking/Tobacco Use Status: Former Tobacco Use Smoking risk assessment performed?: Yes Alcohol Intake: former Drug use: Never Substance use type: does not use Adopted: No Caregiver/Support person: No Foster care: No Number of Children: 5 Communication Needs: None Pets and animals: Yes Pets and animals: cat(s) and dog(s) Sexually active: No Current gender identity: female What is your relationship status?: Panel score (0-1 are the most socially isolated patients): 0 What type of physical activity do you participate in: other Details: Excercise classes at [employer] Duration: 45-60 minutes/day Frequency: 1-2 times per week Seatbelt use: always Do you feel safe at home: Yes Do you feel safe in your relationship?: Yes
--- NOTE | 2024-02-25 13:00 | DI.RAD_ITS ---
Exam(s) XR KNEE RT 3V AP,LAT,SUN XR HIP RT COMPLETE AP PELVIS XR FEMUR RT EXAM: XR FEMUR RT CLINICAL HISTORY: Fracture/ fall. TECHNIQUE: 2D digital imaging was performed. AP and lateral views of the pelvis, in femur and knee. COMPARISON: CR XR KNEE RT 3V AP,LAT,SUN from 02/25/2024 CR XR HIP RT COMPLETE AP PELVIS from 02/25/2024 FINDINGS: BONES: Fracture seen extending mainly transversely through the distal femoral metaphysis, just above the level of the femoral component of the total knee prosthesis. There is a large comminuted fragmen t as well as smaller comminuted fragments adjacent to the main fracture site. There is mild displace ment and angulation. No bony destructive lesion is seen. JOINTS: Intact total knee prosthesis. Hemarthrosis. Moderate to severe degenerative changes of both hip joints.. SOFT TISSUE: Vascular calcifications. Soft tissue swelling around the knee. IMPRESSION: Comminuted fracture of the distal femoral metaphysis. No additional fractures are identified in the hip or knee. DATA REPOSITORY: RADIATION DOSE DELIVERED:
--- NOTE | 2024-02-25 13:00 | DI.RAD_ITS ---
Exam(s) XR CHEST 1V IN DI DEPT EXAM: XR CHEST 1V IN DI DEPT CLINICAL HISTORY: fall TECHNIQUE: 2D digital imaging was performed. COMPARISON: CT CT CHEST/ABD/PEL WO from 09/30/2023 FINDINGS: LUNGS: Clear. No pleural abnormality seen. HEART: Normal size. Pacemaker. AORTA: Normal diameter. Calcified. BONES: Unremarkable for age. Soft tissues: Unremarkable. IMPRESSION: No acute findings. DATA REPOSITORY: RADIATION DOSE DELIVERED:
--- NOTE | 2024-02-25 14:45 | DI.CT_ITS ---
Exam(s) CT LOWER EXTREMITY RT WO EXAM: CT LOWER EXTREMITY RT WO CLINICAL HISTORY: Periprosthetic fracture. TECHNIQUE: Imaging Protocol: Axial computed tomography images with coronal and sagittal reformatted images were created and reviewed. COMPARISON: CR XR KNEE RT 3V AP,LAT,SUN from 02/25/2024 CR XR FEMUR RT from 02/25/2024 FINDINGS: Bones: The patient has a right total knee replacement. There is artifact from the patient's metal h ardware. There is an acute comminuted fracture of the distal metaphyseal region of the femur. The f racture occurs at the level of the superior aspect of the femoral component of the prosthesis. There is 1.8 cm posterior displacement of the distal fracture component compared to the femoral shaft. Th ere is also impaction of the fracture. No lytic or sclerotic lesions are identified. Soft Tissues: There is edema seen in the soft tissues around the knee. There is mild diffuse muscula r fatty atrophy. Atherosclerotic calcification is present. IMPRESSION: Acute comminuted, impacted and displaced fracture involving the distal metaphyseal region of the righ t femur. RADIATION DOSE DELIVERED: 247.18mGy.cm Total DLP 247.18mGy.cm Total DLP DATA REPOSITORY: All CT scans at this facility are submitted to the National Radiology Data Registry (NRDR) Dose Index Registry (DIR) with the [employer] (ACR). RADIATION OPTIMIZATION: All CT scans at this facility use at least one of these dose optimization te chniques: automated exposure control; mA and/or kV adjustment per patient size (includes targeted exa ms where dose is matched to clinical indication); or iterative reconstruction.
--- NOTE | 2024-02-25 15:30 | RT.EKG_ITS ---
APPROVED REPORT Exam: Resting ECG Reason for Exam: LOC Patient Location: E HR:60 bpm ECG Measurements Heart Rate 60 AXIS LA 125 P 73 QRSd 143 QRS 177 QT 476 T 75 QTc 476 Conclusion Atrial-ventricular dual-paced rhythm Atrial paced rhythm at a rate of 60 with interventricular conduction delay. Mild upsloping ST segmen t elevations V2 V3. Not meeting Sgarbossa nor modified since criteria. ST segment in V2 V3 appears slightly more upsloping compared to prior dated earlier today. Not meeting STEMI criteria.
[2024-02-25 15:33] LABS: Abs Immature Grans 0.14 10^3/uL (0.0-0.06); Absolute Basophil Count 0.04 10^3/uL (0.0-0.2); Basophils % 0.2 %; HCT 28.3 % (36.0-46.0); HGB 9.1 g/dL (11.2-15.7); Immature Grans % 0.8 %; Lymphocytes % 6.9 %; MCH 29.3 pg (27.0-33.0); MCHC 32.2 % (32.0-36.0); MCV 91 fL (80-95); MPV 10.7 fL (8.0-11.0); Monocytes % 4.4 %; Neutrophils % 87.7 %; Platelet Count 173 10^3/uL (130-400); RBC 3.11 10^6/uL (3.93-5.22); RDW 13.4 % (11.7-14.6); RDW-SD 43.8 fL; WBC 17.56 10^3/uL (4.4-10.8)
[2024-02-25 15:35] LABS: Absolute Lymphocyte Count 1.21 10^3/uL (1.2-3.4); Absolute Monocyte Count 0.77 10^3/uL (0.1-0.8)
[2024-02-25 15:50] LABS: Anion Gap 7.8 mmol/L (3-11); BUN 35 mg/dL (7-18); CO2 28.2 mmol/L (21.0-32.0); CREATININE 2.3 mg/dL (0.55-1.02); Calcium 9.5 mg/dL (8.5-10.1); Chloride 108 mmol/L (98-107); Estimated GFR 20.19 (mL/min/1.73m2); Glucose 140 mg/dL (74-106); Potassium 4.6 mmol/L (3.5-5.1); Sodium 144 mmol/L (136-145); Troponin I 32 ng/L (<or=51)
[2024-02-25] MEDS: MORPHine 4 MG/ML SYR IVP (16:30)
[2024-02-25] MEDS: Nystatin POWDER 15 GM JAR TP (16:30)
[2024-02-25] MEDS: cefTRIAXone 1 GM VIAL IM (16:30)
[2024-02-25] MEDS: Normal Saline 500 ML IV (16:57)
--- NOTE | 2024-02-27 11:27 | NUR.NOTE ---
Nursing Note: Dr Brown from [facility] called requesting an update about the blood cultures taken on 02/24. I read back that the first 24 hour showed no growth but the secod preliminary was positive for gram positive cocci in both aerobic and anaerobic per the report. He asked for the times of collection and times of results. He also had questions on whether the patient was admitted and then transferred or if we transferred straight from the ED. Per the provider note, we transferred from the ED and this information was relayed to Dr. Brown. When he had no further questions, he thanked me and we said goodbye. He is going to call back in a day or two to see if there are any further updates on the blood cultures.
== END 2024-02-25 17:10 | disposition short-term general hospital (02) ==
PROVIDERS: Emergency Provider Emergency Medicine
DX: S72.441A Displaced fracture of lower epiphysis (separation) of right femur, initial encounter for closed fracture (principal); R94.31 Abnormal electrocardiogram [ECG] [EKG]; B37.2 Candidiasis of skin and nail; E11.319 Type 2 diabetes mellitus with unspecified diabetic retinopathy without macular edema; E11.22 Type 2 diabetes mellitus with diabetic chronic kidney disease; I13.0 Hypertensive heart and chronic kidney disease with heart failure and stage 1 through stage 4 chronic kidney disease, or unspecified chronic kidney disease; N18.4 Chronic kidney disease, stage 4 (severe); I50.9 Heart failure, unspecified; Z95.810 Presence of automatic (implantable) cardiac defibrillator; Z79.84 Long term (current) use of oral hypoglycemic drugs; Z96.653 Presence of artificial knee joint, bilateral; W18.39XA Other fall on same level, initial encounter; Y93.89 Activity, other specified; Y92.89 Other specified places as the place of occurrence of the external cause
CPT/HCPCS: 36415; 73552; 73562; 80048; 87040; 87077; 93005; 96372; 96374; 99285; 71045; 73502; 73700; 84484; 85025; 87186; 93010; J0696; J2270

== ENCOUNTER 2024-03-28 19:51 | Outpatient (REF) | payer SELFPAY ==
[2024-03-28 20:51] LABS: HCT 30.8 % (36.0-46.0); HGB 9.7 g/dL (11.2-15.7); MCHC 31.5 % (32.0-36.0); MCV 95 fL (80-95); MPV 11.5 fL (8.0-11.0); Platelet Count 126 10^3/uL (130-400); RBC 3.23 10^6/uL (3.93-5.22); RDW 15.5 % (11.7-14.6); RDW-SD 54.1 fL; WBC 8.08 10^3/uL (4.4-10.8)
== END 2024-03-28 19:52 | disposition home or self-care (01) ==
LOC: LBN 19:51
PROVIDERS: Visit Provider Family Medicine
DX: R68.89 Other general symptoms and signs (principal)
CPT/HCPCS: 85027

== ENCOUNTER 2024-04-05 21:48 | Outpatient (REF) | payer SELFPAY ==
[2024-04-05 19:11] LABS: Bilirubin Negative (Negative); Blood Moderate (Negative); Clarity Turbid (Clear); Glucose Negative (Negative); Ketones Negative (Negative); Leukocyte Esterase Moderate (Negative); Nitrite Negative (Negative); Specific Gravity 1.025 (1.005-1.025); Urobilinogen 0.2 mg/dL (Up to 0.2); pH 5.5 (5-8)
[2024-04-05 19:21] LABS: C & S Indicated? C&S Done As Ordered; WBC >50 HPF (0-5)
== END 2024-04-05 21:49 | disposition home or self-care (01) ==
LOC: NCHCN 21:48
PROVIDERS: Visit Provider Nurse Practitioner Adult Health
DX: N39.0 Urinary tract infection, site not specified (principal)
CPT/HCPCS: 87077; 81003; 81015; 87086; 87186

== ENCOUNTER 2024-04-10 18:22 | Outpatient (REF) | payer SELFPAY ==
[2024-04-10 15:40] LABS: HCT 27.8 % (36.0-46.0); HGB 8.9 g/dL (11.2-15.7); MCH 29.3 pg (27.0-33.0); MCV 91 fL (80-95); MPV 11.1 fL (8.0-11.0); Platelet Count 136 10^3/uL (130-400); RBC 3.04 10^6/uL (3.93-5.22); RDW 14.1 % (11.7-14.6); RDW-SD 47.1 fL; WBC 8.95 10^3/uL (4.4-10.8)
[2024-04-10 16:30] LABS: Anion Gap 12.5 mmol/L (3-11); BUN 40 mg/dL (7-18); CO2 18.5 mmol/L (21.0-32.0); CREATININE 2.1 mg/dL (0.55-1.02); Calcium 8.8 mg/dL (8.5-10.1); Chloride 113 mmol/L (98-107); Estimated GFR 22.52 (mL/min/1.73m2); Ferritin 119 ng/mL (8-252); Glucose 264 mg/dL (74-106); Potassium 3.6 mmol/L (3.5-5.1); Sodium 144 mmol/L (136-145)
[2024-04-10 16:51] LABS: Iron 24 ug/dL (50-170)
== END 2024-04-10 18:23 | disposition home or self-care (01) ==
LOC: LBN 18:22
PROVIDERS: Visit Provider Family Medicine
DX: E11.8 Type 2 diabetes mellitus with unspecified complications (principal)
CPT/HCPCS: 80048; 85027; 82728; 83540

== ENCOUNTER 2024-04-19 17:03 | Outpatient (REF) | payer SELFPAY ==
[2024-04-19 17:02] LABS: Iron 36 ug/dL (50-170)
[2024-04-19 17:26] LABS: Anion Gap 10.3 mmol/L (3-11); BUN 31 mg/dL (7-18); CO2 21.7 mmol/L (21.0-32.0); CREATININE 1.9 mg/dL (0.55-1.02); Chloride 109 mmol/L (98-107); Ferritin 104 ng/mL (8-252); Glucose 288 mg/dL (74-106); Potassium 3.8 mmol/L (3.5-5.1); Sodium 141 mmol/L (136-145)
== END 2024-04-19 17:04 | disposition home or self-care (01) ==
LOC: LBN 17:03
PROVIDERS: Visit Provider Family Medicine
DX: D62 Acute posthemorrhagic anemia (principal); N17.9 Acute kidney failure, unspecified; I10 Essential (primary) hypertension
CPT/HCPCS: 80048; 85027; 82728; 83540

== ENCOUNTER 2024-04-26 19:42 | Emergency (ER) | payer MEDICARE, SELFPAY ==
[2024-04-26] VITALS (23 sets, daily range): BP systolic 172–183; BP diastolic 55–75; PULSE 60–84; RESP 15–16; TEMP 36.6; O2SAT 82–100
--- NOTE | 2024-04-26 20:00 | DI.RAD_ITS ---
Exam(s) XR KNEE RT 3V AP,LAT,SUN EXAM: XR KNEE RT 3V AP,LAT,SUN CLINICAL HISTORY: Swelling, Pain. TECHNIQUE: 2D digital imaging was performed of the right knee. Three views obtained. AP, lateral an d PA tunnel views were obtained. COMPARISON: CR XR KNEE RT 3V AP,LAT,SUN from 02/25/2024 CR XR FEMUR RT from 02/25/[address] LOWER EXTREMITY RT WO from 02/25/2024 FINDINGS: BONES: There is again seen a right total knee replacement which appears in good position. There is a sideplate and screws transfixing the comminuted fracture involving the distal metaphysis of the righ t femur. No new fractures identified. No bony destructive lesion is seen. JOINTS: The knee is normally aligned. No joint effusion is seen. SOFT TISSUE: Normal. IMPRESSION: There has been interval fixation of the distal right femoral fracture. The fracture alignment appear s stable. No new fracture is seen. DATA REPOSITORY: RADIATION DOSE DELIVERED:
--- NOTE | 2024-04-26 20:14 | ED.GENADUL_ITS ---
Discharge Plan Disposition Patient Disposition: Long-Term Facility(SNF) Condition: Stable Discharge Details Clinical Impression: Knee pain Primary Care Provider: Unknown,Unknown ED Provider: Jazz Hammer Meds and New Rx's Prescriptions: No Action Fiber Gummies 2 gram tablet,chewable See Rx Instructions PO .COMPLEX Rx Instructions: 2 tabs PO; (DME) FreeStyle Freya 2 [place] Misc See Rx Instructions .ROUTE .MEDSUPPLY Qty: 1 0RF Rx Instructions: As directed insulin lispro [Humalog KwikPen Insulin] 100 unit/mL insulin pen 1 - 30 unit Sub-Q AC Qty: 27 3RF Rx Instructions: Dx: E11.9 to maintain HbA1C less than 8% spironolactone 25 mg tablet 12.5 mg PO DAILY Qty: 45 3RF insulin glargine U-300 conc [Toujeo SoloStar U-300 Insulin] 300 unit/mL (1.5 mL) insulin pen See Rx Instructions SUBCUT BID Qty: 22 3RF Rx Instructions: 45 units AM & 50 units PM subcut twice a day; multivitamin [Daily Vitamin] 1 EACH tablet 1 ea PO DAILY aspirin [Aspirin Low-Strength] 81 MG tablet,chewable 81 mg PO DAILY calcium carbonate-vitamin D3 [Calcarb 600 With Vitamin D] 1 EACH tablet 1 ea PO BID (DME) lancets [OneTouch UltraSoft Lancets] 1 EACH misc 1 ea Miscellaneous TID Qty: 90 Rx Instructions: For DM 250.00 to keep A1C at or below 7 epinephrine [EpiPen 2-Ezekiel] 0.3 MG/0.3 ML auto-injector 0.3 mg IM see instructions Qty: 1 Rx Instructions: 1 shot in muscle incase of severe allergic reaction as advised, may repeat the dose 1 time Call 911 for help Glucagon Emergency Kit (human) 1 MG kit 1 mg IJ PRN Qty: 1 acetaminophen 500 mg tablet 500 mg PO BID Rx Instructions: Takes 1 in the am and 1 in the pm nitroglycerin 0.4 mg tablet, sublingual 0.4 mg sublingual Q5M PRN (Reason: chest pain) Qty: 30 0RF Rx Instructions: Take 0.4 mg every 5 minutes up to 3 doses; seek emergent medical care if no relief fluticasone propion-salmeterol [Advair Diskus] 250-50 mcg/dose blister with device 1 inh inhalation BID Qty: 3 3RF loratadine 10 mg tablet 10 mg PO DAILY Qty: 90 3RF (DME) Blood Glucose Test Strip See Rx Instructions .ROUTE .MEDSUPPLY Qty: 400 3RF Rx Instructions: As directed to check blood glucose four times daily. On insulin. Dispense covered brand. (DME) pen needle, diabetic 31 gauge x 5/16 needle See Dose Instructions .ROUTE .MEDSUPPLY Qty: 500 3RF Dose Instruction: As directed Rx Instructions: As directed with 5-times daily insulin omeprazole 20 mg capsule,delayed release(DR/EC) 20 mg PO DAILY Qty: 90 3RF Rx Instructions: Take 20 mg once daily in the morning at least 30 minutes before first meal Metamucil Fiber Thin 2 gram wafer 2 wafer PO TID Qty: 90 3RF albuterol sulfate 90 mcg/actuation HFA aerosol inhaler See Rx Instructions .ROUTE .COMPLEX Qty: 8.5 3RF Dose Instruction: INHALE 1 TO 2 PUFFS BY MOUTH EVERY 4 TO 6 HOURS NEEDED FOR SHORTNESS OF BREATH OR WHEEZING Rx Instructions: INHALE 1 TO 2 PUFFS BY MOUTH EVERY 4 TO 6 HOURS NEEDED FOR SHORTNESS OF BREATH OR WHEEZING atorvastatin 20 mg tablet 20 mg PO DAILY Qty: 90 3RF vitamin B complex Tablet 1 tab PO DAILY Qty: 90 3RF isosorbide mononitrate 60 mg tablet extended release 24 hr 60 mg PO DAILY Qty: 90 3RF Rx Instructions: [place] [facility], dose decreased to 60mg po QD. Dr. Gil MD;[facility] [place]Catrina Nuñez writes for this prescription) losartan 50 mg tablet 50 mg PO DAILY Qty: 30 0RF Rx Instructions: [place]23[place]; increase Losartan to 50mg po qd. Dr. Gil MD furosemide 40 mg tablet 40 mg PO DAILY carvedilol 12.5 mg tablet 18.75 mg PO BID Qty: 42 0RF Rx Instructions: Take 18.75 mg (1 1/2 pills) twice daily trazodone 50 mg tablet 50 mg PO HS Discharge Instructions Instructions: Knee Pain ED, Knee Brace ED Additional Instructions: At this time the x-ray images it is unclear whether there is a new fracture. I do believe that this is old from the previous injury. However wear the knee brace and have decreased weightbearing until follow-up with Ortho. You did get a oxycodone 2.5 mg while here. Please discuss more pain management with your PCP. Rest ice compression elevation. Follow up with primary care provider in 3-5 days. Return to ED sooner if any worsening fever, redness or concerns. Referrals: [facility] [Outside] - 5 days Bucky Renee MD [ [facility] STAFF PHYSICIAN] - HPI <Jazz Hammer NP - Last Filed: 04/26/24 23:28> General Mode of arrival: EMS . Date/Time Provider Initiated Documentation: 04/26/24 19:49 . Limitations to Documentation: no limitations . Information obtained by: patient, EMS, RN notes reviewed and old records reviewed . HPI Narrative: 88-[facility] presents with right knee pain reports increased pain from her ankle up to her knee. She is unclear of the onset of the pain. [facility] is [facility] since March she has had a surgical history of a knee replacement at [facility]. She does have some swelling noted with some red areas around the healed scars. 2+ pitting edema noted to her ankle. She reports that the pain control measures at the rehab are not working. She is taking Tylenol trazodone. Denies any chest pain shortness of breath, any new injuries or falls recently. Related Data Home Medications ?Medication ?Instructions ?Recorded ?Confirmed aspirin 81 mg chewable tablet 81 mg PO DAILY 07/25/12 04/26/24 (Aspirin Low-Strength) calcium 600 mg (as 1 ea PO BID 07/25/12 04/26/24 carbonate)-vitamin D3 10 mcg (400 unit) tablet (Calcarb with Vitamin D) multivitamin (Daily Vitamin tablet) 1 ea PO DAILY 07/25/12 04/26/24 lancets (OneTouch UltraSoft #90 ea 01/02/15 04/26/24 Lancets) epinephrine 0.3 mg/0.3 mL 0.3 mg IM see instructions ##1 08/17/15 04/26/24 injection, auto-injector (EpiPen 2-Ezekiel) glucagon (human recombinant) 1 mg 1 mg IJ PRN ##1 10/28/15 04/26/24 injection kit (Glucagon Emergency Kit (human-recomb)) acetaminophen 500 mg tablet 500 mg PO BID 09/15/19 04/26/24 inulin 2 gram chewable tablet See Rx Instructions PO .COMPLEX 09/15/19 04/26/24 (Fiber Gummies) nitroglycerin 0.4 mg sublingual 0.4 mg sublingual Q5M PRN chest 07/01/20 04/26/24 tablet pain #30 tab-caps flash glucose scanning reader #1 ea 07/15/20 04/26/24 (FreeStyle Freya 2 [place]) fluticasone 250 mcg-salmeterol 50 1 inh inhalation BID #3 ea 11/04/20 04/26/24 mcg/dose blistr powdr for inhalation (Advair Diskus) spironolactone 25 mg tablet 12.5 mg (1/2 x 25 mg) PO DAILY #45 11/29/20 04/26/24 tabs insulin lispro 100 unit/mL 1 - 30 unit (0.01 - 0.3 mL) subcut 03/19/21 04/26/24 subcutaneous pen (Humalog KwikPen AC #27 SYRGS (U-100) Insulin) loratadine 10 mg tablet 10 mg PO DAILY #90 tab-caps 03/24/21 04/26/24 blood sugar diagnostic (Blood #400 ea 04/30/21 04/26/24 Glucose Test strips) pen needle, diabetic 31 gauge x #500 ea 06/18/21 04/26/2410/06 insulin glargine U-300 conc 300 See Rx Instructions subcut BID #22 06/25/21 04/26/24 unit/mL (1.5 mL) subcutaneous pen SYRGS (Toujeo SoloStar U-300 Insulin) omeprazole 20 mg capsule,delayed 20 mg PO DAILY indigestion #90 07/02/21 04/26/24 release tab-caps psyllium husk (with sugar) 2 gram 2 wafer PO TID #90 wafers 08/25/21 04/26/24 oral wafer (Metamucil Fiber Thin) albuterol sulfate 90 mcg/actuation See Rx Instructions .Route 10/28/21 04/26/24 aerosol inhaler .COMPLEX #8.5 grams atorvastatin 20 mg tablet 20 mg PO DAILY #90 tab-caps 12/08/21 04/26/24 vitamin B complex 1 tab PO DAILY headaches #90 12/29/21 04/26/24 tab-caps isosorbide mononitrate 60 mg 60 mg PO DAILY #90 tabs 02/04/22 04/26/24 tablet,extended release 24 hr losartan 50 mg tablet 50 mg PO DAILY #30 tabs 02/11/22 04/26/24 furosemide 40 mg tablet 40 mg PO DAILY 02/16/22 04/26/24 carvedilol 12.5 mg tablet 18.75 mg (1.5 x 12.5 mg) PO BID 03/04/22 04/26/24 #42 tabs trazodone 50 mg tablet 50 mg PO HS insomnia 02/23/24 04/26/24 Previous Rx's ?Medication ?Instructions ?Recorded nitroglycerin 0.4 mg sublingual 0.4 mg sublingual Q5M PRN chest 07/01/20 tablet pain #30 tab-caps flash glucose scanning reader #1 ea 07/15/20 ([employer] Freya 2 [place]) fluticasone 250 mcg-salmeterol 50 1 inh inhalation BID #3 ea 11/04/20 mcg/dose blistr powdr for inhalation (Advair Diskus) spironolactone 25 mg tablet 12.5 mg (1/2 x 25 mg) PO DAILY #45 11/29/20 tabs insulin lispro 100 unit/mL 1 - 30 unit (0.01 - 0.3 mL) subcut 03/19/21 subcutaneous pen (Humalog KwikPen AC #27 SYRGS (U-100) Insulin) loratadine 10 mg tablet 10 mg PO DAILY #90 tab-caps 03/24/21 blood sugar diagnostic (Blood #400 ea 04/30/21 Glucose Test strips) pen needle, diabetic 31 gauge x #500 ea 06/18/2116 insulin glargine U-300 conc 300 See Rx Instructions subcut BID #22 06/25/21 unit/mL (1.5 mL) subcutaneous pen SYRGS (Toujeo SoloStar U-300 Insulin) omeprazole 20 mg capsule,delayed 20 mg PO DAILY indigestion #90 07/02/21 release tab-caps psyllium husk (with sugar) 2 gram 2 wafer PO TID #90 wafers 08/25/21 oral wafer (Metamucil Fiber Thin) albuterol sulfate 90 mcg/actuation See Rx Instructions .Route 10/28/21 aerosol inhaler .COMPLEX #8.5 grams atorvastatin 20 mg tablet 20 mg PO DAILY #90 tab-caps 12/08/21 vitamin B complex 1 tab PO DAILY headaches #90 12/29/21 tab-caps isosorbide mononitrate 60 mg 60 mg PO DAILY #90 tabs 02/04/22 tablet,extended release 24 hr losartan 50 mg tablet 50 mg PO DAILY #30 tabs 02/11/22 carvedilol 12.5 mg tablet 18.75 mg (1.5 x 12.5 mg) PO BID 03/04/22 #42 tabs Allergies Allergy/AdvReac Type Severity Reaction Status Date / Time gabapentin AdvReac Mild Dizziness/L Verified 04/26/24 19:46 ightheade GORDON Inhibitors AdvReac Unknown COUGH Verified 04/26/24 19:46 multiple food allergies Allergy Intermediate Sensitization Uncoded 04/26/24 19:46 noted on blood test General Stated Complaint: Orthopedic ALON: 4 Exam <Jazz Hammer NP - Last Filed: 04/26/24 23:28> Narrative Exam Narrative: Constitutional: Alert and oriented x3. Appears stated age. Normal body habitus. Patient appears chronically ill. Head: Normocephalic, no trauma. Eyes: Pupils PERRL, Red reflex noted, EOM's intact. Eyelids symmetrical without lesions, discharge, or swelling. ENT: Bilateral TM's WNL, External ear normal to inspection, no mastoid TTP, swelling, or erythema, Nasal turbinates WNL, no nasal discharge. Normal dentition, Posterior pharynx WNL, no exudate. Chest: RRR, Normal S1, S2, distal pulses intact. Resp: Lungs clear to auscultation bilaterally, no wheezes, rales, or rhonchi. Abdomen: Soft, non-distended, Normoactive bowel sounds all 4 quads. Musculoskeletal: Unable to assess gait, she does have 2+ pitting edema noted to her bilateral lower extremities. Slightly more on the right, does have some swelling up to her knee. Slight redness around the incision sites. No drainage. Skin: No suspicious rashes or lesions. Capillary refill less than 2 sec. Neurologic: Cranial nerves II-XII intact. Alert and oriented x 3. Motor: No deficits noted. Sensory: Intact bilaterally all 4 extremities. Hematologic/Lymphatic: No ecchymosis, no lymphadenopathy. Course <Jazz Hammer NP - Last Filed: 04/26/24 23:28> Vital Signs Vital signs: Vital Signs Temperature 36.6 C 04/26/24 19:37 Pulse 70 04/26/24 19:37 Respiratory Rate 15 04/26/24 19:37 Blood Pressure 183/74 H 04/26/24 19:37 Pulse Oximetry 100 04/26/24 19:37 Temperature 36.6 C 04/26/24 19:37 Pulse 70 04/26/24 19:37 Respiratory Rate 15 04/26/24 19:37 Respiratory Effort Normal 04/26/24 19:44 Blood Pressure 183/74 H 04/26/24 19:37 Blood Pressure Position Sitting 04/26/24 19:37 Pulse Oximetry 100 04/26/24 19:37 Oxygen Delivery Method Room Air 04/26/24 19:37 Oxygen Flow Rate 0 04/26/24 19:37 Medical Decision Making <Jazz Hammer NP - Last Filed: 04/26/24 23:28> 88-[facility] presents with right knee pain reports increased pain from her ankle up to her knee. She is unclear of the onset of the pain. She is been at [facility] since March she has had a surgical history of a knee replacement at [facility]. She does have some swelling noted with some red areas around the healed scars. 2+ pitting edema noted to her ankle. She reports that the pain control measures at the rehab are not working. She is taking Tylenol trazodone. Denies any chest pain shortness of breath, any new injuries or falls recently. Workup ordered CBC CMP lactate blood cultures x 2, x-rays and D-dimer. Differential diagnose includes not limited to septic joint, DVT, effusion, chronic pain postsurgery. D-dimer is over 2000, I will do a bedside preliminary ultrasound to assist me with diagnosis. No leukocytosis, lactate 1.2, sodium 145, potassium 3.3 chloride 112 BUN 33 creatinine 2.[address] Vitaly Alvarado at bedside for assistance with POCUS DVT exam, all vessels visualized are compressible at this time. This is reassuring however I do recommend that patient an outpatient follow-up ultrasound to verify. No signs of infection systemically at this time. X-ray per me read reports acute periprosthetic fracture of the distal femur, upon reviewing of previous images dated February 24 this does appear to be similar. Will consult with orthopedics regarding images. Will place patient in a hinged knee brace and instruct on nonweightbearing until confirmation of x-ray, or overread. I do not suspect an acute fracture at this time. Discussed this with patient who verbalized understanding. Patient was given a 2.5 mg of oxycodone prior to transport back to the [facility]. Arranging transport. EMS here patient transported to [facility]. This text was generated using [employer] system, please disregard any oddities of phrase or misspellings. Medical Records Medical records reviewed: Yes I reviewed the patient's medical records. Imaging Data Radiologic Study: Imaging: X-Ray Radiologist's impression: PROCEDURE INFORMATION: Exam: XR Right Knee Exam date and time: 04/26/2024 9:07 PM Age: 88 years old Clinical indication: Swelling, leg or foot and other: Swelling, pain TECHNIQUE: Imaging protocol: Radiologic exam of the right knee. Views: 3 views. COMPARISON: CT LOWER EXTREMITY RT WO 02/25/2024 3:40 PM FINDINGS: Bones/joints: There is an acute fracture in the distal femur involving the metadiaphyseal junction. This is adjacent to the knee joint. There is a butterfly fragment displaced medially. Soft tissues: Soft tissue edema noted medially. IMPRESSION: Acute periprosthetic fracture in the distal femur as described. No evidence of joint dislocation. Thank you for allowing us to participate in the care of your patient. Dictated and Authenticated by: Fariha Kearney MD Lab Data Lab results reviewed: Yes I reviewed the patient's lab results. Labs: 04/26/24 20:36 Blood Blood Culture - Pending 04/26/24 20:12 Blood Blood Culture - Pending Laboratory Tests Range/Units 04/26/24 20:36 WBC (4.4-10.8) 10^3/uL 10.47 RBC (3.93-5.22) 10^6/uL 3.45 L Hgb (11.2-15.7) g/dL 10.1 L Hct (36.0-46.0) % 31.1 L MCV (80-95) fL 90 MCH (27.0-33.0) pg 29.3 MCHC (32.0-36.0) % 32.5 RDW (11.7-14.6) % 13.4 Plt Count (130-400) 10^3/uL 144 MPV (8.0-11.0) fL 10.7 Immature Gran % % 0.5 Neutrophils % % 79.6 Lymphocytes % % 10.6 Monocytes % % 6.3 Eosinophils % % 2.5 Basophils % % 0.5 Nucleated RBC % (0.0-0.3) % 0.0 Absolute Neutrophils (1.2-6.7) 10^3/uL 8.34 H Absolute Lymphocytes (1.2-3.4) 10^3/uL 1.11 L Absolute Monocytes (0.1-0.8) 10^3/uL 0.66 Absolute Eosinophils (0.0-0.7) 10^3/uL 0.26 Absolute Basophils (0.0-0.2) 10^3/uL 0.05 D-Dimer (<500) ng/mlFEU 2273 H VBG Lactate (0.6-1.4) mmol/L 1.2 Sodium (136-145) mmol/L 145 Potassium (3.5-5.1) mmol/L 3.3 L Chloride (98-107) mmol/L 112 H Carbon Dioxide (21.0-32.0) mmol/L 24.3 Anion Gap (3-11) mmol/L 8.7 BUN (7-18) mg/dL 33 H Creatinine (0.55-1.02) mg/dL 2.0 H Est GFR (CKD-EPI 2020) (mL/min/1.73m2) 23.88 Glucose (74-106) mg/dL 222 H Calcium (8.5-10.1) mg/dL 8.9 Total Bilirubin (0.2-1.0) mg/dL 0.24 AST (15-37) U/L 13 L ALT (14-59) U/L 18 Alkaline Phosphatase (46-116) U/L 120 H Total Protein (6.4-8.2) g/dL 6.7 Albumin (3.4-5.0) g/dL 2.4 L Quality:SDOH Health Related Social Needs: No Data to Display PFSH <Jazz Hammer NP - Last Filed: 04/26/24 23:28> All Active Problems (Updated 04/26/24 @ 22:43 by Jazz Hammer NP) Knee pain (Acute) Angina at rest (Acute) Tubular adenoma of colon (Acute) Urinary incontinence (Acute) Neck pain (Acute) SARS-CoV-2 positive (Acute) Headache (Acute) Advanced directives, counseling/discussion (Acute) Bowel habit changes (Acute) Hydrosalpinx (Chronic) Left Muscular deconditioning (Acute) Lumbar spondylosis (Acute) Inflammatory polyps (Acute) Gastritis (Acute) Anemia (Chronic) [place] [facility] [place] capsule [place] Insomnia (Chronic) 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 obesity hypoventilation?), also has asthma Osteoporosis (Chronic 07/28/11) Multiple food allergies (Chronic 08/14/15) Immunological Sensitization noted on Blood Test for Milk/Casein, peanut, Tomato, [place], Cabbage, [place], Rice, Spinach, Asparagus, Brussel Sprouts, Sweet Potato, Beef, Pork Mitral valve regurgitation (Chronic 09/05/13) 3+ Memory impairment (Chronic 08/30/17) 08/30/17 MOCA score: 23/30 02/16/19 MOCA score: 23 Depression (Chronic 12/16/11) HUE [place] in the past Cardiac resynchronization therapy defibrillator (LICENSED VETERINARY TECHNICIAN-D) in place (Chronic 08/14/16) [facility] [place] Underlying 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) [facility]ari[place] Stress test showing small, reversible inferior wall defect c/w ischemia Type 2 diabetes mellitus with retinopathy of both eyes, with long-term current use of insulin Asthma 09/03/2014 PFTs: mild obstructive airway disease with significant bronchodilator response Chronic kidney disease (CKD), stage IV (severe) [facility] [place] ICD (implantable cardioverter-defibrillator) in place AVM (arteriovenous malformation) of colon Surgical History History of total left knee replacement Replacement of total knee joint B/L Hernia Repair, Incisional (~2010) W/ mesh. Dr. Cheko Patterson Extraction of cataract Dr. Hensley Family History Mother Hypertensive disorder, systemic arterial Diabetes Atherosclerosis of coronary artery Family history of stroke Dementia Hyperlipidemia Family history of glaucoma Cataract Father No problems noted. Social History Smoking/Tobacco Use Status: Former Tobacco Use Smoking risk assessment performed?: Yes Alcohol Intake: former Drug use: Never Substance use type: does not use Adopted: No Caregiver/Support person: No Foster care: No Number of Children: 5 Communication Needs: None Pets and animals: Yes Pets and animals: cat(s) and dog(s) Sexually active: No Current gender identity: female What is your relationship status?: Panel score (0-1 are the most socially isolated patients): 0 What type of physical activity do you participate in: other Details: Excercise classes at [employer] Duration: 45-60 minutes/day Frequency: 1-2 times per week Seatbelt use: always Do you feel safe at home: Yes Do you feel safe in your relationship?: Yes POCUS Exam (ED) <Asaf Alvarado DO - Last Filed: 04/26/24 23:03> Limited Vascular Exam DATE OF EXAM: 04/26/24 TIME OF EXAM: 23:02 PROVIDER THAT PERFORMED THE STUDY: Asaf Alvarado IS THIS A REPEAT EXAM DURING THIS ENCOUNTER: No Vascular Exam: Right lower extremity REASON FOR EXAM: Concern for DVT right lower extremity VISUALIZED STRUCTURES: Right common femoral vein, Right popliteal vein, Right superficial femoral vein and Right greater saphenous vein PERTINENT FINDINGS/IMPRESSION: Compressible veins right leg and No apparent abnormalities Exam Complete
[2024-04-26 20:44] LABS: Lactate 1.2 mmol/L (0.6-1.4)
[2024-04-26 20:46] LABS: Abs Immature Grans 0.05 10^3/uL (0.0-0.06); Absolute Basophil Count 0.05 10^3/uL (0.0-0.2); Absolute Eosinophil Count 0.26 10^3/uL (0.0-0.7); Absolute Lymphocyte Count 1.11 10^3/uL (1.2-3.4); Absolute Monocyte Count 0.66 10^3/uL (0.1-0.8); Absolute Neutrophil Count 8.34 10^3/uL (1.2-6.7); Basophils % 0.5 %; Eosinophils % 2.5 %; HCT 31.1 % (36.0-46.0); HGB 10.1 g/dL (11.2-15.7); Immature Grans % 0.5 %; Lymphocytes % 10.6 %; MCH 29.3 pg (27.0-33.0); MCHC 32.5 % (32.0-36.0); MCV 90 fL (80-95); MPV 10.7 fL (8.0-11.0); Monocytes % 6.3 %; Neutrophils % 79.6 %; Platelet Count 144 10^3/uL (130-400); RBC 3.45 10^6/uL (3.93-5.22); RDW 13.4 % (11.7-14.6); RDW-SD 44.2 fL; WBC 10.47 10^3/uL (4.4-10.8)
[2024-04-26 21:01] LABS: ALT 18 U/L (14-59); AST 13 U/L (15-37); Albumin 2.4 g/dL (3.4-5.0); Alkaline Phosphatase 120 U/L (46-116); Anion Gap 8.7 mmol/L (3-11); BUN 33 mg/dL (7-18); Bilirubin, Total 0.24 mg/dL (0.2-1.0); CO2 24.3 mmol/L (21.0-32.0); Calcium 8.9 mg/dL (8.5-10.1); Chloride 112 mmol/L (98-107); Estimated GFR 23.88 (mL/min/1.73m2); Glucose 222 mg/dL (74-106); Potassium 3.3 mmol/L (3.5-5.1); Sodium 145 mmol/L (136-145); Total Protein 6.7 g/dL (6.4-8.2)
[2024-04-26 21:22] LABS: D-Dimer 2273 ng/mlFEU (<500)
--- NOTE | 2024-04-26 22:15 | DI.VRAD_ITS ---
PROCEDURE INFORMATION: Exam: XR Right Knee Exam date and time: 04/26/2024 9:07 PM Age: 88 years old Clinical indication: Swelling, leg or foot and other: Swelling, pain TECHNIQUE: Imaging protocol: Radiologic exam of the right knee. Views: 3 views. COMPARISON: CT LOWER EXTREMITY RT WO 02/25/2024 3:40 PM FINDINGS: Bones/joints: There is an acute fracture in the distal femur involving the metadiaphyseal junction. This is adjacent to the knee joint. There is a butterfly fragment displaced medially. Soft tissues: Soft tissue edema noted medially. IMPRESSION: Acute periprosthetic fracture in the distal femur as described. No evidence of joint dislocation. Dictated and Authenticated by: Fariha Cesar MD. Ordering:COLETTE Schulz MD
[2024-04-26] MEDS: oxyCODONE 5 MG TAB 2.5 MG PO (22:48)
--- NOTE | 2024-05-22 12:04 | NUR.NOTE ---
Access chart to print the provider note for [facility] for billing purposes. Nursing Note:
== END 2024-04-26 23:20 | disposition skilled nursing facility (03) ==
PROVIDERS: Emergency Provider Registered Nurse Emergency
DX: M25.561 Pain in right knee (principal); E11.22 Type 2 diabetes mellitus with diabetic chronic kidney disease; I13.0 Hypertensive heart and chronic kidney disease with heart failure and stage 1 through stage 4 chronic kidney disease, or unspecified chronic kidney disease; N18.4 Chronic kidney disease, stage 4 (severe); I50.9 Heart failure, unspecified; E78.5 Hyperlipidemia, unspecified; E11.319 Type 2 diabetes mellitus with unspecified diabetic retinopathy without macular edema; Z79.4 Long term (current) use of insulin; Z79.82 Long term (current) use of aspirin; Z96.651 Presence of right artificial knee joint; Z95.810 Presence of automatic (implantable) cardiac defibrillator
CPT/HCPCS: 36415; 73562; 80053; 87040; 93971; 99284; 83605; 85025; 85379

== ENCOUNTER 2024-05-25 10:07 | Outpatient (REF) | payer SELFPAY ==
[2024-05-25 11:34] LABS: ALT 17 U/L (14-59); AST 17 U/L (15-37); Albumin 2.5 g/dL (3.4-5.0); Alkaline Phosphatase 113 U/L (46-116); Anion Gap 9.6 mmol/L (3-11); BUN 31 mg/dL (7-18); Bilirubin, Total 0.47 mg/dL (0.2-1.0); CO2 22.4 mmol/L (21.0-32.0); Calcium 8.8 mg/dL (8.5-10.1); Chloride 111 mmol/L (98-107); Estimated GFR 23.88 (mL/min/1.73m2); Glucose 198 mg/dL (74-106); Sodium 143 mmol/L (136-145); Total Protein 6.5 g/dL (6.4-8.2)
[2024-05-25 11:36] LABS: D-Dimer 1566 ng/mlFEU (<500)
== END 2024-05-25 10:08 | disposition home or self-care (01) ==
LOC: LBN 10:07
PROVIDERS: Visit Provider Family Medicine Geriatric Medicine
DX: I82.509 Chronic embolism and thrombosis of unspecified deep veins of unspecified lower extremity (principal); I25.6 Silent myocardial ischemia
CPT/HCPCS: 80053; 85379

== ENCOUNTER 2024-08-09 21:53 | Outpatient (REF) | payer MEDICARE, SELFPAY ==
[2024-08-09 16:24] LABS: Abs Immature Grans 0.03 10^3/uL (0.0-0.06); Absolute Basophil Count 0.04 10^3/uL (0.0-0.2); Absolute Eosinophil Count 0.26 10^3/uL (0.0-0.7); Absolute Lymphocyte Count 0.97 10^3/uL (1.2-3.4); Absolute Monocyte Count 0.45 10^3/uL (0.1-0.8); Absolute Neutrophil Count 6.01 10^3/uL (1.2-6.7); Basophils % 0.5 %; Eosinophils % 3.4 %; HCT 25.8 % (36.0-46.0); HGB 7.8 g/dL (11.2-15.7); Immature Grans % 0.4 %; Lymphocytes % 12.5 %; MCH 29.4 pg (27.0-33.0); MCHC 30.2 % (32.0-36.0); MCV 97 fL (80-95); MPV 11.3 fL (8.0-11.0); Monocytes % 5.8 %; Neutrophils % 77.4 %; Platelet Count 163 10^3/uL (130-400); RBC 2.65 10^6/uL (3.93-5.22); RDW 16.1 % (11.7-14.6); RDW-SD 58.1 fL; Reticulocyte 3.8 % (0.5-2.4); WBC 7.76 10^3/uL (4.4-10.8)
[2024-08-09 16:44] LABS: ALT 19 U/L (14-59); AST 15 U/L (15-37); Albumin 2.6 g/dL (3.4-5.0); Alkaline Phosphatase 78 U/L (46-116); Anion Gap 9.2 mmol/L (3-11); BUN 43 mg/dL (7-18); Bilirubin, Total 0.2 mg/dL (0.2-1.0); CO2 23.8 mmol/L (21.0-32.0); CREATININE 2.1 mg/dL (0.55-1.02); Calcium 8.9 mg/dL (8.5-10.1); Chloride 113 mmol/L (98-107); Estimated GFR 22.52 (mL/min/1.73m2); Glucose 166 mg/dL (74-106); NT-proBNP 992 pg/mL (<300); Potassium 4.1 mmol/L (3.5-5.1); Sodium 146 mmol/L (136-145); Total Protein 6.1 g/dL (6.4-8.2)
== END 2024-08-09 21:54 | disposition home or self-care (01) ==
LOC: LBN 21:53
PROVIDERS: Visit Provider Family Medicine Geriatric Medicine
DX: E11.21 Type 2 diabetes mellitus with diabetic nephropathy (principal); D50.9 Iron deficiency anemia, unspecified
CPT/HCPCS: 80053; 83036; 83880; 85025; 85045

== ENCOUNTER 2024-11-03 17:43 | Outpatient (REF) | payer MEDICARE, SELFPAY ==
[2024-11-03 19:27] LABS: Iron 29 ug/dL (50-170)
[2024-11-03 19:42] LABS: Anion Gap 6.9 mmol/L (3-11); BUN 42 mg/dL (7-18); CO2 24.1 mmol/L (21.0-32.0); CREATININE 2.9 mg/dL (0.55-1.02); Calcium 8.3 mg/dL (8.5-10.1); Chloride 113 mmol/L (98-107); Ferritin 65 ng/mL (8-252); Glucose 105 mg/dL (74-106); Potassium 4.6 mmol/L (3.5-5.1); Sodium 144 mmol/L (136-145)
== END 2024-11-03 17:44 | disposition home or self-care (01) ==
LOC: LBN 17:43
PROVIDERS: Visit Provider Nurse Practitioner Gerontology
DX: D50.9 Iron deficiency anemia, unspecified (principal)
CPT/HCPCS: 80048; 82728; 83540; 85025

== ENCOUNTER 2024-11-04 22:21 | Emergency (ER) | payer MEDICARE, SELFPAY ==
[2024-11-04] VITALS (15 sets, daily range): BP systolic 197–220; BP diastolic 50–77; PULSE 59–95; RESP 16–25; TEMP 36.5; O2SAT 98–100
--- NOTE | 2024-11-04 22:30 | RT.EKG_ITS ---
APPROVED REPORT Exam: Resting ECG Reason for Exam: fall, altered mental status Patient Location: E HR:67 bpm ECG Measurements Heart Rate 67 AXIS ND 270 P 179 QRSd 172 QRS 60 QT 578 T 252 QTc 613 Conclusion Atrial-ventricular dual-paced rhythm no ST segment or T wave abnormalities to suggest occlusive GA.
--- NOTE | 2024-11-04 22:30 | DI.CT_ITS ---
Exam(s) CT HEAD CERVICAL SPINE WO EXAM: CT HEAD CERVICAL SPINE WO CLINICAL HISTORY: fall, AMS, facial brusing, on AC, ? bleed. TECHNIQUE: Imaging Protocol: Axial computed tomography images with coronal and sagittal reformatted images were created and reviewed COMPARISON: CT CT HEAD CERVICAL SPINE WO from 09/30/2023 FINDINGS: BRAIN: There is soft tissue swelling over the forehead region predominately right- sided. There are also multiple skin level densities noted which may be skin foreign bodies versus is chronic/previously present. There is no obvious deep laceration in the scalp. There are no skull fractures. There is some mucosal thickening left maxillary sinus and in the left side of the sphenoid sinus but no fluid levels. No sinus wall fractures. There is no evidence of intracranial hemorrhage, mass effect, or shift of midline structures. There are no extra-axial fluid collections. The ventricles are not enlarged or shifted and there is no blood within the ventricular system nor within the basal cisterns. There is some bilateral periventricular hypodensity consistent with chronic small vessel disease. CERVICAL SPINE: There is no evidence of acute fracture nor new listhesis. Some degenerative anterolisthesis of C5 upon C6 and C6 upon C7 are unchanged from images of September 2023 and related to facet arthropathy. There is chronic disc space narrowing at C6-7 level and milder disc space narrowing at the other levels. Calcifications is again noted in the transverse ligament in the region of the odontoid process and there are significant degenerative changes at this level but no fractures. There is multilevel facet arthropathy There is no significant facet joint malalignment. No significant osseous lesions evident. IMPRESSION: No acute intracranial findings on this noninfused CT scan of the brain.Right forehead swelling but no obvious laceration nor skull fractures. Multiple tiny skin densities are noted which may be foreign bodies versus chronically present. No evidence of cervical spine fracture, malalignment, nor acute compromise of the cervical spinal canal. Chronic degenerative changes as described above. No significant change compared to CT images of September 2023. RADIATION DOSE DELIVERED: 1,190.05mGy.cm Total DLP DATA REPOSITORY: All CT scans at this facility are submitted to the National Radiology Data Registry (NRDR) Dose Index Registry (DIR) with the [employer] (ACR). RADIATION OPTIMIZATION: All CT scans at this facility use at least one of these dose optimization techniques: automated exposure control; mA and/or kV adjustment per patient size (includes targeted exams where dose is matched to clinical indication); or iterative reconstruction.
--- NOTE | 2024-11-04 22:45 | DI.CT_ITS ---
Exam(s) CT CHEST/ABD/PEL WO EXAM: CT CHEST/ABD/PEL WO CLINICAL HISTORY: fall, ant chest tenderness, lower abd tenderness. TECHNIQUE: Imaging Protocol: Axial computed tomography images with coronal and sagittal reformatted images were created and reviewed CONTRAST MATERIAL: Intravenous: none Oral: None COMPARISON: CT CT CHEST/ABD/PEL WO from 09/30/2023 FINDINGS: CHEST: LUNGS: Compared to the CT scan of September 2023 there are now bilateral non loculated appearing pleural effusions which were not previously present, left larger than right. There is some volume loss in left lower lobe basal segments. There are multiple tiny nodules in both lung ramsay, some of which appear to be calcified granulomas. The largest nodule measures 5 mm. MEDIASTINUM: No evidence of obvious sternal fracture nor mediastinal hematoma. Partially visualized thyroid gland again appears enlarged and appearance of multinodular goiter. CARDIAC: Cardiomegaly and cardiac pacemaker wires noted in the heart.There is mild pericardial effusion. Maximum thickness 3 mm. No large pericardial effusion. Diameter of the ascending thoracic aorta is age-appropriate. OSSEOUS: No obvious sternal fractures. No vertebral compression fractures. No listhesis. There is multilevel chronic degenerative disc disease in the thoracolumbar and lumbar spines.No osseous lesions.. ABDOMEN: There is no ascites but there is an element of generalized anasarca in the subcutaneous fat on both sides the abdomen and pelvis. There are no drainable fluid collections in the subcutaneous fat. LIVER: There are no obvious focal hepatic lesions evident of this noninfused study. GALLBLADDER/BILIARY: The gallbladder surgically absent. CBD is not dilated. PANCREAS: No evidence of obvious pancreatic mass nor dilatation of the pancreatic duct. SPLEEN: Spleen is not enlarged. No obvious intrasplenic lesions. ADRENALS: There are no significant adrenal masses. KIDNEYS: There is a solitary nonobstructive 3 millimeter calculus in the midpole level of the left kidney, unchanged from prior study. There are no other focal renal findings of significance and no hydronephrosis nor hydroureter.. ABDOMINAL AORTA: Abdominal aorta is not enlarged. LYMPH NODES: There is no retroperitoneal nor para-aortic adenopathy. ABDOMINAL WALL/GI: No evidence of significant anterior abdominal wall nor inguinal hernia. No evidence of bowel obstruction. However, there is abundant fecal material noted in the rectum and the rectum is distended to a diameter of 7.8 cm. There is no rectal wall thickening. There is no true obstruction at this level. There is a density in the dependent aspect of the cecum which is most probably a non digested pill. PELVIS: LYMPH NODES: There is no intrapelvic nor inguinal adenopathy. GI: No evidence of appendicitis.There is sigmoid diverticuli without evidence of obvious acute diverticulitis. URINARY BLADDER: Not distended. There is some mild perivesicular streaking. REPRODUCTIVE: There are few calcified uterine fibroids. There is a left adnexal cyst measuring 3 by 3.3 cm which was not evident on the study of September 2023. Requires follow-up. No right adnexal findings. There is no free fluid in the pelvis. OSSEOUS: No significant osseous lesions. Intraosseous oskar is noted in the right femur, partially included in the field of view. IMPRESSION: 1. Compared to the prior CT scan of September 2023 there is now anasarca and bilateral pleural effusions, left larger than right, these findings not previously present. Main consideration here would be for an element of heart failure given that there is also cardiomegaly and pacemaker. There is also a small (3 mm thick) pericardial effusion evident. 2. There is some atelectasis-volume loss in the basal segments of the left lower lobe related to the left pleural effusion. 3. No acute fractures evident in the field of view of this study. 4. Unchanged solitary 3 mm calculus at the midpole level of the left kidney. No other significant renal findings. No hydronephrosis. 5. Abundant fecal material in the rectum but doubtful for true obstruction. There does not appear to be an obvious lesion at this level. No significant diverticular disease and no evidence of appendicitis. 6. Calcified uterine fibroids. There is also a 3 x 3.3 cm cystic structure left ovary which was not evident on CT scan of September 2023. Other findings as above. Preliminary virtual Radiology report was reviewed RADIATION DOSE DELIVERED: 964.97mGy.cm Total DLP DATA REPOSITORY: All CT scans at this facility are submitted to the National Radiology Data Registry (NRDR) Dose Index Registry (DIR) with the [employer] (ACR). RADIATION OPTIMIZATION: All CT scans at this facility use at least one of these dose optimization techniques: automated exposure control; mA and/or kV adjustment per patient size (includes targeted exams where dose is matched to clinical indication); or iterative reconstruction.
[2024-11-04 22:48] LABS: Abs Immature Grans 0.03 10^3/uL (0.0-0.06); Absolute Basophil Count 0.03 10^3/uL (0.0-0.2); Absolute Eosinophil Count 0.12 10^3/uL (0.0-0.7); Absolute Lymphocyte Count 0.65 10^3/uL (1.2-3.4); Absolute Monocyte Count 0.55 10^3/uL (0.1-0.8); Absolute Neutrophil Count 4.54 10^3/uL (1.2-6.7); Basophils % 0.5 %; HGB 7.4 g/dL (11.2-15.7); Immature Grans % 0.5 %; MCHC 29.6 % (32.0-36.0); MCV 95 fL (80-95); MPV 11.1 fL (8.0-11.0); Monocytes % 9.3 %; Neutrophils % 76.7 %; Platelet Count 132 10^3/uL (130-400); RBC 2.64 10^6/uL (3.93-5.22); RDW 13.9 % (11.7-14.6); RDW-SD 47.4 fL; WBC 5.92 10^3/uL (4.4-10.8)
[2024-11-04 23:04] LABS: INR 1.1 (0.9-1.1); Prothrombin Time 11.1 sec (9.1-11.1)
[2024-11-04 23:06] LABS: ALT 23 U/L (14-59); AST 24 U/L (15-37); Albumin 2.3 g/dL (3.4-5.0); Alkaline Phosphatase 71 U/L (46-116); Anion Gap 7.8 mmol/L (3-11); BUN 40 mg/dL (7-18); Bilirubin, Total 0.2 mg/dL (0.2-1.0); CO2 25.2 mmol/L (21.0-32.0); CREATININE 2.5 mg/dL (0.55-1.02); Calcium 8.5 mg/dL (8.5-10.1); Chloride 114 mmol/L (98-107); Diff Comment RBC Morph Reviewed; ETHANOL BLOOD < 3.0 mg/dL (<10); Estimated GFR 18.16 (mL/min/1.73m2); Glucose 94 mg/dL (74-106); Hypochromasia 2+; Potassium 4.9 mmol/L (3.5-5.1); Sodium 147 mmol/L (136-145); Total Protein 5.9 g/dL (6.4-8.2); Troponin I 36 ng/L (<or=51)
--- NOTE | 2024-11-04 23:19 | DI.VRAD_ITS ---
PROCEDURE INFORMATION: Exam: CT Head Without Contrast Exam date and time: 11/04/2024 10:54 PM Age: 89 years old Clinical indication: Injury or trauma; Blunt trauma (contusions or hematomas); Consciousness not specified; Injury details: Fall, AMS, facial brusing, on ac, ? bleed TECHNIQUE: Imaging protocol: Computed tomography of the head without contrast. COMPARISON: CT HEAD CERVICAL SPINE WO 09/30/2023 12:17 PM FINDINGS: Brain: Moderate generalized cerebral/cerebellar atrophy. Mild-moderate bilateral white matter hypodensities which are nonspecific but most commonly associated with chronic microvascular ischemia in this age group. The IACs are grossly normal. No extra-axial fluid collections. No evidence of acute intracranial hemorrhage. Cerebral/cerebellar richardson-white matter differentiation is well maintained. No intracranial mass lesions. No midline shift or herniation. Cerebral ventricles: Mild compensatory ventriculomegaly secondary to central atrophy. Pituitary gland and sella: The sella is grossly normal. Paranasal sinuses: Mucosal thickening in the left maxillary sinus and bilateral sphenoid sinuses consistent with chronic sinusitis. No fluid levels. Mastoid air cells: Visualized mastoid air cells are clear. Orbital cavities: No acute intraorbital findings. Prior bilateral ocular cataract surgery. Bones: No acute osseous findings. Soft tissues: Right frontal scalp soft tissue swelling, with no underlying fracture or foreign body. Vasculature: Moderate calcific atherosclerosis. No asymmetric vascular hyperdensities suggestive of thrombosis are identified. IMPRESSION: 1. No acute intracranial process. No intracranial hemorrhage or mass effect. 2. Right frontal scalp soft tissue swelling, with no underlying fracture or foreign body. 3. Atrophy with nonspecific white matter hypodensities most commonly representing chronic microvascular changes in this age group. 4. Moderate calcific atherosclerosis. PROCEDURE INFORMATION: Exam: CT Cervical Spine Without Contrast Exam date and time: 11/04/2024 10:54 PM Age: 89 years old Clinical indication: Injury or trauma; Blunt trauma (contusions or hematomas); Consciousness not specified; Injury details: Fall, AMS, facial brusing, on ac, ? bleed TECHNIQUE: Imaging protocol: Computed tomography of the cervical spine without contrast. COMPARISON: CT HEAD CERVICAL SPINE WO 09/30/2023 12:17 PM FINDINGS: Bones: Osteopenia. Craniocervical alignment is normal. The occipital condyles are intact. The odontoid is intact. Moderate osteoarthritic sclerosis and spurring at the atlantodens interval. No jumped or perched facets. Moderate bilateral multilevel osteoarthritic facet hypertrophy. No fractures. Slight 2-3 mm osteoarthritic anterolisthesis C6-C7, C5-C6, and to a lesser degree C3-C4 and C4-C5. Moderate-severe osteoarthritic disc space narrowing C6-C7 and additional mild-moderate osteoarthritic disc space narrowing at other levels. Chronic 3 mm posterior mixed spondylotic protrusion C6-C7 with mild ligamentum flavum hypertrophy/calcification and mild canal stenosis which is unchanged. Multilevel mild bilateral foraminal stenoses. Lungs: See Pleural spaces finding. Pleural spaces: Moderate left pleural effusion and mild bilateral apical pleuroparenchymal scarring. Thyroid: Thyromegaly with moderate generalized heterogeneity, multiple calcifications, and numerous thyroid nodules, largest 2.5 cm in the inferior isthmus, most likely multinodular goiter. Consider nonemergent thyroid ultrasound evaluation if not previously assessed. Soft tissues: Unremarkable. Other findings: Motion artifact produces mild exam limitation. IMPRESSION: 1. No evidence of acute fracture or traumatic subluxation. 2. Osteopenia and osteoarthritic changes detailed above. 3. Moderate left pleural effusion. 4. Thyromegaly with numerous thyroid nodules and calcifications, probably multinodular goiter. Consider nonemergent thyroid ultrasound assessment if not previously evaluated. Dictated and Authenticated by: Alcides Moore MD. Orderin Roland Nova MD
--- NOTE | 2024-11-04 23:21 | DI.VRAD_ITS ---
PROCEDURE INFORMATION: Exam: CT Chest Without Contrast; Diagnostic Exam date and time: 11/04/2024 10:58 PM Age: 89 years old Clinical indication: Injury or trauma; Blunt trauma (contusions or hematomas); Injury details: Fall, ant chest tenderness, lower abd tenderness TECHNIQUE: Imaging protocol: Diagnostic computed tomography of the chest without contrast. 3D rendering (Not supervised by radiologist): MIP and/or 3D reconstructed images were created by the technologist. COMPARISON: CT CHEST/ABD/PEL WO 09/30/2023 12:23 PM FINDINGS: Limitations: Lack of IV contrast limits assessment of the vasculature. Tubes, catheters and devices: Left chest wall pacemaker with distal leads in the heart. Thyroid: Multiple small nodules which are ill-defined within the thyroid suspicious for goiter. Trachea: Major airways are patent. Lungs: Mild atelectasis at the left lung base. Pleural spaces: Trace right and small left pleural effusions. Heart: Normal mild cardiomegaly. Trace pericardial effusion. Coronary arteries: Coronary artery calcifications. Lymph nodes: Unremarkable. No enlarged lymph nodes. Vasculature: Atherosclerotic aorta without aneurysm. Bones/joints: Minimal substernal extension. Soft tissues: Unremarkable. IMPRESSION: No acute findings. Nodular thyroid suspicious for goiter. Mild cardiomegaly. Small bilateral pleural effusions. PROCEDURE INFORMATION: Exam: CT Abdomen And Pelvis Without Contrast Exam date and time: 11/04/2024 10:58 PM Age: 89 years old Clinical indication: Injury or trauma; Blunt trauma (contusions or hematomas); Injury details: Fall, ant chest tenderness, lower abd tenderness TECHNIQUE: Imaging protocol: Computed tomography of the abdomen and pelvis without contrast. 3D rendering (Not supervised by radiologist): MIP and/or 3D reconstructed images were created by the technologist. COMPARISON: CT CHEST/ABD/PEL WO 09/30/2023 12:23 PM FINDINGS: Limitations: Lack of IV contrast limits assessment of the vasculature and solid organs. Liver: Normal. No mass. Gallbladder and biliary ducts: Cholecystectomy. No biliary ductal dilatation. Pancreas: Atrophic pancreas. Spleen: Normal. No splenomegaly. Adrenal glands: Normal. No mass. Kidneys and ureters: 4.2 cm cyst in the right renal upper pole. 1.1 cm cyst in the right renal lower pole. Punctate stone left renal upper pole. Mild left renal cortical thinning. No hydronephrosis. Stomach and bowel: Stomach is unremarkable. Bowel is normal in caliber. Colonic diverticulosis. 1 cm ovoid density in the cecum which may a tablet or fecalith. Moderate-sized stool ball in the rectum. Appendix: Normal appendix. Intraperitoneal space: Unremarkable. No free air. No significant fluid collection. Vasculature: Atherosclerotic aorta without aneurysm. Lymph nodes: No pathologic sized adenopathy. Urinary bladder: There is minimal prominence of the anterior bladder wall and mild adjacent hazy fat stranding which may be related to cystitis. Reproductive: Small calcified myomata in the uterus. 3.6 cm left adnexal cyst. Right adnexal region is unremarkable. Bones/joints: Right femoral medullary oskar. Hips are normally aligned. No acute fracture. Multilevel advanced degenerative changes throughout the spine. Soft tissues: Mild anasarca. IMPRESSION: 4.2 cm left adnexal cyst. Left nephrolithiasis. Moderate-sized stool ball in the rectum. Correlate clinically possible constipation. Myomatous uterus. Bladder findings which may be indicative of early cystitis. Correlate with urinalysis Colonic diverticula. Dictated and Authenticated by: Rohini Queen MD. Orderin Roland Nova MD
[2024-11-04 23:38] LABS: Bilirubin Negative (Negative); Blood Moderate (Negative); Clarity Sl Cloudy (Clear); Glucose Negative (Negative); Ketones Negative (Negative); Leukocyte Esterase Negative (Negative); Nitrite Negative (Negative); Specific Gravity 1.025 (1.005-1.025); Urobilinogen 0.2 mg/dL (Up to 0.2); pH 5.5 (5-8)
[2024-11-04 23:48] LABS: Bacteria Moderate HPF (Negative); Crystals Moderate Amorphous HPF (Negative); Epithelial Cells Few HPF (Negative); Mucus Moderate (Negative)
[2024-11-04 23:49] LABS: C & S Indicated? No; Casts 3-5 Fine Granular LPF (Negative)
--- NOTE | 2024-11-04 23:56 | W.ED.GENAD ---
Discharge Plan Disposition Patient Disposition: [facility]-Way Facility(SNF) Condition: Good Discharge Details Clinical Impression: Fall, Head injury, Anticoagulant long-term use, Pleural effusion Primary Care Provider: Unknown,Unknown ED Provider: Rohini Watkins [place] Meds and New Rx's Prescriptions: No Action Fiber Gummies 2 gram tablet,chewable See Rx Instructions PO .COMPLEX Rx Instructions: 2 tabs PO; (DME) FreeStyle Freya 2 [place] Misc See Rx Instructions .ROUTE .MEDSUPPLY Qty: 1 0RF Rx Instructions: As directed insulin lispro [Humalog KwikPen Insulin] 100 unit/mL insulin pen 1 - 30 unit Sub-Q AC Qty: 27 3RF Rx Instructions: Dx: E11.9 to maintain HbA1C less than 8% insulin glargine U-300 conc [Toujeo SoloStar U-300 Insulin] 300 unit/mL (1.5 mL) insulin pen See Rx Instructions SUBCUT BID Qty: 22 3RF Rx Instructions: 45 units AM & 50 units PM subcut twice a day; multivitamin [Daily Vitamin] 1 EACH tablet 1 ea PO DAILY aspirin [Aspirin Low-Strength] 81 MG tablet,chewable 81 mg PO DAILY (DME) lancets [OneTouch UltraSoft Lancets] 1 EACH misc 1 ea Miscellaneous TID Qty: 90 Rx Instructions: For DM 250.00 to keep A1C at or below 7 Glucagon Emergency Kit (human) 1 MG kit 1 mg IJ PRN Qty: 1 acetaminophen 500 mg tablet 500 mg PO BID Rx Instructions: Takes 1 in the am and 1 in the pm nitroglycerin 0.4 mg tablet, sublingual 0.4 mg sublingual Q5M PRN (Reason: chest pain) Qty: 30 0RF Rx Instructions: Take 0.4 mg every 5 minutes up to 3 doses; seek emergent medical care if no relief fluticasone propion-salmeterol [Advair Diskus] 250-50 mcg/dose blister with device 1 inh inhalation BID Qty: 3 3RF loratadine 10 mg tablet 10 mg PO DAILY Qty: 90 3RF (DME) Blood Glucose Test Strip See Rx Instructions .ROUTE .MEDSUPPLY Qty: 400 3RF Rx Instructions: As directed to check blood glucose four times daily. On insulin. Dispense covered brand. (DME) pen needle, diabetic 31 gauge x 5/16 needle See Dose Instructions .ROUTE .MEDSUPPLY Qty: 500 3RF Dose Instruction: As directed Rx Instructions: As directed with 5-times daily insulin omeprazole 20 mg capsule,delayed release(DR/EC) 20 mg PO DAILY Qty: 90 3RF Rx Instructions: Take 20 mg once daily in the morning at least 30 minutes before first meal albuterol sulfate 90 mcg/actuation HFA aerosol inhaler See Rx Instructions .ROUTE .COMPLEX Qty: 8.5 3RF Dose Instruction: INHALE 1 TO 2 PUFFS BY MOUTH EVERY 4 TO 6 HOURS NEEDED FOR SHORTNESS OF BREATH OR WHEEZING Rx Instructions: INHALE 1 TO 2 PUFFS BY MOUTH EVERY 4 TO 6 HOURS NEEDED FOR SHORTNESS OF BREATH OR WHEEZING atorvastatin 20 mg tablet 20 mg PO DAILY Qty: 90 3RF vitamin B complex Tablet 1 tab PO DAILY Qty: 90 3RF isosorbide mononitrate 60 mg tablet extended release 24 hr 60 mg PO DAILY Qty: 90 3RF Rx Instructions: 01/23/21- [facility] cardio [place], dose decreased to 60mg po QD. Dr. Gil MD;[facility] (Catrina Nuñez writes for this prescription) carvedilol 12.5 mg tablet 18.75 mg PO BID Qty: 42 0RF Rx Instructions: Take 18.75 mg (1 1/2 pills) twice daily trazodone 50 mg tablet 100 mg PO HS ferrous sulfate [FeroSul] 325 mg (65 mg iron) tablet 325 mg PO DAILY Eliquis 2.5 mg tablet 2.5 mg PO ONCE bisacodyl 10 mg suppository 10 mg [place] DAILY PRN fluticasone propionate [24 Hour Allergy Relief] 50 mcg/actuation spray,suspension 1 spray intranasal BID PRN Rx Instructions: administer into each nostril gabapentin 100 mg capsule 200 mg PO BID lisinopril .ROUTE losartan 25 mg tablet Patient Comments: TAKE ONE TABLET BY MOUTH EVERY DAY losartan 50 mg tablet 25 mg PO DAILY Rx Instructions: 01/23/21-[facility] cardio note; increase Losartan to 50mg po qd. Dr. Gil MD Discharge Instructions Additional Instructions: Followup with PCP for chronic conditions: Anemia Hypertension Kidney disease Followup with PCP regarding incidental findings: Bilateral pleural effusions 4.2 cm left adnexal cyst. Left nephrolithiasis. Moderate-sized stool ball in the rectum. Myomatous uterus. Return to the emergency department for new or worsening symptoms HPI General Mode of arrival: EMS. Date/Time Provider Initiated Documentation: 11/04/24 22:32. Limitations to Documentation: altered mental status. Information obtained by: patient and EMS. HPI Narrative: 89yo F with hx HTN, CHF, AICD in place, CKD, T2DM, asthma presenting via EMS for altered mental status. Per EMS patient fell at nursing facility around 1500 (unclear if witnessed); reportedly baseline A&O x 2 but per nursing facility now does not know who or where she is and so sent for evaluation. Patient does not remember the fall. She reports mild forehead pain, otherwise denies complaints. No fevers, chills, nausea, vomiting, chest pain, shortness of breath, abdominal pain, nausea, vomiting, vertigo, vision changes, numbness, weakness, or other concerns. Related Data Home Medications ?Medication ?Instructions ?Recorded ?Confirmed aspirin 81 mg chewable tablet 81 mg PO DAILY 07/25/12 11/04/24 (Aspirin Low-Strength) multivitamin (Daily Vitamin tablet) 1 ea PO DAILY 07/25/12 11/04/24 lancets (OneTouch UltraSoft #90 ea 01/02/15 04/26/24 Lancets) glucagon (human recombinant) 1 mg 1 mg IJ PRN ##1 10/28/15 11/04/24 injection kit (Glucagon Emergency Kit (human-recomb)) acetaminophen 500 mg tablet 500 mg PO BID 09/15/19 11/04/24 inulin 2 gram chewable tablet See Rx Instructions PO .COMPLEX 09/15/19 04/26/24 (Fiber Gummies) nitroglycerin 0.4 mg sublingual 0.4 mg sublingual Q5M PRN chest 07/01/20 11/04/24 tablet pain #30 tab-caps flash glucose scanning reader #1 ea 07/15/20 04/26/24 (FreeStyle Freya 2 [place]) fluticasone 250 mcg-salmeterol 50 1 inh inhalation BID #3 ea 11/04/20 11/04/24 mcg/dose blistr powdr for inhalation (Advair Diskus) insulin lispro 100 unit/mL 1 - 30 unit (0.01 - 0.3 mL) subcut 03/19/21 11/04/24 subcutaneous pen (Humalog [place] AC #27 SYRGS (U-100) Insulin) loratadine 10 mg tablet 10 mg PO DAILY #90 tab-caps 03/24/21 04/26/24 blood sugar diagnostic (Blood #400 ea 04/30/21 04/26/24 Glucose Test strips) pen needle, diabetic 31 gauge x #500 ea 06/18/21 04/26/24 5/16 insulin glargine U-300 conc 300 See Rx Instructions subcut BID #22 06/25/21 11/04/24 unit/mL (1.5 mL) subcutaneous pen SYRGS (Toujeo SoloStar U-300 Insulin) omeprazole 20 mg capsule,delayed 20 mg PO DAILY indigestion #90 07/02/21 11/04/24 release tab-caps albuterol sulfate 90 mcg/actuation See Rx Instructions .Route 10/28/21 11/04/24 aerosol inhaler .COMPLEX #8.5 grams atorvastatin 20 mg tablet 20 mg PO DAILY #90 tab-caps 12/08/21 11/04/24 vitamin B complex 1 tab PO DAILY headaches #90 12/29/21 11/04/24 tab-caps isosorbide mononitrate 60 mg 60 mg PO DAILY #90 tabs 02/04/22 04/26/24 tablet,extended release 24 hr carvedilol 12.5 mg tablet 18.75 mg (1.5 x 12.5 mg) PO BID 03/04/22 11/04/24 #42 tabs trazodone 50 mg tablet 100 mg PO HS insomnia 02/23/24 11/04/24 apixaban 2.5 mg tablet (Eliquis) 2.5 mg PO ONCE 11/04/24 11/04/24 bisacodyl 10 mg rectal suppository 10 mg [place] DAILY PRN 11/04/24 11/04/24 ferrous sulfate 325 mg (65 mg 325 mg PO DAILY 11/04/24 11/04/24 iron) tablet (FeroSul) fluticasone propionate 50 1 spray intranasal BID PRN 11/04/24 11/04/24 mcg/actuation nasal spray,suspension (24 Hour Allergy Relief) gabapentin 100 mg capsule 200 mg PO BID 11/04/24 11/04/24 lisinopril .ROUTE 11/04/24 losartan 25 mg tablet mg 11/04/24 losartan 50 mg tablet 25 mg PO DAILY 11/04/24 11/04/24 Previous Rx's ?Medication ?Instructions ?Recorded nitroglycerin 0.4 mg sublingual 0.4 mg sublingual Q5M PRN chest 07/01/20 tablet pain #30 tab-caps flash glucose scanning reader #1 ea 07/15/20 (FreeStyle Freya 2 [place]) fluticasone 250 mcg-salmeterol 50 1 inh inhalation BID #3 ea 11/04/20 mcg/dose blistr powdr for inhalation (Advair Diskus) insulin lispro 100 unit/mL 1 - 30 unit (0.01 - 0.3 mL) subcut 03/19/21 subcutaneous pen (Humalog KwikPen AC #27 SYRGS (U-100) Insulin) loratadine 10 mg tablet 10 mg PO DAILY #90 tab-caps 03/24/21 blood sugar diagnostic (Blood #400 ea 04/30/21 Glucose Test strips) pen needle, diabetic 31 gauge x #500 ea 06/18/2110/06 insulin glargine U-300 conc 300 See Rx Instructions subcut BID #22 06/25/21 unit/mL (1.5 mL) subcutaneous pen SYRGS (Toujeo SoloStar U-300 Insulin) omeprazole 20 mg capsule,delayed 20 mg PO DAILY indigestion #90 07/02/21 release tab-caps albuterol sulfate 90 mcg/actuation See Rx Instructions .Route 10/28/21 aerosol inhaler .COMPLEX #8.5 grams atorvastatin 20 mg tablet 20 mg PO DAILY #90 tab-caps 12/08/21 vitamin B complex 1 tab PO DAILY headaches #90 12/29/21 tab-caps isosorbide mononitrate 60 mg 60 mg PO DAILY #90 tabs 02/04/22 tablet,extended release 24 hr carvedilol 12.5 mg tablet 18.75 mg (1.5 x 12.5 mg) PO BID 03/04/22 #42 tabs Allergies Allergy/AdvReac Type Severity Reaction Status Date / Time lisinopril Allergy Anaphylaxis Verified 11/04/24 23:51 gabapentin AdvReac Mild Dizziness/L Verified 11/04/24 23:51 ightheade GORDON Inhibitors AdvReac Unknown COUGH Verified 11/04/24 23:51 lactose AdvReac Unknown Verified 11/04/24 23:51 multiple food allergies Allergy Intermediate Sensitization Uncoded 11/04/24 23:51 noted on blood test General Stated Complaint: Fall/Non TraumaCriteria ALON: 3 Review of Systems Narrative: see HPI Exam Narrative Exam Narrative: GENERAL: Alert, no acute distress. SKIN: Warm and well perfused. HEAD: Echymosis to right forehead and right orbit. Facial bones without deformities or tenderness. EYES: PERRL, miosis. No scleral icterus or conjunctival injection. Extraocular muscles intact without nystagmus or diplopia. No proptosis or enophthalmos. NOSE: No discharge, tenderness, laxity. No nasal septal hematoma. MOUTH: No malocclusion or trismus. Moist mucus membranes without blood. NECK: Trachea midline. No discolorations or edema. Full pain free ROM CV: Regular rate and rhythm, Normal s1 and s2. No murmurs, rubs, or gallops. PV: Radial pulses 2+ bilaterally and symmetric. Dorsalis pedis pulses present bilaterally and symmetric. 2+ capillary refill. 3+ pitting edema symmetric BLE. CHEST: Scattered small areas of echymosis to upper anterior chest bilaterally. Chest symmetric with respirations. Mild anterior chest wall tenderness. No crepitus. No step offs. Lungs are clear to auscultation bilaterally. ABDOMEN: No ecchymosis or abrasions. Soft, nondistended, slightly tender to lower abdomen. BACK: No abrasions, skin openings, or ecchymosis. Spine without bony tenderness, no step offs. PELVIC: Pelvis stable, nontender to lateral compression : Normal external genitalia without ecchymosis or edema. MSK: No gross deformities. Echymosis to right posterior shoulder and left forearm. No bony tenderness. Tolerates full range of motion of extremities without any discomfort. NEURO: ? GCS 14 (E3 V5 M6).? PERRL, miosis? EOMI.? Fluent speech, no dysarthria. Oriented to person and place. Motor- 4/5 strength symmetric bilateral upper and lower extremities Sensation- ?Intact to light touch and symmetric multiple dermatomes including upper and lower extremities Coordination- No dysmetria on finger to nose CRANIAL NERVES: II: Pupils equal and reactive, III, IV, : EOM intact, no gaze preference or deviation, no nystagmus. V: normal sensation in V1, V2, and V3 segments bilaterally VII: no asymmetry, no nasolabial fold flattening VIII: normal hearing to speech IX, X: normal palatal elevation, no uvular deviation XI: 5/5 head turn and 5/5 shoulder shrug bilaterally XII: midline tongue protrusion Course Vital Signs Vital signs: Vital Signs Temperature 36.5 C 11/04/24 22:21 Pulse 76 11/04/24 22:21 Respiratory Rate 18 11/04/24 22:21 Blood Pressure 197/77 H 11/04/24 22:21 Pulse Oximetry 100 11/04/24 22:21 Temperature 36.5 C 11/04/24 22:21 Temperature Source Oral 11/04/24 22:21 Pulse 64 11/04/24 23:24 Pulse 64 11/04/24 23:24 Respiratory Rate 18 11/04/24 23:24 Blood Pressure 212/51 H 11/04/24 23:24 Blood Pressure Mean 113 11/04/24 23:24 Pulse Oximetry 100 11/04/24 23:24 Oxygen Delivery Method Room Air 11/04/24 22:21 Oxygen Flow Rate 0 11/04/24 22:21 Pain Level 0 11/04/24 22:21 Lab/Test Results Lab/Test Results: Laboratory Tests Range/Units 11/04/24 11/04/24 11/04/24 22:30 23:24 23:35 WBC (4.4-10.8) 10^3/uL 5.92 RBC (3.93-5.22) 10^6/uL 2.64 L Hgb (11.2-15.7) g/dL 7.4 L Hct (36.0-46.0) % 25.0 L MCV (80-95) fL 95 MCH (27.0-33.0) pg 28.0 MCHC (32.0-36.0) % 29.6 L RDW (11.7-14.6) % 13.9 Plt Count (130-400) 10^3/uL 132 MPV (8.0-11.0) fL 11.1 H Immature Gran % % 0.5 Neutrophils % % 76.7 Lymphocytes % % 11.0 Monocytes % % 9.3 Eosinophils % % 2.0 Basophils % % 0.5 Nucleated RBC % (0.0-0.3) % 0.0 Absolute Neutrophils (1.2-6.7) 10^3/uL 4.54 Absolute Lymphocytes (1.2-3.4) 10^3/uL 0.65 L Absolute Monocytes (0.1-0.8) 10^3/uL 0.55 Absolute Eosinophils (0.0-0.7) 10^3/uL 0.12 Absolute Basophils (0.0-0.2) 10^3/uL 0.03 RBC Morphology See Below Hypochromasia 2+ PT (9.1-11.1) sec 11.1 INR (0.9-1.1) 1.1 APTT (20.6-30.2) sec 25.0 Sodium (136-145) mmol/L 147 H Potassium (3.5-5.1) mmol/L 4.9 Chloride (98-107) mmol/L 114 H Carbon Dioxide (21.0-32.0) mmol/L 25.2 Anion Gap (3-11) mmol/L 7.8 BUN (7-18) mg/dL 40 H Creatinine (0.55-1.02) mg/dL 2.5 H Est GFR (CKD-EPI 2020) (mL/min/1.73m2) 18.16 Glucose (74-106) mg/dL 94 Calcium (8.5-10.1) mg/dL 8.5 Magnesium (1.8-2.4) mg/dL 2.0 Total Bilirubin (0.2-1.0) mg/dL 0.2 AST (15-37) U/L 24 ALT (14-59) U/L 23 Alkaline Phosphatase (46-116) U/L 71 Troponin I (<or=51) ng/L 36 Cancelled Total Protein (6.4-8.2) g/dL 5.9 L Albumin (3.4-5.0) g/dL 2.3 L Urine Color (Yellow) Yellow Urine Clarity (Clear) Sl Cloudy Urine pH (5-8) 5.5 Ur Specific Baggs (1.005-1.025) 1.025 Urine Protein (Neg-Trace) mg/dL >=300 H Urine Ketones (Negative) mg/dL Negative Urine Blood (Negative) Moderate H Urine Nitrite (Negative) Negative Urine Bilirubin (Negative) Negative Urine Urobilinogen (Up to 0.2) mg/dL 0.2 Ur Leukocyte Esterase (Negative) Negative Urine RBC (0-2) HPF 5-10 H Urine WBC (0-5) HPF 5-10 Ur Epithelial Cells (Negative) HPF Few Urine Crystals (Negative) HPF Moderate Amorphous Urine Bacteria (Negative) HPF Moderate Urine Casts (Negative) LPF 3-5 Fine Granular Urine Mucus (Negative) Moderate Ur Culture Indicated? No Urine Glucose (Negative) mg/dL Negative Ethyl Alcohol (<10) mg/dL < 3.0 Medical Decision Making 89yo F with hx HTN, CHF, AICD in place, CKD, T2DM, asthma, presenting via EMS for altered mental status. Per EMS patient fell at nursing facility around 1500 (unclear if witnessed); reportedly baseline A&O x 2 but per nursing facility now does not know who or where she is and so sent for evaluation. Patient does not remember the fall. She reports mild forehead pain, otherwise denies complaints. Hypertensive on arrival, vital signs otherwise reassuring. Scattered echymosis on exam including forehead, chest, and extremities. Mildly tender to anterior chest and lower abdomen. No spinal tenderness. Given age and poor historian, out of abundance of caution will evaluate broadly with CT velasco scan though lower suspicion for significant traumatic injury to chest/abd/pelvis. Given very poor kidney function on outpatient labs yesterday, elected for non-contrasted scan. -EKG paced in 60's, no ST segment or T wave abnormalities to suggest occlusive OH. -Labs reviewed as below, CBC with anemia with hg of 7.4 (roughly baseline on [facility] record review), CMP with Cr 2.5 (also baseline on record review) with no actionable abnormalities, Mg normal, ETOH negative, coags normal, troponin normal ~8 hours after fall not suggestive of blunt cardiac injury, UA with hematuria most likely 2/t traumatic cath and not suggestive of infection. -CT head and c spine independently reviewed, no ICH or displaced cevical fracture on my view; radiology read below with no acute findings. Incidental thyroid nodules noted. -CT chest/abd/pelvis independently reviewed; small bilateral pleural effusions and no pneumothorax, no free fluid in abdomen on my view; radiology read below with small bilateral pleural effusions as well as multiple incidental findings described below. On reassessment neurologic exam remains benign, GCS 14, rouses easily to voice. No abdominal tenderness on repeat assessment. Denies pain anywhere or any complaints. Remains hypertensive, vital signs otherwise reassuring. Lungs clear, no hypoxia, no increased WOB. Pleural effusions likely 2/t known CHF; would not perform thoracentesis at this time. Will defer management to primary care doctor; no indication for admission or emergent intervention. Appropriate for discharge back to nursing facility to followup with PCP for chronic conditions and incidental findings. Discharged home; discharge instructions and return precautions reviewed with patient and sent to facility. Imaging Data Radiologic Study: Imaging: CT Scan Radiologist's impression: HEAD: IMPRESSION: 1. No acute intracranial process. No intracranial hemorrhage or mass effect. 2. Right frontal scalp soft tissue swelling, with no underlying fracture or foreign body. 3. Atrophy with nonspecific white matter hypodensities most commonly representing chronic microvascular changes in this age group. 4. Moderate calcific atherosclerosis. C-SPINE: IMPRESSION: 1. No evidence of acute fracture or traumatic subluxation. 2. Osteopenia and osteoarthritic changes detailed above. 3. Moderate left pleural effusion. 4. Thyromegaly with numerous thyroid nodules and calcifications, probably multinodular goiter. Consider nonemergent thyroid ultrasound assessment if not previously evaluated. CAP: IMPRESSION: No acute findings. Nodular thyroid suspicious for goiter. Mild cardiomegaly. Small bilateral pleural effusions. IMPRESSION: 4.2 cm left adnexal cyst. Left nephrolithiasis. Moderate-sized stool ball in the rectum. Correlate clinically possible constipation. Myomatous uterus. Bladder findings which may be indicative of early cystitis. Correlate with urinalysis Colonic diverticula. Lab Data Lab results reviewed: Yes I reviewed the patient's lab results. Labs: Laboratory Tests Range/Units 11/04/24 11/04/24 11/04/24 22:30 23:24 23:35 WBC (4.4-10.8) 10^3/uL 5.92 RBC (3.93-5.22) 10^6/uL 2.64 L Hgb (11.2-15.7) g/dL 7.4 L Hct (36.0-46.0) % 25.0 L MCV (80-95) fL 95 MCH (27.0-33.0) pg 28.0 MCHC (32.0-36.0) % 29.6 L RDW (11.7-14.6) % 13.9 Plt Count (130-400) 10^3/uL 132 MPV (8.0-11.0) fL 11.1 H Immature Gran % % 0.5 Neutrophils % % 76.7 Lymphocytes % % 11.0 Monocytes % % 9.3 Eosinophils % % 2.0 Basophils % % 0.5 Nucleated RBC % (0.0-0.3) % 0.0 Absolute Neutrophils (1.2-6.7) 10^3/uL 4.54 Absolute Lymphocytes (1.2-3.4) 10^3/uL 0.65 L Absolute Monocytes (0.1-0.8) 10^3/uL 0.55 Absolute Eosinophils (0.0-0.7) 10^3/uL 0.12 Absolute Basophils (0.0-0.2) 10^3/uL 0.03 RBC Morphology See Below Hypochromasia 2+ PT (9.1-11.1) sec 11.1 INR (0.9-1.1) 1.1 APTT (20.6-30.2) sec 25.0 Sodium (136-145) mmol/L 147 H Potassium (3.5-5.1) mmol/L 4.9 Chloride (98-107) mmol/L 114 H Carbon Dioxide (21.0-32.0) mmol/L 25.2 Anion Gap (3-11) mmol/L 7.8 BUN (7-18) mg/dL 40 H Creatinine (0.55-1.02) mg/dL 2.5 H Est GFR (CKD-EPI 2020) (mL/min/1.73m2) 18.16 Glucose (74-106) mg/dL 94 Calcium (8.5-10.1) mg/dL 8.5 Magnesium (1.8-2.4) mg/dL 2.0 Total Bilirubin (0.2-1.0) mg/dL 0.2 AST (15-37) U/L 24 ALT (14-59) U/L 23 Alkaline Phosphatase (46-116) U/L 71 Troponin I (<or=51) ng/L 36 Cancelled Total Protein (6.4-8.2) g/dL 5.9 L Albumin (3.4-5.0) g/dL 2.3 L Urine Color (Yellow) Yellow Urine Clarity (Clear) Sl Cloudy Urine pH (5-8) 5.5 Ur Specific Baggs (1.005-1.025) 1.025 Urine Protein (Neg-Trace) mg/dL >=300 H Urine Ketones (Negative) mg/dL Negative Urine Blood (Negative) Moderate H Urine Nitrite (Negative) Negative Urine Bilirubin (Negative) Negative Urine Urobilinogen (Up to 0.2) mg/dL 0.2 Ur Leukocyte Esterase (Negative) Negative Urine RBC (0-2) HPF 5-10 H Urine WBC (0-5) HPF 5-10 Ur Epithelial Cells (Negative) HPF Few Urine Crystals (Negative) HPF Moderate Amorphous Urine Bacteria (Negative) HPF Moderate Urine Casts (Negative) LPF 3-5 Fine Granular Urine Mucus (Negative) Moderate Ur Culture Indicated? No Urine Glucose (Negative) mg/dL Negative Ethyl Alcohol (<10) mg/dL < 3.0 PFSH All Active Problems (Updated 11/05/24 @ 00:30 by Rohini Watkins MD) Pleural effusion (Acute) Anticoagulant long-term use (Acute) Head injury (Acute) Fall (Acute) Angina at rest (Acute) Tubular adenoma of colon (Acute) Urinary incontinence (Acute) Neck pain (Acute) SARS-CoV-2 positive (Acute) Headache (Acute) Advanced directives, counseling/discussion (Acute) Bowel habit changes (Acute) Hydrosalpinx (Chronic) Left Muscular deconditioning (Acute) Lumbar spondylosis (Acute) Inflammatory polyps (Acute) Gastritis (Acute) Anemia (Chronic) 08/15/20 [facility] Video capsule endoscopy Insomnia (Chronic) 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 obesity hypoventilation?), also has asthma Osteoporosis (Chronic 07/28/11) Multiple food allergies (Chronic 08/14/15) Immunological Sensitization noted on Blood Test for Milk/Casein, peanut, Tomato, [place], Cabbage, [place], Rice, Spinach, Asparagus, Brussel Sprouts, Sweet Potato, Beef, Pork Mitral valve regurgitation (Chronic 09/05/13) 3+ Memory impairment (Chronic 08/30/17) 08/30/17 MOCA score: 02/16/19 MOCA score: Depression (Chronic 12/16/11) HUE Velasco in the past Cardiac resynchronization therapy defibrillator ([employer]UDENT EDUCATION SPECIALIST-D) in place (Chronic 08/14/16) [facility] Cardiology 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 heart block, severe diffuse left ventricular dysfunction HFrEF (LVEF ~25%) Mitral regurg 3+ 2009 cardiac cath: mild diffuse disease ([facility]) 07/03/2013 MPI: +Ischemia, inferolateral defect 01/17/20 [facility] Echo Essential hypertension (12/16/11) Goal BP </=130-140/80 Hyperlipidemia, unspecified (05/02/15) ASCVD (arteriosclerotic cardiovascular disease) (09/07/16) [facility] Cariology Stress test showing small, reversible inferior wall defect c/w ischemia Type 2 diabetes mellitus with retinopathy of both eyes, with long-term current use of insulin Asthma 09/03/2014 PFTs: mild obstructive airway disease with significant bronchodilator response Chronic kidney disease (CKD), stage IV (severe) [facility] Nephrology ICD (implantable cardioverter-defibrillator) in place AVM (arteriovenous malformation) of colon Surgical History History of total left knee replacement Replacement of total knee joint B/L Hernia Repair, Incisional (~2010) W/ mesh. Dr. Cheko Patterson Extraction of cataract Dr. Hensley Family History Mother Hypertensive disorder, systemic arterial Diabetes Atherosclerosis of coronary artery Family history of stroke Dementia Hyperlipidemia Family history of glaucoma Cataract Father No problems noted. Social History Smoking/Tobacco Use Status: Former Tobacco Use Smoking risk assessment performed?: Yes Alcohol Intake: former Drug use: Never Substance use type: does not use Adopted: No Caregiver/Support person: No Foster care: No Housing: custodial Number of Children: 5 Communication Needs: None Pets and animals: Yes Pets and animals: cat(s) and dog(s) Sexually active: No Current gender identity: female What is your relationship status?: Panel score (0-1 are the most socially isolated patients): 0 What type of physical activity do you participate in: other Details: Excercise classes at [employer] Duration: 45-60 minutes/day Frequency: 1-2 times per week Seatbelt use: always Do you feel safe at home: Yes Do you feel safe in your relationship?: Yes
[2024-11-05] VITALS: PULSE 61; RESP 19; O2SAT 100
[2024-11-05 00:03] VITALS: BP 164/45; PULSE 63; RESP 22
[2024-11-05 00:10] VITALS: PULSE 60; RESP 18
[2024-11-05 00:29] VITALS: BP 191/84; PULSE 65; RESP 18; O2SAT 94
== END 2024-11-05 00:36 | disposition skilled nursing facility (03) ==
PROVIDERS: Emergency Provider Student in an Organized Health Care Education/Training Program
DX: S09.8XXA Other specified injuries of head, initial encounter (principal); J90 Pleural effusion, not elsewhere classified; I10 Essential (primary) hypertension; Z79.01 Long term (current) use of anticoagulants; W19.XXXA Unspecified fall, initial encounter
CPT/HCPCS: 99284 ×2; 36415; 71250; 80053; 93005; 70450; 72125; 74176; 80320; 81003; 81015; 83735; 84484; 85025; 85610; 85730; 93010

== ENCOUNTER 2024-12-03 11:25 | Observation (INO) | payer MEDICARE, SELFPAY ==
[2024-12-03] VITALS (56 sets, daily range): BP systolic 198–257; BP diastolic 54–112; PULSE 59–129; RESP 17–34; TEMP 36.3–36.9; O2SAT 95–100
--- NOTE | 2024-12-03 11:15 | RT.EKG_ITS ---
APPROVED REPORT Exam: Resting ECG Reason for Exam: SOB Patient Location: E HR:61 bpm ECG Measurements Heart Rate 61 AXIS [place] 315 P 72 QRSd 159 QRS 166 QT 481 T 51 QTc 486 Conclusion Atrial-ventricular dual-paced rhythm Rate 61 No STEMI, sgarbosa negative No significant changes from priors
--- NOTE | 2024-12-03 11:30 | DI.RAD_ITS ---
Exam(s) XR CHEST 2V PA LATERAL EXAM: XR CHEST 2V PA LATERAL CLINICAL HISTORY: Chest pain TECHNIQUE: 2D digital imaging was performed. Two views. COMPARISON: CT CT CHEST/ABD/PEL WO from 11/04/2024 FINDINGS: HEART: Enlarged. Aorta: Not dilated. Calcified PULMONARY VASCULATURE: Prominent MEDIASTINUM: Unremarkable. LUNGS: Increased densities again noted at the left lung base. Small to moderate size left pleural effusion, similar to prior CT. PLEURAL SPACE: No pleural effusion or pneumothorax. BONE:Unremarkable for age. SOFT TISSUES: Pacemaker device over left upper chest. IMPRESSION: Left pleural effusion grossly unchanged. Adjacent atelectasis versus pneumonia. The preliminary [facility] report was reviewed. DATA REPOSITORY: RADIATION DOSE DELIVERED:
--- NOTE | 2024-12-03 11:30 | DI.CT_ITS ---
Exam(s) CT HEAD CERV SPINE FACIAL WO EXAM: CT HEAD CERV SPINE FACIAL WO CLINICAL HISTORY: unwitnessed fall, periorbital bruising, on thinner. TECHNIQUE: Imaging Protocol: Axial computed tomography images with coronal and sagittal reformatted images were created and reviewed COMPARISON: CT CT HEAD CERVICAL SPINE WO from 11/04/2024 FINDINGS: CT Head: Ventricles and Extra axial spaces: Normal in size and morphology for the patient's age. Hemorrhage: None. Cerebral parenchyma: No evidence of acute hemorrhage or acute infarct. Atrophy consistent with the patient's age. White matter changes small vessel disease. Old basal ganglia lacunar infarcts. Midline shift: None. Brainstem/Cerebellum: Normal. Calvarium: Normal. Visualized Paranasal sinuses/Mastoids: Mild mucosal thickening of the floor of the left maxillary sinus. The left sphenoid sinus is diminutive and is opacified. Mild mucosal thickening in the right maxillary sinus. Soft Tissues: Unremarkable. CT Face: Facial Bones: No fracture is noted in facial bones. Dental caries noted, greater involving the left maxillary teeth Sinuses and Mastoids: Mild mucosal thickening of the floor of the left maxillary sinus. The left sphenoid sinus is diminutive and is opacified. Mild mucosal thickening in the right maxillary sinus. Globes, extraocular muscles, optic nerves and retrobulbar fat: Normal. Upper aerodigestive tract: Normal. Mandible and bilateral temporomandibular joints: Unremarkable. Soft tissues: Normal. CT Cervical Spine: Bones: No acute fracture or subluxation. Degenerative disc changes and facet degenerative changes present throughout. Soft Tissues: Unremarkable. Lung Apices: A left pleural effusion is noted. IMPRESSION: 1. No acute intracranial process. 2. No acute fracture or subluxation in the cervical spine. Advanced degenerative changes. 3. No acute facial fracture. The preliminary [facility] report was reviewed. RADIATION DOSE DELIVERED: Total DLP DATA REPOSITORY: All CT scans at this facility are submitted to the National Radiology Data Registry (NRDR) Dose Index Registry (DIR) with the [employer] (A[employer]). RADIATION OPTIMIZATION: All CT scans at this facility use at least one of these dose optimization techniques: automated exposure control; mA and/or kV adjustment per patient size (includes targeted exams where dose is matched to clinical indication); or iterative reconstruction.
--- NOTE | 2024-12-03 11:36 | W.ED.GENAD ---
Discharge Plan Disposition Patient Disposition: Admit to [facility] Condition: Fair Discharge Details Clinical Impression: Pleural effusion, Acute exacerbation of CHF (congestive heart failure), Acute UTI, Candidal diaper dermatitis, Acute on chronic alteration in mental status, Anticoagulant long-term use, Hypertension Admit Date/Time: 12/03/24 14:32 Admit Provider: Blayne Bernal Attending Provider: Blayne Bernal Primary Care Provider: Unknown,Unknown ED Provider: Darcy Hernandez Discharge Data Discharge Date/Time-TO BE ENTERED AT DEPARTURE: 12/03/24 16:55 HPI General Mode of arrival: EMS. Date/Time Provider Initiated Documentation: 12/03/24 11:30. Limitations to Documentation: altered mental status. Information obtained by: patient, EMS and old records reviewed. HPI Narrative: This is an 89-year-old female patient with a past medical history significant for CHF, hypertension, CAD, diabetes, CKD, on anticoagulation, who was brought in by EMS with shortness of breath. Per the care facility that she resides at, the patient has had 2 days of worsening shortness of breath, was placed on supplemental oxygen for a room air sat of 90%. They note worsening peripheral edema, as well as slightly increased altered mental status compared to her baseline. She is currently saturating at 98% on room air, was noted to be hypertensive. The patient is confused, answers most questions with yes. She is noted to have some bruising of her right chest anterior wall as well as her bilateral face/periorbital regions, states that she fell but cannot recall when. Related Data Home Medications ?Medication ?Instructions ?Recorded ?Confirmed aspirin 81 mg chewable tablet 81 mg PO DAILY 07/25/12 12/03/24 (Aspirin Low-Strength) multivitamin (Daily Vitamin tablet) 1 ea PO DAILY 07/25/12 12/03/24 lancets (OneTouch UltraSoft #90 ea 01/02/15 12/03/24 Lancets) glucagon (human recombinant) 1 mg 1 mg IJ PRN ##1 10/28/15 12/03/24 injection kit (Glucagon Emergency Kit (human-recomb)) acetaminophen 500 mg tablet 500 mg PO BID 09/15/19 12/03/24 inulin 2 gram chewable tablet See Rx Instructions PO .COMPLEX 09/15/19 12/03/24 (Fiber Gummies) nitroglycerin 0.4 mg sublingual 0.4 mg sublingual Q5M PRN chest 07/01/20 11/04/24 tablet pain #30 tab-caps flash glucose scanning reader #1 ea 07/15/20 12/03/24 (FreeStyle Freya 2 [place]) fluticasone 250 mcg-salmeterol 50 1 inh inhalation BID #3 ea 11/04/20 12/03/24 mcg/dose blistr powdr for inhalation (Advair Diskus) insulin lispro 100 unit/mL 1 - 30 unit (0.01 - 0.3 mL) subcut 03/19/21 12/03/24 subcutaneous pen (Humalog KwikPen AC #27 SYRGS (U-100) Insulin) loratadine 10 mg tablet 10 mg PO DAILY #90 tab-caps 03/24/21 12/03/24 blood sugar diagnostic (Blood #400 ea 04/30/21 12/03/24 Glucose Test strips) pen needle, diabetic 31 gauge x #500 ea 06/18/21 12/03/2410/06 insulin glargine U-300 conc 300 See Rx Instructions subcut BID #22 06/25/21 12/03/24 unit/mL (1.5 mL) subcutaneous pen SYRGS (Toujeo SoloStar U-300 Insulin) omeprazole 20 mg capsule,delayed 20 mg PO DAILY indigestion #90 07/02/21 11/04/24 release tab-caps albuterol sulfate 90 mcg/actuation See Rx Instructions .Route 10/28/21 12/03/24 aerosol inhaler .COMPLEX #8.5 grams atorvastatin 20 mg tablet 20 mg PO DAILY #90 tab-caps 12/08/21 12/03/24 vitamin B complex 1 tab PO DAILY headaches #90 12/29/21 12/03/24 tab-caps isosorbide mononitrate 60 mg 60 mg PO DAILY #90 tabs 02/04/22 12/03/24 tablet,extended release 24 hr carvedilol 12.5 mg tablet 18.75 mg (1.5 x 12.5 mg) PO BID 03/04/22 12/03/24 #42 tabs trazodone 50 mg tablet 100 mg PO HS insomnia 02/23/24 12/03/24 apixaban 2.5 mg tablet (Eliquis) 2.5 mg PO ONCE 11/04/24 12/03/24 bisacodyl 10 mg rectal suppository 10 mg [place] DAILY PRN 11/04/24 12/03/24 ferrous sulfate 325 mg (65 mg 325 mg PO DAILY 11/04/24 12/03/24 iron) tablet (FeroSul) fluticasone propionate 50 1 spray intranasal BID PRN 11/04/24 12/03/24 mcg/actuation nasal spray,suspension (24 Hour Allergy Relief) gabapentin 100 mg capsule 200 mg PO BID 11/04/24 12/03/24 lisinopril .Route 11/04/24 losartan 25 mg tablet 25 mg PO BID 11/04/24 12/03/24 losartan 50 mg tablet 25 mg PO DAILY 11/04/24 12/03/24 Previous Rx's ?Medication ?Instructions ?Recorded nitroglycerin 0.4 mg sublingual 0.4 mg sublingual Q5M PRN chest 07/01/20 tablet pain #30 tab-caps flash glucose scanning reader #1 ea 07/15/20 ([employer] Freya 2 [place]) fluticasone 250 mcg-salmeterol 50 1 inh inhalation BID #3 ea 11/04/20 mcg/dose blistr powdr for inhalation (Advair Diskus) insulin lispro 100 unit/mL 1 - 30 unit (0.01 - 0.3 mL) subcut 03/19/21 subcutaneous pen (Humalog [place] AC #27 SYRGS (U-100) Insulin) loratadine 10 mg tablet 10 mg PO DAILY #90 tab-caps 03/24/21 blood sugar diagnostic (Blood #400 ea 04/30/21 Glucose Test strips) pen needle, diabetic 31 gauge x #500 ea 06/18/2110/06 insulin glargine U-300 conc 300 See Rx Instructions subcut BID #22 06/25/21 unit/mL (1.5 mL) subcutaneous pen SYRGS (Toujeo SoloStar U-300 Insulin) omeprazole 20 mg capsule,delayed 20 mg PO DAILY indigestion #90 07/02/21 release tab-caps albuterol sulfate 90 mcg/actuation See Rx Instructions .Route 10/28/21 aerosol inhaler .COMPLEX #8.5 grams atorvastatin 20 mg tablet 20 mg PO DAILY #90 tab-caps 12/08/21 vitamin B complex 1 tab PO DAILY headaches #90 12/29/21 tab-caps isosorbide mononitrate 60 mg 60 mg PO DAILY #90 tabs 02/04/22 tablet,extended release 24 hr carvedilol 12.5 mg tablet 18.75 mg (1.5 x 12.5 mg) PO BID 03/04/22 #42 tabs Allergies Allergy/AdvReac Type Severity Reaction Status Date / Time lisinopril Allergy Anaphylaxis Verified 12/03/24 11:55 gabapentin AdvReac Mild Dizziness/L Verified 12/03/24 11:55 ightheade GORDON Inhibitors AdvReac Unknown COUGH Verified 12/03/24 11:55 lactose AdvReac Unknown Verified 12/03/24 11:55 multiple food allergies Allergy Intermediate Sensitization Uncoded 12/03/24 11:55 noted on blood test General Stated Complaint: RespSymp ALON: 3 Exam Narrative Exam Narrative: Gen: Awake and alert, in no apparent distress HEENT: Non-icteric sclera, PERRL, bilateral periorbital ecchymosis appreciated, no midface instability, epistaxis, or dental malocclusion Neck: Supple, full range of motion, no posterior spine tenderness Lungs: No apparent respiratory distress, normal respiratory effort. Lung sounds clear and equal bilaterally CV: Appears well perfused, heart with regular rate Abdomen: Non-distended, soft, nontender without rigidity, rebound, or guarding. MSK: Moves 4 extremities without apparent limitation in ROM, 2+ bilateral peripheral edema without overlying skin changes noted Skin: The patient's skin on her bottom underneath her incontinence brief is noted to be red and beefy appearing, with small satellite lesions concerning for candidal dermatitis. No ulcerations or skin breaks noted. Neuro: No obvious focal deficits or facial asymmetry. Speaks in full, clear sentences. Pleasantly confused, oriented to person only Psych: Appropriate for situation. Course Vital Signs Vital signs: Vital Signs Temperature 36.3 C L 12/03/24 11:25 Pulse 64 12/03/24 11:25 Respiratory Rate 22 12/03/24 11:25 Blood Pressure 198/88 H 12/03/24 11:25 Pulse Oximetry 98 12/03/24 11:25 Temperature 36.3 C L 12/03/24 11:28 Temperature Source Temporal Artery Scan 12/03/24 11:28 Pulse 64 07/13/25 11:28 Respiratory Rate 22 12/03/24 11:28 Blood Pressure 198/88 H 12/03/24 11:28 Blood Pressure Position Supine 12/03/24 11:28 Pulse Oximetry 98 12/03/24 11:28 Oxygen Delivery Method Room Air 12/03/24 11:25 Oxygen Flow Rate 0 12/03/24 11:25 Pain Level 6 12/03/24 11:28 Medical Decision Making This is an 89-year-old female patient presenting for evaluation of altered mental status, shortness of breath, and peripheral edema. My differential includes but is not limited to cardiac abnormalities including ACS, heart failure exacerbation, pulmonary edema, pleural effusion, considered reactive airway disease exacerbation though the patient is without wheezing. Reassuringly she is not hypoxic at this time and is not requiring supplemental oxygen. I certainly considered infectious pathologies including urinary tract infection, skin infections, pneumonia and bronchitis. Given the patient's bruising and the unknown history of falls I did consider trauma including intracranial hemorrhage, skull and facial bone fracture, C-spine fracture. I considered metabolic and electrolyte derangement, anemia, kidney injury, liver pathology. We will obtain a CT of the head and C-spine, as well as the facial bones. I will obtain a chest x-ray, EKG, and laboratory studies to include CBC, CMP, magnesium, troponin, BNP, urinalysis. -I reviewed the patient's EKG, which shows a paced rhythm that is Sgarbossa negative and without significant change from her priors. I reviewed the patient's laboratory studies, she has no leukocytosis, stable anemia compared to her baseline and no thrombocytopenia. Her chemistry panel reveals no significant electrolyte derangements, nor new kidney injury. No evidence of liver injury, initial troponin is slightly above our upper limit of normal at 52, downtrending on 1 hour recheck without a significant delta per hour high-sensitivity troponin protocol. BNP however is elevated above her baseline to 4800 today. UA was performed, revealing pyuria, with leukocyte esterase and large blood concerning for urinary tract infection. Chest x-ray reviewed by myself, notable for cardiomegaly and a left-sided pleural effusion. Radiology notes that pneumonia cannot be excluded, though given the elevated BNP and peripheral edema I think fluid is a more compelling etiology. CT imaging of the head, face, and C-spine are without acute injury, and we were able to obtain collateral information from the [facility] and rehab and her fall seems to have been approximately 2 weeks ago. I provided the patient with a gram of ceftriaxone and 40 mg of Lasix IV, but given her ongoing altered mental status, high blood pressure, and comorbidities I do feel that she is appropriate for admission for ongoing diuresis and antibiosis. I reached out to the hospitalist who is graciously accepted this patient for admission. She remained hemodynamically stable while under my care was transferred to their team without incident. Darcy Hernandez MD Quality:[facility] Health Related Social Needs: Health related social needs details unable to obtain [facility] All Active Problems (Updated 12/06/24 @ 00:03 by SHADY TRAN) Pleural effusion (Acute) Elevated troponin (Acute) ICD (implantable cardioverter-defibrillator) in place (Acute) Chronic kidney disease (CKD), stage IV (severe) (Acute) [facility] Nephrology Type 2 diabetes mellitus with retinopathy of both eyes, with long-term current use of insulin (Acute) Hypertension (Chronic) Acute on chronic alteration in mental status (Acute) Candidal diaper dermatitis (Acute) Acute UTI (Acute) Acute exacerbation of CHF (congestive heart failure) (Acute) Pleural effusion (Acute) Anticoagulant long-term use (Acute) Angina at rest (Acute) Tubular adenoma of colon (Acute) Urinary incontinence (Acute) Neck pain (Acute) SARS-CoV-2 positive (Acute) Headache (Acute) Advanced directives, counseling/discussion (Acute) Bowel habit changes (Acute) Hydrosalpinx (Chronic) Left Muscular deconditioning (Acute) Lumbar spondylosis (Acute) Inflammatory polyps (Acute) Gastritis (Acute) Anemia (Chronic) 08/15/20 [facility] Video capsule endoscopy Insomnia (Chronic) 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 obesity hypoventilation?), also has asthma Osteoporosis (Chronic 07/28/11) Multiple food allergies (Chronic 08/14/15) Immunological Sensitization noted on Blood Test for Milk/Casein, peanut, Tomato, [place]pp, Cabbage, [place], Rice, Spinach, Asparagus, Brussel Sprouts, Sweet Potato, Beef, Pork Mitral valve regurgitation (Chronic 09/05/13) 3+ Memory impairment (Chronic 08/30/17) 08/30/17 MOCA score: 2330 02/16/19 MOCA score: Depression (Chronic 12/16/11) HUE Vel[place] in the past Cardiac resynchronization therapy defibrillator (SUPERMARK[employer]GER-D) in place (Chronic 08/14/16) [facility] Cardiology 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 heart block, severe diffuse left ventricular dysfunction HFrEF (LVEF ~25%) Mitral regurg 3+ 2009 cardiac cath: mild diffuse disease ([facility]) 07/03/2013 MPI: +Ischemia, inferolateral defect 01/17/20 [facility] Echo Essential hypertension (12/16/11) Goal BP </=130-140/80 Hyperlipidemia, unspecified (05/02/15) ASCVD (arteriosclerotic cardiovascular disease) (09/07/16) [facility] Cariology Stress test showing small, reversible inferior wall defect c/w ischemia Type 2 diabetes mellitus with retinopathy of both eyes, with long-term current use of insulin Asthma 09/03/2014 PFTs: mild obstructive airway disease with significant bronchodilator response Chronic kidney disease (CKD), stage IV (severe) [facility] Nephrology ICD (implantable cardioverter-defibrillator) in place AVM (arteriovenous malformation) of colon Surgical History History of total left knee replacement Replacement of total knee joint B/L Hernia Repair, Incisional (~2010) W/ mesh. Dr. Cheko Patterson Extraction of cataract Dr. Hensley Family History Mother Hypertensive disorder, systemic arterial Diabetes Atherosclerosis of coronary artery Family history of stroke Dementia Hyperlipidemia Family history of glaucoma Cataract Father No problems noted. Social History Smoking/Tobacco Use Status: Former Tobacco Use Smoking risk assessment performed?: Yes Alcohol Intake: former Drug use: Never Substance use type: does not use Adopted: No Caregiver/Support person: No Foster care: No Housing: assisted living facility Number of Children: 5 Communication Needs: None Pets and animals: Yes Pets and animals: cat(s) and dog(s) Sexually active: No Current gender identity: female What is your relationship status?: Panel score (0-1 are the most socially isolated patients): 0 What type of physical activity do you participate in: other Details: Excercise classes at [employer] Duration: 45-60 minutes/day Frequency: 1-2 times per week Seatbelt use: always Do you feel safe at home: Yes Do you feel safe in your relationship?: Yes
[2024-12-03 11:50] LABS: Abs Immature Grans 0.08 10^3/uL (0.0-0.06); HCT 27.2 % (36.0-46.0); HGB 8.5 g/dL (11.2-15.7); Immature Grans % 0.9 %; MCH 27.6 pg (27.0-33.0); MCHC 31.3 % (32.0-36.0); MCV 88 fL (80-95); MPV 11.0 fL (8.0-11.0); Platelet Count 163 10^3/uL (130-400); RBC 3.08 10^6/uL (3.93-5.22); RDW 14.0 % (11.7-14.6); RDW-SD 45.0 fL; WBC 8.58 10^3/uL (4.4-10.8)
[2024-12-03 12:07] LABS: INR 1.1 (0.9-1.1); Prothrombin Time 11.0 sec (9.1-11.1)
[2024-12-03 12:10] LABS: ALT 15 U/L (14-59); AST 15 U/L (15-37); Albumin 2.1 g/dL (3.4-5.0); Alkaline Phosphatase 87 U/L (46-116); Anion Gap 8.4 mmol/L (3-11); BUN 35 mg/dL (7-18); Bilirubin, Total 0.5 mg/dL (0.2-1.0); CO2 24.6 mmol/L (21.0-32.0); Calcium 8.5 mg/dL (8.5-10.1); Chloride 113 mmol/L (98-107); Estimated GFR 22.38 (mL/min/1.73m2); Glucose 274 mg/dL (74-106); Magnesium 1.7 mg/dL (1.8-2.4); Potassium 3.7 mmol/L (3.5-5.1); Sodium 146 mmol/L (136-145); Total Protein 6.0 g/dL (6.4-8.2)
[2024-12-03 12:12] LABS: Troponin I 52 ng/L (<or=51)
[2024-12-03] MEDS: ACETAMINOPHEN 1,000 MG/100 ML BAG 400 MG IVPB (12:18)
[2024-12-03 12:37] LABS: NT-proBNP 4827 pg/mL (<300)
[2024-12-03 13:18] LABS: Troponin I 44 ng/L (<or=51)
--- NOTE | 2024-12-03 13:41 | DI.[facility]AD_ITS ---
PROCEDURE INFORMATION: Exam: XR Chest Exam date and time: 12/03/2024 12:09 PM Age: 89 years old Clinical indication: Other: Chest pain TECHNIQUE: Imaging protocol: Radiologic exam of the chest. Views: 2 views. COMPARISON: CT CHEST/ABD/PEL WO 11/04/2024 10:58 PM FINDINGS: Cardiac pacemaker/AICD leads are grossly intact Lungs: Left basilar consolidation. Pleural spaces: Left pleural effusion. No pneumothorax. Heart/Mediastinum: Grossly stable. Bones/joints: Unremarkable. IMPRESSION: Left basilar consolidation and left pleural effusion. Findings may represent underlying pneumonia. Further evaluation with CT angiography of the chest as clinically indicated Dictated and Authenticated by: Geovanny Patel MD. Orderin [facility] Adolph Taveras MD
[2024-12-03 13:44] LABS: Glucose 100 mg/dL (Negative)
--- NOTE | 2024-12-03 13:44 | DI.VRAD_ITS ---
PROCEDURE INFORMATION: Exam: CT Head Without Contrast Exam date and time: 12/03/2024 11:58 AM Age: 89 years old Clinical indication: Other: Unwitnessed fall, periorbital bruising, on thinner TECHNIQUE: Imaging protocol: Computed tomography of the head without contrast. Radiation optimization: All CT scans at this facility use at least one of these dose optimization techniques: automated exposure control; mA and/or kV adjustment per patient size (includes targeted exams where dose is matched to clinical indication); or iterative reconstruction. COMPARISON: CT HEAD CERVICAL SPINE WO 11/04/2024 10:54 PM FINDINGS: Brain: Small vessel ischemic changes in the periventricular white matter. No evidence of an acute cortical infarct. Small vessel ischemic changes in the periventricular white matter. No evidence of an acute cortical infarct. Hypodensities at the basal ganglia consistent with remote lacunar infarctions. Cerebral ventricles: Diffuse global atrophy. No abnormal extra-axial fluid collections are identified. No midline shift or herniation. Paranasal sinuses: Mild left maxillary sinus disease. Advanced left sphenoid sinus disease. Mastoid air cells: Visualized mastoid air cells are well aerated. Bones: Unremarkable. No acute fracture. Soft tissues: Unremarkable. IMPRESSION: No acute intracranial abnormality. PROCEDURE INFORMATION: Exam: CT Maxillofacial Without Contrast Exam date and time: 12/03/2024 11:58 AM Age: 89 years old Clinical indication: Other: Unwitnessed fall, periorbital bruising, on thinner TECHNIQUE: Imaging protocol: Computed tomography of the face without contrast. Radiation optimization: All CT scans at this facility use at least one of these dose optimization techniques: automated exposure control; mA and/or kV adjustment per patient size (includes targeted exams where dose is matched to clinical indication); or iterative reconstruction. COMPARISON: CT HEAD CERVICAL SPINE WO 11/04/2024 10:54 PM FINDINGS: Paranasal sinuses: Mild left maxillary sinus disease. Advanced left sphenoid sinus disease. Orbital cavities: Orbits are normal. Globes are unremarkable. Bones: No acute fracture. Soft tissues: Unremarkable. IMPRESSION: No acute findings. PROCEDURE INFORMATION: Exam: CT Cervical Spine Without Contrast Exam date and time: 12/03/2024 11:58 AM Age: 89 years old Clinical indication: Other: Unwitnessed fall, periorbital bruising, on thinner TECHNIQUE: Imaging protocol: Computed tomography of the cervical spine without contrast. Radiation optimization: All CT scans at this facility use at least one of these dose optimization techniques: automated exposure control; mA and/or kV adjustment per patient size (includes targeted exams where dose is matched to clinical indication); or iterative reconstruction. COMPARISON: No relevant prior studies available. FINDINGS: Bones: Degenerative changes throughout the cervical spine. Stable anterolisthesis C3-C4 through C6-C7. No acute fracture. No acute malalignment. No central canal stenosis. Lungs: Lung apices are normal. Pleural spaces: Small to moderate left pleural effusion. Soft tissues: Unremarkable. IMPRESSION: 1. No acute bony abnormality. 2. Small to moderate left pleural effusion. Dictated and Authenticated by: Roger Schafer MD. Orderin [facility]. Adolph Taveras MD
[2024-12-03] MEDS: Furosemide 40 MG/4 ML VIAL IVP (13:49)
[2024-12-03] MEDS: Nystatin OINT 15 GM TUBE TP (13:50)
[2024-12-03 13:52] LABS: C & S Indicated? Yes; WBC >50 HPF (0-5)
[2024-12-03] MEDS: cefTRIAXone 1 GM/50 ML BAG IVPB (14:08)
--- NOTE | 2024-12-03 14:14 | NUR.NOTE ---
The patient was noted with bruises to the forehead and below the bilateral eyes. Bruises also noticed to the right side of her chest. Health and rehab was called by this scriber to ascertain when she recieved these bruises. The nurse that answered reported that patient sustained fall roughly 2-3 weeks ago.
--- NOTE | 2024-12-03 14:33 | W.PM.HP.N ---
Date of service: 12/03/24 Time of Service: 14:33 Assessment and Plan Assessment and plan (1) Acute exacerbation of CHF (congestive heart failure): Status: Acute Assessment and plan: continue IV diuresis. monitor intake and output closely daily weights. last echo apr 2021 with EF 50-55%, will update when available. (2) Hypertension: Status: Chronic (3) Type 2 diabetes mellitus with retinopathy of both eyes, with long-term current use of insulin: Status: Acute Assessment and plan: A1C in july 2024 6.0 will continue diabetic diet blood sugar checks AC/HS with sliding scale coverage as needed. continue basal insulin, adjust as needed. (4) Chronic kidney disease (CKD), stage IV (severe): Status: Acute Assessment and plan: creatinine at baseline avoid nephrotoxic drugs renal dosing as needed monitor closely in setting of acute diuresis (5) ICD (implantable cardioverter-defibrillator) in place: Status: Acute Assessment and plan: paced rhythm (6) Acute UTI: Status: Acute Assessment and plan: ceftriaxone day 1 while urinary cultures pending (7) Candidal diaper dermatitis: Status: Acute Assessment and plan: nystain (8) Acute on chronic alteration in mental status: Status: Acute Assessment and plan: in setting of heart failure and UTI safety precautions CT head with no acute pathology (9) Head injury: Status: Acute Assessment and plan: several days ago, on anticoagulation no acute findings on head or c spine CT scan (10) Anticoagulant long-term use: Status: Acute Assessment and plan: continue apixaban (11) Elevated troponin: Status: Acute Assessment and plan: in setting of heart failure and poorly controlled BP troponin flat, no ischemic EKG changes or chest pain no further surveillance. (12) Anemia: Status: Chronic Assessment and plan: iron deficiency stable continue supplementation History of Present Illness Narrative: Patient presents to the emergency department from [facility] for complaints of shortness of breath and increasing peripheral edema. Her workup in the emergency department was most concerning for heart failure. She received 40 mg of IV Lasix with some improvement in her symptoms. She had no oxygen requirements satting in the high 90s to 100 on room air. Labs unremarkable with normal white count stable known anemia no electrolyte abnormalities, stable creatinine of 2.1. Her BN P was elevated at 4800 which is markedly increased from her previous levels. Urine did reflex for culture and she did receive 1 g of IV ceftriaxone while awaiting ID and sensitivities. Hospitalist services was asked to admit her to the medical surgical unit for further monitoring and management. Review of Systems All systems reviewed & are unremarkable except as noted in HPI and below PFSH All Active Problems (Updated 12/03/24 @ 14:49 by Lana Aguilera NP) Elevated troponin (Acute) ICD (implantable cardioverter-defibrillator) in place (Acute) Chronic kidney disease (CKD), stage IV (severe) (Acute) [facility] [place] Nephrology Type 2 diabetes mellitus with retinopathy of both eyes, with long-term current use of insulin (Acute) Hypertension (Chronic) Acute on chronic alteration in mental status (Acute) Candidal diaper dermatitis (Acute) Acute UTI (Acute) Acute exacerbation of CHF (congestive heart failure) (Acute) Pleural effusion (Acute) Pleural effusion (Acute) Anticoagulant long-term use (Acute) Head injury (Acute) Fall (Acute) Angina at rest (Acute) Tubular adenoma of colon (Acute) Urinary incontinence (Acute) Neck pain (Acute) SARS-CoV-2 positive (Acute) Headache (Acute) Advanced directives, counseling/discussion (Acute) Bowel habit changes (Acute) Hydrosalpinx (Chronic) Left Muscular deconditioning (Acute) Lumbar spondylosis (Acute) Inflammatory polyps (Acute) Gastritis (Acute) Anemia (Chronic) 08/15/20 [facility] [place] Video capsule endoscopy Insomnia (Chronic) 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 obesity hypoventilation?), also has asthma Osteoporosis (Chronic 07/28/11) Multiple food allergies (Chronic 08/14/15) Immunological Sensitization noted on Blood Test for Milk/Casein, peanut, Tomato, [place], Cabbage, [place], Rice, Spinach, Asparagus, Brussel Sprouts, Sweet Potato, Beef, Pork Mitral valve regurgitation (Chronic 09/05/13) 3+ Memory impairment (Chronic 08/30/17) 08/30/17 MOCA score: 02/16/19 MOCA score: Depression (Chronic 12/16/11) Caty Mathews APRN NK in the past Cardiac resynchronization therapy defibrillator (LOCKSTITCH WAISTLINE JOINER-D) in place (Chronic 08/14/16) [facility] [place] Cardiology Underlying 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 heart block, severe diffuse left ventricular dysfunction HFrEF (LVEF ~25%) Mitral regurg 3+ 2009 cardiac cath: mild diffuse disease ([facility] [place]) 07/03/2013 MPI: +Ischemia, inferolateral defect 01/17/20 [facility] [place] Echo Essential hypertension (12/16/11) Goal BP </=130-140/80 Hyperlipidemia, unspecified (05/02/15) ASCVD (arteriosclerotic cardiovascular disease) (09/07/16) [facility] [place] Cariology Stress test showing small, reversible inferior wall defect c/w ischemia Type 2 diabetes mellitus with retinopathy of both eyes, with long-term current use of insulin Asthma 09/03/2014 PFTs: mild obstructive airway disease with significant bronchodilator response Chronic kidney disease (CKD), stage IV (severe) [facility] [place] Nephrology ICD (implantable cardioverter-defibrillator) in place AVM (arteriovenous malformation) of colon Surgical History History of total left knee replacement Replacement of total knee joint B/L Hernia Repair, Incisional (~2010) W/ mesh. Dr. Cheko Patterson Extraction of cataract Dr. Hensley Family History Mother Hypertensive disorder, systemic arterial Diabetes Atherosclerosis of coronary artery Family history of stroke Dementia Hyperlipidemia Family history of glaucoma Cataract Father No problems noted. Social History Smoking/Tobacco Use Status: Former Tobacco Use Smoking risk assessment performed?: Yes Alcohol Intake: former Drug use: Never Substance use type: does not use Adopted: No Caregiver/Support person: No Foster care: No Housing: assisted living facility Number of Children: 5 Communication Needs: None Pets and animals: Yes Pets and animals: cat(s) and dog(s) Sexually active: No Current gender identity: female What is your relationship status?: Panel score (0-1 are the most socially isolated patients): 0 What type of physical activity do you participate in: other Details: Excercise classes at [employer] Duration: 45-60 minutes/day Frequency: 1-2 times per week Seatbelt use: always Do you feel safe at home: Yes Do you feel safe in your relationship?: Yes Meds Allergies and Home Medications Allergies Allergy/AdvReac Type Severity Reaction Status Date / Time lisinopril Allergy Anaphylaxis Verified 12/03/24 11:55 gabapentin AdvReac Mild Dizziness/L Verified 12/03/24 11:55 ightheade GORDON Inhibitors AdvReac Unknown COUGH Verified 12/03/24 11:55 lactose AdvReac Unknown Verified 12/03/24 11:55 multiple food allergies Allergy Intermediate Sensitization Uncoded 12/03/24 11:55 noted on blood test Home Medications ?Medication ?Instructions ?Recorded ?Confirmed ?Type aspirin 81 mg chewable tablet 81 mg PO DAILY 07/25/12 12/03/24 History (Aspirin Low-Strength) multivitamin (Daily Vitamin tablet) 1 ea PO DAILY 07/25/12 12/03/24 History lancets (OneTouch UltraSoft #90 ea 01/02/15 12/03/24 History Lancets) glucagon (human recombinant) 1 mg 1 mg IJ PRN ##1 10/28/15 12/03/24 History injection kit (Glucagon Emergency Kit (human-recomb)) acetaminophen 500 mg tablet 500 mg PO BID 09/15/19 12/03/24 History inulin 2 gram chewable tablet See Rx Instructions PO .COMPLEX 09/15/19 12/03/24 History (Fiber Gummies) nitroglycerin 0.4 mg sublingual 0.4 mg sublingual Q5M PRN chest 07/01/20 11/04/24 Rx tablet pain #30 tab-caps flash glucose scanning reader #1 ea 07/15/20 12/03/24 Rx (FreeStyle Freya 2 [place]) fluticasone 250 mcg-salmeterol 50 1 inh inhalation BID #3 ea 11/04/20 12/03/24 Rx mcg/dose blistr powdr for inhalation (Advair Diskus) insulin lispro 100 unit/mL 1 - 30 unit (0.01 - 0.3 mL) subcut 03/19/21 12/03/24 Rx subcutaneous pen (Humalog MelisaPen AC #27 SYRGS (U-100) Insulin) loratadine 10 mg tablet 10 mg PO DAILY #90 tab-caps 03/24/21 12/03/24 Rx blood sugar diagnostic (Blood #400 ea 04/30/21 12/03/24 Rx Glucose Test strips) pen needle, diabetic 31 gauge x #500 ea 06/18/21 12/03/24 Rx 5/16 insulin glargine U-300 conc 300 See Rx Instructions subcut BID #22 06/25/21 12/03/24 Rx unit/mL (1.5 mL) subcutaneous pen SYRGS (Toujeo SoloStar U-300 Insulin) omeprazole 20 mg capsule,delayed 20 mg PO DAILY indigestion #90 07/02/21 11/04/24 Rx release tab-caps albuterol sulfate 90 mcg/actuation See Rx Instructions .Route 10/28/21 12/03/24 Rx aerosol inhaler .COMPLEX #8.5 grams atorvastatin 20 mg tablet 20 mg PO DAILY #90 tab-caps 12/08/21 12/03/24 Rx vitamin B complex 1 tab PO DAILY headaches #90 12/29/21 12/03/24 Rx tab-caps isosorbide mononitrate 60 mg 60 mg PO DAILY #90 tabs 02/04/22 12/03/24 Rx tablet,extended release 24 hr carvedilol 12.5 mg tablet 18.75 mg (1.5 x 12.5 mg) PO BID 03/04/22 12/03/24 Rx #42 tabs trazodone 50 mg tablet 100 mg PO HS insomnia 02/23/24 12/03/24 History apixaban 2.5 mg tablet (Eliquis) 2.5 mg PO ONCE 11/04/24 12/03/24 History bisacodyl 10 mg rectal suppository 10 mg [place] DAILY PRN 11/04/24 12/03/24 History ferrous sulfate 325 mg (65 mg 325 mg PO DAILY 11/04/24 12/03/24 History iron) tablet (FeroSul) fluticasone propionate 50 1 spray intranasal BID PRN 11/04/24 12/03/24 History mcg/actuation nasal spray,suspension (24 Hour Allergy Relief) gabapentin 100 mg capsule 200 mg PO BID 11/04/24 12/03/24 History lisinopril .Route 11/04/24 History losartan 25 mg tablet 25 mg PO BID 11/04/24 12/03/24 History losartan 50 mg tablet 25 mg PO DAILY 11/04/24 12/03/24 History Exam Narrative Exam Narrative: Frail elderly female chronically ill-appearing obsese in no acute distress head is with old ecchymosis to forehead and left periorbital area from previous known fall, eyes nonicteric noninjected neurologic she is awake alert oriented to person confused unable to provide history. Cardiovascular regular rate and rhythm resp even and unlabored, bilateral lower ext edema. skin fungal rash groin Results Labs 12/03/24 11:40 12/03/24 11:40 Labs: Laboratory Results - last 24 hr 12/03/24 12/03/24 12/03/24 11:40 12:40 13:21 WBC 8.58 RBC 3.08 L Hgb 8.5 L Hct 27.2 L MCV 88 MCH 27.6 MCHC 31.3 L RDW 14.0 Plt Count 163 MPV 11.0 Immature Gran % 0.9 Neutrophils % 80.9 Lymphocytes % 9.0 Monocytes % 4.4 Eosinophils % 4.2 Basophils % 0.6 Nucleated RBC % 0.0 Absolute Neutrophils 6.94 H Absolute Lymphocytes 0.77 L Absolute Monocytes 0.38 Absolute Eosinophils 0.36 Absolute Basophils 0.05 PT 11.0 INR 1.1 Sodium 146 H Potassium 3.7 Chloride 113 H Carbon Dioxide 24.6 Anion Gap 8.4 BUN 35 H Creatinine 2.1 H Est GFR (CKD-EPI 2020) 22.38 Glucose 274 H Calcium 8.5 Magnesium 1.7 L Total Bilirubin 0.5 AST 15 ALT 15 Alkaline Phosphatase 87 Troponin I 52 H* 44 NT-Pro-B Natriuret Pep 4827 H Total Protein 6.0 L Albumin 2.1 L Urine Color Yellow Urine Clarity Turbid Urine pH 6.5 Ur Specific [employer] 1.020 Urine Protein >=300 H Urine Ketones Trace H Urine Blood Large H Urine Nitrite Negative Urine Bilirubin Negative Urine Urobilinogen 0.2 Ur Leukocyte Esterase Moderate H Urine RBC Not Applicable Urine WBC >50 H Ur Epithelial Cells Not Applicable Urine Crystals Not Applicable Urine Bacteria Not Applicable Urine Mucus Not Applicable Ur Culture Indicated? Yes Urine Glucose 100 H Last Vital Signs Temp 36.3 C L 12/03/24 11:28 Pulse 60 12/03/24 14:01 Resp 23 12/03/24 14:01 BP 235/70 H 12/03/24 14:01 Pulse Ox 100 12/03/24 14:01 Time Spent Time spent with Patient: 55-74 minutes Time was spent: preparing to see the patient(eg.review tests), obtaining and/or reviewing separately otained hiistory, ordering medications,tests, procedures and indepentently interpreting results
[2024-12-03 14:59] LABS: Troponin I 47 ng/L (<or=51)
--- NOTE | 2024-12-03 18:30 | W.PC.ACHO ---
Registration Status: ADM RAYMUNDO Primary Language: Preferred Language: Thai ED Information & Data Chief Complaint RespSymp 12/03/24 12:25 Chief Complaint RespSymp 12/03/24 11:40 Triage Note Patient presented to the ER 12/03/24 11:25 [facility] with SOB a for the past 2 days. patient state she fell but she is uncertain when. Medical / Surgical History (Last Reviewed 09/01/23 @ 14:56 by Joce Castrejon MD) Congestive heart failure (12/16/11) Essential hypertension (12/16/11) Hyperlipidemia, unspecified (05/02/15) ASCVD (arteriosclerotic cardiovascular disease) (09/07/16) Asthma AVM (arteriovenous malformation) of colon (Last Reviewed 09/01/23 @ 14:56 by Joce Castrejon MD) History of total left knee replacement Replacement of total knee joint Hernia Repair, Incisional (~2010) Extraction of cataract Most Recent Vital Signs Temperature 36.9 C 12/03/24 16:41 Temperature Source Temporal Artery Scan 12/03/24 11:28 Pulse 60 12/03/24 16:55 Pulse Rhythm Regular 12/03/24 16:41 Pulse 60 12/03/24 16:20 Respiratory Rate 20 12/03/24 16:55 Respiratory Effort Normal 12/03/24 16:41 Respiratory Depth Normal 12/03/24 16:41 Respiratory Pattern Normal 12/03/24 16:41 Blood Pressure 238/69 H 12/03/24 16:55 Blood Pressure Mean 136 12/03/24 16:16 Blood Pressure Position Supine 12/03/24 11:28 Pulse Oximetry 100 12/03/24 16:55 Oxygen Delivery Method Room Air 12/03/24 16:41 Oxygen Flow Rate 0 12/03/24 16:41 Pain Level 0 12/03/24 16:41 Allergies lisinopril Allergy (Verified 12/03/24 11:55) Anaphylaxis gabapentin Adverse Reaction (Mild, Verified 12/03/24 11:55) Dizziness/Lightheade GORDON Inhibitors Adverse Reaction (Unknown, Verified 12/03/24 11:55) COUGH lactose Adverse Reaction (Verified 12/03/24 11:55) Unknown multiple food allergies Allergy (Intermediate, Uncoded 12/03/24 11:55) Sensitization noted on blood test Immunological Sensitization noted on Blood Test for Milk/Casein, peanut, Tomato, [place], Cabbage, [place], Rice, Spinach, Asparagus, Brussel Sprouts, Sweet Potato IV IV Catheter Type [Right Saline Lock Antecubital] IV Catheter Gauge [Right 18 Antecubital] Diet Orders Category Date Time Status Diabetes Consistent CHO/Low Na [DIET] Nutrition 12/03/24 Dinner Active Diagnostics 12/03/24 12/03/24 12/03/24 Range/Units 14:35 13:21 12:40 WBC (4.4-10.8) 10^3/uL RBC (3.93-5.22) 10^6/uL Hgb (11.2-15.7) g/dL Hct (36.0-46.0) % MCV (80-95) fL MCH (27.0-33.0) pg MCHC (32.0-36.0) % RDW (11.7-14.6) % Plt Count (130-400) 10^3/uL MPV (8.0-11.0) fL Immature Gran % % Neutrophils % % Lymphocytes % % Monocytes % % Eosinophils % % Basophils % % Nucleated RBC % (0.0-0.3) % Absolute Neutrophils (1.2-6.7) 10^3/uL Absolute Lymphocytes (1.2-3.4) 10^3/uL Absolute Monocytes (0.1-0.8) 10^3/uL Absolute Eosinophils (0.0-0.7) 10^3/uL Absolute Basophils (0.0-0.2) 10^3/uL PT (9.1-11.1) sec INR (0.9-1.1) Sodium (136-145) mmol/L Potassium (3.5-5.1) mmol/L Chloride (98-107) mmol/L Carbon Dioxide (21.0-32.0) mmol/L Anion Gap (3-11) mmol/L BUN (7-18) mg/dL Creatinine (0.55-1.02) mg/dL Est GFR (CKD-EPI 2020) (mL/min/1.73m2) Glucose (74-106) mg/dL Calcium (8.5-10.1) mg/dL Magnesium (1.8-2.4) mg/dL Total Bilirubin (0.2-1.0) mg/dL AST (15-37) U/L ALT (14-59) U/L Alkaline Phosphatase (46-116) U/L Troponin I 47 44 (<or=51) ng/L NT-Pro-B Natriuret Pep (<300) pg/mL Total Protein (6.4-8.2) g/dL Albumin (3.4-5.0) g/dL Urine Color Yellow (Yellow) Urine Clarity Turbid (Clear) Urine pH 6.5 (5-8) Ur Specific [place] 1.020 (1.005-1.025) Urine Protein >=300 H (Neg-Trace) mg/dL Urine Ketones Trace H (Negative) mg/dL Urine Blood Large H (Negative) Urine Nitrite Negative (Negative) Urine Bilirubin Negative (Negative) Urine Urobilinogen 0.2 (Up to 0.2) mg/dL Ur Leukocyte Esterase Moderate H (Negative) Urine RBC Not Applicable Urine WBC >50 H (0-5) HPF Ur Epithelial Cells Not Applicable Urine Crystals Not Applicable Urine Bacteria Not Applicable Urine Mucus Not Applicable Ur Culture Indicated? Yes Urine Glucose 100 H (Negative) mg/dL 12/03/24 Range/Units 11:40 WBC 8.58 (4.4-10.8) 10^3/uL RBC 3.08 L (3.93-5.22) 10^6/uL Hgb 8.5 L (11.2-15.7) g/dL Hct 27.2 L (36.0-46.0) % MCV 88 (80-95) fL MCH 27.6 (27.0-33.0) pg MCHC 31.3 L (32.0-36.0) % RDW 14.0 (11.7-14.6) % Plt Count 163 (130-400) 10^3/uL MPV 11.0 (8.0-11.0) fL Immature Gran % 0.9 % Neutrophils % 80.9 % Lymphocytes % 9.0 % Monocytes % 4.4 % Eosinophils % 4.2 % Basophils % 0.6 % Nucleated RBC % 0.0 (0.0-0.3) % Absolute Neutrophils 6.94 H (1.2-6.7) 10^3/uL Absolute Lymphocytes 0.77 L (1.2-3.4) 10^3/uL Absolute Monocytes 0.38 (0.1-0.8) 10^3/uL Absolute Eosinophils 0.36 (0.0-0.7) 10^3/uL Absolute Basophils 0.05 (0.0-0.2) 10^3/uL PT 11.0 (9.1-11.1) sec INR 1.1 (0.9-1.1) Sodium 146 H (136-145) mmol/L Potassium 3.7 (3.5-5.1) mmol/L Chloride 113 H (98-107) mmol/L Carbon Dioxide 24.6 (21.0-32.0) mmol/L Anion Gap 8.4 (3-11) mmol/L BUN 35 H (7-18) mg/dL Creatinine 2.1 H (0.55-1.02) mg/dL Est GFR (CKD-EPI 2020) 22.38 (mL/min/1.73m2) Glucose 274 H (74-106) mg/dL Calcium 8.5 (8.5-10.1) mg/dL Magnesium 1.7 L (1.8-2.4) mg/dL Total Bilirubin 0.5 (0.2-1.0) mg/dL AST 15 (15-37) U/L ALT 15 (14-59) U/L Alkaline Phosphatase 87 (46-116) U/L Troponin I 52 H* (<or=51) ng/L NT-Pro-B Natriuret Pep 4827 H (<300) pg/mL Total Protein 6.0 L (6.4-8.2) g/dL Albumin 2.1 L (3.4-5.0) g/dL Urine Color (Yellow) Urine Clarity (Clear) Urine pH (5-8) Ur Specific [place] (1.005-1.025) Urine Protein (Neg-Trace) mg/dL Urine Ketones (Negative) mg/dL Urine Blood (Negative) Urine Nitrite (Negative) Urine Bilirubin (Negative) Urine Urobilinogen (Up to 0.2) mg/dL Ur Leukocyte Esterase (Negative) Urine RBC Urine WBC (0-5) HPF Ur Epithelial Cells Urine Crystals Urine Bacteria Urine Mucus Ur Culture Indicated? Urine Glucose (Negative) mg/dL 12/03/24 13:21 Urine Culture - Pending Urine - Reflex from Ua Intake and Output - 24 Hour Total 12/03/24 11:20 thru 12/03/24 16:41 Intake Total 150 Output Total 50 Balance 100 Weight 68.4 kg Intake: IV 150 Output: Urine 50 Other: Urine Color Yellow Urine Appearance Cloudy Sediment # Bowel Movements 1 Falls Risk Assessment History of Falls Previous History 12/03/24 16:41 Contributing Factors Unstable,Impairments 12/03/24 12:26 Ambulatory Aids Independent 12/03/24 12:26 Tubes/Lines W/no contributing factors 12/03/24 12:26 Cognition Cognitive impairment 12/03/24 12:26 Fall Total Score 15 12/03/24 16:41 Level of Risk Standard/Low Risk 12/03/24 16:41 Problems (Last Reviewed 09/01/23 @ 14:56 by Joce Castrejon MD) Elevated troponin (Acute) ICD (implantable cardioverter-defibrillator) in place (Acute) Chronic kidney disease (CKD), stage IV (severe) (Acute) Type 2 diabetes mellitus with retinopathy of both eyes, with long-term current use of insulin (Acute) Hypertension (Chronic) Acute on chronic alteration in mental status (Acute) Candidal diaper dermatitis (Acute) Acute UTI (Acute) Acute exacerbation of CHF (congestive heart failure) (Acute) Anticoagulant long-term use (Acute) Head injury (Acute) Anemia (Chronic) Notes 12/03/24 14:14 Nursing Notes by Adriana Mckinney The patient was noted with bruises to the forehead and below the bilateral eyes. Bruises also noticed to the right side of her chest. [facility] and rehab was called by this scriber to ascertain when she recieved these bruises. The nurse that answered reported that patient sustained fall roughly 2-3 weeks ago. Initialized on 12/03/24 14:14 - END OF NOTE v v v v v v v v v Sending and/or Receiving Nurses: Please use comment section below to note any information pertinent to the patient hand-off not included above. Information / Comments: This patient came from ED with alter mental status, transfer by stretcher, patient is confused, obeys commands, edema in both legs and left arm, bruises in chest and right eye, this nurse received report from Adriana in ED Report received from:
[2024-12-03] MEDS: Carvedilol 12.5 MG TAB 18.75 MG PO (20:23)
[2024-12-03] MEDS: traZODone 50 MG TAB 100 MG PO (20:36)
[2024-12-03] MEDS: Acetaminophen 500 MG TAB PO (20:37)
[2024-12-03] MEDS: Losartan 25 MG TAB PO (20:37)
[2024-12-03] MEDS: Atorvastatin 20 MG TAB PO (20:37)
[2024-12-03] MEDS: Apixaban 2.5 MG TAB PO (20:37)
[2024-12-03] MEDS: Normal Saline Flush 10 ML SYR IVP (20:41)
[2024-12-04 07:02] LABS: Abs Immature Grans 0.04 10^3/uL (0.0-0.06); HCT 25.9 % (36.0-46.0); HGB 8.1 g/dL (11.2-15.7); Immature Grans % 0.5 %; MCH 27.8 pg (27.0-33.0); MCHC 31.3 % (32.0-36.0); MCV 89 fL (80-95); MPV 11.4 fL (8.0-11.0); Platelet Count 160 10^3/uL (130-400); RBC 2.91 10^6/uL (3.93-5.22); RDW 14.3 % (11.7-14.6); RDW-SD 46.0 fL; WBC 7.61 10^3/uL (4.4-10.8)
[2024-12-04 07:11] LABS: Anion Gap 5.9 mmol/L (3-11); BUN 36 mg/dL (7-18); CO2 26.1 mmol/L (21.0-32.0); Calcium 8.4 mg/dL (8.5-10.1); Chloride 115 mmol/L (98-107); Estimated GFR 21.17 (mL/min/1.73m2); Glucose 107 mg/dL (74-106); Potassium 3.4 mmol/L (3.5-5.1); Sodium 147 mmol/L (136-145)
[2024-12-04 07:38] VITALS: BP 216/87; PULSE 61; RESP 16; TEMP 36.4; O2SAT 96
[2024-12-04] MEDS: Budesonide/Formoterol 160/4.5 6 GM 60 PUFF INH IH ×2 (07:46→20:02)
[2024-12-04] MEDS: Isosorbide Mononitrate 60 MG TABCR PO (08:20)
[2024-12-04] MEDS: Vitamins B Comp w/C TAB 1 TAB PO (08:20)
[2024-12-04] MEDS: Acetaminophen 500 MG TAB PO ×2 (08:21→21:30)
[2024-12-04] MEDS: Aspirin 81 MG CHEW PO (08:21)
[2024-12-04] MEDS: Losartan 25 MG TAB PO ×2 (08:21→21:31)
[2024-12-04] MEDS: Apixaban 2.5 MG TAB PO ×2 (08:21→21:30)
[2024-12-04] MEDS: Furosemide 40 MG/4 ML VIAL IVP ×2 (08:22→15:35)
[2024-12-04] MEDS: Ferrous Sulfate 325 MG TAB PO (08:22)
[2024-12-04] MEDS: Carvedilol 12.5 MG TAB 18.75 MG PO ×2 (08:26→21:31)
[2024-12-04] MEDS: Normal Saline Flush 10 ML SYR IVP ×2 (08:26→22:34)
[2024-12-04] MEDS: cefTRIAXone 1 GM/50 ML BAG IVPB (08:28)
--- NOTE | 2024-12-04 08:30 | PDOC.CMIN ---
Date of service: 12/04/24 Time of Service: 13:07 Care Management Initial Assmt Initial Assessment Reason for Hospitalization: Heart failure Functional Status/Living Situation Patient Presentation: Chetna was lying in bed receiving an Echocardiogram, when CM arrived. Chetna presented to the ED to be evaluated for worsening shortness of breath. Chetna's eldest daughter called this morning but is not on the HIPAA, CM discussed HIPAA guidelines with Jade and she expressed understanding. Per RN, Chetna's mental status continues to be altered. If Chetna's mental status does not improve and it is recommended by provider, CM will revert to her HCA - Ravi Edwards or alternative agent Neisha Zamudio, for decisions regarding an updated HIPAA form. Chetna came from [facility] who provided the following information. Chetna has been a resident at [facility] since 2023, prior to this, she was living in [place], [place], with her daughter. Chetna is not independent at baseline, she requires total care with ADL's and does not ambulate at baseline. Per [facility], she is confused at times but is occasionally orientated to self. Chetna is followed by palliative. Both palliative and PT consults have been requested. CM will continue to follow. Town of Residence: [facility] Resides with: Other ([facility]) Significant Other/Family: Local (Has a local daughter but oldest daughter - Jade, lives in [place] ) Caregiver/Guardian: No guardian, has HCA form on file Natural Supports: Family Employment Status: Retired Instrumental Activities of Daily Living (ADLs): Requires support Medications Medication Management: No Issues/Barriers identified Physical Functioning/Mobility Assistive Device: Wheelchair Advance Directives Advance Directives: Do you have an Advance Directive: Y 12/23/21, 14:35 AD On File at [facility]: Y 12/23/21, 14:35 Date Asked 05/25/24 05/25/24, 10:10 AD Date Reviewed 12/03/24 12/03/24, 11:50 COLST On File at [facility] COLST Date Scanned Code Status Resuscitation Status DNR/DNI Portal Pt does not currently have a portal and education provided: Yes Insurance Coverage/Financial Issues Insurance: Medicare Part A & B - [id number] Care Team Visit Care Team Role Provider Type Unknown Unknown Primary Care Provider STAFF PHYSICIAN Darcy Hernandez MD Emergency Provider [facility] STAFF PHYSICIAN Blayne Bernal MD Admit Provider [facility] STAFF PHYSICIAN Attending Provider Discharge Potential Discharge Needs: PT Evaluation and PCP F/U Appt Anticipated Barriers to Discharge: Medical Status Patient/Family Education Needs: Review discharge instructions, discuss Ask Me Three Transportation: Private vehicle Plan: Anticipate, Chetna will return home with new orders for HH pending PT. She will transport via private vehicle driven by family. She will follow up with her PCP and discharge plan of care. She is happy to return home. Social Determinants of Health Screening Will the Patient Participate in the Screening?: Unable to obtain Comments: patient unable to answer due confusion Health Related Social Needs Health related social needs details: unable to obtain PFSH All Active Problems (Updated 12/03/24 @ 14:49 by Lana Aguilera NP) Elevated troponin (Acute) ICD (implantable cardioverter-defibrillator) in place (Acute) Chronic kidney disease (CKD), stage IV (severe) (Acute) [facility] Nephrology Type 2 diabetes mellitus with retinopathy of both eyes, with long-term current use of insulin (Acute) Hypertension (Chronic) Acute on chronic alteration in mental status (Acute) Candidal diaper dermatitis (Acute) Acute UTI (Acute) Acute exacerbation of CHF (congestive heart failure) (Acute) Pleural effusion (Acute) Pleural effusion (Acute) Anticoagulant long-term use (Acute) Head injury (Acute) Fall (Acute) Angina at rest (Acute) Tubular adenoma of colon (Acute) Urinary incontinence (Acute) Neck pain (Acute) SARS-CoV-2 positive (Acute) Headache (Acute) Advanced directives, counseling/discussion (Acute) Bowel habit changes (Acute) Hydrosalpinx (Chronic) Left Muscular deconditioning (Acute) Lumbar spondylosis (Acute) Inflammatory polyps (Acute) Gastritis (Acute) Anemia (Chronic) 08/15/20 [facility] Video capsule endoscopy Insomnia (Chronic) 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 obesity hypoventilation?), also has asthma Osteoporosis (Chronic 07/28/11) Multiple food allergies (Chronic 08/14/15) Immunological Sensitization noted on Blood Test for Milk/Casein, peanut, Tomato, [place], Cabbage, [place], Rice, Spinach, Asparagus, Brussel Sprouts, Sweet Potato, Beef, Pork Mitral valve regurgitation (Chronic 09/05/13) 3+ Memory impairment (Chronic 08/30/17) 08/30/17 MOCA score: 02/16/19 MOCA score: Depression (Chronic 12/16/11) Caty Mathews APRN [facility] in the past Cardiac resynchronization therapy defibrillator (COOLER TENDER-D) in place (Chronic 08/14/16) [facility] Cardiology 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) [facility] Cariology Stress test showing small, reversible inferior wall defect c/w ischemia Type 2 diabetes mellitus with retinopathy of both eyes, with long-term current use of insulin Asthma 09/03/2014 PFTs: mild obstructive airway disease with significant bronchodilator response Chronic kidney disease (CKD), stage IV (severe) [facility] Nephrology ICD (implantable cardioverter-defibrillator) in place AVM (arteriovenous malformation) of colon Surgical History History of total left knee replacement Replacement of total knee joint B/L Hernia Repair, Incisional (~2010) W/ mesh. Dr. Cheko Patterson Extraction of cataract Dr. Hensley Family History Mother Hypertensive disorder, systemic arterial Diabetes Atherosclerosis of coronary artery Family history of stroke Dementia Hyperlipidemia Family history of glaucoma Cataract Father No problems noted. Social History Smoking/Tobacco Use Status: Former Tobacco Use Smoking risk assessment performed?: Yes Alcohol Intake: former Drug use: Never Substance use type: does not use Adopted: No Caregiver/Support person: No Foster care: No Housing: assisted living facility Number of Children: 5 Communication Needs: None Pets and animals: Yes Pets and animals: cat(s) and dog(s) Sexually active: No Current gender identity: female What is your relationship status?: Panel score (0-1 are the most socially isolated patients): 0 What type of physical activity do you participate in: other Details: Excercise classes at [employer] Duration: 45-60 minutes/day Frequency: 1-2 times per week Seatbelt use: always Do you feel safe at home: Yes Do you feel safe in your relationship?: Yes Readmission Within the Past 30 Days Yes or No: No
[2024-12-04 09:28] VITALS: BP 142/78
[2024-12-04] MEDS: Insulin Aspart 300 UNITS/3 ML PEN SC ×2 (12:02→17:20)
--- NOTE | 2024-12-04 16:57 | PGE_ITS ---
Date of Service Date of service: 12/04/24 Time of Service: 16:57 Assessment and Plan Assessment and plan (1) Acute exacerbation of CHF (congestive heart failure): Status: Acute Assessment and plan: continue IV diuresis. monitor intake and output closely daily weights. last echo apr 2021 with EF 50-55%, will update when available. 12/04/24 cw diuresis coreg/hydralazine/losartan/imdur/lasix (2) Hypertension: Status: Chronic Assessment and plan: pt was noted to have an elevated BP. Started on hydralazine (3) Type 2 diabetes mellitus with retinopathy of both eyes, with long-term current use of insulin: Status: Acute Assessment and plan: A1C in july 2024 6.0 will continue diabetic diet blood sugar checks AC/HS with sliding scale coverage as needed. continue basal insulin, adjust as needed. (4) Chronic kidney disease (CKD), stage IV (severe): Status: Acute Assessment and plan: creatinine at baseline avoid nephrotoxic drugs renal dosing as needed monitor closely in setting of acute diuresis (5) ICD (implantable cardioverter-defibrillator) in place: Status: Acute Assessment and plan: paced rhythm (6) Acute UTI: Status: Acute Assessment and plan: ceftriaxone day 1 while urinary cultures pending Urine Culture Preliminary 12/04/24-830 Day 1 Result ISOLATES BELOW ISOLATE 1 COLONY COUNT >100,000 COLONIES/ML ISOLATE 1 APPEARANCE Gram Negative Manan ISOLATE 1 ACTION SUSCEPTIBILITY TO FOLLOW Organism 1 Escherichia coli COLONY COUNT >100,000 COLONIES/ML Esch coli: Pending (7) Candidal diaper dermatitis: Status: Acute Assessment and plan: nystain (8) Acute on chronic alteration in mental status: Status: Acute Assessment and plan: in setting of heart failure and UTI safety precautions CT head with no acute pathology (9) Head injury: Status: Acute Assessment and plan: several days ago, on anticoagulation no acute findings on head or c spine CT scan (10) Anticoagulant long-term use: Status: Acute Assessment and plan: continue apixaban (11) Elevated troponin: Status: Acute Assessment and plan: in setting of heart failure and poorly controlled BP troponin flat, no ischemic EKG changes or chest pain no further surveillance. (12) Anemia: Status: Chronic Assessment and plan: iron deficiency stable continue supplementation Subjective Subjective Interval history since last seen: Pt states her respiratory status has improved. Exam Narrative Exam Narrative: ncat mmm eomi perrla rrr no mrg ctab no amu sndndbsa 2plus lyssa bilat Objective Last Vital Signs Temp 36.4 C L 12/04/24 07:38 Pulse 61 12/04/24 07:38 Resp 16 12/04/24 07:38 BP 142/78 H 12/04/24 09:28 Pulse Ox 96 12/04/24 07:38 Laboratory Results - last 24 hr 12/04/24 06:30 WBC 7.61 RBC 2.91 L Hgb 8.1 L Hct 25.9 L MCV 89 MCH 27.8 MCHC 31.3 L RDW 14.3 Plt Count 160 MPV 11.4 H Immature Gran % 0.5 Neutrophils % 69.8 Lymphocytes % 13.4 Monocytes % 6.6 Eosinophils % 9.2 Basophils % 0.5 Nucleated RBC % 0.0 Absolute Neutrophils 5.31 Absolute Lymphocytes 1.02 L Absolute Monocytes 0.50 Absolute Eosinophils 0.70 Absolute Basophils 0.04 Sodium 147 H Potassium 3.4 L Chloride 115 H Carbon Dioxide 26.1 Anion Gap 5.9 BUN 36 H Creatinine 2.2 H Est GFR (CKD-EPI 2020) 21.17 Glucose 107 H Calcium 8.4 L Time Spent with Patient Time Spent with Patient: 25-34 minutes Time was spent: preparing to see the patient(eg.review tests), obtaining and/or reviewing separately otained hiistory, ordering medications,tests, procedures, referring, communicating with other health healthcare administration internship, indepentently interpreting results, counseling the patient and care coordination
[2024-12-04 19:54] VITALS: BP 155/82; PULSE 63; RESP 22; TEMP 36.8; O2SAT 97
[2024-12-04] MEDS: traZODone 50 MG TAB 100 MG PO (21:30)
[2024-12-04] MEDS: Atorvastatin 20 MG TAB PO (21:30)
[2024-12-04] MEDS: Gabapentin 100 MG CAP 200 MG PO (21:31)
[2024-12-04] MEDS: Insulin Glargine 300 UNITS/3 ML PEN SC (21:34)
[2024-12-05 07:23] VITALS: BP 210/85; PULSE 63; RESP 12; TEMP 35.4; O2SAT 100
[2024-12-05 07:25] VITALS: BP 188/76
[2024-12-05] MEDS: Isosorbide Mononitrate 60 MG TABCR PO (07:41)
[2024-12-05] MEDS: Carvedilol 12.5 MG TAB 18.75 MG PO ×2 (07:41→21:54)
[2024-12-05] MEDS: Ferrous Sulfate 325 MG TAB PO (07:43)
[2024-12-05] MEDS: Vitamins B Comp w/C TAB 1 TAB PO (07:43)
[2024-12-05] MEDS: Gabapentin 100 MG CAP 200 MG PO ×2 (07:43→21:53)
[2024-12-05] MEDS: Acetaminophen 500 MG TAB PO ×2 (07:43→21:54)
[2024-12-05] MEDS: Losartan 25 MG TAB PO ×2 (07:44→21:53)
[2024-12-05] MEDS: Aspirin 81 MG CHEW PO (07:44)
[2024-12-05] MEDS: Normal Saline Flush 10 ML SYR IVP ×2 (07:44→21:54)
[2024-12-05] MEDS: Furosemide 40 MG/4 ML VIAL IVP ×2 (07:44→15:59)
[2024-12-05] MEDS: Apixaban 2.5 MG TAB PO ×2 (07:44→21:53)
[2024-12-05] MEDS: cefTRIAXone 1 GM/50 ML BAG IVPB (07:45)
[2024-12-05] MEDS: hydrALAZINE 20 MG/ML VIAL 10 MG IVP (07:45)
[2024-12-05 08:06] VITALS: BP 168/82
[2024-12-05] MEDS: Insulin Glargine 300 UNITS/3 ML PEN 45 UNITS SC (08:25)
[2024-12-05] MEDS: Budesonide/Formoterol 160/4.5 6 GM 60 PUFF INH IH ×2 (08:28→20:03)
[2024-12-05 09:01] VITALS: BP 144/70
--- NOTE | 2024-12-05 14:24 | W.PM.PROGNOT ---
Date of Service Date of service: 12/05/24 Time of Service: : Assessment and Plan Assessment and plan (1) Acute exacerbation of CHF (congestive heart failure): Status: Acute Assessment and plan: continue IV diuresis. monitor intake and output closely daily weights. last echo apr 2021 with EF 50-55%, will update when available. 12/04/24 cw diuresis coreg/hydralazine/losartan/imdur/lasix 7..25 down 1kg in weight. Gray placement will allow for more accurate for I/O (2) Hypertension: Status: Chronic Assessment and plan: pt was noted to have an elevated BP. Started on hydralazine 12/05/24 better control but will need optimization in the outpatient setting (3) Type 2 diabetes mellitus with retinopathy of both eyes, with long-term current use of insulin: Status: Acute Assessment and plan: A1C in july 2024 6.0 will continue diabetic diet blood sugar checks AC/HS with sliding scale coverage as needed. continue basal insulin, adjust as needed. (4) Chronic kidney disease (CKD), stage IV (severe): Status: Acute Assessment and plan: creatinine at baseline avoid nephrotoxic drugs renal dosing as needed monitor closely in setting of acute diuresis 12/05/24 recheck labs in am (5) ICD (implantable cardioverter-defibrillator) in place: Status: Acute Assessment and plan: paced rhythm (6) Acute UTI: Status: Acute Assessment and plan: ceftriaxone day 1 while urinary cultures pending Urine Culture Preliminary 12/04/24-0831 Day 1 Result ISOLATES BELOW ISOLATE 1 COLONY COUNT >100,000 COLONIES/ML ISOLATE 1 APPEARANCE Gram Negative Manan ISOLATE 1 ACTION SUSCEPTIBILITY TO FOLLOW Organism 1 Escherichia coli COLONY COUNT >100,000 COLONIES/ML Esch coli: Pending 12/05/24 sensitivities noted, will change to macrobid for another 2 days (7) Candidal diaper dermatitis: Status: Acute Assessment and plan: nystain (8) Acute on chronic alteration in mental status: Status: Acute Assessment and plan: in setting of heart failure and UTI safety precautions CT head with no acute pathology (9) Head injury: Status: Acute Assessment and plan: several days ago, on anticoagulation no acute findings on head or c spine CT scan (10) Anticoagulant long-term use: Status: Acute Assessment and plan: continue apixaban (11) Elevated troponin: Status: Acute Assessment and plan: in setting of heart failure and poorly controlled BP troponin flat, no ischemic EKG changes or chest pain no further surveillance. (12) Anemia: Status: Chronic Assessment and plan: iron deficiency stable continue supplementation (13) Pleural effusion: Status: Acute Assessment and plan: left lobe. Pt's vss with no oxygen requirement. Concern for quick accumulation if tapped. Will monitor and adjust plan as needed Subjective Subjective Interval history since last seen: Pt states her sob has improved to some extent. Exam Narrative Exam Narrative: ncat mmm eomi perrla petechiae on face most notably around right orbital area rrr no mrg ctab no amu sndndbsa 2plus lyssa bilat gray in place Objective Last Vital Signs Temp 35.4 C L 12/05/24 07:23 Pulse 63 12/05/24 07:23 Resp 12 12/05/24 07:23 BP 144/70 H 12/05/24 09:01 Pulse Ox 100 12/05/24 07:23 Time Spent with Patient Time Spent with Patient: 25-34 minutes Time was spent: preparing to see the patient(eg.review tests), obtaining and/or reviewing separately otained hiistory, ordering medications,tests, procedures, referring, communicating with other health home health care respiratory therapist, indepentently interpreting results, counseling the patient and care coordination
--- NOTE | 2024-12-05 14:48 | CMPROGNOTE_ITS ---
Date of service: 12/05/24 Time of Service: 14:49 Care Management Progress Note Progress Note Text Progress Note Text: Chetna was lying in bed, when CM arrived. CM contacted her daughter regarding an undated HIPAA form, no response. CM requested a PT consult. Chetna still seems to be confused. Per [facility], this occurs at baseline. CM will continue follow. Discharge Potential Discharge Needs: PT Evaluation and PCP F/U Appt Anticipated Barriers to Discharge: Medical Status Patient/Family Education Needs: Review discharge instructions, discuss Ask Me Three Transportation: Other (Transport pending on patient mobility at the time of discharge. ) Plan: Anticipate, Chetna will return to [facility] when medically ready. Her transport will be dependant on mobility at time of discharge, PT has been consulted and will likely recommend transportations. She will follow up with facility provid ers and discharge plan of care. CM will continue to follow. Social Determinants of Health Screening Will the Patient Participate in the Screening?: Unable to obtain Comments: patient unable to answer due confusion Health Related Social Needs Health related social needs details: unable to obtain
[2024-12-05] MEDS: Insulin Aspart 300 UNITS/3 ML PEN SC (17:03)
[2024-12-05 17:05] VITALS: BP 160/58; PULSE 60; RESP 18; TEMP 36.5; O2SAT 100
[2024-12-05 19:24] VITALS: BP 161/88; PULSE 60; RESP 19; TEMP 36.3; O2SAT 99
[2024-12-05] MEDS: MacroBID 100 MG CAP PO (21:53)
[2024-12-05] MEDS: traZODone 50 MG TAB 100 MG PO (21:53)
[2024-12-05] MEDS: Atorvastatin 20 MG TAB PO (21:53)
[2024-12-05] MEDS: Nystatin POWDER 15 GM JAR TP (21:54)
[2024-12-05] MEDS: Insulin Glargine 300 UNITS/3 ML PEN 50 UNITS SC (21:59)
[2024-12-06 07:11] LABS: Abs Immature Grans 0.05 10^3/uL (0.0-0.06); HCT 26.9 % (36.0-46.0); HGB 8.1 g/dL (11.2-15.7); Immature Grans % 0.6 %; MCH 26.9 pg (27.0-33.0); MCHC 30.1 % (32.0-36.0); MCV 89 fL (80-95); MPV 11.5 fL (8.0-11.0); Platelet Count 153 10^3/uL (130-400); RBC 3.01 10^6/uL (3.93-5.22); RDW 14.4 % (11.7-14.6); RDW-SD 45.9 fL; WBC 8.63 10^3/uL (4.4-10.8)
[2024-12-06 07:27] LABS: ALT 11 U/L (14-59); AST 18 U/L (15-37); Albumin 2.0 g/dL (3.4-5.0); Alkaline Phosphatase 80 U/L (46-116); Anion Gap 6.6 mmol/L (3-11); BUN 40 mg/dL (7-18); Bilirubin, Total 0.2 mg/dL (0.2-1.0); CO2 28.4 mmol/L (21.0-32.0); Calcium 8.3 mg/dL (8.5-10.1); Chloride 113 mmol/L (98-107); Estimated GFR 19.07 (mL/min/1.73m2); Glucose 87 mg/dL (74-106); Sodium 148 mmol/L (136-145); Total Protein 5.8 g/dL (6.4-8.2)
[2024-12-06 07:39] VITALS: BP 200/80; PULSE 80; RESP 16; TEMP 36.8; O2SAT 98
[2024-12-06] MEDS: Budesonide/Formoterol 160/4.5 6 GM 60 PUFF INH IH ×2 (07:59→20:11)
[2024-12-06 08:02] VITALS: BP 183/80
[2024-12-06] MEDS: Nystatin POWDER 15 GM JAR TP ×3 (08:03→21:36)
[2024-12-06] MEDS: Normal Saline Flush 10 ML SYR IVP ×2 (08:04→21:34)
[2024-12-06] MEDS: Carvedilol 12.5 MG TAB 18.75 MG PO ×2 (08:04→21:30)
[2024-12-06] MEDS: Isosorbide Mononitrate 60 MG TABCR PO (08:04)
[2024-12-06] MEDS: Acetaminophen 500 MG TAB PO ×2 (08:05→21:32)
[2024-12-06] MEDS: MacroBID 100 MG CAP PO ×2 (08:05→21:33)
[2024-12-06] MEDS: Gabapentin 100 MG CAP 200 MG PO ×2 (08:05→21:33)
[2024-12-06] MEDS: Ferrous Sulfate 325 MG TAB PO (08:06)
[2024-12-06] MEDS: Losartan 25 MG TAB PO ×2 (08:06→21:33)
[2024-12-06] MEDS: Aspirin 81 MG CHEW PO (08:06)
[2024-12-06] MEDS: Apixaban 2.5 MG TAB PO ×2 (08:06→21:34)
[2024-12-06] MEDS: Vitamins B Comp w/C TAB 1 TAB PO (08:06)
[2024-12-06 08:11] LABS: Potassium 2.9 mmol/L (3.5-5.1)
[2024-12-06 09:23] VITALS: BP 158/65; PULSE 61
--- NOTE | 2024-12-06 10:33 | PDOC.CMDIS ---
Date of service: 12/06/24 Time of Service: 10:33 LACE Index Scoring Tool Questions: Length of Stay (in days): 3 Was the patient admitted via the E.D.?: Yes Comorbidities: Diabetes w/o Complication, Congestive Heart Failure and Liver or Renal Disease E.D. Visits: 2 Answers: Total Score: 13 Risk of Readmission: High Risk Care Management Discharge Plan Reason for Hospitalization: Heart Failure Discharge Plan: Chetna will return to [facility] today. She will transport by EMS for altered mental status with aggressive behavior. She will follow up with facility providers and discharge plan of care. Patient/Family Education Needs: Review discharge instructions, activity, limitation and plan of care. Discuss Ask Me Three. Services Needed at Discharge: Shelter Facility (Resident ) SDOH Health Related Social Needs: Health related social needs details unable to obtain Health related social needs details: unable to obtain
[2024-12-06] MEDS: Potassium Chloride 20 MEQ TABCR 40 MEQ PO ×2 (12:17→21:32)
[2024-12-06] MEDS: Insulin Aspart 300 UNITS/3 ML PEN SC (16:59)
--- NOTE | 2024-12-06 17:03 | PDOC.CMPRO ---
Date of service: 12/06/24 Time of Service: 17:03 Care Management Progress Note Progress Note Text Progress Note Text: Chetna was lying in bed sleeping, when CM arrived. Per report her potassium was low this morning. Per RN, she has not been agitated today. She will likely transport back to [facility] via EMS due to altered mental status with aggressive behavior. CM will continue to follow. Discharge Potential Discharge Needs: PT Evaluation and PCP F/U Appt Anticipated Barriers to Discharge: Medical Status Patient/Family Education Needs: Review discharge instructions, discuss Ask Me Three Transportation: Other (Transport pending on patient mobility at the time of discharge.) Plan: Anticipate, Chetna will return to [facility] when medically ready. She will likely transport by EMS due to altered mental status with agressive behavior. PT consult was recommended by CM. She will follow up with facility providers and discharge plan of care. CM will continue to follow. Social Determinants of Health Screening Will the Patient Participate in the Screening?: Unable to obtain Comments: patient unable to answer due confusion Health Related Social Needs Health related social needs details: unable to obtain
--- NOTE | 2024-12-06 17:14 | W.PM.PROGNOT ---
Date of Service Date of service: 12/06/24 Time of Service: 17:14 Assessment and Plan Assessment and plan (1) Acute exacerbation of CHF (congestive heart failure): Status: Acute Assessment and plan: continue IV diuresis. monitor intake and output closely daily weights. last echo apr 2021 with EF 50-55%, will update when available. 12/04/24 cw diuresis coreg/hydralazine/losartan/imdur/lasix 7 down 1kg in weight. Neal placement will allow for more accurate for I/O 12/06/24 Down appx 1kg, cw diuresis (2) Hypertension: Status: Chronic Assessment and plan: pt was noted to have an elevated BP. Started on hydralazine 12/05/24 better control but will need optimization in the outpatient setting (3) Type 2 diabetes mellitus with retinopathy of both eyes, with long-term current use of insulin: Status: Acute Assessment and plan: A1C in july 2024 6.0 will continue diabetic diet blood sugar checks AC/HS with sliding scale coverage as needed. continue basal insulin, adjust as needed. (4) Chronic kidney disease (CKD), stage IV (severe): Status: Acute Assessment and plan: creatinine at baseline avoid nephrotoxic drugs renal dosing as needed monitor closely in setting of acute diuresis 12/05/24 recheck labs in am 12/06/24 Patient does have some worsening renal indices which is expected to some degree with diuresis. She does have chronic kidney disease so fluid balance versus respiratory issues as complex problem. Will continue to monitor both output as well as labs (5) ICD (implantable cardioverter-defibrillator) in place: Status: Acute Assessment and plan: paced rhythm (6) Acute UTI: Status: Acute Assessment and plan: ceftriaxone day 1 while urinary cultures pending Urine Culture Preliminary 12/04/24-0831 Day 1 Result ISOLATES BELOW ISOLATE 1 COLONY COUNT >100,000 COLONIES/ML ISOLATE 1 APPEARANCE Gram Negative Manan ISOLATE 1 ACTION SUSCEPTIBILITY TO FOLLOW Organism 1 Escherichia coli COLONY COUNT >100,000 COLONIES/ML Esch coli: Pending 12/05/24 sensitivities noted, will change to macrobid for another 2 days (7) Candidal diaper dermatitis: Status: Acute Assessment and plan: nystain (8) Acute on chronic alteration in mental status: Status: Acute Assessment and plan: in setting of heart failure and UTI safety precautions CT head with no acute pathology (9) Head injury: Status: Inactive Assessment and plan: several days ago, on anticoagulation no acute findings on head or c spine CT scan (10) Anticoagulant long-term use: Status: Acute Assessment and plan: continue apixaban (11) Elevated troponin: Status: Acute Assessment and plan: in setting of heart failure and poorly controlled BP troponin flat, no ischemic EKG changes or chest pain no further surveillance. (12) Anemia: Status: Chronic Assessment and plan: iron deficiency stable continue supplementation (13) Pleural effusion: Status: Acute Assessment and plan: left lobe. Pt's vss with no oxygen requirement. Concern for quick accumulation if tapped. Will monitor and adjust plan as needed Exam Narrative Exam Narrative: Pt resting comfortably no respiratory distress no jvd noted Objective Last Vital Signs Temp 36.8 C 12/06/24 07:39 Pulse 61 12/06/24 09:23 Resp 16 12/06/24 07:39 BP 158/65 H 12/06/24 09:23 Pulse Ox 98 12/06/24 07:39 Laboratory Results - last 24 hr 12/06/24 06:20 WBC 8.63 RBC 3.01 L Hgb 8.1 L Hct 26.9 L MCV 89 MCH 26.9 L MCHC 30.1 L RDW 14.4 Plt Count 153 MPV 11.5 H Immature Gran % 0.6 Neutrophils % 75.3 Lymphocytes % 11.4 Monocytes % 7.2 Eosinophils % 4.9 Basophils % 0.6 Nucleated RBC % 0.0 Absolute Neutrophils 6.51 Absolute Lymphocytes 0.98 L Absolute Monocytes 0.62 Absolute Eosinophils 0.42 Absolute Basophils 0.05 Sodium 148 H Potassium 2.9 L* Chloride 113 H Carbon Dioxide 28.4 Anion Gap 6.6 BUN 40 H Creatinine 2.4 H Est GFR (CKD-EPI 2020) 19.07 Glucose 87 Calcium 8.3 L Total Bilirubin 0.2 AST 18 ALT 11 L Alkaline Phosphatase 80 Total Protein 5.8 L Albumin 2.0 L Time Spent with Patient Time Spent with Patient: 25-34 minutes Time was spent: preparing to see the patient(eg.review tests), obtaining and/or reviewing separately otained hiistory, ordering medications,tests, procedures, referring, communicating with other health childcare administrator, indepentently interpreting results, counseling the patient and care coordination
[2024-12-06 19:43] VITALS: BP 153/75; PULSE 61; RESP 19; TEMP 37; O2SAT 97
[2024-12-06] MEDS: traZODone 50 MG TAB 100 MG PO (21:33)
[2024-12-06] MEDS: Atorvastatin 20 MG TAB PO (21:34)
[2024-12-07 07:59] VITALS: BP 206/75; PULSE 59; RESP 18; TEMP 36.3; O2SAT 99
[2024-12-07] MEDS: Budesonide/Formoterol 160/4.5 6 GM 60 PUFF INH IH ×2 (08:15→21:00)
--- NOTE | 2024-12-07 09:33 | PDOC.CMDIS ---
Date of service: 12/07/24 Time of Service: 09:33 Care Management Discharge SDOH Health Related Social Needs: Health related social needs details unable to obtain Health related social needs details: unable to obtain
[2024-12-07] MEDS: Vitamins B Comp w/C TAB 1 TAB PO (10:54)
[2024-12-07] MEDS: Losartan 25 MG TAB PO (10:54)
[2024-12-07] MEDS: Ferrous Sulfate 325 MG TAB PO (10:54)
[2024-12-07] MEDS: MacroBID 100 MG CAP PO (10:54)
[2024-12-07] MEDS: Carvedilol 12.5 MG TAB 18.75 MG PO (10:54)
[2024-12-07] MEDS: Gabapentin 100 MG CAP 200 MG PO (10:55)
[2024-12-07] MEDS: Isosorbide Mononitrate 60 MG TABCR PO (10:55)
[2024-12-07] MEDS: Normal Saline Flush 10 ML SYR IVP ×3 (10:55→20:45)
[2024-12-07] MEDS: Apixaban 2.5 MG TAB PO (10:55)
[2024-12-07] MEDS: Furosemide 40 MG/4 ML VIAL IVP ×2 (10:55→16:20)
[2024-12-07] MEDS: Aspirin 81 MG CHEW PO (10:55)
[2024-12-07] MEDS: Potassium Chloride 20 MEQ TABCR 40 MEQ PO (10:55)
[2024-12-07 11:28] LABS: Abs Immature Grans 0.07 10^3/uL (0.0-0.06); HCT 30.1 % (36.0-46.0); HGB 9.2 g/dL (11.2-15.7); Immature Grans % 0.5 %; MCH 27.5 pg (27.0-33.0); MCHC 30.6 % (32.0-36.0); MCV 90 fL (80-95); MPV 10.8 fL (8.0-11.0); Platelet Count 165 10^3/uL (130-400); RBC 3.34 10^6/uL (3.93-5.22); RDW 14.7 % (11.7-14.6); RDW-SD 47.5 fL; WBC 12.83 10^3/uL (4.4-10.8)
[2024-12-07 11:43] LABS: ALT 21 U/L (14-59); AST 22 U/L (15-37); Albumin 2.3 g/dL (3.4-5.0); Alkaline Phosphatase 82 U/L (46-116); Anion Gap 6.0 mmol/L (3-11); BUN 39 mg/dL (7-18); Bilirubin, Total 0.4 mg/dL (0.2-1.0); CO2 28.0 mmol/L (21.0-32.0); Calcium 8.5 mg/dL (8.5-10.1); Chloride 113 mmol/L (98-107); Estimated GFR 20.07 (mL/min/1.73m2); Glucose 128 mg/dL (74-106); Potassium 4.1 mmol/L (3.5-5.1); Sodium 147 mmol/L (136-145); Total Protein 6.3 g/dL (6.4-8.2)
[2024-12-07 12:00] VITALS: BP 166/80
--- NOTE | 2024-12-07 13:30 | PGE_ITS ---
Date of Service Date of service: 12/07/24 Time of Service: 13:30 Assessment and Plan Assessment and plan (1) Acute exacerbation of CHF (congestive heart failure): Status: Acute Assessment and plan: continue IV diuresis. monitor intake and output closely daily weights. last echo apr 2021 with EF 50-55%, will update when available. 12/04/24 cw diuresis coreg/hydralazine/losartan/imdur/lasix 7. down 1kg in weight. Gray placement will allow for more accurate for I/O 12/06/24 Down appx 1kg, cw diuresis 12/07/24 Pt with an appx 2kg weight loss since admission. C/W current medical management. Echo shows EF of 65% No valvular disease is noted (2) Hypertension: Status: Chronic Assessment and plan: pt was noted to have an elevated BP. Started on hydralazine 12/05/24 better control but will need optimization in the outpatient setting (3) Type 2 diabetes mellitus with retinopathy of both eyes, with long-term current use of insulin: Status: Acute Assessment and plan: A1C in july 2024 6.0 will continue diabetic diet blood sugar checks AC/HS with sliding scale coverage as needed. continue basal insulin, adjust as needed. 12/07/24 According to [employer] SGLT2 inhibitor contraindicated for DM if GFR is less than 40 and for CHF management at less than 20. Considering the results of her echo, will not start as her GFR is calculated at 20.07 (4) Chronic kidney disease (CKD), stage IV (severe): Status: Acute Assessment and plan: creatinine at baseline avoid nephrotoxic drugs renal dosing as needed monitor closely in setting of acute diuresis 12/05/24 recheck labs in am 12/06/24 Patient does have some worsening renal indices which is expected to some degree with diuresis. She does have chronic kidney disease so fluid balance versus respiratory issues as complex problem. Will continue to monitor both output as well as labs (5) ICD (implantable cardioverter-defibrillator) in place: Status: Acute Assessment and plan: paced rhythm (6) Acute UTI: Status: Acute Assessment and plan: ceftriaxone day 1 while urinary cultures pending Urine Culture Preliminary 12/04/24-830 Day 1 Result ISOLATES BELOW ISOLATE 1 COLONY COUNT >100,000 COLONIES/ML ISOLATE 1 APPEARANCE Gram Negative Manan ISOLATE 1 ACTION SUSCEPTIBILITY TO FOLLOW Organism 1 Escherichia coli COLONY COUNT >100,000 COLONIES/ML Esch coli: Pending 12/05/24 sensitivities noted, will change to macrobid for another 2 days (7) Candidal diaper dermatitis: Status: Acute Assessment and plan: nystain (8) Acute on chronic alteration in mental status: Status: Acute Assessment and plan: in setting of heart failure and UTI safety precautions CT head with no acute pathology (9) Head injury: Status: Inactive Assessment and plan: several days ago, on anticoagulation no acute findings on head or c spine CT scan (10) Anticoagulant long-term use: Status: Acute Assessment and plan: continue apixaban (11) Elevated troponin: Status: Acute Assessment and plan: in setting of heart failure and poorly controlled BP troponin flat, no ischemic EKG changes or chest pain no further surveillance. (12) Anemia: Status: Chronic Assessment and plan: iron deficiency stable continue supplementation (13) Pleural effusion: Status: Acute Assessment and plan: left lobe. Pt's vss with no oxygen requirement. Concern for quick accumulation if tapped. Will monitor and adjust plan as needed Subjective Subjective Interval history since last seen: PT seen and examined in her room. NS report pt with multiple episodes of loose stool and some skin breakdown Exam Narrative Exam Narrative: ncat mmm eomi perrla petechiae on face most notably around right orbital area rrr no mrg ctab no amu sndndbsa 1plus lyssa bilat gray in place Objective Last Vital Signs Temp 36.3 C L 12/07/24 07:59 Pulse 59 L 12/07/24 07:59 Resp 18 12/07/24 07:59 BP 166/80 H 12/07/24 12:00 Pulse Ox 99 12/07/24 07:59 Laboratory Results - last 24 hr 12/07/24 11:14 WBC 12.83 H RBC 3.34 L Hgb 9.2 L Hct 30.1 L MCV 90 MCH 27.5 MCHC 30.6 L RDW 14.7 H Plt Count 165 MPV 10.8 Immature Gran % 0.5 Neutrophils % 83.3 Lymphocytes % 7.4 Monocytes % 4.8 Eosinophils % 3.5 Basophils % 0.5 Nucleated RBC % 0.0 Absolute Neutrophils 10.69 H Absolute Lymphocytes 0.95 L Absolute Monocytes 0.62 Absolute Eosinophils 0.45 Absolute Basophils 0.06 Sodium 147 H Potassium 4.1 D Chloride 113 H Carbon Dioxide 28.0 Anion Gap 6.0 BUN 39 H Creatinine 2.3 H Est GFR (CKD-EPI 2020) 20.07 Glucose 128 H Calcium 8.5 Total Bilirubin 0.4 AST 22 ALT 21 Alkaline Phosphatase 82 Total Protein 6.3 L Albumin 2.3 L Time Spent with Patient Time Spent with Patient: 25-34 minutes Time was spent: preparing to see the patient(eg.review tests), obtaining and/or reviewing separately otained hiistory, ordering medications,tests, procedures, referring, communicating with other health customer care manager, indepentently interpreting results, counseling the patient and care coordination
--- NOTE | 2024-12-07 13:42 | CMPROGNOTE_ITS ---
Date of service: 12/07/24 Time of Service: 13:42 Care Management Progress Note Progress Note Text Progress Note Text: Chetna was lying in bed and appears to be sleeping comfortably when CM attempted to meet with her. The plan was for her to return to [facility] today, however her discharge back will be postponed for today due to soft stool and risk for further skin breakdown. Rosanne at [facility] is notified. Chetna will return to [facility] via EMS (due to altered mental status with aggressive behavior); when medically ready for discharge. CM will continue to follow. Discharge Potential Discharge Needs: Consult Anticipated Barriers to Discharge: None Identified Patient/Family Education Needs: Review discharge instructions, discuss Ask Me Three Transportation: EMS (Patient is a piotr lift, ) Plan: Anticipate, Chetna will return to [facility] when medically ready, likely tomorrow. She will likely transport by EMS due to altered mental status with aggressive behavior. She is a piotr lift. PT consult was recommended by CM. She will follow up with facility providers and discharge plan of care. CM will continue to follow. Social Determinants of Health Screening Will the Patient Participate in the Screening?: Unable to obtain Comments: patient unable to answer due confusion Health Related Social Needs Health related social needs details: unable to obtain
[2024-12-07] MEDS: Nystatin POWDER 15 GM JAR TP (13:53)
[2024-12-07] MEDS: Insulin Aspart 300 UNITS/3 ML PEN SC ×2 (17:06→22:14)
[2024-12-08 01:36] VITALS: PULSE 60; RESP 19; TEMP 36.6; O2SAT 96
[2024-12-08] MEDS: Budesonide/Formoterol 160/4.5 6 GM 60 PUFF INH IH (08:28)
[2024-12-08 08:59] VITALS: BP 210/69; PULSE 63; RESP 15; TEMP 36.5; O2SAT 99
--- NOTE | 2024-12-08 09:18 | CMDISCH_ITS ---
Date of service: 12/08/24 Time of Service: 09:18 LACE Index Scoring Tool Questions: Length of Stay (in days): 4 - 6 Was the patient admitted via the E.D.?: Yes Comorbidities: Diabetes w/o Complication, Congestive Heart Failure and Liver or Renal Disease E.D. Visits: 2 Answers: Total Score: 14 Risk of Readmission: High Risk Care Management Discharge Plan Reason for Hospitalization: Heart Failure Discharge Plan: Chetna will return to [facility] today. She will likely transport by EMS due to altered mental status with aggressive behavior. She is a piotr lift. PT consult was recommended by CM. She will follow up with yecenia hoyos and discharge plan of care. Patient/Family Education Needs: Review of discharge instructions, activity, limitations, and plan of care. Discuss Ask Me Three. SDOH Health Related Social Needs: Health related social needs details unable to obtain Health related social needs details: unable to obtain
--- NOTE | 2024-12-08 09:46 | TELEP.MEDR_ITS ---
Date of service: 12/08/24 Time of Service: 09:46 Telepharmacy Home Med Rec Allergies Allergies: lisinopril Allergy (Verified 12/03/24 11:55) Anaphylaxis gabapentin Adverse Reaction (Mild, Verified 12/03/24 11:55) Dizziness/Lightheade GORDON Inhibitors Adverse Reaction (Unknown, Verified 12/03/24 11:55) COUGH lactose Adverse Reaction (Verified 12/03/24 11:55) Unknown multiple food allergies Allergy (Intermediate, Uncoded 12/03/24 11:55) Sensitization noted on blood test Interview Person Interviewed: [facility] Quality Quality of Interview/Accuracy of Medication List: Excellent Sources Sources used to compile medication list: MAR Changes made to Home Medication List: ADDITIONS: APAP prn (in addition to scheduled) ASA DR tab Imodium Glucose Lantus DuoNeb Isosorbide Mononitrate 30 mg Fleet MoM DELETIONS: Asa Chew Toujeo Isosorbide Mononitrate 60 mg Lisinopril Loratadine Losartan 50 mg Fiber Humalog CHANGES: APAP scheduled dose to 1000 mg BID Albuterol directions updated FLonase to scheduled Recommended Changes Recommended Changes(reason for recommendation): Pt has been admitted since 12/03; requested to do med rec 12/08 overnight. Please review many updates made to home med list. Attestation: The home medication list is now updated to the best of my knowledge and is ready to be reconciled by the provider. Please contact the TelePharmacy Medication Reconciliation Pharmacist at for any questions.
[2024-12-08] MEDS: Insulin Aspart 300 UNITS/3 ML PEN SC ×2 (09:54→12:53)
[2024-12-08 12:09] VITALS: BP 228/76; PULSE 63
--- NOTE | 2024-12-08 12:19 | DSE_ITS ---
Date of service: 12/08/24 Time of Service: 12:19 DS: Diagnosis Discharge Diagnosis (1) Acute exacerbation of CHF (congestive heart failure): Status: Acute (2) Hypertension: Status: Chronic (3) Type 2 diabetes mellitus with retinopathy of both eyes, with long-term current use of insulin: Status: Acute (4) Chronic kidney disease (CKD), stage IV (severe): Status: Acute (5) ICD (implantable cardioverter-defibrillator) in place: Status: Acute (6) Acute UTI: Status: Acute (7) Candidal diaper dermatitis: Status: Acute (8) Acute on chronic alteration in mental status: Status: Acute (9) Anticoagulant long-term use: Status: Acute (10) Elevated troponin: Status: Acute (11) Anemia: Status: Chronic (12) Pleural effusion: Status: Acute Discharge Plan Disposition Patient Disposition: [facility] Facility(SNF) Condition: Fair Condition: Stable Discharge Details Reason For Visit: Heart Failure Admit Date/Time: 12/03/24 14:32 Admit Provider: Blayne Bernal Attending Provider: Blayne Bernal Primary Care Provider: Unknown,Unknown Hospital Course Hospital Course: This is an 89-year-old lady who lives at a half-way facility presents with signs and symptoms consistent with CHF. While she was here she did have better diuresis with over 3 kg of fluid loss. Hospital stay was complicated by some hospital-acquired delirium which should improve when she is into her usual setting. In regards to diagnostic data patient refused labs this morning. She does have mild anemia likely worked up in the outpatient setting. She did have episodes of hypokalemia that have resolved prior to discharge. She does have a known history of chronic kidney disease and she is close to her baseline in terms of her GFR. An echocardiogram was performed which did show an EF of 65% so the patient does not have have HFrEF. Will be discharged in stable condition. While she was here she was also diagnosed with a UTI and was treated with Macrobid. Urine cultures did show E. coli over 100,000 CFU's with essentially velasco sensitivity. Patient completed a course of Macrobid while she was here. History of Present Illness Narrative: Patient presents to the emergency department from [facility] and rehab for complaints of shortness of breath and increasing peripheral edema. Her workup in the emergency department was most concerning for heart failure. She received 40 mg of IV Lasix with some improvement in her symptoms. She had no oxygen requirements satting in the high 90s to 100 on room air. Labs unremarkable with normal white count stable known anemia no electrolyte abnormalities, stable creatinine of 2.1. Her BN P was elevated at 4800 which is markedly increased from her previous levels. Urine did reflex for culture and she did receive 1 g of IV ceftriaxone while awaiting ID and sensitivities. Hospitalist services was asked to admit her to the medical surgical unit for further monitoring and management. Assessment and plan (1) Acute exacerbation of CHF (congestive heart failure): Status: Acute Assessment and plan: continue IV diuresis. monitor intake and output closely daily weights. last echo apr 2021 with EF 50-55%, will update when available. (2) Hypertension: Status: Chronic (3) Type 2 diabetes mellitus with retinopathy of both eyes, with long-term current use of insulin: Status: Acute Assessment and plan: A1C in july 2024 6.0 will continue diabetic diet blood sugar checks AC/HS with sliding scale coverage as needed. continue basal insulin, adjust as needed. (4) Chronic kidney disease (CKD), stage IV (severe): Status: Acute Assessment and plan: creatinine at baseline avoid nephrotoxic drugs renal dosing as needed monitor closely in setting of acute diuresis (5) ICD (implantable cardioverter-defibrillator) in place: Status: Acute Assessment and plan: paced rhythm (6) Acute UTI: Status: Acute Assessment and plan: ceftriaxone day 1 while urinary cultures pending (7) Candidal diaper dermatitis: Status: Acute Assessment and plan: nystain (8) Acute on chronic alteration in mental status: Status: Acute Assessment and plan: in setting of heart failure and UTI safety precautions CT head with no acute pathology (9) Head injury: Status: Acute Assessment and plan: several days ago, on anticoagulation no acute findings on head or c spine CT scan (10) Anticoagulant long-term use: Status: Acute Assessment and plan: continue apixaban (11) Elevated troponin: Status: Acute Assessment and plan: in setting of heart failure and poorly controlled BP troponin flat, no ischemic EKG changes or chest pain no further surveillance. (12) Anemia: Status: Chronic Assessment and plan: iron deficiency stable continue supplementation Home Meds and New Rx's Prescriptions: Continued (DME) [employer] Freya 2 [place] Misc See Rx Instructions .ROUTE .MEDSUPPLY Qty: 1 0RF Rx Instructions: As directed multivitamin [Daily Vitamin] 1 EACH tablet 1 ea PO DAILY (DME) lancets [OneTouch UltraSoft Lancets] 1 EACH misc 1 ea Miscellaneous TID Qty: 90 Rx Instructions: For DM 250.00 to keep A1C at or below 7 Glucagon Emergency Kit (human) 1 MG kit 1 mg IJ PRN Qty: 1 nitroglycerin 0.4 mg tablet, sublingual 0.4 mg sublingual Q5M PRN (Reason: chest pain) Qty: 30 0RF Rx Instructions: Take 0.4 mg every 5 minutes up to 3 doses; seek emergent medical care if no relief fluticasone propion-salmeterol [Advair Diskus] 250-50 mcg/dose blister with device 1 inh inhalation BID Qty: 3 3RF (DME) Blood Glucose Test Strip See Rx Instructions .ROUTE .MEDSUPPLY Qty: 400 3RF Rx Instructions: As directed to check blood glucose four times daily. On insulin. Dispense covered brand. (DME) pen needle, diabetic 31 gauge x 5/16 needle See Dose Instructions .ROUTE .MEDSUPPLY Qty: 500 3RF Dose Instruction: As directed Rx Instructions: As directed with 5-times daily insulin omeprazole 20 mg capsule,delayed release(DR/EC) 20 mg PO DAILY Qty: 90 3RF Rx Instructions: Take 20 mg once daily in the morning at least 30 minutes before first meal atorvastatin 20 mg tablet 20 mg PO DAILY Qty: 90 3RF vitamin B complex Tablet 1 tab PO DAILY Qty: 90 3RF carvedilol 12.5 mg tablet 18.75 mg PO BID Qty: 42 0RF Rx Instructions: Take 18.75 mg (1 1/2 pills) twice daily trazodone 50 mg tablet 100 mg PO HS acetaminophen 500 mg capsule 500 mg PO Q6H PRN (Reason: pain) Patient Comments: In addition to scheduled aspirin [Adult Low Dose Aspirin] 81 mg tablet,delayed release (DR/EC) 81 mg PO DAILY loperamide [Anti-Diarrheal (loperamide)] 2 mg tablet 2 mg PO Q6H PRN (Reason: loose stool) dextrose [Glucose Gel] 40 % gel 20 g PO Q15M PRN (Reason: hypoglycemia) Rx Instructions: until symptoms of low blood sugar are controlled insulin glargine [Lantus Solostar U-100 Insulin] 100 unit/mL (3 mL) insulin pen 43 unit subcut DAILY ipratropium-albuterol 0.5 mg-3 mg(2.5 mg base)/3 mL solution for nebulization 3 ml inhalation Q4H PRN (Reason: shortness of breath) isosorbide mononitrate 30 mg tablet extended release 24 hr 90 mg PO DAILY Enema 19-7 gram/118 mL enema 118 ml OK DAILY PRN (Reason: constipation) magnesium hydroxide [Milk of Magnesia] 400 mg/5 mL suspension 30 ml PO QHS PRN (Reason: constipation) albuterol sulfate 90 mcg/actuation HFA aerosol inhaler 2 puff inhalation Q4H PRN (Reason: shortness of breath) ferrous sulfate [FeroSul] 325 mg (65 mg iron) tablet 325 mg PO DAILY Eliquis 2.5 mg tablet 2.5 mg PO ONCE bisacodyl 10 mg suppository 10 mg OK DAILY PRN fluticasone propionate [24 Hour Allergy Relief] 50 mcg/actuation spray,suspension 1 spray intranasal BID Rx Instructions: administer into each nostril gabapentin 100 mg capsule 200 mg PO BID losartan 25 mg tablet 25 mg PO BID Patient Comments: TAKE ONE TABLET BY MOUTH EVERY DAY Discontinued acetaminophen 500 mg tablet 1,000 mg PO BID Discharge Instructions Activity:: Activity as Tolerated Equipment/Supplies:: No Equipment Needed Diet:: As Tolerated Discharge Orders Discharge Orders: Discharge Order (Routine); Ordered 12/08/24 Ordered By: Joce Carcamo DS: Summary Time Spent with Patient providing and/or coordinating discharge services: Less than 30 minutes Status at Discharge Functional status at discharge: wheelchair bound Overall status at discharge: patient is progressing back to baseline Mental Status: other (confused and combative) Speech and Movement: agitated Mood: irritable mood and other (confused and combative) Affect: irritable affect Quality:SDOH Health Related Social Needs: Health related social needs details unable to obtain Health related social needs details: unable to obtain Exam Narrative Exam Narrative: ncat mmm eomi perrla petechiae on face most notably around right orbital area rrr no mrg ctab no amu sndndbsa 1plus lyssa bilat confused and combative Psych Mental Status: other (confused and combative) Speech and Movement: agitated Mood: irritable mood and other (confused and combative) Affect: irritable affect DS: Data Vitals/I&O Vitals and I&O: Vital Signs Temperature 36.5 C 12/08/24 08:59 Temperature Source Temporal Artery Scan 12/08/24 08:59 Pulse 63 12/08/24 12:09 Pulse Rhythm Regular 12/03/24 16:41 Pulse 60 12/03/24 16:20 Respiratory Rate 15 12/08/24 08:59 Respiratory Effort Normal 12/03/24 16:41 Respiratory Depth Normal 12/03/24 16:41 Respiratory Pattern Normal 12/03/24 16:41 Blood Pressure 228/76 H 12/08/24 12:09 Blood Pressure Mean 126 12/08/24 12:09 Blood Pressure Position Supine 12/03/24 11:28 Pulse Oximetry 99 12/08/24 08:59 Oxygen Delivery Method Room Air 12/08/24 08:59 Oxygen Flow Rate 0 12/08/24 08:59 Pain Level 0 12/08/24 12:09 Comment Joce Carcamo MD, notified. 12/08/24 12:09 Intake & Output 12/07/24 12/08/24 12/08/24 23:59 11:59 23:59 Intake Total 260 / 265 300 / 300 Output Total 1300 / 1650 900 / 900 Balance -1040 / -1385 -600 / -600 Weight 72.6 kg Intake: IV Oral 250 / 250 300 / 300 Output: Urine 1300 / 1650 900 / 900 Other: Urine Color Yellow Pale Yellow Urine Appearance Clear Sediment Urine Odor Normal Comment pt voided copious amount, incontinent. Stool Size Small Large Stool Characteristics Liquid Soft Green Formed Liquid Brown Green Data Completed and Pending Labs on day of discharge: Labs from last 24 hours 12/08/24 08:19 WBC Pending RBC Pending Hgb Pending Hct Pending MCV Pending MCH Pending MCHC Pending RDW Pending Plt Count Pending MPV Pending Immature Gran % Pending Neutrophils % Pending Lymphocytes % Pending Monocytes % Pending Eosinophils % Pending Basophils % Pending Absolute Neutrophils Pending Absolute Lymphocytes Pending Absolute Monocytes Pending Absolute Eosinophils Pending Absolute Basophils Pending Sodium Pending Potassium Pending Chloride Pending Carbon Dioxide Pending Anion Gap Pending BUN Pending Creatinine Pending Est GFR (CKD-EPI 2020) Pending Glucose Pending Calcium Pending Total Bilirubin Pending AST Pending ALT Pending Alkaline Phosphatase Pending Total Protein Pending Albumin Pending PFSH All Active Problems (Updated 12/06/24 @ 00:03 by SHADY TRAN) Pleural effusion (Acute) Elevated troponin (Acute) ICD (implantable cardioverter-defibrillator) in place (Acute) Chronic kidney disease (CKD), stage IV (severe) (Acute) [facility] Nephrology Type 2 diabetes mellitus with retinopathy of both eyes, with long-term current use of insulin (Acute) Hypertension (Chronic) Acute on chronic alteration in mental status (Acute) Candidal diaper dermatitis (Acute) Acute UTI (Acute) Acute exacerbation of CHF (congestive heart failure) (Acute) Pleural effusion (Acute) Anticoagulant long-term use (Acute) Angina at rest (Acute) Tubular adenoma of colon (Acute) Urinary incontinence (Acute) Neck pain (Acute) SARS-CoV-2 positive (Acute) Headache (Acute) Advanced directives, counseling/discussion (Acute) Bowel habit changes (Acute) Hydrosalpinx (Chronic) Left Muscular deconditioning (Acute) Lumbar spondylosis (Acute) Inflammatory polyps (Acute) Gastritis (Acute) Anemia (Chronic) 08/15/20 [facility] Video capsule endoscopy Insomnia (Chronic) 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 obesity hypoventilation?), also has asthma Osteoporosis (Chronic 07/28/11) Multiple food allergies (Chronic 08/14/15) Immunological Sensitization noted on Blood Test for Milk/Casein, peanut, Tomato, [place], Cabbage, [place], Rice, Spinach, Asparagus, Brussel Sprouts, Sweet Potato, Beef, Pork Mitral valve regurgitation (Chronic 09/05/13) 3+ Memory impairment (Chronic 08/30/17) 08/30/17 MOCA score: 02/16/19 MOCA score: Depression (Chronic 12/16/11) HUE Velasco in the past Cardiac resynchronization therapy defibrillator (AGRICULTURE RESEARCH DIRECTOR-D) in place (Chronic 08/14/16) [facility] Cardiology 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) [facility] Cariology Stress test showing small, reversible inferior wall defect c/w ischemia Type 2 diabetes mellitus with retinopathy of both eyes, with long-term current use of insulin Asthma 09/03/2014 PFTs: mild obstructive airway disease with significant bronchodilator response Chronic kidney disease (CKD), stage IV (severe) [facility] Nephrology ICD (implantable cardioverter-defibrillator) in place AVM (arteriovenous malformation) of colon Surgical History History of total left knee replacement Replacement of total knee joint B/L Hernia Repair, Incisional (~2010) W/ mesh. Dr. Cheko Patterson Extraction of cataract Dr. Hensley Family History Mother Hypertensive disorder, systemic arterial Diabetes Atherosclerosis of coronary artery Family history of stroke Dementia Hyperlipidemia Family history of glaucoma Cataract Father No problems noted. Social History Smoking/Tobacco Use Status: Former Tobacco Use Smoking risk assessment performed?: Yes Alcohol Intake: former Drug use: Never Substance use type: does not use Adopted: No Caregiver/Support person: No Foster care: No Housing: assisted living facility Number of Children: 5 Communication Needs: None Pets and animals: Yes Pets and animals: cat(s) and dog(s) Sexually active: No Current gender identity: female What is your relationship status?: Panel score (0-1 are the most socially isolated patients): 0 What type of physical activity do you participate in: other Details: Excercise classes at [employer] Duration: 45-60 minutes/day Frequency: 1-2 times per week Seatbelt use: always Do you feel safe at home: Yes Do you feel safe in your relationship?: Yes Time Spent with Patient Time Spent with Patient: <45 minutes Time was spent: preparing to see the patient(eg.review tests), obtaining and/or reviewing separately otained hiistory, ordering medications,tests, procedures, referring, communicating with other health home care nurse, indepentently interpreting results, counseling the patient and care coordination
[2024-12-08] MEDS: Isosorbide Mononitrate 60 MG TABCR PO (12:47)
[2024-12-08] MEDS: Carvedilol 12.5 MG TAB 18.75 MG PO (12:47)
[2024-12-08] MEDS: Losartan 25 MG TAB PO (12:48)
[2024-12-08 13:47] VITALS: BP 175/60; PULSE 59
[2024-12-08 13:48] LABS: Abs Immature Grans 0.03 10^3/uL (0.0-0.06); HCT 28.2 % (36.0-46.0); HGB 8.7 g/dL (11.2-15.7); Immature Grans % 0.3 %; MCH 27.7 pg (27.0-33.0); MCHC 30.9 % (32.0-36.0); MCV 90 fL (80-95); MPV 11.0 fL (8.0-11.0); Platelet Count 167 10^3/uL (130-400); RBC 3.14 10^6/uL (3.93-5.22); RDW 14.8 % (11.7-14.6); RDW-SD 47.9 fL; WBC 9.29 10^3/uL (4.4-10.8)
[2024-12-08 14:20] LABS: ALT 20 U/L (14-59); AST 22 U/L (15-37); Albumin 2.1 g/dL (3.4-5.0); Alkaline Phosphatase 78 U/L (46-116); Anion Gap 6.9 mmol/L (3-11); BUN 36 mg/dL (7-18); Bilirubin, Total 0.4 mg/dL (0.2-1.0); CO2 29.1 mmol/L (21.0-32.0); Calcium 8.6 mg/dL (8.5-10.1); Chloride 111 mmol/L (98-107); Estimated GFR 20.07 (mL/min/1.73m2); Glucose 193 mg/dL (74-106); Potassium 4.4 mmol/L (3.5-5.1); Sodium 147 mmol/L (136-145); Total Protein 6.1 g/dL (6.4-8.2)
== END 2024-12-08 14:25 | disposition skilled nursing facility (03) ==
LOC: ER 14:09 → MS 16:35
PROVIDERS: Nurse Practitioner Acute Care; Admitting Provider Family Medicine; Emergency Provider Emergency Medicine; Responsible Provider Hospitalist; Visit Provider Family Medicine
DX: I13.0 Hypertensive heart and chronic kidney disease with heart failure and stage 1 through stage 4 chronic kidney disease, or unspecified chronic kidney disease (principal); I50.9 Heart failure, unspecified; N39.0 Urinary tract infection, site not specified; N18.4 Chronic kidney disease, stage 4 (severe); R41.82 Altered mental status, unspecified; R74.8 Abnormal levels of other serum enzymes; Z79.4 Long term (current) use of insulin; E11.22 Type 2 diabetes mellitus with diabetic chronic kidney disease; Z95.810 Presence of automatic (implantable) cardiac defibrillator; B37.2 Candidiasis of skin and nail; L22 Diaper dermatitis; S09.90XA Unspecified injury of head, initial encounter; Z79.01 Long term (current) use of anticoagulants; D50.9 Iron deficiency anemia, unspecified; E11.319 Type 2 diabetes mellitus with unspecified diabetic retinopathy without macular edema; J45.909 Unspecified asthma, uncomplicated; M81.0 Age-related osteoporosis without current pathological fracture; R41.3 Other amnesia; I42.8 Other cardiomyopathies; M16.0 Bilateral primary osteoarthritis of hip; I44.2 Atrioventricular block, complete; I25.10 Atherosclerotic heart disease of native coronary artery without angina pectoris; E78.5 Hyperlipidemia, unspecified; Z96.653 Presence of artificial knee joint, bilateral; B96.20 Unspecified Escherichia coli [E. coli] as the cause of diseases classified elsewhere
CPT/HCPCS: 00123; 36415; 51701; 80048; 80053; 87077; 93005; 94640; 96365; 96366; 96367; 96375; 96376; 99285; 70450; 70486; 71046; 72125; 81003; 81015; 83735; 83880; 84484; 85025; 85610; 87086; 87186; 93010; 93306; 94664; 99223; 99232; 99238; G0378; J0131; J0360; J0696; J1815; J1938

== ENCOUNTER 2024-12-28 18:57 | Outpatient (REF) | payer MEDICARE, SELFPAY ==
[2024-12-28 15:52] LABS: Abs Immature Grans 0.04 10^3/uL (0.0-0.06); HCT 25.5 % (36.0-46.0); HGB 7.7 g/dL (11.2-15.7); Immature Grans % 0.5 %; MCH 27.9 pg (27.0-33.0); MCHC 30.2 % (32.0-36.0); MCV 92 fL (80-95); MPV 12.0 fL (8.0-11.0); Platelet Count 143 10^3/uL (130-400); RBC 2.76 10^6/uL (3.93-5.22); RDW 15.6 % (11.7-14.6); RDW-SD 52.3 fL; WBC 7.84 10^3/uL (4.4-10.8)
[2024-12-28 16:19] LABS: Iron 23 ug/dL (50-170); Total Iron Binding Capacity 209 ug/dL (250-450); Transferrin Sat 11 % (15-50)
[2024-12-28 16:22] LABS: Albumin 2.2 g/dL (3.4-5.0); Anion Gap 11.5 mmol/L (3-11); BUN 40 mg/dL (7-18); CO2 24.5 mmol/L (21.0-32.0); Calcium 8.4 mg/dL (8.5-10.1); Chloride 111 mmol/L (98-107); Estimated GFR 18.16 (mL/min/1.73m2); Glucose 190 mg/dL (74-106); Potassium 4.2 mmol/L (3.5-5.1); Sodium 147 mmol/L (136-145)
[2024-12-28 16:46] LABS: Ferritin 54 ng/mL (8-252)
[2024-12-28 20:47] LABS: Glucose 100 mg/dL (Negative)
[2024-12-28 20:58] LABS: RBC 0-2 HPF (0-2)
[2024-12-28 21:03] LABS: Creatinine,Urine 44.13 mg/dL
== END 2024-12-28 18:58 | disposition home or self-care (01) ==
LOC: LBN 18:57
PROVIDERS: Visit Provider Family Medicine
DX: N18.4 Chronic kidney disease, stage 4 (severe) (principal)
CPT/HCPCS: 80048; 87077; 81003; 81015; 82040; 82565; 82728; 83540; 83550; 83970; 84100; 85025; 87086; 87186